=== PATIENT | male | born 1940 | race Caucasian/White ===

== ENCOUNTER → 2018-10-29 12:14 | Outpatient (CLI) | payer MEDICARE, BC, SELFPAY ==
[2016-05-16 09:02] VITALS: BMI 24.2
--- NOTE | 2018-10-29 08:48 | FLU_PTH ---
PATIENT: LEANNA LAW LOC: [facility] U#:[id number] AGE/SX: 84/M ROOM: RE10/29/[address]: Dr. Simona Ramirez MD : [id number] BED: DIS: SPEC #: [id number] RECD: 10/29/18 11:52 STATUS: ELIZABETH REMilla #: [id number] JOSE: 10/29/18 08:[address]: Simona Ramirez DEPT: CYTOLOGY RECD BY: Cristi Chandra ENTERED: 10/29/18 12:39 SP TYPE: Fluid OTHR DR: Dr. Axel Myrick MD Tissues: Thyroid gland, NOS Procedures: Special Stain Group II Surgery Specimen Level IV Cytospin Fluid HEADER OPERATION: Right thyroid FNA PRE-OP DIAGNOSIS: Multinodular goiter TISSUE SUBMITTED: A - Right thyroid FNA fluid for cytology, B - Right thyroid FNA slides x8 DIAGNOSIS CYTOLOGY A. Right thyroid nodule fluid for cytology, FNA (cytospin and cell block): Negative for malignant cells. See cytology study and comment. B. Right thyroid nodule, FNA (smears): Suggestive of benign follicular nodule. See cytology study and comment. SJ:rg 10/30/18 COMMENT B. The specimen is limited in evaluation due to lack of adequate number of follicular cells. Correlation with clinical, radiologic findings and appropriate follow up are necessary. Repeat FNA is suggested if clinically indicated. CYTOLOGY STUDY Slides are reviewed. A. The specimen is paucicellular and consists of rare macrophages. B. The specimen consists of a few clusters of benign follicular cells. CYTOLOGY GROSS A - Received is 27 ml of cloudy pink fluid labeled with the patient's name and and designated per the requisition as right thyroid. Submitted for cytology preparation including cell block. B - Received are eight smears labeled with the patient's name and designated per the requisition as right thyroid. Submitted for staining. / 10/29/18 TC:5 CPT: 38219, 74493, 90577
== END ==
PROVIDERS: Family Provider Internal Medicine; PCP Internal Medicine; Referring Provider Surgery; Visit Provider Surgery
DX: E04.2 Nontoxic multinodular goiter (principal)
CPT/HCPCS: 88108; 88305; 88313

== ENCOUNTER 2020-01-31 19:05 | Emergency (ER) | payer MEDICARE, BC, SELFPAY ==
[2020-01-31 19:06] VITALS: BP 142/77; PULSE 76; RESP 16; TEMP 37.2; O2SAT 98; BMI 23.6
[2020-01-31 19:29] LABS: Mucous, Urine 0 SEEN /hpf (<or=2+); Squamous Epithelial Cells - UA 0 SEEN /hpf (0-5)
[2020-01-31 19:30] LABS: Color, Urine Amber (Yellow); Glucose, Dipstick Normal (Normal); Ketone-Dipstick 5 mg/dl (Negative); Leukocyte Esterase-Dipstick 500 /ul (Negative); Nitrite-Dipstick Negative (Negative); Occult Blood-Urine 250 /ul (Negative); Protein-Dipstick 100 mg/dl (Negative); Urine Bilirubin Dipstick Negative (Negative); Urine Clarity Turbid (Clear); Urine Urobilinogen Normal (Normal)
[2020-01-31 19:34] LABS: Absolute Lymphocyte Count 1.44 X10^3/uL (0.83-4.51); Absolute Neutrophil Count 11.9 X10^3/uL (2.0-7.7); Basophil# 0.03 X10^3/uL; Basophil% 0.2 % (0-1); Eosinophil# 0.04 X10^3/uL; Eosinophils% 0.3 % (0-5); Hematocrit 41.8 % (40-54); Hemoglobin 14.1 g/dL (13.0-16.5); Lymphocyte # 1.44 X10^3/ul (4.0); Lymphocyte % 9.5 % (19-41); Mean Corp Hgb Conc 33.7 g/dL (32-36); Mean Corpuscular Volume 97.9 fL (80-94); Mean Platelet Vol. 10.5 fl (6.2-12.0); Monocyte# 1.69 X10^3/uL; Monocyte% 11.1 % (0-10); NRBC Flagged by Analyzer 0 % (0-5); Neutrophil # 11.88 X10^3/uL (2.7-7.7); Neutrophil % 78.2 % (47-70); POSITIVE DIFFERENTIAL YES; Platelet Count 175 K/mm3 (150-450); RBC Distribution Width CV 15.6 % (11.6-14.6); RBC Distribution Width SD 55.5 fl (35.1-43.9); Red Blood Count 4.27 M/mm3 (4.6-6.2); White Blood Count 15.2 K/mm3 (4.4-11.0)
[2020-01-31 19:38] LABS: Differential Indicated SCAN CRITERIA MET
[2020-01-31 19:41] VITALS: PULSE 72; RESP 20
[2020-01-31 19:45] LABS: Anion Gap 4 (5-15); BUN 31 mg/dL (7-18); BUN/Creat Ratio 20.3 RATIO (10-20); Calcium,Total 9.1 mg/dL (8.5-10.1); Chloride 110 mmol/L (98-107); Creatinine, Serum 1.53 mg/dL (0.70-1.30); EST Glomerular Filtration Rate 47 mL/min (>60); Est Glom Filt Rate - Afr Amer 56 mL/min (>60); Estimated Creatinine Clearance 41.56 ml/min; Glucose 95 mg/dL (74-106); Potassium 3.6 mmol/L (3.5-5.1); Sodium Level 143 mmol/L (136-145)
[2020-01-31 19:57] LABS: Anisocytosis RARE; Macrocytosis RARE; Platelet Estimate ADEQUATE (ADEQ); Red Cell Morphology N CHROM NORMAL (NORM C&C)
[2020-01-31 19:58] VITALS: BP 144/76; PULSE 77; RESP 17; TEMP 37.1; O2SAT 96
[2020-01-31 20:07] LABS: Bacteria 1+ /hpf (None Seen); Red Blood Cells-Urine 50-100 SEEN /hpf (0-5); White Blood Cells >100 SEEN /hpf (0-5)
[2020-01-31 20:39] VITALS: BP 152/81; PULSE 70; RESP 20; TEMP 37.1; O2SAT 95
--- NOTE | 2020-01-31 20:56 | ED.DCSUM_ITS ---
History of Present Illness Chief Complaint: Complaint Informant: Patient, Insurance Territory Manager Onset: Today Context: Sudden Onset Timing: Intermittent Quality: Urea, hematuria suprapubic discomfort Location: Current Severity: Mild Maximum Severity: Moderate Worsened by: Urination Relieved by: Nothing Associated Symptoms: No nausea or vomiting, no fever recent fall Narrative: Patient is an elderly male on aspirin. He is not on an anticoagulant. He presents because of frequency, dysuria, hematuria that started today. He did have a fall yesterday and seen at outside facility. He had a significant work- up. He does have orthopedic injuries. He denies tenesmus, perineal pain or history of prostatitis. He denies fever or chills. He denies vomiting or diarrhea. He denies any trauma to his genitals. 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 Lives: Alone Smoking Status: Former smoker Alcohol: None Drugs: None - Family History Maternal Family History: Reports: No pertinent history Paternal Family History: Reports: No pertinent history Review of Systems General: Reports: Malaise. Denies: Chills, Fever, Subjective, Sweats Eyes: Denies: Visual changes - bilaterally, Blurred Vision - bilaterally Cardiovascular: Denies: Chest pain, Palpitations Respiratory: Denies: Dyspnea, Cough, Dyspnea on exertion Gastrointestinal: Denies: Abdominal pain, Nausea, Vomiting, Diarrhea Genitourinary: Reports: Dysuria, Hematuria, Frequency Musculoskeletal: Reports: Swelling, Extremity Pain - To fall and injury yesterday, right upper extremity. Denies: Myalgias, Arthralgias, Neck pain, Back pain Skin: Reports: Rash, Abrasions - To trauma from yesterday Neurological: Denies: Headache Endocrine: Denies: Polyuria, Polydipsia Hematologic: Denies: Easy bruising Physical Exam Vital Signs/Narrative: Vital Signs Temp Pulse Resp BP Pulse Ox 01/31/20 20:39 98.7 F 70 20 H 152/81 H 95 01/31/20 19:58 98.7 F 77 17 144/76 H 96 01/31/20 19:41 72 20 H 01/31/20 19:06 98.9 F 76 16 142/77 H 98 Inital Vital Signs reviewed: Yes General: Well nourished, Well developed, No Acute Distress Head: Normocephalic, Trauma, Tenderness - Trauma from yesterday. Sutures noted. Multiple contusions and abrasions. No clinical findings of basilar skull fracture. Eyes: Perrl, EOMI, - - Subconjunctival hemorrhage.. Negative for: Pale conjunctiva, Scleral icterus ENT: Moist mucous membranes, No rhinorrhea Neck: Supple, Nontender. Negative for: No lymphadenopathy, No JVD Cardiovascular: Regular rate, Regular rhythm, No murmurs Respiratory: No distress, CTA bilaterally Abdomen: Soft, Nondistended, Normal bowel sounds, Tender - Pubic discomfort.. Negative for: Nontender Rectal: Deferred : - - Patient is incontinent. Back: Nontender, Normal Inspection. Negative for: CVA tenderness Extremities: Nontender, No edema Skin: Normal color, Trauma Neurological: Alert, Oriented x3, Cranial nerves II-XII grossly intact, Normal Strength, Normal Sensation Diagnostic/Tx/Re-eval Laboratory Results 01/31/20 01/31/20 01/31/20 19:25 19:25 19:25 WBC 15.2 H RBC 4.27 L Hgb 14.1 Hct 41.8 MCV 97.9 H MCH 33.0 H MCHC 33.7 RDW Std Deviation 55.5 H RDW Coeff of Louann 15.6 H Plt Count 175 MPV 10.5 Immature Gran % (Auto) 0.700 Neut % (Auto) 78.2 H Lymph % (Auto) 9.5 L Edmunds % (Auto) 11.1 H Eos % (Auto) 0.3 Baso % (Auto) 0.2 Absolute Neuts (auto) 11.9 H Absolute Lymphs (auto) 1.44 Nucleated RBC % 0 Differential Comment SEE COMMENT Diff Path Review May foll Platelet Estimate ADEQUATE RBC Morphology N CHROM Anisocytosis RARE Macrocytosis RARE Sodium 143 Potassium 3.6 Chloride 110 H Carbon Dioxide 29.0 Anion Gap 4 L BUN 31 H Creatinine 1.53 H Estim Creat Clear Calc 41.56 Est GFR (MDRD) Af Amer 56 L Est GFR (MDRD) Non-Af 47 L BUN/Creatinine Ratio 20.3 H Glucose 95 Lactic Acid Calcium 9.1 Urine Color Kasie Urine Clarity Turbid Urine pH 8.0 Ur Specific Norton 1.010 Urine Protein 100 H Urine Glucose (UA) Normal Urine Ketones 5 H Urine Occult Blood 250 H Urine Nitrite Negative Urine Bilirubin Negative Urine Urobilinogen Normal Ur Leukocyte Esterase 500 H Urine RBC 50-100 SEEN Urine WBC >100 SEEN Ur Squamous Epith Cells 0 SEEN Urine Bacteria 1+ Urine Mucus 0 SEEN 01/31/20 20:15 WBC RBC Hgb Hct MCV MCH MCHC RDW Std Deviation RDW Coeff of Louann Plt Count MPV Immature Gran % (Auto) Neut % (Auto) Lymph % (Auto) Edmunds % (Auto) Eos % (Auto) Baso % (Auto) Absolute Neuts (auto) Absolute Lymphs (auto) Nucleated RBC % Differential Comment Diff Path Review Platelet Estimate RBC Morphology Anisocytosis Macrocytosis Sodium Potassium Chloride Carbon Dioxide Anion Gap BUN Creatinine Estim Creat Clear Calc Est GFR (MDRD) Af Amer Est GFR (MDRD) Non-Af BUN/Creatinine Ratio Glucose Lactic Acid 1.4 Calcium Urine Color Urine Clarity Urine pH Ur Specific Norton Urine Protein Urine Glucose (UA) Urine Ketones Urine Occult Blood Urine Nitrite Urine Bilirubin Urine Urobilinogen Ur Leukocyte Esterase Urine RBC Urine WBC Ur Squamous Epith Cells Urine Bacteria Urine Mucus Count is elevated. This may be due to the trauma from yesterday. Lactate is normal. He has only 1 sirs criteria. Since he is hemodynamically stable he was discharged home with prescription for Bactrim. Culture was sent. - Medical Decision Making UA was obtained to assess for traumatic hematuria versus infectious. Urine is consistent with infection. White count is elevated. Patient only has 1 sirs criteria. Patient was treated with 2 g of Rocephin. Urine culture was sent. ED Disposition - Plan for ED Patient: Disposition: Home or Assisted Living Diagnosis: Cystitis with hematuria Instructions: ED CYSTITIS Male Adult Prescriptions: Cephalexin [Keflex] 500 mg PO Q6 #28 cap Transmission Status: Pending to [id number] Referrals: Axel Myrick MD [Primary Care Provider] - 3-5 Days if not improving
[2020-01-31 20:57] LABS: Lactic Acid 1.4 mmol/L (0.4-1.9)
[2020-01-31 21:16] VITALS: BP 158/75; PULSE 75; RESP 16; TEMP 37.1; O2SAT 95
[2020-01-31 23:07] VITALS: BP 158/79; PULSE 78; RESP 20; O2SAT 95
[2020-02-03 13:10] LABS: Pathologist Review Reviewed
== END 2020-01-31 23:08 | disposition home or self-care (01) ==
PROVIDERS: Emergency Provider Emergency Medicine; PCP Internal Medicine
DX: N30.91 Cystitis, unspecified with hematuria (principal); I71.2 Thoracic aortic aneurysm, without rupture; I10 Essential (primary) hypertension; N40.1 Benign prostatic hyperplasia with lower urinary tract symptoms; R35.0 Frequency of micturition; E78.5 Hyperlipidemia, unspecified; K21.9 Gastro-esophageal reflux disease without esophagitis; G62.9 Polyneuropathy, unspecified; Z87.891 Personal history of nicotine dependence; Z86.73 Personal history of transient ischemic attack (TIA), and cerebral infarction without residual deficits
CPT/HCPCS: 80048; 81001; 83605; 85025; 87077; 87086; 87088; 87186; 96365; 99285; J7050; A4216; J0696

== ENCOUNTER 2021-09-02 21:57 | Inpatient (IN) | payer MEDICARE, BC, SELFPAY ==
[2021-09-02] VITALS (8 sets, daily range): BP systolic 128–166; BP diastolic 66–85; PULSE 62–69; RESP 16–26; TEMP 36.5; O2SAT 93–97; BMI 26.2
--- NOTE | 2021-09-02 22:15 | EKG12_ITS ---
Test Reason : STROKE Blood Pressure : / mmHG Vent. Rate : 063 BPM Atrial Rate : 063 BPM P-R Int : 352 ms QRS Dur : 148 ms QT Int : 482 ms P-R-T Axes : 064 -63 052 degrees QTc Int : 493 ms Sinus rhythm with 1st degree A-V block Left axis deviation Left ventricular hypertrophy with QRS widening and repolarization abnormality Abnormal ECG Confirmed by MAYKEL OLMSTEAD, ERICA ([id number]), communications editor FLY HADLEY ([id number]) on 09/06/2021 11:17:19 AM Referred By: TANNA Confirmed By:ERICA BRAR MD
--- NOTE | 2021-09-02 22:15 | CT_ITS ---
We are attempting to reach an attending provider to discuss findings. An addendum with communication details will be sent when the communication is complete. EXAMINATION : Head CT w/out contrast HISTORY : Neuro deficit, acute, stroke suspected COMPARISON : 05/12/2016. TECHNIQUE : Multiple contiguous axial images were obtained from the skull base to the vertex without intravenous contrast. A radiation dose optimization technique was used for this scan. FINDINGS : There is no evidence for acute intracranial hemorrhage, mass effect, or midline shift. There is no extra-axial fluid collection. There are periventricular white matter changes consistent with chronic microvascular ischemic disease. There is sulcal widening and ventricular enlargement consistent with cerebral atrophy. There is normal segura-white differentiation, without CT evidence of acute ischemia or infarct. Encephalomalacia of the left cerebellum and bilateral frontal lobes. The skull base and calvarium are unremarkable. The orbits are unremarkable. The paranasal sinuses are clear. The mastoid air cells are well-aerated. The soft tissues are unremarkable. CT/STROKE Brain/Head without Cont IMPRESSION: No acute intracranial abnormality. 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 Chronic involutional and ischemic changes of the brain. Electronically Signed: Eugene Flynn MD at 22:42 EST ,
--- NOTE | 2021-09-02 22:20 | ED.VIS.STROK ---
HPI History of Present Illness Chief Complaint: Alt LOC Informant: patient and family Narrative Narrative: Brought in by EMS from home son is present to give additional history. Patient lives with son. Reports ambulates with a walker at baseline. Last normal 6 PM 4 hours upon arrival. Reported the left to get supper patient was going to the restroom take his pills upon return at 7 PM, patient was on his knees slumped over on his walker leading against the walker. They were able to get him on the couch, he reported speech seemed to be slurred. Blood glucose 109 per EMS. Patient does not recall the event. Per son patient has been feeling weaker over the last 2 weeks. Told he had neuropathy lower legs by a neurologist. Patient also found to be hypoxic 87% on room air no home oxygen he is placed on oxygen brought here. Per son, noting recent cough. No fevers. No home oxygen. Covid vaccinated. Patient takes aspirin however no other anticoagulants. Patient had a history leukemia unclear what type however this was remote over 10 years ago. Reports history of CVA with no residual deficits he was told it was mini strokes. From records 2016 had an admission with quick evaluation. However reports currently he still has mild changes in speech from baseline. Son also states patient's memory has been off due to less activities with dates and times. No diagnosed dementia history. Prior similar symptoms: No PFSH PFSH Medical History (Updated 09/03/21 @ 02:[address] Stan Reid DO) BPH (benign prostatic hypertrophy) CVA (cerebral vascular accident) Enlarged thyroid GERD (gastroesophageal reflux disease) History of gastrointestinal hemorrhage History of leukemia HLD (hyperlipidemia) Hypertension Parkinson's disease Peripheral neuropathy Thoracic aortic aneurysm Home Medications doxazosin 8 mg PO DAILY 07/15/14 [History Last Taken 05/12/16] lisinopril 20 mg PO DAILY 07/15/14 [History Last Taken 05/12/16] acetaminophen [Tylenol] 650 mg PO Q6H PRN PRN #0 tablet 05/16/16 [Rx Last Taken Unknown] aspirin 81 mg PO DAILY@0800 #30 tab.chew 05/16/16 [Rx Last Taken Unknown] finasteride 5 mg PO DAILY #30 tablet 05/16/16 [Rx Last Taken Unknown] Amlodipine 10 mg PO DAILY 01/31/20 [History Last Taken Unknown] cephalexin 500 mg PO Q6 #28 cap 01/31/20 [Rx Last Taken Unknown] cranberry conc-ascorbic acid 1 tab PO DAILY 01/31/20 [History Last Taken Unknown] polyethylene glycol 3350 17 gm PO PRN PRN 01/31/20 [History Last Taken Unknown] carbidopa-levodopa 1 tab PO TID 09/02/21 [History Last Taken Unknown] furosemide 20 mg PO DAILY 09/02/21 [History Last Taken Unknown] losartan 50 mg PO DAILY 09/02/21 [History Last Taken Unknown] lysine 1,000 mg DAILY 09/02/21 [History Last Taken Unknown] omeprazole 20 mg PO DAILY 09/02/21 [History Last Taken Unknown] spironolactone 25 mg PO DAILY 09/02/21 [History Last Taken Unknown] Allergy/AdvReac Type Severity Reaction Status Date / Time Iodine and Iodide Containing Allergy Severe Anaphylaxis Verified 09/02/21 22:11 Produc Family History (Updated 09/03/21 @ 01:[address] Valerie Ramirez MD) Mother Heart disease Father Heart disease Myocardial infarction Surgical History H/O foot surgery S/P herniorrhaphy S/P TURP Social History (Updated 09/03/21 @ 01:[address] Valerie Ramirez MD) household members: family Smoking Status: Former smoker how long ago did patient quit smoking: Quit 1973. alcohol intake: former details: Former heavy beer intake. substance use type: does not use ROS ROS ED Constitutional Constitutional ED: Denies chills, fever(s) or sweats Eyes Eyes: Denies change in vision ENT ENT ED: Denies dysphagia or sore throat Cardiovascular Cardiovascular: Denies chest pain, leg edema, palpitations or racing heartbeat Respiratory/Chest Respiratory/Chest: Reports cough; Denies dyspnea or dyspnea on exertion Gastrointestinal Gastrointestinal: Denies abdominal pain, diarrhea, nausea or vomiting Genitourinary Genitourinary ED: Denies dysuria, hematuria or urinary frequency Musculoskeletal Musculoskeletal: Denies back pain, extremity pain or neck pain Integumentary Denies rash or wounds Neurologic Neurologic: Reports other Details: Slurring of speech ; Denies headache(s), paresthesias or weakness EXAM Physical Exam Const Vital Signs: 09/02/21 21:58 09/02/21 22:14 09/02/21 22:22 Temperature 97.7 F L Temperature Source Temporal Pulse Rate 69 66 Respiratory Rate 18 16 Blood Pressure 128/71 H 142/79 H Blood Pressure Mean 90 100 Pulse Ox 96 96 96 Oxygen Delivery Method Nasal Cannula Nasal Cannula Nasal Cannula Oxygen Flow Rate (L/min) 3 3 3 09/02/21 22:29 09/02/21 22:40 09/02/21 22:45 Temperature Temperature Source Pulse Rate 66 66 62 Respiratory Rate 18 20 H 23 H Blood Pressure 139/66 H 136/68 H 141/85 H Blood Pressure Mean 90 90 103 Pulse Ox 96 93 93 Oxygen Delivery Method Nasal Cannula Nasal Cannula Nasal Cannula Oxygen Flow Rate (L/min) 3 2 2 09/02/21 23:17 09/02/21 23:47 09/03/21 00:24 Temperature Temperature Source Pulse Rate 64 68 72 Respiratory Rate 26 H 24 H Blood Pressure 166/70 H 157/72 H 166/74 H Blood Pressure Mean 102 100 104 Pulse Ox 97 97 93 Oxygen Delivery Method Nasal Cannula Nasal Cannula Nasal Cannula Oxygen Flow Rate (L/min) 2 3 3 09/03/21 00:35 09/03/21 00:50 09/03/21 01:19 Temperature Temperature Source Pulse Rate 80 79 74 Respiratory Rate 26 H Blood Pressure 164/73 H 161/71 H 169/84 H Blood Pressure Mean 103 101 112 Pulse Ox 93 94 96 Oxygen Delivery Method Nasal Cannula Nasal Cannula Nasal Cannula Oxygen Flow Rate (L/min) 3 3 3 Positive well nourished and well developed Constitutional Narrative: On nasal cannula, no respiratory distress. General Appearance ED: well developed and NAD HEENT Reports moist mucous membranes normocephalic and atraumatic Eyes PERRL, EOMs intact bilaterally and conjunctivae normal General Eye ED: Yes normal appearance of both eyes Neck no lymphadenopathy and supple General: Negative for tenderness Chest Wall Chest: Negative for tenderness Resp normal respiratory effort and normal air movement Effort and Inspection: symmetric chest movement; Negative for respiratory distress Cardio regular rate, regular rhythm and no murmurs Peripheral Pulses: pulses 2+ throughout GI normal to inspection, nondistended, normoactive bowel sounds and non-tender GI Narrative: Reproducible ventral hernia left lower quadrant. Palpation: Negative for guarding or rebound tenderness present Back/Spine no CVA tenderness and no thoracic nor lumbar tenderness Extremity normal to inspection General Extremety ED: Negative for edema or tenderness General Extremity: Negative for edema Neuro CN's II-XII intact bilaterally and no sensory deficits noted Neuro Narrative: Is alert and oriented to person and place could not tell me the month,year or date. Patient given NIH of 3 for not knowing the month, slight drift of left leg, slight dysarthria. Normal cerebellar upper and lower extremity. Sensorium / Orientation: awake and alert Skin no rashes or lesions noted Skin Narrative: Abrasion pressure wound on the distal left forearm ulnar aspect, no erythema or drainage. Left groin: Irritations erythema in the crease, no ulcerations, no indurations. No drainage. STROKE Vital Signs/Narrative: Vital Signs Pulse Resp BP Pulse Ox 09/03/21 01:19 74 26 H 169/84 H 96 09/03/21 00:50 79 161/71 H 94 09/03/21 00:35 80 164/73 H 93 09/03/21 00:24 72 166/74 H 93 09/02/21 23:47 68 24 H 157/72 H 97 09/02/21 23:17 64 26 H 166/70 H 97 Inital Vital Signs reviewed: Yes NIHSS Initial: 1a Level of Consciousness: 0 1b LOC Questions (Score 2 if aphasic/stupor): 1 1c LOC Commands (Only score 1st attempt): 0 2 Best Gaze (If aphasic, use reflexive mvmts.): 0 3 Visual: 0 4 Facial Palsy: 0 5 Motor Arm Left: 0 6 Motor Leg Right: 0 6 Motor Leg Left: 1 7 Limb ataxia (Only + if out of proportion): 0 8 Sensory (Aphasia/stupor=0 or 1, coma=2): 0 9 Best Language: 0 10 Dysarthria (mute, coma=2, intubated=UN): 1 11 Extinction and Inattention (only scored if +): 0 Total Score: 3 MDM MDM MDM Narrative Medical decision making narrative: Patient given initial NIH of 3 however after discussion with son only new symptom is the dysarthria. Reports he does not do activities therefore he does not have memory of timeframe. States he has been weaker in the lower extremities. With time frame of event and witnessed by son I did activate the stroke team. He has severe iodine allergy causing anaphylaxis therefore angiogram was not ordered. Noted to be sinus rhythm on the monitor. Glucose was 109 per EMS recheck was 113 in the ED. In the interim, I did evaluate records he did have a confirmed stroke in 2016 noting a right centrum semiovale involvement on MRI. MRA noted high-grade stenosis versus occlusion left proximal segment of the left P2 segment, there is no interventions at that time from the ED or in the hospital from the discharge summary. Callback from stroke neurologist, Dr Vail, after 1030 more than 4-1/2 hours from symptoms therefore he is outside the window. He evaluated states he is noting deficits of 1-2 with this NIH. I discussed my findings with NIH of 3 with deficits. I did discuss the findings of the patient his severe iodine allergy along with his MRI studies from 2016. He agrees no peripheral TPA, however he is requesting a stat MRI, MRA of the head and neck to rule out LVO as he is within 24 hours of symptoms. This is ordered for further evaluation. Patient family updated on plan of care. CT reads discussion with radiology old infarcts bilateral frontal lobes and left cerebellum. 2250: Noted patient's white blood cell count returned at 17. His respiratory rate was 23. Meeting SIRS criteria with his hypoxia. I reviewed chest x-ray myself questionable left lower lobe effusion atelectasis versus infiltrate. Son has reported had a cough and occasional sputum over the past 3 weeks. He had initial work-up 3 weeks ago at [facility] reporting Covid testing and work-up negative at that time. Denies any fevers. 2340: Chest x-ray read negative. Nurse reported redness on the skin in the abdominal region, however this is more located in the left groin consistent with tinea. There is no other rashes noted. In the interim, I did have to speak with community development technician who was concerned that she is getting called in for MRI studies for stroke. I did explain to her the significance of timing due to patient being in the window for possible mechanical intervention if an LVO is found. Discussed with concerns for time of getting imaging performed, importance would be the MRA studies and MRI study can wait. She is coming in to perform image studies. EKG sinus first-degree AV block rate of 63, no ST changes isolated T wave inversion in aVL nonspecific. Similar findings from 2016. His troponin was 83 coming back, creatinine at 1.59. He has no chest pains. 0035: Patient in MRI. Lactic acid returned at 1.8. Leukocytosis with coughing symptoms. No other reasons for infection. He is hypoxic stable on oxygen. We will start Rocephin and Zithromax for coverage for clinical pneumonia. 0209: Discussion with radiologist MRI studies new right cerebellar stroke there is no hemorrhage. MRA study results noted no LVO. Reported and no critical stenosis of head or neck. No patient's troponin level 2-hour trended go up to 124. He had no chest pains. Patient passed bedside swallow potassium was replaced. He was given 324 of aspirin. Discussed with hospitalist Dr. Ramirez she will do heparin drip on the floor. Patient will be admitted for further management to PCU. Lab Data Attestation: I reviewed the patient's lab results. Labs: Laboratory Results - last 24 hr 09/02/21 09/02/21 09/02/21 22:26 22:26 22:26 WBC 17.6 H RBC 4.18 L Hgb 13.7 Hct 40.7 MCV 97.4 H MCH 32.8 H MCHC 33.7 RDW Std Deviation 59.2 H RDW Coeff of Louann 16.4 H Plt Count 212 MPV 10.4 Immature Gran % (Auto) 2.200 H Neut % (Auto) 85.3 H Lymph % (Auto) 4.9 L Osborne % (Auto) 7.0 Eos % (Auto) 0.1 Baso % (Auto) 0.5 Absolute Neuts (auto) 15.0 H Absolute Lymphs (auto) 0.86 Nucleated RBC % 0 PT 14.3 INR 1.2 APTT 27.8 Sodium 143 Potassium 3.2 L Chloride 110 H Carbon Dioxide 26.0 Anion Gap 7 BUN 24 H Creatinine 1.59 H Estim Creat Clear Calc 36.35 Est GFR (MDRD) Af Amer 54 L Est GFR (MDRD) Non-Af 44 L BUN/Creatinine Ratio 15.1 Glucose 113 H Lactic Acid Calcium 9.1 Magnesium Troponin I High Sens 83 H Urine Color Urine Clarity Urine pH Ur Specific Helix Urine Protein Urine Glucose (UA) Urine Ketones Urine Occult Blood Urine Nitrite Urine Bilirubin Urine Urobilinogen Ur Leukocyte Esterase Urine RBC Urine WBC Ur Squamous Epith Cells Urine Bacteria Hyaline Casts Urine Mucus 09/02/21 09/02/21 09/03/21 23:00 23:12 01:19 WBC RBC Hgb Hct MCV MCH MCHC RDW Std Deviation RDW Coeff of Louann Plt Count MPV Immature Gran % (Auto) Neut % (Auto) Lymph % (Auto) Osborne % (Auto) Eos % (Auto) Baso % (Auto) Absolute Neuts (auto) Absolute Lymphs (auto) Nucleated RBC % PT INR APTT Sodium Potassium Chloride Carbon Dioxide Anion Gap BUN Creatinine Estim Creat Clear Calc Est GFR (MDRD) Af Amer Est GFR (MDRD) Non-Af BUN/Creatinine Ratio Glucose Lactic Acid 1.8 Calcium Magnesium Troponin I High Sens 147 H* Urine Color Yellow Urine Clarity Clear Urine pH 6.0 Ur Specific Helix 1.020 Urine Protein 100 H Urine Glucose (UA) Normal Urine Ketones 5 H Urine Occult Blood 250 H Urine Nitrite Negative Urine Bilirubin Negative Urine Urobilinogen 1 H Ur Leukocyte Esterase Negative Urine RBC 0 SEEN Urine WBC 0-5 SEEN Ur Squamous Epith Cells 0 SEEN Urine Bacteria RARE Hyaline Casts 0-5 SEEN Urine Mucus RARE 09/03/21 01:19 WBC RBC Hgb Hct MCV MCH MCHC RDW Std Deviation RDW Coeff of Louann Plt Count MPV Immature Gran % (Auto) Neut % (Auto) Lymph % (Auto) Osborne % (Auto) Eos % (Auto) Baso % (Auto) Absolute Neuts (auto) Absolute Lymphs (auto) Nucleated RBC % PT INR APTT Sodium Potassium Chloride Carbon Dioxide Anion Gap BUN Creatinine Estim Creat Clear Calc Est GFR (MDRD) Af Amer Est GFR (MDRD) Non-Af BUN/Creatinine Ratio Glucose Lactic Acid Calcium Magnesium 2.8 H Troponin I High Sens Urine Color Urine Clarity Urine pH Ur Specific Helix Urine Protein Urine Glucose (UA) Urine Ketones Urine Occult Blood Urine Nitrite Urine Bilirubin Urine Urobilinogen Ur Leukocyte Esterase Urine RBC Urine WBC Ur Squamous Epith Cells Urine Bacteria Hyaline Casts Urine Mucus Radiography Diagnostic Testing: Clinical Impression(s) from Imaging Studies Brain CT 09/02/21 22:15 IMPRESSION: No acute intracranial abnormality. 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 Chronic involutional and ischemic changes of the brain. Electronically Signed: Eugene Flynn MD at 22:42 EST , ADDENDUM: 09/02/21 2251 IMPRESSION: No acute intracranial abnormality. 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 Chronic involutional and ischemic changes of the brain. N.B. : The above Results were Read Back by Eugene Flynn MD to Stan Reid MD, and understanding confirmed on 09/02/2021 22:44:09 (ET). Electronically Signed: Eugene Flynn MD at 22:42 EST , Chest X-Ray 09/02/21 22:48 IMPRESSION: No acute radiographic abnormalities. Large hiatal hernia. Electronically Signed: Eugene Flynn MD at 23:20 EST , Brain MRI 09/03/21 00:00 IMPRESSION: 1. Findings consistent with tiny ischemic stroke within the right cerebellum. 2. Sequela of old infarcts and severe senescent change as above. 3. Mild sinus disease. at 0206 Reported and signed by: Himanshu Neely MD Electronically Signed: Himanshu Neely MD at 2:02 EST , ADDENDUM: 09/03/21 0216 IMPRESSION: 1. Findings consistent with tiny ischemic stroke within the right cerebellum. 2. Sequela of old infarcts and severe senescent change as above. 3. Mild sinus disease. at 0206 Reported and signed by: Himanshu Neely MD N.B. : The above Results were Read Back by Himanshu Neely MD to Stan Reid MD, and understanding confirmed on 09/03/2021 02:10:00 (ET). Electronically Signed: Himanshu Neely MD at 2:02 EST Reading Location ID and State: [facility] / [place] Tel , Service support , Head MRA 09/03/21 00:00 IMPRESSION: Variant anatomy as above with persistent origin of diminutive posterior cerebral arteries, similar to May 13, 2016 without evidence of current focal stenosis.. at 0151 Reported and signed by: Himanshu Neely MD Electronically Signed: Himanshu Neely MD at 1:50 EST Reading Location ID and State: [facility] / [place] Tel , Service support , Neck MRA 09/03/21 00:00 IMPRESSION: No evidence of cervical vertebral or carotid occlusion or focal flow limiting stenosis. at 0156 Reported and signed by: Himanshu Neely MD Electronically Signed: Himanshu Neely MD at 1:55 EST Reading Location ID and State: [facility] / [place] Tel , Service support , EKG Initial EKG: Attestation: I personally reviewed and interpreted this EKG as follows: Comments: Sinus rate of 63, no ST changes. Isolated T wave inversion in leads III overall nonspecific. First-degree AV block. Similar findings from nausea 2016. Prior EKG tracings: available for review Stroke Documentation Questions Stroke Team Activated: Yes Reviewed Inclusion/Exclusion criteria: Yes Was Patient considered for Endovascular Intervention?: No-CTA negative, determined not to be an endovascular candidate (severe allergy to iodine near cardiac arrest per son) IV Alteplase (t-PA) Administered: No (outside window) Critical Care Time Critical Care Time: Yes Critical care time (excluding procedures): 30-74 minutes, Discussing w/Patient &/or Family/Ship Surveyor, Discussing w/Consultants, Arranging Admission or Transfer, Performing Direct Patient Care at Bedside and - (45 minutes) Discharge Plan Dx/Rx/DC Orders Clinical Impression: Cerebellar stroke, acute, Pneumonia, Elevated troponin, Leukocytosis, CKD (chronic kidney disease), Acute hypokalemia, Abrasion of forearm, left, Tinea inguinalis Disposition Disposition: Acute Care [facility]
--- NOTE | 2021-09-02 22:22 | CM.ED ---
SW Note Referral Source: Stroke Alert Referral Reason: Stroke Alert SW met with patient's son, who was in the room. Patient was in imaging. SW provided emotional support to patient's son, Neil. Patient is linked with neurology from [facility] and the neurologist felt patient had the beginning of Parkinson's. Patient's RN Mattie updated. SW remains available for patient's family if needs arise. Plan: Emotional support provided Chanell MCNEILL
[2021-09-02 22:34] LABS: Absolute Lymphocyte Count 0.86 X10^3/uL (0.83-4.51); Basophil# 0.08 X10^3/uL; Basophil% 0.5 % (0-1); Eosinophil# 0.02 X10^3/uL; Eosinophils% 0.1 % (0-5); Hematocrit 40.7 % (40-54); Hemoglobin 13.7 g/dL (13.0-16.5); Lymphocyte # 0.86 X10^3/ul (0.83-4.51); Lymphocyte % 4.9 % (19-41); Mean Corp Hgb Conc 33.7 g/dL (32-36); Mean Corpuscular Hgb 32.8 pg (27.0-32.0); Mean Corpuscular Volume 97.4 fL (80-94); Mean Platelet Vol. 10.4 fl (6.2-12.0); Monocyte# 1.24 X10^3/uL; NRBC Flagged by Analyzer 0 % (0-5); Neutrophil # 15.02 X10^3/uL (2.7-7.7); Neutrophil % 85.3 % (47-70); Platelet Count 212 K/mm3 (150-450); RBC Distribution Width CV 16.4 % (11.6-14.6); RBC Distribution Width SD 59.2 fl (35.1-43.9); Red Blood Count 4.18 M/mm3 (4.6-6.2); White Blood Count 17.6 K/mm3 (4.4-11.0)
[2021-09-02 22:43] LABS: International Normalized Ratio 1.2; Prothrombin Time (Protime)PT. 14.3 SECONDS (11.7-14.9)
[2021-09-02 22:44] LABS: Partial Thromboplast Time 27.8 Seconds (24.1-36.2)
--- NOTE | 2021-09-02 22:48 | RAD_ITS ---
INDICATION: Neuro deficit, acute, stroke suspected EXAMINATION/TECHNIQUE: X-RAY - XR Chest 1 View COMPARISON: 07/12/2015. FINDINGS: Bibasilar atelectasis. Tortuous and calcified thoracic aorta. The heart is not enlarged. No pleural effusion or pneumothorax. Degenerative changes of the thoracic spine and shoulders. Large hiatal hernia. RAD/Chest 1 View IMPRESSION: No acute radiographic abnormalities. Large hiatal hernia. Electronically Signed: Eugene Flynn MD at 23:20 EST ,
[2021-09-02 22:51] LABS: Anion Gap 7 (5-15); BUN 24 mg/dL (7-18); BUN/Creat Ratio 15.1 RATIO (10-20); Calcium,Total 9.1 mg/dL (8.5-10.1); Chloride 110 mmol/L (98-107); Creatinine, Serum 1.59 mg/dL (0.70-1.30); EST Glomerular Filtration Rate 44 mL/min (>60); Est Glom Filt Rate - Afr Amer 54 mL/min (>60); Estimated Creatinine Clearance 36.35 ml/min; Glucose 113 mg/dL (74-106); Potassium 3.2 mmol/L (3.5-5.1); Sodium Level 143 mmol/L (136-145); Troponin-I HS 83 pg/mL (3.0-78.0)
[2021-09-02 23:22] LABS: Red Blood Cells-Urine 0 SEEN /hpf (0-5); Squamous Epithelial Cells - UA 0 SEEN /hpf (0-5)
[2021-09-02 23:41] LABS: Color, Urine Yellow (Yellow); Glucose, Dipstick Normal (Normal); Ketone-Dipstick 5 mg/dl (Negative); Leukocyte Esterase-Dipstick Negative /ul (Negative); Nitrite-Dipstick Negative (Negative); Occult Blood-Urine 250 /ul (Negative); Protein-Dipstick 100 mg/dl (Negative); Urine Bilirubin Dipstick Negative (Negative); Urine Clarity Clear (Clear); Urine Urobilinogen 1 mg/dl (Normal)
[2021-09-02 23:46] LABS: Lactic Acid 1.8 mmol/L (0.4-1.9)
[2021-09-02 23:55] LABS: White Blood Cells 0-5 SEEN /hpf (0-5)
[2021-09-02 23:56] LABS: Bacteria RARE /hpf (None Seen); Hyaline Cast 0-5 SEEN /lpf (0-5); Mucous, Urine RARE /hpf (<or=2+)
[2021-09-03] VITALS (21 sets, daily range): BP systolic 108–169; BP diastolic 57–84; PULSE 39–85; RESP 12–26; TEMP 36.7–37.2; O2SAT 88–98; BMI 25.5
--- NOTE | 2021-09-03 | MRI_ITS ---
We are attempting to reach an attending provider to discuss findings. An addendum with communication details will be sent when the communication is complete. HISTORY: slurred speech EXAMINATION: MR Brain W/O Contrast TECHNIQUE: Multiplanar and multisequence MR images of the brain were obtained without gadolinium. IV Contrast dosage and agent: None COMPARISON: MRA head and neck on same day. MRI brain May 13, 2016 FINDINGS: BRAIN PARENCHYMA: Normal midline development of anatomy. No Chiari malformation. Unremarkable sella. Cerebellar pontine angles are clear. Chronic encephalomalacia within the bilateral inferior frontal lobes with suggestion of subarachnoid cyst. 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 Severe diffuse T2 hyperintense chronic small vessel white matter ischemic change is chronic. Scattered encephalomalacia within the bilateral cerebellum is unchanged. New focus of restricted diffusion within the right cerebellar hemisphere spanning 0.7 x 0.2 cm. No evidence of tintracranial space occupying mass or mass-effect.. CSF SPACES: Moderate global cerebral volume loss. No hydrocephalus. Basal cisterns are patent. VASCULAR SYSTEM: Normal flow voids in the major intracranial circulation. CALVARIUM, SKULL BASE, PARANASAL SINUSES AND MASTOID AIR CELLS: Partial opacification of the right maxillary sinus and bilateral ethmoid air cells. Mastoid air cells are clear. ORBITS: Both globes, extraocular muscles, optic nerves and retrobulbar fat appear unremarkable. MRI/Brain without Contrast IMPRESSION: 1. Findings consistent with tiny ischemic stroke within the right cerebellum. 2. Sequela of old infarcts and severe senescent change as above. 3. Mild sinus disease. at 0206 Reported and signed by: Himanshu Neely MD Electronically Signed: Himanshu Neely MD at 2:02 EST ,
--- NOTE | 2021-09-03 | MRI_ITS ---
HISTORY: slurred speech EXAMINATION: MRA Head W/O Contrast TECHNIQUE: Routine [place]/brain 3D time of flight MR angiogram protocol was performed without gadolinium. 3D reconstructions were reviewed. IV Contrast dosage and agent: COMPARISON: May 13, 2016 FINDINGS: --Anterior circulation: ICAs: No significant stenosis at the intracranial/visualized segments. ACAs: No significant stenosis at the visualized segments. ACOM: Present. MCAs: No significant stenosis at the visualized segments. --Posterior circulation: PCOMs: Intact bilaterally with persistent origin of the posterior cerebral arteries. logging tractor operator [place]: Symmetrically diminutive in size and difficult to appreciate distally with persistent origin as above. BASILAR ARTERY: No significant stenosis. VERTEBRAL ARTERIES: No significant stenosis at the intradural/visualized segments. No evidence of intracranial aneurysm or vascular malformation. MRI/MRA Head ONLY without Contrast IMPRESSION: Variant anatomy as above with persistent origin of diminutive posterior cerebral arteries, similar to May 13, 2016 without evidence of current focal stenosis.. at 0151 Reported and signed by: Himanshu Neely MD Electronically Signed: Himanshu Neely MD at 1:50 EST ,
--- NOTE | 2021-09-03 | MRI_ITS ---
HISTORY: slurred speech EXAMINATION: MRA Neck W/O Contrast TECHNIQUE: Routine non-contrast [id number] Carotid MR angiogram protocol was performed without gadolinium. 3D reconstructions were reviewed. Nascet criteria using the distal ICAs for comparison were used for evaluation of stenoses. IV Contrast dosage and agent: None COMPARISON: MRA head on same day FINDINGS: AORTIC ARCH AND BRANCHES: No significant stenosis at the visualized portions. RIGHT CCA: No occlusion or significant stenosis. RIGHT ICA: No occlusion or significant stenosis. LEFT CCA: No occlusion or significant stenosis. LEFT ICA: No occlusion or significant stenosis. RIGHT VERTEBRAL ARTERY: No occlusion or significant stenosis. LEFT VERTEBRAL ARTERY: No occlusion or significant stenosis. No evidence of acute injury of the major arterial system of the neck. MRI/MRA Neck without Contrast IMPRESSION: No evidence of cervical vertebral or carotid occlusion or focal flow limiting stenosis. at 0156 Reported and signed by: Himanshu Neely MD Electronically Signed: Himanshu Neely MD at 1:55 EST ,
--- NOTE | 2021-09-03 00:20 | ED.RN ---
2350 pt went via cart to mri with assist of two rn's. with assist of three brought over to the cart. 0010 [id number] on 2lnc.pt in the mri
--- NOTE | 2021-09-03 01:20 | ED.RN ---
PT BACK FORM MRI.
--- NOTE | 2021-09-03 01:22 | HP.PCM.HOS_ITS ---
HPI - General General Date of Admission: 09/03/21 Date of Service: 09/03/21 Chief Complaint: Dysarthria, confusion. HPI Narrative The patient is an 81 y/o M w/ PMHx: Parkinson's disease, CKD stage III unclear subtype, Hx Thoracic AA, Hx CVA, GERD, Hx Leukemia, Hx prior GI bleed w/ PUD, HTN, HLD, BPH, Former tobacco use who presents to the [facility] ED on 09/02/21 secondary to history of being found ~ 1 hour following last normal appropriate i nteraction with his family slumped over his walker with no recollection of any events and upon evaluation was noted to have mildly slurred speech prompting ED evaluation. EMS did note blood sugar of 109. Patient has been following with a neurologist secondary to ongoing lower extremity generalized weakness and was diagnosed with general neuropathy. Patient also per EMS noted to be 87% on room air therefore placed on oxygen supplementation on route. Son does report a recent cough but no fevers or chills and notes that patient was evaluated at the [facility] emergency room 3 weeks prior secondary to the symptoms as well as mild sputum production and then negative Covid testing as well as unremarkable ED work-up at that time. Patient is vaccinated against COVID upon ED evaluation patient with noted NIHSS 2 per staff with noted mild to moderate dysarthria and 1 question answered appropriate on LOC questions with repeat NIH stroke scale per physician noted to be 3 but son did admit to memory impairment and noted that the dysarthria is primarily the only new symptom. Stroke alert called f sylviaing evaluation per ED physician. Work-up in the ED included T 97.7, heart rate 69, BP 128/71, respiratory rate 18, 96% on room air, CBC with WC 17.6, hemoglobin 13.7, platelet 212 with left shift, coags unremarkable, BMP with potassium 3.2, chloride 110, BUN/creatinine 24/1.59, glucose 113, troponin 83, CT of the brain with no acute intracranial abnormality with old infarcts the bilateral frontal lobes and left cerebellum with chronic involutional and ischemic changes of the brain, urinalysis not marked appearing except mildly elevated specific gravity, chest x-ray with questionable left lower lobe effusion, atelectasis versus infiltrate EKG with sinus rhythm with no acute evidence of ischemia, MRI of the brain, MRA of the head and neck being obtained per telemetry stroke recommendation secondary to inability to obtain CTA head and neck secondary to severe allergic reaction to contrast. Discussed with ED physician as well as family and if there is no obvious large vessel occlusion would plan to continue with admission at [facility]. [facility] Medical History (Updated 09/03/21 @ 01:[address] Valerie Ramirez MD) BPH (benign prostatic hypertrophy) CVA (cerebral vascular accident) Enlarged thyroid GERD (gastroesophageal reflux disease) History of gastrointestinal hemorrhage History of leukemia HLD (hyperlipidemia) Hypertension Parkinson's disease Peripheral neuropathy Thoracic aortic aneurysm Home Medications doxazosin 8 mg PO DAILY 07/15/14 [History Last Taken 05/12/16] lisinopril 20 mg PO DAILY 07/15/14 [History Last Taken 05/12/16] acetaminophen [Tylenol] 650 mg PO Q6H PRN PRN #0 tablet 05/16/16 [Rx Last Taken Unknown] aspirin 81 mg PO DAILY@0800 #30 tab.chew 05/16/16 [Rx Last Taken Unknown] finasteride 5 mg PO DAILY #30 tablet 05/16/16 [Rx Last Taken Unknown] Amlodipine 10 mg PO DAILY 01/31/20 [History Last Taken Unknown] cephalexin 500 mg PO Q6 #28 cap 01/31/20 [Rx Last Taken Unknown] cranberry conc-ascorbic acid 1 tab PO DAILY 01/31/20 [History Last Taken Unknown] polyethylene glycol 3350 17 gm PO PRN PRN 01/31/20 [History Last Taken Unknown] carbidopa-levodopa 1 tab PO TID 09/02/21 [History Last Taken Unknown] furosemide 20 mg PO DAILY 09/02/21 [History Last Taken Unknown] losartan 50 mg PO DAILY 09/02/21 [History Last Taken Unknown] lysine 1,000 mg DAILY 09/02/21 [History Last Taken Unknown] omeprazole 20 mg PO DAILY 09/02/21 [History Last Taken Unknown] spironolactone 25 mg PO DAILY 09/02/21 [History Last Taken Unknown] Allergy/AdvReac Type Severity Reaction Status Date / Time Iodine and Iodide Containing Allergy Severe Anaphylaxis Verified 09/02/21 22:11 Produc Family History (Updated 09/03/21 @ 01:[address] Valerie Ramirez MD) Mother Heart disease Father Heart disease Myocardial infarction Surgical History H/O foot surgery S/P herniorrhaphy S/P TURP Social History (Updated 09/03/21 @ 01:[address] Valerie Ramirez MD) household members: family Smoking Status: Former smoker how long ago did patient quit smoking: Quit 1973. alcohol intake: former details: Former heavy beer intake. substance use type: does not use ROS ROS Narrative Admission Review of Systems: CONSTITUTIONAL: No weight loss, fever, chills, + weakness or fatigue. HEENT: Eyes: No visual loss, blurred vision, double vision or yellow sclerae. Ears, Nose, Throat: No hearing loss, sneezing, congestion, runny nose or sore throat. SKIN: No rash or itching, lesions, wounds. CARDIOVASCULAR: No chest pain, chest pressure or chest discomfort, palpitations, edema, orthopnea, syncopal events. RESPIRATORY: + Mild cough occasionally productive, no wheezing, hemoptysis. GASTROINTESTINAL: No anorexia, nausea, vomiting or diarrhea, abdominal pain, melena, BRBPR. GENITOURINARY: No dysuria, frequency, urgency or retention. NEUROLOGICAL: + Slurred speech, neuropathy with bilateral extremity generalized weakness, dysarthria, confusion, slight left lower extremity drift, No headache, dizziness, syncope, change in bowel or bladder control, seizure. MUSCULOSKELETAL: No muscle, back pain, joint pain or stiffness. HEMATOLOGIC: No anemia, bleeding or bruising. LYMPHATICS: No enlarged nodes. No history of splenectomy. PSYCHIATRIC: No history of depression or anxiety. ENDOCRINOLOGIC: No reports of sweating, cold or heat intolerance. No polyuria or polydipsia. ALLERGIES: No history of asthma, hives, eczema or rhinitis. Vital Signs Vital Signs Vital Signs: 09/02/21 21:58 09/02/21 22:14 09/02/21 22:22 Temperature 97.7 F L Temperature Source Temporal Pulse Rate 69 66 Respiratory Rate 18 16 Blood Pressure 128/71 H 142/79 H Blood Pressure Mean 90 100 Pulse Ox 96 96 96 Oxygen Delivery Method Nasal Cannula Nasal Cannula Nasal Cannula Oxygen Flow Rate (L/min) 3 3 3 09/02/21 22:29 09/02/21 22:40 09/02/21 22:45 Temperature Temperature Source Pulse Rate 66 66 62 Respiratory Rate 18 20 H 23 H Blood Pressure 139/66 H 136/68 H 141/85 H Blood Pressure Mean 90 90 103 Pulse Ox 96 93 93 Oxygen Delivery Method Nasal Cannula Nasal Cannula Nasal Cannula Oxygen Flow Rate (L/min) 3 2 2 09/02/21 23:17 09/02/21 23:47 09/03/21 00:24 Temperature Temperature Source Pulse Rate 64 68 72 Respiratory Rate 26 H 24 H Blood Pressure 166/70 H 157/72 H 166/74 H Blood Pressure Mean 102 100 104 Pulse Ox 97 97 93 Oxygen Delivery Method Nasal Cannula Nasal Cannula Nasal Cannula Oxygen Flow Rate (L/min) 2 3 3 09/03/21 00:35 09/03/21 00:50 09/03/21 01:19 Temperature Temperature Source Pulse Rate 80 79 74 Respiratory Rate 26 H Blood Pressure 164/73 H 161/71 H 169/84 H Blood Pressure Mean 103 101 112 Pulse Ox 93 94 96 Oxygen Delivery Method Nasal Cannula Nasal Cannula Nasal Cannula Oxygen Flow Rate (L/min) 3 3 3 Weight Weight: 182 lb 5.156 oz Body Mass Index (BMI) 26.2 Physical Exam Narrative Physical Examination: General: Awake, alert, oriented to self, place but unable to give month or year, remains cooperative, seated upright in the ED bed, fatigued appearing. Skin: Normal color, normal turgor, no icterus, no cyanosis except for an abrasion pressure wound on the distal left forearm of the ulnar aspect with no erythema noted or drainage. HEENT: AT/NC, EOMI, PERRLA, mildly dry MM, no carotid bruits or JVD noted. Lungs: Diminished, greater bases, appropriate effort,, no rales, ronchi or whee zing. Heart: Currently regular rate and rhythm; no gallop, rub audible. Abdomen: Soft, NTTP, ND, normal BS, no HSM. Extremities: No cyanosis, clubbing, or edema. Neurological: Patient awake, alert, oriented as noted, cognitive function reportedly not baseline intact although per family has had decline over the last several months; pupils equally reactive to light and accommodation, cranial nerves grossly normal, moving all 4 extremities, chronic lower extremity neuropathy present, mild dysarthria, mild left lower extremity drift otherwise appropriate, finger-nose/[id number]-lzkn appropriate, equivocal Babinski. Psychiatric: Affect appears normal, no acute evidence of depressive or anxiety feelings. Results Lab / Micro Data Result Diagrams: 09/02/21 22:26 09/02/21 22:26 Labs: Laboratory Results - last 24 hr 09/02/21 22:26: WBC 17.6 H, RBC 4.18 L, Hgb 13.7, Hct 40.7, MCV 97.4 H, MCH 32.8 H, MCHC 33.7, RDW Std Deviation 59.2 H, RDW Coeff of Louann 16.4 H, Plt Count 212, MPV 10.4, Immature Gran % (Auto) 2.200 H, Neut % (Auto) 85.3 H, Lymph % (Auto) 4.9 L, Boyd % (Auto) 7.0, Eos % (Auto) 0.1, Baso % (Auto) 0.5, Absolute Neuts (auto) 15.0 H, Absolute Lymphs (auto) 0.86, Nucleated RBC % 0 09/02/21 22:26: PT 14.3, INR 1.2, APTT 27.8 09/02/21 22:26: Sodium 143, Potassium 3.2 L, Chloride 110 H, Carbon Dioxide 26.0, Anion Gap 7, BUN 24 H, Creatinine 1.59 H, Estim Creat Clear Calc 36.35, Est GFR (MDRD) Af Amer 54 L, Est GFR (MDRD) Non-Af 44 L, BUN/Creatinine Ratio 15.1, Glucose 113 H, Calcium 9.1, Troponin I High Sens 83 H 09/02/21 23:00: Lactic Acid 1.8 09/02/21 23:12: Urine Color Yellow, Urine Clarity Clear, Urine pH 6.0, Ur Specific [place] 1.020, Urine Protein 100 H, Urine Glucose (UA) Normal, Urine Ketones 5 H, Urine Occult Blood 250 H, Urine Nitrite Negative, Urine Bilirubin Negative, Urine Urobilinogen 1 H, Ur Leukocyte Esterase Negative, Urine RBC 0 SEEN, Urine WBC 0-5 SEEN, Ur Squamous Epith Cells 0 SEEN, Urine Bacteria RARE, Hyaline Casts 0-5 SEEN, Urine Mucus RARE Micro: Microbiology 09/02/21 23:00 Nasal Secretion SARS-CoV-2 Antigen (Rapid) - Final Radiology Impression Brain CT 09/02/21 22:15 IMPRESSION: No acute intracranial abnormality. 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 Chronic involutional and ischemic changes of the brain. Electronically Signed: Eugene Flynn MD at 22:42 EST , ADDENDUM: 09/02/21 2251 IMPRESSION: No acute intracranial abnormality. 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 Chronic involutional and ischemic changes of the brain. N.B. : The above Results were Read Back by Eugene Flynn MD to Stan Reid MD, and understanding confirmed on 09/02/2021 22:44:09 (ET). Electronically Signed: Eugene Flynn MD at 22:42 EST , Chest X-Ray 09/02/21 22:48 IMPRESSION: No acute radiographic abnormalities. Large hiatal hernia. Electronically Signed: Eugene Flynn MD at 23:20 EST , Assessment & Plan Assessment/Plan (1) CVA (cerebral vascular accident): QUALIFIERS: CVA mechanism: unspecified Qualified Code(s): I63.9 - Cerebral infarction, unspecified (2) Pneumonia: QUALIFIERS: Laterality: left Lung location: lower lobe of lung Pneumonia type: due to unspecified organism Qualified Code(s): J18.9 - Pneumonia, unspecified organism PLAN: The patient is an 81 y/o M w/ PMHx: Parkinson's disease, CKD stage III unclear subtype, Hx Thoracic AA, Hx CVA, GERD, Hx Leukemia, Hx prior GI bleed w/ PUD, HTN, HLD, BPH, Former tobacco use who presents to the [facility] ED on 09/02/21 secondary to history of being found ~ 1 hour following last normal appropriate interaction with his family slumped over his walker with no recollection of any events and upon evaluation was noted to have mildly slurred speech prompting ED evaluation in addition to incidentally reported recent dyspnea, mildly productive cough over the last 1-2 weeks. #1. Dysarthria concerning for CVA w/ Hx prior CVA complicated by #2: Will admit to PCU, ED initiated given contrast allergy w/ MRI Brain as well as MRA head and neck reads pending upon evaluation with plan continued [place] evaluation if no evidence of any large vessel occlusion otherwise would require transfer, will obtain ECHO, PT/OT/Speech/Nutrition evaluation per protocol. Will re-consult Neurology for evaluation once further evaluation and ECHO obtained. Will allow permissive HTN, maintain on asa, add low dose statin given advanced age, maintain on aspiration and fall precautions. TSH, Mag, HgBA1c, FLP requested. #2. Questionable left lower lobe CAP Pneumonia: Will maintain on oxygen with wean as tolerated to room air, continue ATC duonebs, PRN albuterol, maintained on IV Rocephin and Azithromycin, HOB, IS parameters w/ pending sputum cultures and urine antigens. Urinalysis however has also been requested as patient per records does have history of urinary retention and has had previous urinary tract infections given chest x-ray is not confirmative but patient has had respiratory symptoms making this potentially more likely. #3. Indeterminate cardiac enzyme: EKG in ED sinus rhythm with no acute evidence of ischemia, CXR w/ questionable left lower lobe small effusion versus atelectasis versus possible infiltrate, initial trop 83. Will place on a monitored bed to assure no acute myocardial infarction with serial cardiac enzymes and as needed EKGs. If serial cardiac enzymes further rise would initiate therapeutic heparin drip to be cautious if needed to be quickly stopped for conversion concerns, continue aspirin. FLP in AM. #4. Hypokalemia: Admission K+ 3.2, magnesium level requested, supplementation given, repeat level in AM. #5. Hypertension: We will continue permissive hypertension with as needed age nts per stroke protocol. #6. Hyperlipidemia: We will add low-dose statin given advanced age, FLP in AM. #7. History of promyelocytic leukemia: Diagnosed in 2010, following with Dr. Aragon, remains in remission per report. #8. History GI bleed with peptic ulcer disease, GERD: Not on regimen, if necessary may add PPI. #9. Chronic Kidney Disease Stage III, unclear subtype: Admission BUN/Cr 24/ 1.59, baseline renal function most recently 01/31/2020 creatinine 1.53, repeat BMP in AM. #10. BPH: Status post prior TURP, will continue finasteride regimen. #11. Former tobacco use: Encourage continued tobacco cessation. #12. Former alcohol abuse: Encouraged continued sobriety. #13. History thoracic AA: Noted in prior history, no CT of the chest noted on review of records. #14. Parkinson's disease: Complicates presentation, will maintain on patient's Sinemet regimen, maintain on fall precautions. Therapies consulted as noted above #1. #15. DVT prophylaxis: SCDs, Lovenox. #16. CODE status: Patient HCPKEON is his daughter and living will is currently in place. Discussed CODE status at length including difference between FULL code, DNR-CCA and DNR-CC status. Following discussions with family about the differences in these status, requested specifically patient to be maintained full code however if things were unsuccessful and he would not have a good quality of life they would intend to withdraw care at that point. Advanced Care Planning Face to Face Time: 16 minutes. Charges/Coding Visit Charges Inpatient E&M: 91155 Init Hosp L3 Procedures Hospitalists Procedures: 70565 Advncd Care Plan 30 Min
[2021-09-03] MEDS: Ceftriaxone 1 GM/50 ML BAG IV ×2 (01:40→21:23)
[2021-09-03 01:41] LABS: Troponin-I HS 147 pg/mL (3.0-78.0)
[2021-09-03 01:47] LABS: Magnesium 2.8 mg/dL (1.6-2.6)
[2021-09-03] MEDS: Aspirin 81 MG TAB.CHEW 324 MG PO (02:12)
[2021-09-03] MEDS: Potassium Chloride Oral Tablet 20 MEQ 40 MEQ PO ×3 (02:12→17:43)
--- NOTE | 2021-09-03 03:02 | ECHOD_ITS ---
Reason For Study: CVA Procedure This was a 2D Doppler, Color Flow transthoracic echocardiogram. Exam performed portable in patient room. Left Ventricle Moderate concentric left ventricular hypertrophy. The estimated ejection fraction is 55-60 %. Right Ventricle Normal right ventricle. Normal systolic function. Atria The left atrium is mildly enlarged. Normal right atrium. Mitral Valve There is moderate to severe mitral annular calcification. Mild (1+) mitral valve insufficiency. Tricuspid Valve Normal tricuspid valve. Aortic Valve Moderate focal aortic valve calcification. Moderate (2+) aortic valve insufficiency. Pulmonic Valve The pulmonic valve is not well visualized. Great Vessels Mild to moderately dilated aortic root. Pericardium/Pleural No pericardial effusion. MMode/2D Measurements & Calculations LVIDd: 3.6 cm IVSd: 1.4 cm LVOT diam: 2.0 cm LVIDs: 2.7 cm LVPWd: 1.2 cm LVOT area: 3.2 cm2 RVDd: 3.7 cm FS: 25.0 % Ao root diam: 5.4 cm LAV(MOD-bp): 78.8 ml LVAd ap4: 39.6 cm2 LAV(MOD-bp) Indexed: 40.1 ml/m2 LVLd ap4: 9.2 cm LAV(MOD-sp2): 62.5 ml EDV(MOD-sp4): 140.7 ml LAV(MOD-sp4): 89.9 ml EDV(sp4-el): 145.1 ml LVAs ap4: 24.3 cm2 LVLs ap4: 8.6 cm ESV(MOD-sp4): 57.6 ml ESV(sp4-el): 58.3 ml EF(MOD-sp4): 59.0 % EF(sp4-el): 59.9 % SV(MOD-sp4): 83.1 ml SV(sp4-el): 86.8 ml LA A4 area: 27.7 cm2 LA dimension(2D): 3.2 cm RA A4 area: 24.5 cm2 Doppler Measurements & Calculations MV E max mendel: 61.4 cm/sec Lat Peak E' Mendel: 6.5 cm/sec Med Peak E' Mendel: 4.8 cm/sec MV A max mendel: 158.2 cm/sec E/E' lat: 9.4 E/E' med: 12.8 MV E/A: 0.39 MV V2 max: 174.1 cm/sec Ao V2 max: 205.3 cm/sec AI max mendel: 417.7 cm/sec MV max P.1 mmHg Ao max P.9 mmHg AI max P.8 mmHg MV V2 mean: 110.5 cm/sec Ao V2 mean: 148.3 cm/sec MV mean P.6 mmHg Ao mean P.8 mmHg AI dec slope: 216.2 cm/sec2 MV V2 VTI: 34.2 cm Ao V2 VTI: 44.8 cm AI P1/2t: 565.7 msec MVA(VTI): 2.9 cm2 JR(I,D): 2.2 cm2 JR(V,D): 2.1 cm2 LV V1 max: 135.2 cm/sec SV(LVOT): 98.5 ml PA V2 max: 100.9 cm/sec LV V1 max P.3 mmHg LV V1 mean P.5 mmHg LV V1 mean: 101.0 cm/sec LV V1 VTI: 30.4 cm ECHO/Echo Complete Interpretation Summary The estimated ejection fraction is 55-60 %. Moderate Eccentric AI is moderate in comparison to previous echo Ordering Physician: Valerie Ramirez Referring Physician: Jm De La Cruz Performed By: Kari Thrasher RDCS
[2021-09-03] MEDS: 0.9% Normal Saline 1,000 ML 100 ML IV ×2 (03:34→14:50)
[2021-09-03] MEDS: 0.9% Saline Lock 10 ML Syringe IV (03:35)
[2021-09-03] MEDS: HEPARIN/D5w 25,000 UNITS 25,000 UNITS/250 ML IV.SOLN. 11 UNITS IV (03:36)
--- NOTE | 2021-09-03 04:28 | EKG12_ITS ---
Test Reason : AM EKG Blood Pressure : / mmHG Vent. Rate : 046 BPM Atrial Rate : 064 BPM P-R Int : 000 ms QRS Dur : 142 ms QT Int : 544 ms P-R-T Axes : 039 -58 -25 degrees QTc Int : 476 ms Sinus rhythm with 2nd degree A-V block (Mobitz I) Left axis deviation Left ventricular hypertrophy with QRS widening Abnormal ECG When compared with ECG of 02-SEP-2021 23:03, MANUAL COMPARISON REQUIRED, DATA IS UNCONFIRMED Confirmed by MAYKEL OLMSTEAD, ERICA ([id number]), subeditor FLY HADLEY ([id number]) on 09/03/2021 12:04:56 PM Referred By: DR CORBIN Confirmed By:ERICA BRAR MD
[2021-09-03 05:12] LABS: Absolute Lymphocyte Count 1.45 X10^3/uL (0.83-4.51); Absolute Neutrophil Count 11.6 X10^3/uL (2.0-7.7); Basophil# 0.03 X10^3/uL; Basophil% 0.2 % (0-1); Hematocrit 37.2 % (40-54); Hemoglobin 12.3 g/dL (13.0-16.5); Lymphocyte # 1.45 X10^3/ul (0.83-4.51); Lymphocyte % 9.8 % (19-41); Mean Corp Hgb Conc 33.1 g/dL (32-36); Mean Corpuscular Hgb 32.4 pg (27.0-32.0); Mean Corpuscular Volume 97.9 fL (80-94); Mean Platelet Vol. 10.8 fl (6.2-12.0); Monocyte# 1.53 X10^3/uL; Monocyte% 10.3 % (0-10); NRBC Flagged by Analyzer 0 % (0-5); Neutrophil # 11.64 X10^3/uL (2.7-7.7); Neutrophil % 78.8 % (47-70); POSITIVE DIFFERENTIAL YES; Platelet Count 192 K/mm3 (150-450); RBC Distribution Width CV 16.5 % (11.6-14.6); RBC Distribution Width SD 59.3 fl (35.1-43.9); White Blood Count 14.8 K/mm3 (4.4-11.0)
[2021-09-03 05:20] LABS: Differential Indicated SCAN CRITERIA MET
[2021-09-03 05:54] LABS: Troponin-I HS 138 pg/mL (3.0-78.0)
[2021-09-03 05:56] LABS: ALB/GLOB Ratio 0.6 RATIO (0.9-2.4); AST(SGOT) 127 U/L (15-37); Alanine Aminotransfer ALT/SGPT 15 U/L (16-61); Albumin, Serum 2.7 g/dL (3.2-5.0); Alkaline Phosphatase 93 U/L (45-117); Anion Gap 5 (5-15); BUN 21 mg/dL (7-18); BUN/Creat Ratio 15.9 RATIO (10-20); Calcium,Total 8.2 mg/dL (8.5-10.1); Chloride 109 mmol/L (98-107); Cholesterol 92 mg/dL (200); Creatinine, Serum 1.32 mg/dL (0.70-1.30); EST Glomerular Filtration Rate 55 mL/min (>60); Est Glom Filt Rate - Afr Amer 67 mL/min (>60); Globulin 4.2 g/dL (2.2-4.2); Glucose 116 mg/dL (74-106); High Density Lipoprotein 51 mg/dL; Potassium 2.9 mmol/L (3.5-5.1); Protein, Total 6.9 g/dL (6.4-8.2); Sodium Level 142 mmol/L (136-145); Thyroid Stim Hormone (TSH) 0.23 uIU/mL (0.358-3.74); Triglycerides 23 mg/dL; Very Low Density Lipoprotein 5 mg/dL (5-40)
[2021-09-03] MEDS: Nystatin Powder 15gm Bottle 1 APPLIC TOPICAL ×3 (06:12→21:22)
[2021-09-03] MEDS: Carbidopa/Levodopa 25/100 Tablet PO ×3 (06:12→21:35)
[2021-09-03 06:35] LABS: Differential Comment SCANNED
[2021-09-03 07:03] LABS: Hemoglobin A1c 5.4 % (3.8-5.6)
[2021-09-03 07:55] LABS: Bedside Glucose 113 mg/dL (74-106)
--- NOTE | 2021-09-03 08:59 | TELEMED_ITS ---
[facility] has confirmed receipt of a request for visit. This document confirms receipt of the order initiating the consult. To find the results of the consultation, please view the patient's reports for the scanned Telemed Consult.
--- NOTE | 2021-09-03 09:55 | CON.PCM.CA_ITS ---
Documented by User: Carolina MAHMOOD PA 09/03/21 16:27 Assessment & Plan Assessment/Plan (1) Cerebellar stroke, acute: (2) Elevated troponin: (3) Second degree atrioventricular block, Mobitz (type) I: PLAN: * Pt does have an elevated troponin, He is on Heparin, ASA, Atorvastatin. With is bradycardia and 2nd AVB type I will not start any rate limiting medications. Previous to admission he was on Losartan, would reconsider this on OP basis based on renal function. Will start on statin. * Pts second degree AVB type I is a newer finding, would recommend at d/c obtaining a 30 day event monitor and following up with cardiology. HPI Consult Data Date of Consult: 09/03/21 HPI Narrative HPI Narrative: LEANNA LAW, is a 81 M who presented to [facility] ER on for Dysarthria and confusion. He does have a past medical hx for Parkinson's disease, CKD stage III, Hx Thoracic AA, Hx CVA, GERD, Hx Leukemia, Hx prior GI bleed w/ PUD, HTN, HLD, BPH, Former tobacco use. He was admitted to PCU for CVA, questionable LLL pneumonia, indeterminate troponin of 83 which trended upwards of 147 and 138, hypokalemia. Patient lives with son, son had stepped out for a moment as patient was going to the bathroom. When he returned he noted dad was slumped over his walker and felt to be weaker. Patient does not recall any lightheadedness or dizziness. He does not recall any palpitations. He does not recall any chest pain or wor sening shortness of breath. Previous to this he only recalls medical history of hypertension and hyperlipidemia. He does note that he has a previous CVA. [facility] Medical History (Updated 09/03/21 @ 14:37 by Carolina MAHMOOD PA) BPH (benign prostatic hypertrophy) CVA (cerebral vascular accident) Enlarged thyroid GERD (gastroesophageal reflux disease) History of gastrointestinal hemorrhage History of leukemia HLD (hyperlipidemia) Hypertension Parkinson's disease Peripheral neuropathy Thoracic aortic aneurysm Home Medications doxazosin 8 mg PO QPM 07/15/14 [History Last Taken 05/12/16] acetaminophen [Tylenol] 650 mg PO Q6H PRN PRN #0 tablet 05/16/16 [Rx Last Taken Unknown] aspirin 81 mg PO DAILY@0800 #30 tab.chew 05/16/16 [Rx Last Taken Unknown] finasteride 5 mg PO DAILY #30 tablet 05/16/16 [Rx Last Taken Unknown] Amlodipine 10 mg PO QPM 01/31/20 [History Last Taken Unknown] cranberry conc-ascorbic acid 1 tab PO DAILY 01/31/20 [History Last Taken Unknown] polyethylene glycol 3350 17 gm PO PRN PRN 01/31/20 [History Last Taken Unknown] carbidopa-levodopa 1 tab PO TID 09/02/21 [History Last Taken Unknown] furosemide 20 mg PO DAILY 09/02/21 [History Last Taken Unknown] losartan 50 mg PO DAILY 09/02/21 [History Last Taken Unknown] lysine 1,000 mg BID 09/02/21 [History Last Taken Unknown] omeprazole 20 mg PO DAILY 09/02/21 [History Last Taken Unknown] spironolactone 25 mg PO DAILY 09/02/21 [History Last Taken Unknown] sertraline 25 mg PO QHS 09/03/21 [History Last Taken Unknown] Allergy/AdvReac Type Severity Reaction Status Date / Time Iodine and Iodide Containing Allergy Severe Anaphylaxis Verified 09/02/21 22:11 Produc Family History (Updated 09/03/21 @ 01:[address] Valerie Ramirez MD) Mother Heart disease Father Heart disease Myocardial infarction Surgical History H/O foot surgery S/P herniorrhaphy S/P TURP Social History (Updated 09/03/21 @ 01:[address] Valerie Ramirez MD) household members: family Smoking Status: Former smoker how long ago did patient quit smoking: Quit 1973. alcohol intake: former details: Former heavy beer intake. substance use type: does not use ROS ROS Narrative CONSTITUTIONAL: No weight loss, fever, chills, + weakness or fatigue. Eyes: No visual loss, blurred vision, double vision or yellow sclerae. Ears, Nose, Throat: No hearing loss, sneezing, congestion, runny nose or sore throat. SKIN: No rash or itching, lesions, wounds. CARDIOVASCULAR: No chest pain, chest pressure or chest discomfort, palpitations, edema, orthopnea, syncopal events. RESPIRATORY: + Mild cough occasionally productive, no wheezing, hemoptysis. GASTROINTESTINAL: No anorexia, nausea, vomiting or diarrhea, abdominal pain, melena, BRBPR. GENITOURINARY: No dysuria, frequency, urgency or retention. NEUROLOGICAL: + Slurred speech, No headache, dizziness, syncope, change in bowel or bladder control, seizure. MUSCULOSKELETAL: Left side weakness, ambulates with walker HEMATOLOGIC: No anemia, bleeding or bruising. Physical Exam Const alert, oriented x3, no apparent distress and average body habitus Orientation / Consciousness: awake, oriented to person, oriented to place and oriented to time HEENT normocephalic Eyes PERRL, EOMs intact bilaterally and conjunctivae normal Neck no lymphadenopathy and no JVD Resp normal respiratory effort, no retractions and no use of accessory muscles Auscultation: diminished lung sounds Cardio regular rate and regular rhythm Heart Sounds: murmur systolic II/ harsh mid Peripheral Pulses: pulses 2+ throughout GI normal to inspection, nondistended, normoactive bowel sounds, non-tender and non-distended Extremity normal to inspection Skin no rashes or lesions noted Neuro CN's II-XII intact bilaterally, no focal motor deficits, no sensory deficits noted and deep tendon reflexes 2+ bilaterally Neuro Narrative: Left-sided weakness, unable to lift leg off bed. Psych mental status grossly normal and affect normal Risk Stratification Risk Stratification Applicable: Yes Age >/= 65: Yes >/= 3 CAD Risk Factors (HTN, HLD, DM, family hx of CAD, or current smoker): No Aspirin Use in the Past 7 Days: Yes Severe Angina (>/= episodes in 24 hours): No EKG ST Changes >/= 0.5mm: No Positive Cardiac Marker: Yes GREG Risk Stratification Score: 3 GREG % Risk: 13% Risk Charges/Coding Visit Charges Office Visits / Consults: [id number] IP Consult L4 Objective Data Vital Signs: Vital Signs Temp Pulse Resp BP Pulse Ox 98.1 F 53 L 17 142/67 H 97 09/03/21 06:16 09/03/21 07:00 09/03/21 06:16 09/03/21 06:16 09/03/21 07:35 Oxygen Flow Rate (L/min) 3 Oxygen Delivery Method Nasal Cannula Weight: 173 lb 4.533 oz Body Mass Index (BMI) 25.5 Intake & Output: Intake and Output for Last 24 Hours 09/01/21 09/02/21 09/03/21 23:59 23:59 23:59 Intake Total 355 / 355 Output Total 200 / 200 Balance 155 / 155 Lab / Micro Data Result Diagrams: 09/03/21 04:28 09/03/21 13:26 Labs: Laboratory Results - last 24 hr 09/02/21 22:02: POC Glucose 113 H 09/02/21 22:26: WBC 17.6 H, RBC 4.18 L, Hgb 13.7, Hct 40.7, MCV 97.4 H, MCH 32.8 H, MCHC 33.7, RDW Std Deviation 59.2 H, RDW Coeff of Louann 16.4 H, Plt Count 212, MPV 10.4, Immature Gran % (Auto) 2.200 H, Neut % (Auto) 85.3 H, Lymph % (Auto) 4.9 L, Trego % (Auto) 7.0, Eos % (Auto) 0.1, Baso % (Auto) 0.5, Absolute Neuts (auto) 15.0 H, Absolute Lymphs (auto) 0.86, Nucleated RBC % 0 09/02/21 22:26: PT 14.3, INR 1.2, APTT 27.8 09/02/21 22:26: Sodium 143, Potassium 3.2 L, Chloride 110 H, Carbon Dioxide 26.0, Anion Gap 7, BUN 24 H, Creatinine 1.59 H, Estim Creat Clear Calc 36.35, Est GFR (MDRD) Af Amer 54 L, Est GFR (MDRD) Non-Af 44 L, BUN/Creatinine Ratio 15.1, Glucose 113 H, Calcium 9.1, Troponin I High Sens 83 H 09/02/21 23:00: Lactic Acid 1.8 09/02/21 23:12: Urine Color Yellow, Urine Clarity Clear, Urine pH 6.0, Ur Specific [place] 1.020, Urine Protein 100 H, Urine Glucose (UA) Normal, Urine Ketones 5 H, Urine Occult Blood 250 H, Urine Nitrite Negative, Urine Bilirubin Negative, Urine Urobilinogen 1 H, Ur Leukocyte Esterase Negative, Urine RBC 0 SEEN, Urine WBC 0-5 SEEN, Ur Squamous Epith Cells 0 SEEN, Urine Bacteria RARE, Hyaline Casts 0-5 SEEN, Urine Mucus RARE 09/03/21 01:19: Troponin I High Sens 147 H* 09/03/21 01:19: Magnesium 2.8 H 09/03/21 04:28: WBC 14.8 H, RBC 3.80 L, Hgb 12.3 L, Hct 37.2 L, MCV 97.9 H, MCH 32.4 H, MCHC 33.1, RDW Std Deviation 59.3 H, RDW Coeff of Louann 16.5 H, Plt Count 192, MPV 10.8, Immature Gran % (Auto) 0.900, Neut % (Auto) 78.8 H, Lymph % (Auto) 9.8 L, Trego % (Auto) 10.3 H, Eos % (Auto) 0.0, Baso % (Auto) 0.2, Absolute Neuts (auto) 11.6 H, Absolute Lymphs (auto) 1.45, Nucleated RBC % 0, Differential Comment SCANNED, Diff Path Review October09/03/21 04:28: Sodium 142, Potassium 2.9 L, Chloride 109 H, Carbon Dioxide 28.0, Anion Gap 5, BUN 21 H, Creatinine 1.32 H, Estim Creat Clear Calc 42.40, Est GFR (MDRD) Af Amer 67, Est GFR (MDRD) Non-Af 55 L, BUN/Creatinine Ratio 15.9, Glucose 116 H, Calcium 8.2 L, Total Bilirubin 0.20, AST 127 H, ALT 15 L, Alkaline Phosphatase 93, Total Protein 6.9, Albumin 2.7 L, Globulin 4.2, Albumin/Globulin Ratio 0.6 L, Triglycerides 23, Cholesterol 92, LDL Cholesterol 36, VLDL Cholesterol 5, HDL Cholesterol 51, TSH 0.23 L 09/03/21 04:28: Hemoglobin A1c 5.4 09/03/21 04:28: Troponin I High Sens 138 H* Micro: Microbiology 09/02/21 23:12 Urine, Random Legionella Antigen - Final 09/02/21 23:12 Urine, Random Streptococcus pneumoniae Antigen (M - Final 09/02/21 23:00 Nasal Secretion SARS-CoV-2 Antigen (Rapid) - Final Cardiology Labs/Tests 09/02/21 22:26: WBC 17.6 H, RBC 4.18 L, Hgb 13.7, Hct 40.7, MCV 97.4 H, MCH 32.8 H, MCHC 33.7, Plt Count 212, MPV 10.4, Immature Gran % (Auto) 2.200 H, Neut % (Auto) 85.3 H, Lymph % (Auto) 4.9 L, Trego % (Auto) 7.0, Eos % (Auto) 0.1, Baso % (Auto) 0.5, Absolute Neuts (auto) 15.0 H, Nucleated RBC % 0 09/02/21 22:26: PT 14.3, INR 1.2, APTT 27.8 09/02/21 22:26: Sodium 143, Potassium 3.2 L, Chloride 110 H, Carbon Dioxide 26.0, Anion Gap 7, BUN 24 H, Creatinine 1.59 H, Est GFR (MDRD) Af Amer 54 L, Est GFR (MDRD) Non-Af 44 L, BUN/Creatinine Ratio 15.1, Glucose 113 H, Calcium 9.1 09/02/21 23:00: Lactic Acid 1.8 09/02/21 23:12: Urine Color Yellow, Urine Clarity Clear, Urine pH 6.0, Ur Specific [place] 1.020, Urine Protein 100 H, Urine Glucose (UA) Normal, Urine Ketones 5 H, Urine Occult Blood 250 H, Urine Nitrite Negative, Urine Bilirubin Negative, Urine Urobilinogen 1 H, Ur Leukocyte Esterase Negative, Urine RBC 0 SEEN, Urine WBC 0-5 SEEN 09/03/21 01:19: Magnesium 2.8 H 09/03/21 04:28: WBC 14.8 H, RBC 3.80 L, Hgb 12.3 L, Hct 37.2 L, MCV 97.9 H, MCH 32.4 H, MCHC 33.1, Plt Count 192, MPV 10.8, Immature Gran % (Auto) 0.900, Neut % (Auto) 78.8 H, Lymph % (Auto) 9.8 L, Trego % (Auto) 10.3 H, Eos % (Auto) 0.0, Baso % (Auto) 0.2, Absolute Neuts (auto) 11.6 H, Nucleated RBC % 0 09/03/21 04:28: Sodium 142, Potassium 2.9 L, Chloride 109 H, Carbon Dioxide 28.0, Anion Gap 5, BUN 21 H, Creatinine 1.32 H, Est GFR (MDRD) Af Amer 67, Est GFR (MDRD) Non-Af 55 L, BUN/Creatinine Ratio 15.9, Glucose 116 H, Calcium 8.2 L, Total Bilirubin 0.20, Triglycerides 23, Cholesterol 92, LDL Cholesterol 36, VLDL Cholesterol 5, HDL Cholesterol 51 09/03/21 04:28: Hemoglobin A1c 5.4 Rhythm:2 AVB type 1 EKG:SR with 1 AVB, SR with intermittent 2AVB type I ECHO:The estimated ejection fraction is 55-60 %. Moderate Eccentric AI is moderate in comparison to previous echo Radiography Diagnostic Testing: Radiology Impression Brain CT 09/02/21 22:15 IMPRESSION: No acute intracranial abnormality. 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 Chronic involutional and ischemic changes of the brain. Electronically Signed: Eugene Flynn MD at 22:42 EST , ADDENDUM: 09/02/212250 IMPRESSION: No acute intracranial abnormality. 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 Chronic involutional and ischemic changes of the brain. N.B. : The above Results were Read Back by Eugene Flynn MD to Stan Reid MD, and understanding confirmed on 09/02/2021 22:44:09 (ET). Electronically Signed: Eugene Flynn MD at 22:42 EST , Chest X-Ray 09/02/21 22:48 IMPRESSION: No acute radiographic abnormalities. Large hiatal hernia. Electronically Signed: Eugene Flynn MD at 23:20 EST , Brain MRI 09/03/21 00:00 IMPRESSION: 1. Findings consistent with tiny ischemic stroke within the right cerebellum. 2. Sequela of old infarcts and severe senescent change as above. 3. Mild sinus disease. at 0206 Reported and signed by: Himanshu Neely MD Electronically Signed: Himanshu Neely MD at 2:02 EST , ADDENDUM: 09/03/21 0216 IMPRESSION: 1. Findings consistent with tiny ischemic stroke within the right cerebellum. 2. Sequela of old infarcts and severe senescent change as above. 3. Mild sinus disease. at 0206 Reported and signed by: Himanshu Neely MD N.B. : The above Results were Read Back by Himanshu Neely MD to Stan Reid MD, and understanding confirmed on 09/03/2021 02:10:00 (ET). Electronically Signed: Himanshu Neely MD at 2:02 EST , Head MRA 09/03/21 00:00 IMPRESSION: Variant anatomy as above with persistent origin of diminutive posterior cerebral arteries, similar to May 13, 2016 without evidence of current focal stenosis.. at 0151 Reported and signed by: Himanshu Neely MD Electronically Signed: Himanshu Neely MD at 1:50 EST , Neck MRA 09/03/21 00:00 IMPRESSION: No evidence of cervical vertebral or carotid occlusion or focal flow limiting stenosis. at 0156 Reported and signed by: Himanshu Neely MD Electronically Signed: Himanshu Neely MD at 1:55 EST Reading Location ID and State: [facility] / [place] Tel , Service support , Documented by User: Dr. Brie Shin MD 09/03/21 17:11 Assessment & Plan Assessment/Plan (1) Second degree atrioventricular block, Mobitz (type) I: (2) Hypertension: (3) CKD (chronic kidney disease): (4) CVA (cerebral vascular accident): QUALIFIERS: CVA mechanism: unspecified Qualified Code(s): I63.9 - Cerebral infarction, unspecified PLAN: I independently examined this patient, reviewed the current data including the cardiac telemetry EKG echocardiogram Mild elevation of cardiac biomarker high sensitive troponin is secondary to type II NE/demand myocardial ischemia. Patient with history of chronic renal disease I reviewed the compliance monitor, patient has Mobitz type I AV block/Wenckebach. We reviewed all his current medication his not in any AV blocking medication and will need to evaluated and followed by [facility] cardiology with event monitor and assessment for possible pacemaker placement. Also will need a follow-up echo as he has moderate eccentric aortic incompetence with LV function preserved. HPI Consult Data Date of Consult: 09/03/21 HPI Narrative Reason for Consultation: Second-degree AV block/Mobitz type I [facility] Medical History (Updated 09/03/21 @ 14:37 by Carolina MAHMOOD, PA) BPH (benign prostatic hypertrophy) CVA (cerebral vascular accident) Enlarged thyroid GERD (gastroesophageal reflux disease) History of gastrointestinal hemorrhage History of leukemia HLD (hyperlipidemia) Hypertension Parkinson's disease Peripheral neuropathy Thoracic aortic aneurysm Home Medications doxazosin 8 mg PO QPM 07/15/14 [History Last Taken 05/12/16] acetaminophen [Tylenol] 650 mg PO Q6H PRN PRN #0 tablet 05/16/16 [Rx Last Taken Unknown] aspirin 81 mg PO DAILY@0800 #30 tab.chew 05/16/16 [Rx Last Taken Unknown] finasteride 5 mg PO DAILY #30 tablet 05/16/16 [Rx Last Taken Unknown] Amlodipine 10 mg PO QPM 01/31/20 [History Last Taken Unknown] cranberry conc-ascorbic acid 1 tab PO DAILY 01/31/20 [History Last Taken Unknown] polyethylene glycol 3350 17 gm PO PRN PRN 01/31/20 [History Last Taken Unknown] carbidopa-levodopa 1 tab PO TID 09/02/21 [History Last Taken Unknown] furosemide 20 mg PO DAILY 09/02/21 [History Last Taken Unknown] losartan 50 mg PO DAILY 09/02/21 [History Last Taken Unknown] lysine 1,000 mg BID 09/02/21 [History Last Taken Unknown] omeprazole 20 mg PO DAILY 09/02/21 [History Last Taken Unknown] spironolactone 25 mg PO DAILY 09/02/21 [History Last Taken Unknown] sertraline 25 mg PO QHS 09/03/21 [History Last Taken Unknown] Allergy/AdvReac Type Severity Reaction Status Date / Time Iodine and Iodide Containing Allergy Severe Anaphylaxis Verified 09/02/21 22:11 Produc Family History (Updated 09/03/21 @ 01:[address] Valerie Ramirez MD) Mother Heart disease Father Heart disease Myocardial infarction Surgical History H/O foot surgery S/P herniorrhaphy S/P TURP Social History (Updated 09/03/21 @ 01:[address] Valerie Ramirez MD) household members: family Smoking Status: Former smoker how long ago did patient quit smoking: Quit 1973. alcohol intake: former details: Former heavy beer intake. substance use type: does not use Lab / Micro Data Result Diagrams: 09/03/21 04:28 09/03/21 13:26
[2021-09-03] MEDS: Aspirin 81 MG TAB.CHEW PO (10:40)
[2021-09-03] MEDS: Pantoprazole Sodium 20 MG Tablet PO (10:40)
[2021-09-03] MEDS: Doxazosin 4 MG Tablet 8 MG PO (10:40)
[2021-09-03] MEDS: Finasteride 5 MG Tablet PO (10:40)
--- NOTE | 2021-09-03 11:21 | CASEMGMT ---
SW completed a PHQ 9 with patient as he had a Stroke. Patient scored a 5 which indicates mild depression. SW spoke with patient about going somewhere for rehab. Patient said he will do whatever is recommended. SW told patient about [facility] 4th floor rehab and he is willing to go there. YOUNG spoke with Loren and they can accept patient in the rehab unit. YOUNG asked patient if it is okay for SW to call his son and update him on his plan. Patient was okay with this. SW called patient's son and left a voice mail requesting a return call. Plan: [facility] 4th floor Rehab Unit. Stefanie LEWIS
--- NOTE | 2021-09-03 11:22 | PN.HOSP_ITS ---
Documented by User: Alexandria Villavicencio ORDER ENTRY REPRESENTATIVE, ORDER ENTRY REPRESENTATIVE-C 09/03/21 11:36 Subjective Subjective Patient seen and examined. Reports ongoing left-sided weakness. Denies other neurologic symptoms. Denies significant shortness of breath. Denies cough, fever, chills. Objective Data Objective Data Vital Signs: Vital Signs Temp Pulse Resp BP Pulse Ox 98.1 F 64 18 135/72 H 95 09/03/21 10:15 09/03/21 10:15 09/03/21 10:15 09/03/21 10:15 09/03/21 10:15 Oxygen Flow Rate (L/min) 1 Oxygen Delivery Method Nasal Cannula Weight: 173 lb 4.533 oz Body Mass Index (BMI) 25.5 Intake & Output: Intake and Output for Last 24 Hours 09/01/21 09/02/21 09/03/21 23:59 23:59 23:59 Intake Total 355 / 355 Output Total 200 / 200 Balance 155 / 155 Lab / Micro Data Result Diagrams: 09/03/21 04:28 09/03/21 04:28 Labs: Laboratory Results - last 24 hr 09/02/21 22:02: POC Glucose 113 H 09/02/21 22:26: WBC 17.6 H, RBC 4.18 L, Hgb 13.7, Hct 40.7, MCV 97.4 H, MCH 32.8 H, MCHC 33.7, RDW Std Deviation 59.2 H, RDW Coeff of Louann 16.4 H, Plt Count 212, MPV 10.4, Immature Gran % (Auto) 2.200 H, Neut % (Auto) 85.3 H, Lymph % (Auto) 4.9 L, Pacific % (Auto) 7.0, Eos % (Auto) 0.1, Baso % (Auto) 0.5, Absolute Neuts (auto) 15.0 H, Absolute Lymphs (auto) 0.86, Nucleated RBC % 0 09/02/21 22:26: PT 14.3, INR 1.2, APTT 27.8 09/02/21 22:26: Sodium 143, Potassium 3.2 L, Chloride 110 H, Carbon Dioxide 26.0, Anion Gap 7, BUN 24 H, Creatinine 1.59 H, Estim Creat Clear Calc 36.35, Est GFR (MDRD) Af Amer 54 L, Est GFR (MDRD) Non-Af 44 L, BUN/Creatinine Ratio 15.1, Glucose 113 H, Calcium 9.1, Troponin I High Sens 83 H 09/02/21 23:00: Lactic Acid 1.8 09/02/21 23:12: Urine Color Yellow, Urine Clarity Clear, Urine pH 6.0, Ur Specific Eugene 1.020, Urine Protein 100 H, Urine Glucose (UA) Normal, Urine Ketones 5 H, Urine Occult Blood 250 H, Urine Nitrite Negative, Urine Bilirubin Negative, Urine Urobilinogen 1 H, Ur Leukocyte Esterase Negative, Urine RBC 0 SEEN, Urine WBC 0-5 SEEN, Ur Squamous Epith Cells 0 SEEN, Urine Bacteria RARE, Hyaline Casts 0-5 SEEN, Urine Mucus RARE 09/03/21 01:19: Troponin I High Sens 147 H* 09/03/21 01:19: Magnesium 2.8 H 09/03/21 04:28: WBC 14.8 H, RBC 3.80 L, Hgb 12.3 L, Hct 37.2 L, MCV 97.9 H, MCH 32.4 H, MCHC 33.1, RDW Std Deviation 59.3 H, RDW Coeff of Louann 16.5 H, Plt Count 192, MPV 10.8, Immature Gran % (Auto) 0.900, Neut % (Auto) 78.8 H, Lymph % (Auto) 9.8 L, Pacific % (Auto) 10.3 H, Eos % (Auto) 0.0, Baso % (Auto) 0.2, Absolute Neuts (auto) 11.6 H, Absolute Lymphs (auto) 1.45, Nucleated RBC % 0, Differential Comment SCANNED, Diff Path Review October foll 09/03/21 04:28: Sodium 142, Potassium 2.9 L, Chloride 109 H, Carbon Dioxide 28.0, Anion Gap 5, BUN 21 H, Creatinine 1.32 H, Estim Creat Clear Calc 42.40, Est GFR (MDRD) Af Amer 67, Est GFR (MDRD) Non-Af 55 L, BUN/Creatinine Ratio 15.9, Glucose 116 H, Calcium 8.2 L, Total Bilirubin 0.20, AST 127 H, ALT 15 L, Alkaline Phosphatase 93, Total Protein 6.9, Albumin 2.7 L, Globulin 4.2, Albumin/Globulin Ratio 0.6 L, Triglycerides 23, Cholesterol 92, LDL Cholesterol 36, VLDL Cholesterol 5, HDL Cholesterol 51, TSH 0.23 L 09/03/21 04:28: Hemoglobin A1c 5.4 09/03/21 04:28: Troponin I High Sens 138 H* 09/03/21 09:36: APTT 78.0 H Micro: Microbiology 09/02/21 23:12 Urine, Random Legionella Antigen - Final 09/02/21 23:12 Urine, Random Streptococcus pneumoniae Antigen (M - Final 09/02/21 23:00 Nasal Secretion SARS-CoV-2 Antigen (Rapid) - Final Radiography Diagnostic Testing: Radiology Impression Brain CT 09/02/21 22:15 IMPRESSION: No acute intracranial abnormality. 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 Chronic involutional and ischemic changes of the brain. Electronically Signed: Eugene Flynn MD at 22:42 EST , ADDENDUM: 09/02/21 2251 IMPRESSION: No acute intracranial abnormality. 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 Chronic involutional and ischemic changes of the brain. N.B. : The above Results were Read Back by Eugene Flynn MD to Stan Reid MD, and understanding confirmed on 09/02/2021 22:44:09 (ET). Electronically Signed: Eugene Flynn MD at 22:42 EST , Chest X-Ray 09/02/21 22:48 IMPRESSION: No acute radiographic abnormalities. Large hiatal hernia. Electronically Signed: Eugene Flynn MD at 23:20 EST , Brain MRI 09/03/21 00:00 IMPRESSION: 1. Findings consistent with tiny ischemic stroke within the right cerebellum. 2. Sequela of old infarcts and severe senescent change as above. 3. Mild sinus disease. at 0206 Reported and signed by: Himanshu Neely MD Electronically Signed: Himanshu Neely MD at 2:02 EST Reading Location ID and State: [facility] / [place] Tel , Service support , ADDENDUM: 09/03/21 0216 IMPRESSION: 1. Findings consistent with tiny ischemic stroke within the right cerebellum. 2. Sequela of old infarcts and severe senescent change as above. 3. Mild sinus disease. at 0206 Reported and signed by: Himanshu Neely MD N.B. : The above Results were Read Back by Himanshu Neely MD to Stan Reid MD, and understanding confirmed on 09/03/2021 02:10:00 (ET). Electronically Signed: Himanshu Neely MD at 2:02 EST Reading Location ID and State: [facility] / [place] Tel , Service support , Head MRA 09/03/21 00:00 IMPRESSION: Variant anatomy as above with persistent origin of diminutive posterior cerebral arteries, similar to May 13, 2016 without evidence of current focal stenosis.. at 0151 Reported and signed by: Himanshu Neely MD Electronically Signed: Himanshu Neely MD at 1:50 EST , Neck MRA 09/03/21 00:00 IMPRESSION: No evidence of cervical vertebral or carotid occlusion or focal flow limiting stenosis. at 0156 Reported and signed by: Himanshu Neely MD Electronically Signed: Himanshu Neely MD at 1:55 EST , Physical Exam Const alert, oriented x3 and no apparent distress Orientation / Consciousness: awake, oriented to person, oriented to place and oriented to time HEENT normocephalic Mouth: dry mucous membranes Eyes PERRL, EOMs intact bilaterally and conjunctivae normal Neck no lymphadenopathy Resp Auscultation: crackles and diminished lung sounds Cardio regular rate, regular rhythm and no murmurs Peripheral Pulses: pulses 2+ throughout GI normal to inspection, nondistended, normoactive bowel sounds, non-tender and non-distended Extremity normal to inspection Skin no rashes or lesions noted Lesions: no lesions Rashes: no rashes Trauma: no lacerations or abrasions Neuro CN's II-XII intact bilaterally, no focal motor deficits, no sensory deficits noted and deep tendon reflexes 2+ bilaterally Neuro Narrative: Left-sided weakness, unable to lift leg off bed. Psych mental status grossly normal and affect normal Assessment & Plan Assessment/Plan (1) CVA (cerebral vascular accident): QUALIFIERS: CVA mechanism: unspecified Qualified Code(s): I63.9 - Cerebral infarction, unspecified PLAN: 1. 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 Sequela of old infarcts. MRA of neck with no evidence of cervical vertebral or carotid occlusion. On aspirin, statin. PT/OT/ST. Echocardiogram pending. SOC neurology consult placed. Plan for rehab at discharge. 2. Elevated cardiac enzymes-on heparin drip. Cardiology following. Echocardiogram pending. Denies cardiac symptoms. EKG without acute changes. 3. Left lower lobe pneumonia-currently on supplemental oxygen however not noted to be hypoxic. Wean oxygen as tolerated. IV azithromycin and IV Rocephin. Albuterol DuoNeb aerosols. Patient with leukocytosis, no fever. Does have a wet cough. Clinically will treat for pneumonia. UA unremarkable. 4. Hypokalemia-replace per protocol, trend BMP. 5. History of DVT-Per patient, he was diagnosed with DVT during admission following prior stroke at [facility] [place]. He has unclear why he was taken off of anticoagulation however suspect due to history of GI bleed. Will request records. 6. Hypertension-on amlodipine, losartan, spironolactone, Lasix. 7. Hyperlipidemia-initiate low-dose statin. 8. History of promyelocytic leukemia-in remission. Follows with Dr. Aragon. 9. History of GI bleed with peptic ulcer disease/GERD-will add PPI. 10. Chronic kidney disease stage IIIa- at baseline, trend BMP. 11. BPH-on Proscar. 12. Former tobacco dependence-encouraged continued cessation. 13. Former alcohol use-maintains sobriety. 14. History of thoracic AA-continue outpatient follow-up. 15. Parkinson's disease-on Sinemet. DVT prophylaxis-Lovenox This patient was seen by MAYE Maria under the supervision of Dr. Garcia. Documented by User: Dr. Axel Garcia MD 09/03/21 13:31 Objective Data Lab / Micro Data Result Diagrams: 09/03/21 04:28 09/03/21 04:28 Assessment & Plan Addt'l Comments This patient was seen in conjunction with MAYE Maria . I have independently interviewed and examined the patient and reviewed pertinent historical, laboratory, and other data. Please refer to MAYE Maria note for details of this patient's presentation, findings, and recommendations. I have reviewed MAYE Maria note and concur with documented f indings. In brief, patient is a an 81-year-old gentleman who presented with left-sided weakness. Imaging studies with an MRI demonstrated findings consistent with ischemic stroke within the right cerebellum as well as sequelae of old infarct and severe senescent change. Admitted to monitored bed for subsequent management Physical Examination: GENERAL: cooperative HEENT: Atraumatic; EYES; Anicteric, Normal Conjunctiva NECK; supple, normal thyroid, RESPIRATORY: Diminished to auscultation CARDIOVASCULAR: Regular S1 S2, GI: soft, normoactive bowel sounds, : No Renal angle tenderness; EXTREMITIES: No edema, no clubbing, MUSCULOSKELETAL: no muscle wasting NEURO: Awake; oriented to place and person SKIN: No Rash PSYCH; Flat affect Assessment: 1. Acute ischemic CVA 2. Elevated enzymes? NSTEMI type II 3. Left lower lobe pneumonia/pneumonia 4. Hypokalemia 5. Essential potential 6. Dyslipidemia 7. History of previous DVT 8. History of promyelocytic leukemia currently in remission Chronic kidney disease stage III 11. BPH 12. 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 DVT prophylaxis Recommendations: 1. I have discussed the results of my overview and impressions with the patient 2. Options for management were reviewed Total time spent by myself and the advanced practice practitioner evaluating patient, reviewing labs, subsequent management decisions, discussion with patient as well as other providers 45 minutes ( 25 of which was spent by myself) Charges/Coding Visit Charges Inpatient E&M: 42745 Subs Hosp L3
--- NOTE | 2021-09-03 12:08 | CASEMGMT ---
RN CM Face to Face with patient for initial transition planning/care coordination assessment. RN CM introduced self and role at [facility]. Patient lying in bed, alert and oriented. Patient willing to participate in assessment and is able to answer some questions appropriately. Care providers, pharmacy, and demographics verified. Patient wishes to discharge home, willing to go to SNF or [facility] if necessary. Patient states he has no further needs or concerns at this time. Patient gave permission to call son for additional information. CM to follow for discharge planning needs that may arise. PCP: Guille MAHMOOD Specialists: Maxwell, marine pipe welder, [facility]; Mark, urologist [facility] Preferred Pharmacy: [facility] Insurance: [employer] Prescription Benefit: yes Living Will/HPOA: yes, daughter Elizabeth Singletary [phone] LNOK: daughter, son, son's TAHMINA Figueroa [phone] Living Arrangements: patient lives with son and son's girlfriend in a single story home with ramp to enter the home. Patient is independent for toileting and dressing. Has private aide that assists with bathing. Transportation: son or [place] DME/HHC: patient has shower chair, lift chair, raised toilet, grab bars, walker, and wheelchair at home. Patient has a private that stays with patient while family is at work about 5 days per week. Per son patient active with Palliative care but not sure of company. Message left with [facility] to confirm status. Patient has had [facility] in the past. Patient has previously been to a rehab center in [place]. Disposition Plan: TBD possible SNF vs [facility] Suzy LAZO, RN, CM
[2021-09-03 13:33] LABS: Pathologist Review Reviewed
--- NOTE | 2021-09-03 13:38 | CASEMGMT ---
Received call back from [facility] and patient is active with them and next visit is scheduled for 09/13/21.
[2021-09-03 13:52] LABS: Potassium 3.1 mmol/L (3.5-5.1)
--- NOTE | 2021-09-03 14:25 | CHAPLAIN ---
Type of Pastoral Visit _x__ Initial Visit ___ Follow-up Visit ___ On-call Visit ___ General Patient Visit ___ Spiritual Assessment ___ Family Conference ___ Bereavement ___ Rapid Response ___ Code Blue ___ Other (describe below) Pastoral Care Referral From _x__ Patient ___ Family ___ Nurse ___ Physician ___ [employer] Developer ___ Candle Pourer ___ Other (describe below) Sacrament/Intervention _x__ Active listening ___ Anointing ___ Jewish ___ Bereavement ___ Communion ___ Delilah exploration ___ _x__ Life review ___ Prayer ___ Reconciliation ___ Sacrament of Sick _x__ Supportive presence ___ Wedding ___ Other (describe below) Pastoral Comments patient is not sure what is next and is just waiting for decisions and direction; pt states that just do what I need to; pt gives life review of work and places lived; pt has a son close by; no other concerns noted by pt
[2021-09-03] MEDS: Acetaminophen 325 MG Tablet 650 MG PO (18:40)
[2021-09-03] MEDS: Atorvastatin Calcium 10 MG Tablet PO (21:22)
[2021-09-04 01:00] VITALS: BP 144/57; PULSE 62; RESP 16; TEMP 37.1; O2SAT 95
[2021-09-04] MEDS: HEPARIN/D5w 25,000 UNITS 25,000 UNITS/250 ML IV.SOLN. 10 UNITS IV (02:13)
[2021-09-04] MEDS: 0.9% Normal Saline 1,000 ML 100 ML IV ×2 (02:18→12:25)
[2021-09-04 03:22] VITALS: PULSE 51
[2021-09-04 04:57] VITALS: BP 146/70; PULSE 61; RESP 16; TEMP 36.6; O2SAT 95
[2021-09-04 05:19] LABS: Absolute Lymphocyte Count 2.23 X10^3/uL (0.83-4.51); Basophil# 0.06 X10^3/uL; Basophil% 0.5 % (0-1); Eosinophil# 1.16 X10^3/uL; Eosinophils% 9.2 % (0-5); Hematocrit 34.1 % (40-54); Hemoglobin 11.4 g/dL (13.0-16.5); Lymphocyte # 2.23 X10^3/ul (0.83-4.51); Lymphocyte % 17.6 % (19-41); Mean Corp Hgb Conc 33.4 g/dL (32-36); Mean Corpuscular Hgb 32.9 pg (27.0-32.0); Mean Corpuscular Volume 98.3 fL (80-94); Mean Platelet Vol. 10.5 fl (6.2-12.0); Monocyte# 1.07 X10^3/uL; Monocyte% 8.5 % (0-10); NRBC Flagged by Analyzer 0 % (0-5); Neutrophil # 8.04 X10^3/uL (2.7-7.7); Neutrophil % 63.4 % (47-70); Platelet Count 163 K/mm3 (150-450); RBC Distribution Width CV 16.4 % (11.6-14.6); RBC Distribution Width SD 59.9 fl (35.1-43.9); Red Blood Count 3.47 M/mm3 (4.6-6.2); White Blood Count 12.7 K/mm3 (4.4-11.0)
[2021-09-04] MEDS: Carbidopa/Levodopa 25/100 Tablet PO ×2 (05:33→15:09)
[2021-09-04] MEDS: Nystatin Powder 15gm Bottle 1 APPLIC TOPICAL ×2 (05:33→15:08)
[2021-09-04 05:35] LABS: Anion Gap 3 (5-15); BUN 20 mg/dL (7-18); BUN/Creat Ratio 21.1 RATIO (10-20); Calcium,Total 8.2 mg/dL (8.5-10.1); Chloride 112 mmol/L (98-107); Creatinine, Serum 0.95 mg/dL (0.70-1.30); EST Glomerular Filtration Rate 81 mL/min (>60); Est Glom Filt Rate - Afr Amer 98 mL/min (>60); Estimated Creatinine Clearance 58.92 ml/min; Glucose 85 mg/dL (74-106); Potassium 3.5 mmol/L (3.5-5.1); Sodium Level 143 mmol/L (136-145)
[2021-09-04 05:39] LABS: Partial Thromboplast Time 94.4 Seconds (24.1-36.2)
[2021-09-04] MEDS: 0.9% Saline Lock 10 ML Syringe IV (06:55)
[2021-09-04 07:03] VITALS: PULSE 57
[2021-09-04 08:37] VITALS: BP 166/68; PULSE 65; RESP 16; TEMP 36.8; O2SAT 95
[2021-09-04 08:49] VITALS: BMI 25.5
[2021-09-04] MEDS: Pantoprazole Sodium 20 MG Tablet PO (08:51)
[2021-09-04] MEDS: Doxazosin 4 MG Tablet 8 MG PO (08:52)
[2021-09-04] MEDS: Finasteride 5 MG Tablet PO (08:52)
[2021-09-04] MEDS: Acetaminophen 325 MG Tablet 650 MG PO (08:52)
--- NOTE | 2021-09-04 09:21 | VDLE_ITS ---
Reason For Study: Pain, Hx of DVT RIGHT LEFT GSV is normal. GSV is normal. CFV is compressible, spontaneous, phasic, CFV is compressible, spontaneous, phasic, competent and demonstrates normal competent, and demonstrates normal augmentation. augmentation. FV is compressible, spontaneous, phasic, FV is compressible, spontaneous, phasic, competent and demonstrates normal competent and demonstrates normal augmentation. augmentation. POP V is compressible, spontaneous, phasic, POP V is compressible, spontaneous, phasic, competent and demonstrates normal competent and demonstrates normal augmentation. augmentation. T/P Trunk is compressible. T/P Trunk is compressible. PTV is compressible. PTV is compressible. RT PerV is compressible. LT PerV is compressible. Procedure This is a venous duplex using B-mode, color flow and spectral Doppler. Exam performed portable in patient room. A preliminary report was called and/or faxed to [facility]. VL/Venous Duplex US - Mehrdad Extrem Interpretation Summary No evidence for acute deep venous thrombosis bilateral lower extremities with p atent and compressible bilateral great saphenous veins. Ordering Physician: Alexandria Villavicencio Referring Physician: Jm De La Cruz Performed By: Suzy Tee RVT
[2021-09-04] MEDS: Aspirin 81 MG TAB.CHEW PO (10:01)
--- NOTE | 2021-09-04 10:58 | DCINST_ITS ---
Discharge Instructions Diet Discharge Diet: Low fat / Low cholesterol Activity Discharge Activity: Return to Normal Activity Dressing / Incision Call your doctor if you observe: Shortness of breath, Dizziness and Chest pain Follow Up Care Test Results: Test results from this visit will be discussed in further detail at your follow-up appointment, if applicable. Discharge Plan Admission Admit Date/Time: 09/03/21 01:29 Primary Reason for Your Visit: Stroke Attending Provider: Axel Garcia Primary Care Provider: Tristan De La Cruz Consulting Providers: Brie Shin Instructions Additional Instructions / Restrictions: Apply eardrops to left ear. Discharge Orders/Prescriptions Prescriptions: New atorvastatin 10 mg Tablet 10 mg PO QHS Qty: 0 RF: 0 jxegqedj-othrkatse-ZJ 3.5-10,000-1 mg/mL-unit/mL-% Drops,Suspension 4 drp otic (ear) Q6H 7 Days Qty: 0 RF: 0 amoxicillin-pot clavulanate 875-125 mg Tablet 875 mg PO BID 5 Days Qty: 0 RF: 0 Continued doxazosin 8 MG tablet 8 mg PO QPM RF: 0 acetaminophen [Tylenol] 325 MG tablet 650 mg PO Q6H PRN PRN (Reason: Mild Pain (scale 0-3)/T>100.7) Qty: 0 RF: 0 aspirin 81 MG tablet,chewable 81 mg PO DAILY@0800 Qty: 30 RF: 0 finasteride 5 MG tablet 5 mg PO DAILY Qty: 30 RF: 0 polyethylene glycol 3350 17 GM powder in packet 17 gm PO PRN PRN (Reason: Constipation) RF: 0 cranberry conc-ascorbic acid 1 EACH capsule 1 tab PO DAILY RF: 0 lysine 1,000 mg Tablet 1,000 mg BID RF: 0 carbidopa-levodopa 25-100 mg tablet 1 tab PO TID RF: 0 sertraline 25 mg Tablet 25 mg PO QHS RF: 0 Changed losartan 50 mg tablet 25 mg PO DAILY Qty: 0 RF: 0 spironolactone 25 mg tablet 12.5 mg PO DAILY Qty: 0 RF: 0 omeprazole 20 mg capsule,delayed release(DR/EC) 40 mg PO DAILY Qty: 0 RF: 0 Discontinued Amlodipine 10 mg PO QPM RF: 0 furosemide 20 mg tablet 20 mg PO DAILY RF: 0 Other Ambulatory Orders: 30-Day Event Recorder (Routine) Location: None Selected Ordered By: Alexandria Villavicencio NP Referrals / Follow Up: Neurology, Follow-up [Other] - Within 2 Weeks Tristan De La Cruz, PA [Primary Care Provider] - In 1 Week Disposition Disposition (needs filled in before D/C Order can be placed): Inpatient Rehab Un it/Facility
--- NOTE | 2021-09-04 11:55 | PCM.DC.SUM ---
Documented by User: Alexandria Villavicencio NP, [employer]ES [employer]ASING [employer]ENT-C 09/04/21 12:16 Providers Date of Admission: 09/03/21 Date of Discharge: 09/04/21 Primary Care Physician: TIMOTEO Joshua Consultations 09/03/21 05:52 Consult: Cardiology Routine Consulting Provider: Brie Shin Reason for Consult: Suspect evolving NSTEMI, admit w/ small CVA, concern ? block EMERGENT Consult: No MD Notified: Yes Date Notified: 09/03/21 Time Notified: 05:52 Method of Notification: Text Reason For Visit: CVA, PNA Diagnosis Discharge Diagnosis (1) Second degree atrioventricular block, Mobitz (type) I: Status: Acute Code(s): I44.1 - Atrioventricular block, second degree (2) Hypertension: Status: Chronic Code(s): I10 - Essential (primary) hypertension (3) CKD (chronic kidney disease): Status: Chronic Code(s): N18.9 - Chronic kidney disease, unspecified (4) CVA (cerebral vascular accident): Status: Acute Code(s): I63.9 - Cerebral infarction, unspecified Qualifiers: CVA mechanism: unspecified Qualified Code(s): I63.9 - Cerebral infarction, unspecified Medications at Discharge Home Medications doxazosin 8 mg PO QPM 07/15/14 acetaminophen [Tylenol] 650 mg PO Q6H PRN PRN #0 tablet 05/16/16 aspirin 81 mg PO DAILY@0800 #30 tab.chew 05/16/16 finasteride 5 mg PO DAILY #30 tablet 05/16/16 cranberry conc-ascorbic acid 1 tab PO DAILY 01/31/20 polyethylene glycol 3350 17 gm PO PRN PRN 01/31/20 carbidopa-levodopa 1 tab PO TID 09/02/21 lysine 1,000 mg BID 09/02/21 sertraline 25 mg PO QHS 09/03/21 amoxicillin-pot clavulanate 875 mg PO BID 5 Days #0 tab 09/04/21 atorvastatin 10 mg PO QHS #0 tab 09/04/21 losartan 25 mg PO DAILY #0 tab 09/04/21 [id number]-[id number] 4 drp OTIC (EAR) Q6H 7 Days #0 ml 09/04/21 omeprazole 40 mg PO DAILY #0 cap 09/04/21 spironolactone 12.5 mg PO DAILY #0 tab 09/04/21 Hospital Course Summary of Care Provided Hospital Course: Patient is a 81-year-old male admitted 09/03/2021 due to dysarthria, confusion. 1. 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 Sequela of old infarcts. MRA of neck with no evidence of cervical vertebral or carotid occlusion. On aspirin, statin. Continue PT/OT/ST. Echocardiogram with EF 55 to 60%. SOC neurology consult placed. Per neuro, imaging suggest the presence of far advanced white matter disease, likely vascular/Parkinson's. Neurology concerned for Neutra genic hypotension. Use caution with diuretics. Home Lasix discontinued. Amlodipine discontinued. Spironolactone reduced to 12.5 mg daily and losartan reduced to 25 mg daily. Further blood pressure monitoring at rehab. 2. Elevated cardiac enzymes/type II demand ischemia-cardiology consulted during admission. Echocardiogram demonstrated an EF of 55 to 60%. Denies cardiac symptoms. EKG without acute changes. Continue aspirin. 3. Acute hypoxic respiratory failure secondary to left lower lobe pneumonia- Wean oxygen as tolerated. IV azithromycin and IV Rocephin during admission. Discharged on Augmentin to complete course. Patient with leukocytosis, no fever. UA unremarkable. Continue speech therapy evaluation for aspiration risk. 4. Second-degree AV block, Mobitz 1-30-day event monitor at discharge. Avoid rate limiting medications. Follow-up with cardiology. 5. History of DVT-Per patient, he was diagnosed with DVT during admission following prior stroke at [facility] Main campus. He is unclear why he was taken off of anticoagulation however suspect due to history of GI bleed. [facility] records request pending. Duplex bilateral lower extremities negative for DVT. 6. Hypertension-previously on amlodipine, losartan, spironolactone, Lasix. Due to concern for neurogenic hypotension, amlodipine and Lasix discontinued. Losartan reduced to 25 mg daily and spironolactone reduced to 12.5 mg daily. May be titrated further pending further blood pressure monitoring at rehab. 7. Left ear otitis externa-cerumen impaction left ear. Debrox x1. External erythema noted. Placed on Otocort drops. Recommend reexamined after cerumen improves as eardrum was unable to be assessed. 8. History of promyelocytic leukemia-in remission. Follows with Dr. Aragon. 9. History of GI bleed with peptic ulcer disease/GERD-continue PPI 10. Chronic kidney disease stage IIIa- at baseline, trend BMP. 11. BPH-on Proscar. 12. Former tobacco dependence-encouraged continued cessation. 13. Former alcohol use-maintains sobriety. 14. History of thoracic AA-continue outpatient follow-up. 15. 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 Outpatient follow-up with neuro. 16. Hyperlipidemia-initiate low-dose statin. Physical Exam Const alert, oriented x3 and no apparent distress Orientation / Consciousness: awake, oriented to person, oriented to place and oriented to time HEENT normocephalic, left ear canal with external erythema, unable to visualize eardrum due to impacted cerumen Mouth: dry mucous membranes Eyes PERRL, EOMs intact bilaterally and conjunctivae normal Neck no lymphadenopathy Resp Auscultation: crackles and diminished lung sounds Cardio regular rate, regular rhythm and no murmurs, Mobitz 1 Peripheral Pulses: pulses 2+ throughout GI normal to inspection, nondistended, normoactive bowel sounds, non-tender and non-distended Extremity normal to inspection Skin no rashes or lesions noted Lesions: no lesions Rashes: no rashes Trauma: no lacerations or abrasions Neuro CN's II-XII intact bilaterally, no focal motor deficits, no sensory deficits noted and deep tendon reflexes 2+ bilaterally Neuro Narrative: Left upper extremity and left lower extremity weakness. Psych mental status grossly normal and affect normal Patient seen and examined prior to discharge. Physical assessment as noted above. Patient is stable for discharge with follow up recommendations as noted above. This patient was seen by MAYE Maria under the supervision of Dr. Garcia. Weight / BMI Weight Weight: 180 lb 15.992 oz Body Mass Index (BMI) 25.5 ABG / Lab / Microbiology Data Result Diagrams: 09/04/21 05:14 09/04/21 05:14 Laboratory: Laboratory Results - last 24 hr 09/03/21 04:28: Diff Path Review Reviewed 09/03/21 13:26: Potassium 3.1 L 09/03/21 15:40: APTT 72.0 H 09/03/21 21:50: APTT 92.0 H* 09/04/21 05:14: WBC 12.7 H, RBC 3.47 L, Hgb 11.4 L, Hct 34.1 L, MCV 98.3 H, MCH 32.9 H, MCHC 33.4, RDW Std Deviation 59.9 H, RDW Coeff of Louann 16.4 H, Plt Count 163, MPV 10.5, Immature Gran % (Auto) 0.800, Neut % (Auto) 63.4, Lymph % (Auto) 17.6 L, [place] % (Auto) 8.5, Eos % (Auto) 9.2 H, Baso % (Auto) 0.5, Absolute Neuts (auto) 8.0 H, Absolute Lymphs (auto) 2.23, Nucleated RBC % 0 09/04/21 05:14: Sodium 143, Potassium 3.5, Chloride 112 H, Carbon Dioxide 28.0, Anion Gap 3 L, BUN 20 H, Creatinine 0.95, Estim Creat Clear Calc 58.92, Est GFR (MDRD) Af Amer 98, Est GFR (MDRD) Non-Af 81, BUN/Creatinine Ratio 21.1 H, Glucose 85, Calcium 8.2 L 09/04/21 05:14: APTT 94.4 H* Microbiology: Microbiology 09/02/21 23:12 Urine, Random Legionella Antigen - Final 09/02/21 23:12 Urine, Random Streptococcus pneumoniae Antigen (M - Final 09/02/21 23:00 Nasal Secretion SARS-CoV-2 Antigen (Rapid) - Final Radiography Diagnostic Testing: Radiology Impression Echocardiogram 09/03/21 03:02 Interpretation Summary The estimated ejection fraction is 55-60 %. Moderate Eccentric AI is moderate in comparison to previous echo Ordering Physician: Valerie Ramirez Referring Physician: Jm De La Cruz Performed By: Kari Thrasher RDCS D/C Instructions Discharge Diet: Low fat / Low cholesterol Call your doctor if you observe: Shortness of breath, Dizziness and Chest pain Meaningful Use Info Meaningful Use Diagnoses (Choose all that apply): Ischemic CVA CVA Therapy Assessed for PT,OT and/or ST?: Yes Ischemic Stroke Antithrombotic order at d/c?: Yes Dx of Atrial fib/flutter?: No Statins at discharge?: Yes Primary Dx Acute Ischemic CVA?: Yes IV tPA ordered during stay?: No Reason IV t-PA not ordered: Medical Contraindication Discharge Plan Admission Admit Date/Time: 09/03/21 01:29 Primary Reason for Your Visit: Stroke Attending Provider: Axel Garcia Primary Care Provider: Tristan De La Cruz Consulting Providers: Brie Shin Instructions Additional Instructions / Restrictions: Apply eardrops to left ear. Discharge Orders/Prescriptions Prescriptions: New atorvastatin 10 mg Tablet 10 mg PO QHS Qty: 0 RF: 0 rypnhztd-lznaulinl-KX 3.5-10,000-1 mg/mL-unit/mL-% Drops,Suspension 4 drp otic (ear) Q6H 7 Days Qty: 0 RF: 0 amoxicillin-pot clavulanate 875-125 mg Tablet 875 mg PO BID 5 Days Qty: 0 RF: 0 Continued doxazosin 8 MG tablet 8 mg PO QPM RF: 0 acetaminophen [Tylenol] 325 MG tablet 650 mg PO Q6H PRN PRN (Reason: Mild Pain (scale 0-3)/T>100.7) Qty: 0 RF: 0 aspirin 81 MG tablet,chewable 81 mg PO DAILY@0800 Qty: 30 RF: 0 finasteride 5 MG tablet 5 mg PO DAILY Qty: 30 RF: 0 polyethylene glycol 3350 17 GM powder in packet 17 gm PO PRN PRN (Reason: Constipation) RF: 0 cranberry conc-ascorbic acid 1 EACH capsule 1 tab PO DAILY RF: 0 lysine 1,000 mg Tablet 1,000 mg BID RF: 0 carbidopa-levodopa 25-100 mg tablet 1 tab PO TID RF: 0 sertraline 25 mg Tablet 25 mg PO QHS RF: 0 Changed losartan 50 mg tablet 25 mg PO DAILY Qty: 0 RF: 0 spironolactone 25 mg tablet 12.5 mg PO DAILY Qty: 0 RF: 0 omeprazole 20 mg capsule,delayed release(DR/EC) 40 mg PO DAILY Qty: 0 RF: 0 Discontinued Amlodipine 10 mg PO QPM RF: 0 furosemide 20 mg tablet 20 mg PO DAILY RF: 0 Other Ambulatory Orders: 30-Day Event Recorder (Routine) Location: None Selected Ordered By: Alexandria Villavicencio NP Referrals / Follow Up: Neurology, Follow-up [Other] - Within 2 Weeks Tristan De La Cruz PA [Primary Care Provider] - In 1 Week Carolina Hernandez PA [PHYSICIAN NUCLEAR WASTE PROCESS OPERATOR] - Within 2 Weeks Disposition Disposition (needs filled in before D/C Order can be placed): Inpatient Rehab Unit/Facility Documented by User: Dr. Axel Gacria MD 09/04/21 13:22 Providers Date of Admission: 09/03/21 Reason For Visit: CVA, PNA Medications at Discharge Home Medications doxazosin 8 mg PO QPM 07/15/14 acetaminophen [Tylenol] 650 mg PO Q6H PRN PRN #0 tablet 05/16/16 aspirin 81 mg PO DAILY@0800 #30 tab.chew 05/16/16 finasteride 5 mg PO DAILY #30 tablet 05/16/16 cranberry conc-ascorbic acid 1 tab PO DAILY 01/31/20 polyethylene glycol 3350 17 gm PO PRN PRN 01/31/20 carbidopa-levodopa 1 tab PO TID 09/02/21 lysine 1,000 mg BID 09/02/21 sertraline 25 mg PO QHS 09/03/21 amoxicillin-pot clavulanate 875 mg PO BID 5 Days #0 tab 09/04/21 atorvastatin 10 mg PO QHS #0 tab 09/04/21 losartan 25 mg PO DAILY #0 tab 09/04/21 [id number]-hvuytmvnx-GD 4 drp OTIC (EAR) Q6H 7 Days #0 ml 09/04/21 omeprazole 40 mg PO DAILY #0 cap 09/04/21 spironolactone 12.5 mg PO DAILY #0 tab 09/04/21 Hospital Course Summary of Care Provided Minutes Spent on Discharge: 40 Hospital Course: This patient was seen in conjunction with MAYE Maria . I have independently interviewed and examined the patient and reviewed pertinent historical, laboratory, and other data. Please refer to MAYE Maria note for details of this patient's presentation, findings, and recommendations. I have reviewed MAYE Maria note and concur with documented findings. In brief, patient is a an 81-year-old gentleman who presented with left-sided weakness. Imaging studies with an MRI demonstrated findings consistent with ischemic stroke within the right cerebellum as well as sequelae of old infarct and severe senescent change. Admitted to monitored bed for subsequent management. Patient was stabilized and subsequently discharged to the inpatient rehab unit Physical Examination: GENERAL: cooperative HEENT: Atraumatic; EYES; Anicteric, Normal Conjunctiva NECK; supple, normal thyroid, RESPIRATORY: Diminished to auscultation CARDIOVASCULAR: Regular S1 S2, GI: soft, normoactive bowel sounds, : No Renal angle tenderness; EXTREMITIES: No edema, no clubbing, MUSCULOSKELETAL: no muscle wasting NEURO: Awake; oriented to place and person SKIN: No Rash PSYCH; Flat affect Assessment: 1. Acute ischemic CVA 2. Elevated enzymes? NSTEMI type II 3. Left lower lobe pneumonia/pneumonia 4. Hypokalemia 5. Essential potential 6. Dyslipidemia 7. History of previous DVT 8. History of promyelocytic leukemia currently in remission Chronic kidney disease stage III 11. BPH 12. 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 DVT prophylaxis Hospital course Total time spent by myself and the advanced practice practitioner evaluating patient, reviewing labs, subsequent management decisions, discussion with patient as well as other providers 40 minutes ( 25 of which was spent by myself) ABG / Lab / Microbiology Data Result Diagrams: 09/04/21 05:14 09/04/21 05:14 Discharge Plan Admission Admit Date/Time: 09/03/21 01:29 Primary Reason for Your Visit: Stroke Attending Provider: Axel Garcia Primary Care Provider: Tristan De La Cruz Consulting Providers: Brie Shin Instructions Additional Instructions / Restrictions: Apply eardrops to left ear. Discharge Orders/Prescriptions Prescriptions: New atorvastatin 10 mg Tablet 10 mg PO QHS Qty: 0 RF: 0 gxfuqsfg-swkrrocke-GK 3.5-10,000-1 mg/mL-unit/mL-% Drops,Suspension 4 drp otic (ear) Q6H 7 Days Qty: 0 RF: 0 amoxicillin-pot clavulanate 875-125 mg Tablet 875 mg PO BID 5 Days Qty: 0 RF: 0 Continued doxazosin 8 MG tablet 8 mg PO QPM RF: 0 acetaminophen [Tylenol] 325 MG tablet 650 mg PO Q6H PRN PRN (Reason: Mild Pain (scale 0-3)/T>100.7) Qty: 0 RF: 0 aspirin 81 MG tablet,chewable 81 mg PO DAILY@0800 Qty: 30 RF: 0 finasteride 5 MG tablet 5 mg PO DAILY Qty: 30 RF: 0 polyethylene glycol 3350 17 GM powder in packet 17 gm PO PRN PRN (Reason: Constipation) RF: 0 cranberry conc-ascorbic acid 1 EACH capsule 1 tab PO DAILY RF: 0 lysine 1,000 mg Tablet 1,000 mg BID RF: 0 carbidopa-levodopa 25-100 mg tablet 1 tab PO TID RF: 0 sertraline 25 mg Tablet 25 mg PO QHS RF: 0 Changed losartan 50 mg tablet 25 mg PO DAILY Qty: 0 RF: 0 spironolactone 25 mg tablet 12.5 mg PO DAILY Qty: 0 RF: 0 omeprazole 20 mg capsule,delayed release(DR/EC) 40 mg PO DAILY Qty: 0 RF: 0 Discontinued Amlodipine 10 mg PO QPM RF: 0 furosemide 20 mg tablet 20 mg PO DAILY RF: 0 Other Ambulatory Orders: 30-Day Event Recorder (Routine) Location: None Selected Ordered By: Alexandria Villavicencio NP Referrals / Follow Up: Neurology, Follow-up [Other] - Within 2 Weeks Tristan De La Cruz PA [Primary Care Provider] - In 1 Week Carolina Hernandez PA [PHYSICIAN NUCLEAR WASTE PROCESS OPERATOR] - Within 2 Weeks Disposition Disposition (needs filled in before D/C Order can be placed): Inpatient Rehab Unit/Facility Charges/Coding Visit Charges Inpatient E&M: 87488 Disch Hosp Hospital Course Consultations Consultations: Consultations 09/03/21 05:52 Consult: Cardiology Routine Consulting Provider: Belal,Farouk Reason for Consult: Suspect evolving NSTEMI, admit w/ small CVA, concern ? block EMERGENT Consult: No MD Notified: Yes Date Notified: 09/03/21 Time Notified: 05:52 Method of Notification: Text
[2021-09-04 12:17] LABS: Partial Thromboplast Time 54.7 Seconds (24.1-36.2)
[2021-09-04 15:02] VITALS: BP 121/68; PULSE 73; RESP 16; TEMP 36.9; O2SAT 98
[2021-09-04] MEDS: Neomycin/Polymyxin/Dexameth 5ML OPTH.BTL OTIC (15:05)
[2021-09-04] MEDS: Carbamide Peroxide 15 ML Bottle OTIC (15:05)
--- NOTE | 2021-09-04 17:26 | PN.CARD_ITS ---
Subjective Subjective Seen and evaluated today at bedside No events noted from last night Objective Data Vital Signs: Vital Signs Temp Pulse Resp BP Pulse Ox 98.4 F 73 16 121/68 H 98 09/04/21 15:02 09/04/21 15:02 09/04/21 15:02 09/04/21 15:02 09/04/21 15:02 Oxygen Flow Rate (L/min) 2 Oxygen Delivery Method Nasal Cannula Weight: 180 lb 15.992 oz Body Mass Index (BMI) 25.5 Intake & Output: Intake and Output for Last 24 Hours 09/02/21 09/03/21 09/04/21 23:59 23:59 23:59 Intake Total 2596.7 / 2596.7 2818.63 / 2818.63 Output Total 750 / 750 850 / 850 Balance 1846.7 / 1846.7 1968.63 / 1968.63 Lab / Micro Data Result Diagrams: 09/04/21 05:14 09/04/21 05:14 Labs: Laboratory Results - last 24 hr 09/03/21 21:50: APTT 92.0 H* 09/04/21 05:14: WBC 12.7 H, RBC 3.47 L, Hgb 11.4 L, Hct 34.1 L, MCV 98.3 H, MCH 32.9 H, MCHC 33.4, RDW Std Deviation 59.9 H, RDW Coeff of Louann 16.4 H, Plt Count 163, MPV 10.5, Immature Gran % (Auto) 0.800, Neut % (Auto) 63.4, Lymph % (Auto) 17.6 L, [place] % (Auto) 8.5, Eos % (Auto) 9.2 H, Baso % (Auto) 0.5, Absolute Neuts (auto) 8.0 H, Absolute Lymphs (auto) 2.23, Nucleated RBC % 0 09/04/21 05:14: Sodium 143, Potassium 3.5, Chloride 112 H, Carbon Dioxide 28.0, Anion Gap 3 L, BUN 20 H, Creatinine 0.95, Estim Creat Clear Calc 58.92, Est GFR (MDRD) Af Amer 98, Est GFR (MDRD) Non-Af 81, BUN/Creatinine Ratio 21.1 H, Glucose 85, Calcium 8.2 L 09/04/21 05:14: APTT 94.4 H* 09/04/21 12:00: APTT 54.7 H Cardiology Labs/Tests 09/03/21 21:50: APTT 92.0 H* 09/04/21 05:14: WBC 12.7 H, RBC 3.47 L, Hgb 11.4 L, Hct 34.1 L, MCV 98.3 H, MCH 32.9 H, MCHC 33.4, Plt Count 163, MPV 10.5, Immature Gran % (Auto) 0.800, Neut % (Auto) 63.4, Lymph % (Auto) 17.6 L, [place] % (Auto) 8.5, Eos % (Auto) 9.2 H, Baso % (Auto) 0.5, Absolute Neuts (auto) 8.0 H, Nucleated RBC % 0 09/04/21 05:14: Sodium 143, Potassium 3.5, Chloride 112 H, Carbon Dioxide 28.0, Anion Gap 3 L, BUN 20 H, Creatinine 0.95, Est GFR (MDRD) Af Amer 98, Est GFR (MDRD) Non-Af 81, BUN/Creatinine Ratio 21.1 H, Glucose 85, Calcium 8.2 L 09/04/21 05:14: APTT 94.4 H* 09/04/21 12:00: APTT 54.7 H Rhythm: EKG: ECHO: Stress Test: Cardiac Cath: PCI: CT Surgery: Holter monitor: EPS: PPM: CXR: Chest CT Scan: Physical Exam Narrative Review of cardiac telemetry showed underlying evidence of Mobitz type I/alternating with Mobitz type II Cardiac exam S1-S2 regular, diastolic murmur heard in the aortic valve. Chest exam clear to auscultation Examination lower extremity no clubbing no cyanosis no extremity edema Central nervous system exam at the weakness noted on the left upper and lower e xtremity. Assessment & Plan Assessment/Plan (1) Cerebellar stroke, acute: (2) Elevated troponin: (3) CKD (chronic kidney disease): (4) CVA (cerebral vascular accident): QUALIFIERS: CVA mechanism: unspecified Qualified Code(s): I63.9 - Cerebral infarction, unspecified (5) Second degree atrioventricular block, Mobitz (type) I: PLAN: 81-year-old patient admitted with weakness Has acute ischemic CVA small cerebellar Type II TN secondary to demand myocardial ischemia/NSTEMI Echocardiographic evaluation LV function preserved with moderate aortic in competence/eccentric The cardiac catheterization technician showed Mobitz type I AV block Patient has been stable hemodynamically Cardiac care plan recommendations; 1. Event monitor arrangement prior to discharge for 30 days and follow-up with cardiology For possible pacemaker placement 2. Patient is not on any AV blocking medication.
== END 2021-09-04 17:26 | DRG 64 ==
LOC: ED 23:40 → PCU 09-03 02:20
PROVIDERS: Nurse Practitioner Family; Admitting Provider Family Medicine; Emergency Provider Emergency Medicine; PCP Physician Assistant; Visit Provider Internal Medicine
DX: I63.9 Cerebral infarction, unspecified (principal); J18.9 Pneumonia, unspecified organism; J96.01 Acute respiratory failure with hypoxia; I21.A1 Myocardial infarction type 2; J98.11 Atelectasis; G21.4 Vascular parkinsonism; I44.1 Atrioventricular block, second degree; N18.31 Chronic kidney disease, stage 3a; E78.5 Hyperlipidemia, unspecified; I12.9 Hypertensive chronic kidney disease with stage 1 through stage 4 chronic kidney disease, or unspecified chronic kidney disease; N40.0 Benign prostatic hyperplasia without lower urinary tract symptoms; K21.9 Gastro-esophageal reflux disease without esophagitis; H60.92 Unspecified otitis externa, left ear; E87.6 Hypokalemia; G62.9 Polyneuropathy, unspecified; H61.22 Impacted cerumen, left ear; R47.81 Slurred speech; R47.1 Dysarthria and anarthria; R29.703 NIHSS score 3; R29.704 NIHSS score 4; Z79.82 Long term (current) use of aspirin; Z79.899 Other long term (current) drug therapy; Z86.718 Personal history of other venous thrombosis and embolism; Z86.79 Personal history of other diseases of the circulatory system; Z87.11 Personal history of peptic ulcer disease; Z87.19 Personal history of other diseases of the digestive system; Z87.891 Personal history of nicotine dependence; Z86.73 Personal history of transient ischemic attack (TIA), and cerebral infarction without residual deficits
CPT/HCPCS: 36415; 70450; 70544; 70547; 70551; 71045; 80048; 80053; 80061; 81001; 82962; 83036; 83605; 83735; 84132; 84443; 84484; 85025; 85610; 85730; 87040; 87086; 87449; 87811; 92526; 92610; 93005; 93306; 93970; 94762; 97110; 97162; 97167; 97530; 97535; 97802; 99251; 99285; J7030; J7050; P9612; A4216; G0463

== ENCOUNTER 2021-09-04 17:34 | Inpatient (IN) | payer MEDICARE, BC, SELFPAY ==
[2021-09-04 17:46] VITALS: BP 113/90; PULSE 75; RESP 18; TEMP 36.6; O2SAT 95; BMI 26.7
[2021-09-04 19:45] VITALS: BP 109/56; PULSE 69; RESP 20; TEMP 37; O2SAT 95
[2021-09-04] MEDS: Atorvastatin Calcium 10 MG Tablet PO (21:18)
[2021-09-04] MEDS: Neomycin/Polymyxin/Dexameth 5ML OPTH.BTL 4 DRP LEFT EAR (21:18)
[2021-09-04] MEDS: Doxazosin 4 MG Tablet 8 MG PO (21:18)
[2021-09-04] MEDS: Amox/Clavulanate 875 MG Tablet PO (21:18)
[2021-09-04] MEDS: Carbidopa/Levodopa 25/100 Tablet PO (21:19)
[2021-09-04] MEDS: Senna/Docusate Sodium 1 Tablet 2 TABLET PO (21:19)
[2021-09-04] MEDS: 0.9% Saline Lock 10 ML Syringe IV (21:19)
[2021-09-04] MEDS: Acetaminophen 325 MG Tablet 650 MG PO (22:30)
[2021-09-05] MEDS: Neomycin/Polymyxin/Dexameth 5ML OPTH.BTL 4 DRP LEFT EAR ×4 (04:27→20:32)
[2021-09-05] MEDS: Carbidopa/Levodopa 25/100 Tablet PO ×3 (05:56→20:32)
[2021-09-05 06:44] LABS: Hematocrit 32.6 % (40-54); Hemoglobin 10.7 g/dL (13.0-16.5); Mean Corp Hgb Conc 32.8 g/dL (32-36); Mean Corpuscular Hgb 32.3 pg (27.0-32.0); Mean Corpuscular Volume 98.5 fL (80-94); Mean Platelet Vol. 10.7 fl (6.2-12.0); Platelet Count 166 K/mm3 (150-450); RBC Distribution Width CV 16.5 % (11.6-14.6); RBC Distribution Width SD 59.6 fl (35.1-43.9); Red Blood Count 3.31 M/mm3 (4.6-6.2); White Blood Count 15.1 K/mm3 (4.4-11.0)
[2021-09-05 07:14] LABS: ALB/GLOB Ratio 0.7 RATIO (0.9-2.4); AST(SGOT) 115 U/L (15-37); Alanine Aminotransfer ALT/SGPT 16 U/L (16-61); Albumin, Serum 2.5 g/dL (3.2-5.0); Alkaline Phosphatase 83 U/L (45-117); Anion Gap 4 (5-15); BUN 19 mg/dL (7-18); BUN/Creat Ratio 21.2 RATIO (10-20); Calcium,Total 8.6 mg/dL (8.5-10.1); Chloride 109 mmol/L (98-107); EST Glomerular Filtration Rate 86 mL/min (>60); Est Glom Filt Rate - Afr Amer 104 mL/min (>60); Estimated Creatinine Clearance 62.19 ml/min; Globulin 3.8 g/dL (2.2-4.2); Glucose 89 mg/dL (74-106); Magnesium 2.4 mg/dL (1.6-2.6); Phosphorus 2.8 mg/dL (2.5-4.9); Potassium 3.5 mmol/L (3.5-5.1); Protein, Total 6.3 g/dL (6.4-8.2); Sodium Level 139 mmol/L (136-145)
[2021-09-05 07:49] VITALS: BP 117/62; BP 123/59; BP 126/60; PULSE 67; PULSE 76; PULSE 80
[2021-09-05] MEDS: Sertraline 50 MG Tablet 25 MG PO (09:06)
[2021-09-05] MEDS: Pantoprazole Sodium 40 MG Tablet PO (09:06)
[2021-09-05] MEDS: Senna/Docusate Sodium 1 Tablet 2 TABLET PO (09:06)
[2021-09-05] MEDS: Aspirin 81 MG TAB.CHEW PO (09:06)
[2021-09-05] MEDS: Spironolactone 25 MG Tablet 12.5 MG PO (09:07)
[2021-09-05] MEDS: Amox/Clavulanate 875 MG Tablet PO ×2 (09:08→20:31)
[2021-09-05] MEDS: Losartan Potassium 25 MG Tablet PO (09:09)
[2021-09-05] MEDS: Finasteride 5 MG Tablet PO (09:10)
[2021-09-05] MEDS: Acetaminophen 325 MG Tablet 650 MG PO (09:12)
[2021-09-05 10:00] VITALS: BP 142/66; PULSE 67; RESP 16; TEMP 36.7; O2SAT 92
[2021-09-05] MEDS: 0.9% Saline Lock 10 ML Syringe IV ×2 (13:26→20:33)
[2021-09-05] MEDS: Magnesium Hydroxide 30 ML UDC PO (13:30)
--- NOTE | 2021-09-05 13:46 | HP.PCM_ITS ---
HPI - General General Date of Admission: 09/04/21 HPI Narrative LEANNA LAW, is a 81 YO M with a PMH of PD, BPH (hx of TURP), HTN, HLD, thoracic aortic aneurysm, dementia (possibly vascular....there is far advanced white matter disease on MRI) , congestive heart failure, GERD, presbycusis, history of promyelocytic leukemia (follows with Dr. Aragon), peptic ulcer disease with history of GI bleed, tobacco dependence in remission, neuropathy, CRF ?, remote CVA's ( seen on brain CT in the BL frontal lobes and the L cerebellum), remote alcohol abuse, Hiatal hernia, thyromegaly, elevated PSA in past (12.6 in 2016), being treated with antibiotics for current LLL PNA (treated with R ocephin initially had recently transitioned to Augmentin) and a recent R cerebellar ischemic CVA who was transferred to the acute inpt rehab unit at [facility] on 09/04/21 for physical debility due to a recent R cerebellar ischemic CVA. All lab from today was personally reviewed. The WBC count is 15.1 today which is up from 12.7 yesterday. HGB is 10.7 which is down from 13.7 at admission. MCV is high at 98.5. RDW is also increased at 16.5. Eosinophils yesterday were high at 9.2 %. Potassium is borderline low at 3.5. The BUN is increased at 19 and the creatinine is 0.9 which is down from 1.59 at admission to the hospital. Calcium, phosphorus and magnesium are all within normal limits. The AST is elevated at 115 with a normal ALT of 16 and a normal bilirubin and alkaline phosphatase. A TSH was done prior to coming to rehab and it was low at 0.23. LDL was 36 and the HDL 51. Triglycerides are normal. Current creatinine clearance is estimated at 62 after discontinuation of Lasix and hydration. GFR is 86 and this is not consistent with chronic renal failure. EKG at admission showed a second-degree AV block, Mobitz 1. The statin was started by cardiology this admission. Please see the cardiology consult. They recommended a 30 day event monitor at [place]. He was on Lisinopril 20 mg, Cozaar 50 mg, and Lasix 20 mg and Aldactone 25 mg at admission to the hospital. He was also taking 8 mg of Cardura, 5 mg of Proscar and amlodipine 10mg. Amlodipine, Lasix and Lisinopril have been discontinued and Lipitor 10 mg added. He is also now on Sertraline 25mg. ECHO this admission showed moderate LVH with a 55-60% EF, mild LAE, moderate to severe mitral annular calcification with +1 MR, Moderate AI and a mild to moderately dilated aortic root. No wall motion abnormalities. [facility] Medical History (Updated 09/07/21 @ 10:[address] Faye Cartagena DO) BPH (benign prostatic hypertrophy) Diverticulosis Enlarged thyroid GERD (gastroesophageal reflux disease) History of CVA (cerebrovascular accident) History of gastrointestinal hemorrhage History of leukemia HLD (hyperlipidemia) Hypertension Parkinson's disease Peripheral neuropathy Thoracic aortic aneurysm Urine retention Home Medications doxazosin 8 mg PO QPM 07/15/14 [History Last Taken 05/12/16] cranberry conc-ascorbic acid 1 tab PO DAILY 01/31/20 [History Last Taken Unknown] carbidopa-levodopa 1 tab PO TID 09/02/21 [History Last Taken Unknown] lysine 1,000 mg BID 09/02/21 [History Last Taken Unknown] sertraline 25 mg PO DAILY 09/03/21 [History Last Taken Unknown] acetaminophen [Tylenol] 650 mg PO Q6H PRN PRN 09/04/21 [History Last Taken Unknown] amoxicillin-pot clavulanate 875 mg PO BID 09/04/21 [History Last Taken Unknown] aspirin 81 mg PO DAILY@0800 09/04/21 [History Last Taken Unknown] atorvastatin 10 mg PO QHS 09/04/21 [History Last Taken Unknown] finasteride 5 mg PO DAILY 09/04/21 [History Last Taken Unknown] losartan 25 mg PO DAILY 09/04/21 [History Last Taken Unknown] [id number] 4 drp OTIC (EAR) Q6H 09/04/21 [History Last Taken Unknown] omeprazole 40 mg PO DAILY 09/04/21 [History Last Taken Unknown] spironolactone 12.5 mg PO DAILY 09/04/21 [History Last Taken Unknown] Allergy/AdvReac Type Severity Reaction Status Date / Time Iodine and Iodide Containing Allergy Severe Anaphylaxis Verified 09/02/21 22:11 Produc Family History Mother Heart disease Father Heart disease Myocardial infarction Surgical History H/O foot surgery S/P herniorrhaphy S/P TURP Social History household members: family Smoking Status: Former smoker how long ago did patient quit smoking: Quit 1973. alcohol intake: former details: Former heavy beer intake. substance use type: does not use ROS Review of Systems ROS Unobtainable: other Details: poor memory and now with not only dementia but, with cognitive dysfunction due to recent CVA. Constitutional Constitutional: Reports fatigue and weakness; Denies difficulty sleeping or headache(s) Eyes Eyes: Denies acute decrease in peripheral vision, blurry vision, change in vision, nystagmus or photophobia ENT HEENT: Reports disequillibrium and dizziness; Denies headache(s) or neck mass Cardiovascular Cardiovascular: Reports dizziness and numbness in extremities; Denies abdominal bloating, abdominal pain, chest pain, pounding heartbeat or syncope Respiratory/Chest Respiratory/Chest: Reports dyspnea on exertion, shortness of breath with exertion and tachypnea; Denies chest tightness, cough or stridor Gastrointestinal Gastrointestinal: Denies abdominal pain, bloating or diarrhea Genitourinary Genitourinary: Denies burning urination Musculoskeletal Musculoskeletal: Reports abnormal gait, difficulty walking and limited range of motion Integumentary Integumentary: Denies jaundice Neurologic Neurologic: Reports confusion, disequilibrium and frequent falls; Denies headache(s) Psychiatric Psychiatric: Reports systems reviewed and no addt'l complaints, except as documented Endocrine Endocrinology: Denies excessive sweating, polydipsia or polyuria Hematologic/Lymphatic Hematologic/Lymphatic: Reports anemia and easy bruising Allergic/Immunologic Allergic/Immunologic: Reports GI upset w/certain foods Vital Signs Vital Signs Vital Signs: 09/04/21 17:46 09/04/21 19:45 09/04/21 21:45 Temperature 97.9 F 98.6 F Temperature Source Oral Temporal Pulse Rate 75 69 Pulse Rate [Lying] Pulse Rate [Sitting (for 1 minute prior to obtaining)] Pulse Rate [Standing (for 1 minute prior to obtaining)] Respiratory Rate 18 20 H Respiratory Effort Respiratory Depth Normal Blood Pressure 113/90 H 109/56 L Blood Pressure [Lying] Blood Pressure [Sitting (for 1 minute prior to obtaining)] Blood Pressure [Standing (for 1 minute prior to obtaining)] Blood Pressure Mean 97 73 Blood Pressure Mean [Lying] Blood Pressure Mean [Sitting (for 1 minute prior to obtaining)] Blood Pressure Mean [Standing (for 1 minute prior to obtaining)] Blood Pressure Source Monitor Monitor Blood Pressure Position Semi-Fowlers Semi-Fowlers Blood Pressure Location Right Arm Left Arm Pulse Ox 95 95 Oxygen Delivery Method Room Air Room Air Room Air 09/05/21 07:49 09/05/21 09:36 09/05/21 10:00 Temperature 98.1 F Temperature Source Temporal Pulse Rate 67 Pulse Rate [Lying] 67 Pulse Rate [Sitting (for 1 minute prior to obtaining)] 76 Pulse Rate [Standing (for 1 minute prior to obtaining)] 80 Respiratory Rate 16 Respiratory Effort Short of Breath Respiratory Depth Blood Pressure 142/66 H Blood Pressure [Lying] 126/60 H Blood Pressure [Sitting (for 1 minute prior to obtaining)] 123/59 H Blood Pressure [Standing (for 1 minute prior to obtaining)] 117/62 Blood Pressure Mean 91 Blood Pressure Mean [Lying] 82 Blood Pressure Mean [Sitting (for 1 minute prior to obtaining)] 80 Blood Pressure Mean [Standing (for 1 minute prior to obtaining)] 80 Blood Pressure Source Blood Pressure Position Sitting Blood Pressure Location Left Arm Pulse Ox 92 Oxygen Delivery Method Room Air Room Air Weight Weight: 180 lb 15.992 oz Body Mass Index (BMI) 26.7 Indicators for Scoring Admitted with or Primary Diagnosis of CVA/Stroke: Yes Hx of CVA/Stroke: Yes Modified Cloud Score MRS Score at time of Evaluation: 4-Moderate/severe disability NIHSS NIHSS 1a. Level of Consciousness: Alert; keenly responsive 1b. LOC Questions: Answers one question correctly. 2. Best Gaze: Normal 3. Visual: No visual loss 4. Facial Palsy: Normal symmetrical movements 5a. Left Arm: No drift; arm holds 90 (or 45) degrees for full 10 seconds 5b. Right Arm: No drift; arm holds 90 (or 45) degrees for full 10 seconds 6a. Left Leg: Drift; leg falls by the end of 5-seconds, but does not hit bed 6b. Right Leg: Drift; leg falls by the end of 5-seconds, but does not hit bed 7. Limb Ataxia: Absent 8. Sensory: [id number] sensory loss; (mild sensory loss in the hands and feet due to chemotherapy he received for leukemia) 9. Best Language: No aphasia; normal 10. Dysarthria: Normal 11. Extinction and Inattention: No abnormality Total: 4 Stroke Questions Stroke Team Activated: No (He is being evaluated in the acute rehab unit following the actual stroke.) Physical Exam Const alert and no apparent distress Constitutional Narrative: He has a hard time holding his head up due to the severe kyphosis. Appears comfortable. Pleasant. Trys to make good eye contact but it is hard for him due to the kyphosis General Appearance: cooperative and well kempt Nutritional Appearance: thin HEENT normocephalic and moist oral mucous membranes HEENT Narrative: He is usually looking down due to the severe kyphosis altering the normal cervical curvature. Head and Scalp: normal to inspection and abrasion Abrasion Size: on the left side of the chin. No erythema. Eschar present with no DC. Eyes PERRL and EOMs intact bilaterally Neck Neck Narrative: He has restricted ROM of the neck with extension and with side bending in the C spine Carotids: bruit Positive for bilateral (This may be due to radiation of the systolic MM into the carotids) Lymph Lymphatic: no lymphadenopathy noted Resp Resp Narrative: He has loud coarse crackles in the left base that do not clear with several deep breaths ans a few coarse crackles in the R lung base. 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 No wheezing and good effort and air flow in spite of the kyphosis. Auscultation: diminished lung sounds Cardio regular rate, regular rhythm, no rub and no gallops Cardio Narrative: Harsh 3/6 CESAR at the 2nd RICS with radiation to the apex and the LV outflow tract. I did not hear a diastolic MM but he has moderate AI on the recent ECHO. He also has a systolic MM in the L axilla which is softer. No ectopy. Back/Spine Back/Spine Narrative: severe kyphosis Extremity Negative for no calf tenderness General Extremity: Negative for clubbing, cyanosis or edema Skin Skin Narrative: He has an abrasion of the R chin and he can not tell me how he got this but, I suspect it is due to a fall since he has a hx of falls. He also has an abrasion present on the L arm with no evidence of cellulitis Wounds: wounds noted Neuro CN's II-XII intact bilaterally Neuro Narrative: Left side is weaker than the R....he had this since 2016 when he was admitted to [facility] with a UTI and a acute subcortical infarct on the R. chronic infarcts were also present at that time. No facial asymmetry. He has restricted motion in the R elbow due to a fracture related to a fall in the past requiring surgery/pins and screws. He is R handed. No nystagmus. No visual filed cuts. Decreased sensation in the hands and feet BL due to peripheral neuropathy from chemotherapy for leukemia. Motor Exam: general weakness Results Lab / Micro Data Result Diagrams: 09/05/21 06:26 09/05/21 06:26 Labs: Laboratory Results - last 24 hr 09/05/21 06:26: WBC 15.1 H, RBC 3.31 L, Hgb 10.7 L, Hct 32.6 L, MCV 98.5 H, MCH 32.3 H, MCHC 32.8, RDW Std Deviation 59.6 H, RDW Coeff of Louann 16.5 H, Plt Count 166, MPV 10.7 09/05/21 06:26: Sodium 139, Potassium 3.5, Chloride 109 H, Carbon Dioxide 26.0, Anion Gap 4 L, BUN 19 H, Creatinine 0.90, Estim Creat Clear Calc 62.19, Est GFR (MDRD) Af Amer 104, Est GFR (MDRD) Non-Af 86, BUN/Creatinine Ratio 21.2 H, Glucose 89, Calcium 8.6, Phosphorus 2.8, Magnesium 2.4, Total Bilirubin 0.50, AST 115 H, ALT 16, Alkaline Phosphatase 83, Total Protein 6.3 L, Albumin 2.5 L, Globulin 3.8, Albumin/Globulin Ratio 0.7 L Assessment & Plan Assessment/Plan (1) Physical debility: (2) Cerebellar stroke, acute: (3) Fall: (4) Abrasion of chin: (5) Abrasion forearm: (6) Second degree atrioventricular block, Mobitz (type) I: (7) Pneumonia: (8) Anemia: (9) Hypertension: (10) Low TSH level: (11) Euthyroid sick syndrome: (12) Parkinson's disease: (13) GERD (gastroesophageal reflux disease): (14) BPH (benign prostatic hypertrophy): QUALIFIERS: Lower urinary tract symptom presence: symptoms present (15) HLD (hyperlipidemia): (16) Urine retention: (17) Leukocytosis: (18) CKD (chronic kidney disease): (19) Acute hypokalemia: (20) Increased prostate specific antigen (PSA) velocity: (21) Murmur, cardiac: PLAN: PLAN PT for gait stability OT for ADL's ST for evaluation Analgesics as needed Bowel protocol Fall precautions Assess for Anxiety/Depression PPI BID for tx of severe GERD and HH complicated by severe thoracic kyphosis with + hx of GI bleed DVT prophylaxis with ASHLEY serra and SCDs Follow up with neurology, cardiology and PCP following DC from IP Rehab AM lab including CMP, CBC, Mag and Phos- all personally reviewed. Orthostatic VS's - he is on Proscar and 8 mg of Cardura at HS. He was severely dehydrated with acute RF at admission and I suspect the falls may be related to multiple factors including PD, gait instability, dehydration. He was on Lasix and Aldactone at admission and he does not have good oral intake. He had ARF due to dehydration and this resolved with the discontinuation of the Lasix, decrease in the Aldactone dose and IV hydration. Will consider discontinuing the Aldactone even though it is a weak diuretic and starting a potassium supplement. Monitor his oral intake closely and record daily I&O. Weights QOD. He was started on Sertraline while in the hospital for acute care and will continue this and adjust as needed. Overnight trending pulse ox. In 2016 when he was admitted for stroke a PSG was recommended because the Mobitz 1 AV block and bradycardia seemed to happen primarily at night and I do not see that that has been done. Lisinopril has already been discontinued..........no need for an ARB and an TOPHER and he will remain on Cozaar 30 day event monitor at DC - he may be a candidate for a PM if there is significant bradycardia/AV block. Charges/Coding Visit Charges Inpatient E&M: 69519 Init Hosp L3
--- NOTE | 2021-09-05 14:39 | PCM.RU.PYE ---
Admission Information Primary Diagnosis:: Physical debility due to a recent R cerebellar CVA. Status Changes from Prescreening?: No changes Identified Actual Problem List:: Aspiration, Falls, Cognitve Impr/Memory Loss, Depression, Mobility Impaired, Self Care Deficit, Know.Dfct of Medicaitons, Alteration/ Air Exchange and Alteration-Leisure Activ. Potential Problem List:: DVT, Bleeding, Infection, UTI, Aspiration, Falls, Skin Integrity and Depression Risk of Complications DVT: LMWH and ASHLEY Hose Bleeding: Monitor Lab Values, Nursing to Teach Precautions for anti-coagulation therapy., Wound, if applicable, to be assessed every shift. and Stroke patients assessed for lethargy or change in status. Infection: Clinical Staff to Monitor for S/S of infection: and S/S of infection include fever, redness, warmth, etc. Urinary Tract Infection: Monitor for frequency, burning, discomfort, or incontinence. and Nursing will obtain urine sample for urinalysis and C&S when ordered. Aspiration: Clinical staff will monitor for coughing, drooling, congestion., Speech will evaluate swallowing and dsyphasia. and Nursing will monitor patient swallowing during meals. Falls: Patient will be evaluated for Fall Precautions and Patient will be placed on Fall Precautions as indicated per protocol. Skin Breakdown: Nursing will assess skin daily using assessment tool. and Nursing will place on Skin Breakdown Precautions as indicated. Pain: Clinical staff will assess patient's pain level per protocol., Medications will be given, if needed, and the pain level reassessed. and Other methods: Massage, distraction, decrease stimulus, etc. used PRN. Plan of Care Patient requires physician specializing in physical medicine and rehab oversight to provide close medical supervision of rehab issues including: Pain Management, Sleep Problems, Bowel and Bladder, Medical and co-morbidity Management, DVT prophylaxis, Rehabilitation Leadership and Coordination of treatment team Patient needs Physical Therapy: For a minimum of 1 hour and At least 5 out of 7 days Patient needs Physical Therapy to improve:: Mobility, Strengthening, Transfers, Stretching, ROM, Endurance, Stairs, Gait and Balance Patient needs Occupational Therapy: For a minimum of 1 hour and At least 5 out of 7 days Patient needs Occupational Therapy to improve ADL's incl.: Eating, Grooming, Bathing, Dressing, Toileting, Toilet transfers, Community Reintegration, Higher functioning activities, Household tasks, Adaptive Equipment, Splinting and Other activities as determined Patient requires speech therapy: For a minimum of 1 hour and At least 5 out of 7 days Patient requires speech therapy for: Swallowing, Cognition, Language Skills and Compensatory Strategies Patient requires 24/ Rehabilitation Nursing for: Pain Issues, Identifying and preventing risk factors, Monitoring and reporting current medical conditions, Assisting with ambulation, transfer, and all ADL's, Teaching patients about disease process and medications, Family teaching, Providing safe environment, Bowel and Bladder Issues, Skin integrity and Medication Management Patient needs Control Electrician/ Case Management for: Discharge Planning, Arranging Home Equipment or Services and Family Interventions Patient needs Dietary and Nutrition Services for: Adequate Nutrition, Nutritional Supplements and Nutritional Education Goals Patient will remain: free from falls and or injury at time of discharge. Patient will perform bed mobility at: MOD I level of assist. Patient will complete transfers from bed to chair at: MOD I level of assist. Patient will ambulate: 100 feet and with LRD (AT SBA) Patient will complete upper body dressing at: - (min assist) Patient will complete lower body dressing at: - (minimal assistance using AE as needed.) Patient will complete toileting at: - (Min assist) Patient will perform bathing at: - (Minimal assistance) Patient will complete grooming at: - (supervision/set up) Patient will complete home management skills at: MOD I level of assist. Patient will achieve: - (1 curb step) Patient will have pain level of: of 3 or less Patient's skin will: remain intact Patient will receive: adequate nutrition. Discharge Planning Pt Prognosis for Sig. Practical Improv. w/in Reasonable Time: Fair (Cognitive deficits due to dementia and stroke impair motivation, following instructions and remebering from day to day what he is to do. ) Anticipated D/C Destination: Home w/ family or friends Was Preadmission Assessment Accurate?: Yes
[2021-09-05 14:58] LABS: Free T3 1.3 pg/mL (2.18-3.98)
[2021-09-05] MEDS: Potassium Chloride Oral Tablet 20 MEQ PO (15:32)
[2021-09-05 19:55] VITALS: O2SAT 94
[2021-09-05 19:58] VITALS: BP 137/63; PULSE 62; RESP 18; TEMP 36.6; O2SAT 96
[2021-09-05] MEDS: Doxazosin 4 MG Tablet 8 MG PO (20:31)
[2021-09-05] MEDS: Atorvastatin Calcium 10 MG Tablet PO (20:32)
[2021-09-06] MEDS: Acetaminophen 325 MG Tablet 650 MG PO ×3 (01:22→15:10)
[2021-09-06] MEDS: Neomycin/Polymyxin/Dexameth 5ML OPTH.BTL 4 DRP LEFT EAR ×4 (04:54→20:54)
[2021-09-06] MEDS: Carbidopa/Levodopa 25/100 Tablet PO ×3 (05:20→20:54)
[2021-09-06 07:40] VITALS: BP 125/63; PULSE 71; RESP 18; TEMP 36.7; O2SAT 91
[2021-09-06] MEDS: Aspirin 81 MG TAB.CHEW PO (07:50)
[2021-09-06] MEDS: Losartan Potassium 25 MG Tablet PO (07:50)
[2021-09-06] MEDS: Potassium Chloride Oral Tablet 20 MEQ PO (07:50)
[2021-09-06] MEDS: Pantoprazole Sodium 40 MG Tablet PO (07:50)
[2021-09-06] MEDS: Amox/Clavulanate 875 MG Tablet PO ×2 (07:50→20:53)
[2021-09-06] MEDS: Finasteride 5 MG Tablet PO (07:50)
[2021-09-06] MEDS: Sertraline 50 MG Tablet 25 MG PO (07:50)
[2021-09-06 09:13] VITALS: BP 125/63; BP 159/74; PULSE 72; PULSE 77
--- NOTE | 2021-09-06 10:09 | PCM.PN.BLA ---
Progress Note Afebrile VSS - he was not orthostatic when going from lying to sitting at the EOB .......he is unable to stand at this time? Maintaining appropriate oxygen saturation on RA - 91-96% Oral intake is poor. Discussed with nursing - no problems that need addressed. Nursing told me that he was a total feed because he could not use his left arm but, he can lift the L arm above his head without assistance? Reviewed the PT/OT/ST notes Medication list reviewed. Hemoccult stool was negative The T4 is normal but the TSH and the T3 are both low. No complaints today. Denies CP, SOB, not coughing, no calf pain and he appears comfortable Physical Exam Const alert Constitutional Narrative: very weak not really able to stand to do a standing orthostatic yet General Appearance: cooperative Eyes PERRL, EOMs intact bilaterally, conjunctivae normal and no scleral icterus Resp Resp Narrative: Diminished, joy in the bases. Coarse crackles in both bases with rare cough. Atelectasis? fibrosis? No evidence of infection. Cardio regular rate and regular rhythm Cardio Narrative: 3/6 sys MM at the 2nd RICS radiating to the apex and the LVOT. GI normal to inspection, nondistended, normoactive bowel sounds, soft to palpation and non-tender Extremity no calf tenderness and no pedal edema Skin General Skin Exam: no breakdown Rashes: no rashes Assessment & Plan Assessment/Plan (1) Euthyroid sick syndrome: (2) Physical debility: (3) Cerebellar stroke, acute: (4) Pneumonia: PLAN: 1. Continue therapy 2. No changes to the medication regimen at this time. 3. Repeat lab next week - [facility] on Monday Visit Charges Inpatient E&M: 47771 Subs Hosp L2
[2021-09-06] MEDS: 0.9% Saline Lock 10 ML Syringe IV ×2 (11:41→21:27)
--- NOTE | 2021-09-06 15:46 | CHAPLAIN ---
Type of Pastoral Visit _x__ Initial Visit ___ Follow-up Visit ___ On-call Visit ___ General Patient Visit ___ Spiritual Assessment ___ Family Conference ___ Bereavement ___ Rapid Response ___ Code Blue ___ Other (describe below) Pastoral Care Referral From _x__ Patient ___ Family ___ Nurse ___ Physician ___ Counselor Supervisor ___ Acrylic Fabricator ___ Other (describe below) Sacrament/Intervention _x__ Active listening ___ Anointing ___ Church ___ Bereavement ___ Communion _x__ Delilah exploration ___ _x__ Life review _x__ Prayer ___ Reconciliation ___ Sacrament of Sick _x__ Supportive presence ___ Wedding ___ Other (describe below) Pastoral Comments patient speaks of hopes to grow stronger and recover; pt not sure what is next for him; pt has a son living with him and a daughter that is moving to [place] (who may take me with her); pt speaks of work history and his who just over a year ago; pt was a member of [employer] and some discussion on his delilah and assurances; pt open to visits and prayer support ongoing
[2021-09-06 19:29] VITALS: BP 170/70; PULSE 64; RESP 18; TEMP 36.6; O2SAT 97
[2021-09-06] MEDS: Doxazosin 4 MG Tablet 8 MG PO (20:53)
[2021-09-06] MEDS: Acetaminophen 500 MG Tablet 1000 MG PO (20:54)
[2021-09-06] MEDS: Atorvastatin Calcium 10 MG Tablet PO (20:54)
[2021-09-07] MEDS: Neomycin/Polymyxin/Dexameth 5ML OPTH.BTL 4 DRP LEFT EAR ×4 (04:07→19:45)
--- NOTE | 2021-09-07 04:39 | NURSING ---
Reviewed and agree with POLY OPERATOR documentation and assessment charting.
[2021-09-07] MEDS: Carbidopa/Levodopa 25/100 Tablet PO ×3 (05:59→21:15)
[2021-09-07] MEDS: Acetaminophen 500 MG Tablet 1000 MG PO ×3 (05:59→21:15)
[2021-09-07 07:37] VITALS: BP 138/63; PULSE 68; RESP 21; TEMP 37; O2SAT 93
[2021-09-07] MEDS: Potassium Chloride Oral Tablet 20 MEQ PO (08:45)
[2021-09-07] MEDS: Pantoprazole Sodium 40 MG Tablet PO (08:45)
[2021-09-07] MEDS: Losartan Potassium 25 MG Tablet PO (08:46)
[2021-09-07] MEDS: Aspirin 81 MG TAB.CHEW PO (08:46)
[2021-09-07] MEDS: Finasteride 5 MG Tablet PO (08:46)
[2021-09-07] MEDS: Amox/Clavulanate 875 MG Tablet PO ×2 (08:46→19:43)
[2021-09-07] MEDS: Sertraline 50 MG Tablet 25 MG PO (08:46)
[2021-09-07] MEDS: Senna/Docusate Sodium 1 Tablet 2 TABLET PO ×2 (08:47→19:45)
[2021-09-07 09:14] VITALS: O2SAT 94
[2021-09-07 19:18] VITALS: BP 145/63; PULSE 59; RESP 18; TEMP 36.7; O2SAT 94
[2021-09-07 19:35] VITALS: PULSE 73; O2SAT 96
[2021-09-07] MEDS: Doxazosin 4 MG Tablet 8 MG PO (19:44)
[2021-09-07] MEDS: Atorvastatin Calcium 10 MG Tablet PO (19:44)
[2021-09-07 20:17] VITALS: BMI 26.7
[2021-09-07 21:16] VITALS: PULSE 60; RESP 16
[2021-09-08] MEDS: Neomycin/Polymyxin/Dexameth 5ML OPTH.BTL 4 DRP LEFT EAR ×4 (04:07→20:20)
[2021-09-08] MEDS: 0.9% Saline Lock 10 ML Syringe IV ×2 (04:07→20:18)
[2021-09-08] MEDS: Acetaminophen 500 MG Tablet 1000 MG PO ×3 (05:12→21:18)
[2021-09-08] MEDS: Carbidopa/Levodopa 25/100 Tablet PO ×3 (05:12→21:19)
[2021-09-08 05:52] LABS: Anion Gap 2 (5-15); BUN 14 mg/dL (7-18); BUN/Creat Ratio 15.1 RATIO (10-20); Calcium,Total 8.8 mg/dL (8.5-10.1); Chloride 109 mmol/L (98-107); Creatinine, Serum 0.93 mg/dL (0.70-1.30); EST Glomerular Filtration Rate 83 mL/min (>60); Est Glom Filt Rate - Afr Amer 100 mL/min (>60); Estimated Creatinine Clearance 60.18 ml/min; Glucose 83 mg/dL (74-106); Potassium 4.1 mmol/L (3.5-5.1); Sodium Level 141 mmol/L (136-145)
[2021-09-08 07:21] VITALS: BP 150/67; PULSE 66; RESP 16; TEMP 36.8; O2SAT 94
[2021-09-08] MEDS: Potassium Chloride Oral Tablet 20 MEQ PO (08:24)
[2021-09-08] MEDS: Aspirin 81 MG TAB.CHEW PO (08:24)
[2021-09-08] MEDS: Amox/Clavulanate 875 MG Tablet PO ×2 (08:24→20:20)
[2021-09-08] MEDS: Losartan Potassium 25 MG Tablet PO (08:25)
[2021-09-08] MEDS: Finasteride 5 MG Tablet PO (08:25)
[2021-09-08] MEDS: Pantoprazole Sodium 40 MG Tablet PO (08:25)
[2021-09-08] MEDS: Sertraline 50 MG Tablet 25 MG PO (08:26)
[2021-09-08] MEDS: Senna/Docusate Sodium 1 Tablet 2 TABLET PO ×2 (08:26→20:40)
--- NOTE | 2021-09-08 10:24 | PCM.PROGNOTE ---
Subjective Subjective Augmentin - 3 more doses remain Afebrile VSS The systolic BP has been over goal for the past 2 days. Diastolics are normal. Maintaining appropriate oxygen saturation on RA Oral intake is good yesterday - He took 2390 and the balance for the day was 640 Discussed with nursing - no problems that need addressed. He was having difficulty taking his pills this AM and kept pushing the pills onto the tip of his tongue and not swallowing. Reviewed the PT/OT/ST notes Medication list reviewed. Overnight trending pulse ox shows that he desaturates but, no desaturations were longer than 60 secs. 9.58% of the time the HR was < 50. All lab was personally reviewed. Potassium is 4.1 and the sodium is 141. Serum bicarb is 30. The BUN is now down to 14 and the creatinine is stable at 0.93. Spironolactone was discontinued and he is now on a potassium supplement. Denies heartburn or dyspepsia today. No CP and has SOB with exertion but, not SOB at rest. No longer coughing. No calf pain and no dysuria. Objective Data Objective Data Vital Signs: Vital Signs Temp Pulse Resp BP Pulse Ox 98.3 F 66 16 150/67 H 94 09/08/21 07:21 09/08/21 07:21 09/08/21 07:21 09/08/21 07:21 09/08/21 07:21 Oxygen Delivery Method Room Air Weight: 180 lb 8.937 oz Body Mass Index (BMI) 26.7 Intake & Output: Intake and Output for Last 24 Hours 09/06/21 09/07/21 09/08/21 23:59 23:59 23:59 Intake Total 760 / 760 2390 / 2390 380 / 380 Output Total 1175 / 1175 1750 / 1750 1225 / 1225 Balance -415 / -415 640 / 640 -845 / -845 Lab / Micro Data Result Diagrams: 09/05/21 06:26 09/08/21 05:21 Labs: Laboratory Results - last 24 hr 09/08/21 05:21: Sodium 141, Potassium 4.1, Chloride 109 H, Carbon Dioxide 30.0, Anion Gap 2 L, BUN 14, Creatinine 0.93, Estim Creat Clear Calc 60.18, Est GFR (MDRD) Af Amer 100, Est GFR (MDRD) Non-Af 83, BUN/Creatinine Ratio 15.1, Glucose 83, Calcium 8.8 Micro: Microbiology 09/05/21 Unknown Stool Stool Occult Blood (FLIP) - Final Physical Exam Const alert and no apparent distress Constitutional Narrative: He is mildly tachypneic sitting in the wheelchair coming back from rehab. He just ambulated 20 ft with PT. General Appearance: cooperative Resp Resp Narrative: BS's are somewhat diminished in the bases and the coarse crackles in the left base are persistent......maybe a little less today. No wheezing and no rhonchi. No accessory muscle use. Able to speak in complete sentences. Auscultation: diminished lung sounds Cardio regular rate, regular rhythm, no rub and no gallops Cardio Narrative: no change in the systolic MM at the 2nd RICS or in the left axilla GI normal to inspection, nondistended, normoactive bowel sounds, soft to palpation and non-tender Extremity General Extremity: Negative for cyanosis or edema Skin General Skin Exam: no breakdown Rashes: no rashes Neuro Neuro Narrative: soft voice, does not project well. Psych affect normal Appearance: appropriate Assessment & Plan Assessment/Plan (1) Physical debility: (2) Anemia: (3) GERD (gastroesophageal reflux disease): (4) Parkinson's disease: (5) Cerebellar stroke, acute: (6) Restrictive lung disease due to kyphoscoliosis: PLAN: 1. CBC with diff and a Potassium on Monday in the AM 2. check a BP while he is standing in the parallel bars today. 3. have him upright in a chair when eating and remain upright for 30 minutes afterward. 4. Mylanta PRN heartburn or dyspepsia 5. I think he probably chronically aspirates.........Not sure why he has persistent crackles in the L base......scarring from previous PNA? current PNA? pulmonary fibrosis? He is going to have a MBS today and i talked with ST to look for reflux into the larynx 6. Consider doing a PA and LAT CXR next week as follow up for the PNA currently being treated. Charges/Coding Visit Charges Inpatient E&M: 54455 Subs Hosp L2
--- NOTE | 2021-09-08 12:01 | SP.MBSS_ITS ---
Modified Barium Swallow - Patient Information Study Date: 09/08/21 Study Time: 14:00 Direct Billable Minutes: 120 Total Minutes procedure & reportin Diagnosis: Parkinson?s disease-G20, Cerebellar stroke-I69.3, GERD-K21.9 Referring Physician: Faye Cartagena Reason for Referral: Objectively assess swallow function, risk for aspiration, and determine recomm endations for least restrictive diet textures and compensatory strategies to improve safety of swallow. Additionally, physician expressed increased concern for aspiration of reflux due to kyphosis. Medical History: The patient is an 81-year-old male with PMH including Parkinson?s disease, Cerebellar stroke, GERD, restrictive lung disease due to kyphoscoliosis, pneumonia, and dementia. SEE physician's H&P for full PMH. Patient is currently receiving skilled OT, PT, and ST in inpatient rehabilitation unit at [facility] for physical debility due to LLL pneumonia and recent R cerebellar ischemic CVA. The patient was evaluated by speech therapy 09/05/2021 and placed on Easy to Chew textures / Thin liquids with 1:1 supervision. He demonstrated increased coughing with oral intake and has been recommended for MBS study to objectively assess swallow function and aspiration risk. The patient is also being followed by speech therapy to address cognitive deficits, including word finding and short- term memory. Current Diet Ordered: Easy to Chew textures / Thin liquids Dentition: Upper Dentures, Lower Dentures Mental Status: Impaired Respiratory Status: Oxygenating on Room Air - Penetration-Aspiration Scale Penetration-Aspiration Scale: OBJECTIVE ASSESSMENT OF SWALLOW FUNCTION (QUANTITATIVE ? PER TRIAL): PENETRATION / ASPIRATION SCALE (MOORE): 1 = does not enter airway 2 = enters airway/above vocal folds/ejected 3 = enters airway/above vocal folds/not ejected 4 = enters airway/contacts vocal folds/ejected 5 = enters airway/contacts vocal folds/not ejected 6 = enters airway/below vocal folds/ejected 7 = enters airway/below vocal folds/not ejected despite effort 8 = enters airway/below vocal folds/no effort VIDEOFLOROSCOPIC SCALE SCORE (MOORE): Grade I = aspiration of material that has penetrated into the laryngeal vestibule, intact cough reflex Grade II = aspiration < 10 % of the bolus, intact cough reflex Grade III = aspiration of < 10 % of the bolus, reduced cough reflex or aspiration of > 10 % of the bolus, intact cough reflex Grade IV = aspiration of > 10 % of the bolus, reduced cough reflex - Penetration-Aspiration Scale Score Thin Liquid via teaspoon Result: 1= does not enter airway Thin Liquid via teaspoon Trial 2 Result: 1= does not enter airway Thin Liquid via large single sip from cup Result: 2= enter airway/above vocal folds/ejected Thin Liquid via large single sip from cup Trial 2 Result: 5= enters airways/contacts vocal folds/not ejected [place] Thick Liquid via small single sip from cup Result: 8= enters airway/below vocal folds/no effort Comment: SILENT aspiration of residue in the pyriforms during second swallow, which patient independently initiated. Honey Thick Liquid via large single sip from cup Result: 1= does not enter airway Pudding via teaspoon esophageal screen Result: 1= does not enter airway 1/2 Cookie Result: 1= does not enter airway Thin Liquid via single sip from straw Result: 1= does not enter airway Thin Liquid via single sip from straw Double swallow Result: 2= enter airway/above vocal folds/ejected Thin Liquid via large single sip from cup Trial 3 Result: 3= enters airways/above vocal folds/not ejected Thin Liquid via small single sip from cup Effortful swallow Result: 1= does not enter airway Thin Liquid via small single sip from cup Effortful swallow Trial 2 Result: 8= enters airway/below vocal folds/no effort Comment: SILENT aspiration before the swallow Thin Liquid via teaspoon Trial 3 Result: 1= does not enter airway Thin Liquid via teaspoon Trial 4 Result: 1= does not enter airway Honey Thick Liquid via small single sip from cup Result: 1= does not enter airway - Oral Phase Labial Seal: No Labial Escape Tongue Control During Bolus Hold: Posterior escape of greater than half of bolus - Thin liquids Bolus Preparation/Mastication: Slow prolonged chewing/mashing with complete recollection - Posterior loss of cookie to the vallecula Bolus Transport/Lingual Motion: Slowed tongue motion Oral Residue: Trace residue lining oral structures - RN, Shell, reports poor oral clearance of medications in applesauce - pt requires liquid wash to clear medications. - Pharyngeal Phase Initiation of Pharyngeal Swallow: Bolus head in pyriforms Soft Palate Elevation: No bolus between soft palate and pharyngeal wall Laryngeal Elevation: Partial superior movement thyroid cart/partial apprx aryt- epig petiole Anterior Hyoid Excursion: Complete anterior movement Epiglottic Movement: Partial inversion Laryngeal Vestibule Closure at Height of Swallow: Incomplete; narrow column of air/contrast in laryngeal vestibule Pharyngeal Stripping Wave: Present - complete Pharyngoesophageal Segment Opening: Parital distension and partial duration; parital obstruction of flow Tongue Base Retraction: Trace column of contrast between tongue base & post. pharyngeal wall Pharyngeal Residue: Collection of residue within or on pharyngeal structures - Esophageal Phase Esophageal Clearance: Esophageal retention - Treatment Strategies Effects of treatment strategies attemped:: Cued cough and re-swallow = Somewhat effective. Double swallow = Somewhat effective to clear pharyngeal residue; however, pt demonstrated silent aspiration of nectar thick liquid residue on second swallow. Decreased bolus size = Effective. - Diagnosis/Impression Diagnosis: Moderate oropharyngeal phase dysphagia (R13.12) Impression: The patient demonstrates kyphotic posture. He was positioned with slight recline in chair during study for optimal view of laryngeal vestibule and airway during the study. The oral phase is marked by decreased bolus control, resulting in premature posterior loss of majority of thin liquid boluses to the pyriforms prior to swallow onset. Posterior loss results in suboptimal bolus placement upon swallow onset. He demonstrates prolonged mastication. Concern for difficulty coordinating mixed textures, as RN, Shell, reports poor oral clearance of whole medications with applesauce. He requires liquid wash, which he is not safe to consume at this time due to silent aspiration observed during the study. The pharyngeal phase is marked by decreased airway closure during the swallow and delayed swallow onset. He presents with decreased laryngeal elevation with decreased epiglottic inversion and UES opening. Due to decreased UES opening/duration of opening, he demonstrated collection of pharyngeal residue in the pyriforms - most notable with large sip sizes. He independently consumes very large sip size. The patient demonstrated SILENT aspiration of thin liquids via cup before the swallow. He also demonstrated SILENT aspiration of nectar thick liquid residues spilling from the pyriform sinuses during a second swallow. SEE PAS scores above for full details of laryngeal penetration/aspiration observed during the study. He greatly benefits from decreased bolus size to improve pharyngeal residues and decrease risk for aspiration post-prandially or during subsequent swallows. He demonstrated wet vocal quality after the study was completed with cues for cough and re-swallow t o improve vocal quality. Minimal retention observed in upper esophagus above CP-bar at the level of C5 with concern for small pouch-like formation above CP bar. SEE images at the end of the study in PACS. No retrograded flow of contrast observed. - Recommendations Diet: Regular Textures - Easy to Chew Textures (IDDSI Level 7), Thin Liquids Comment: Crush medications in applesauce. Compensatory Strategies: Small Bites, Liquid by Teaspoon Only, Slow Rate, Sitting upright, Remain sitting upright for 30 minutes after PO intake, Assist with verbal cues to use recommended strategies - Cue cough and re-swallow if wet vocal quality Supervision: 1:1 Close Supervision Recommend Repeat Modified Barium Swallow: Yes - 2-4 weeks after implementation of oropharyngeal strengthening Need for Skilled Speech Therapy Services: Yes Education Completed: 1. Described result of evaluation. - Educated pt, RN, Shell, and CRIME SCENE EVIDENCE TECHNICIANGoran, in recommendations. Wrote recommendations on IR communication board. Education well received., 7. Pt requires further education on strategies & risks. - Status Active ST Patient: Active - Contact Information [facility] Speech Therapy:: Abi Ellington M.A. [facility]-[employer] AND BACKUP ADMINISTRATOR Speech-Language Pathologist [facility] [address] [place] [address] [phone] 09/08/21 12:16
[2021-09-08 16:29] VITALS: BMI 26.7
[2021-09-08 19:08] VITALS: BP 134/63; PULSE 60; RESP 18; TEMP 36.7; O2SAT 93
[2021-09-08] MEDS: Doxazosin 4 MG Tablet 8 MG PO (20:21)
[2021-09-08] MEDS: Atorvastatin Calcium 10 MG Tablet PO (20:36)
[2021-09-08 21:22] VITALS: BMI 26.7
[2021-09-08 22:00] VITALS: PULSE 64; RESP 16
[2021-09-09] MEDS: Neomycin/Polymyxin/Dexameth 5ML OPTH.BTL 4 DRP LEFT EAR ×4 (04:00→20:24)
[2021-09-09] MEDS: Carbidopa/Levodopa 25/100 Tablet PO ×3 (06:14→20:24)
[2021-09-09] MEDS: Acetaminophen 500 MG Tablet 1000 MG PO ×3 (06:14→20:24)
[2021-09-09 07:30] VITALS: BP 144/73; PULSE 76; RESP 16; TEMP 36.6; O2SAT 92
[2021-09-09] MEDS: Amox/Clavulanate 875 MG Tablet PO (08:30)
[2021-09-09] MEDS: Finasteride 5 MG Tablet PO (08:30)
[2021-09-09] MEDS: Sertraline 50 MG Tablet 25 MG PO (08:30)
[2021-09-09] MEDS: Losartan Potassium 25 MG Tablet PO (08:30)
[2021-09-09] MEDS: Potassium Chloride Oral Tablet 20 MEQ PO (08:30)
[2021-09-09] MEDS: Aspirin 81 MG TAB.CHEW PO (08:30)
[2021-09-09] MEDS: Senna/Docusate Sodium 1 Tablet 2 TABLET PO ×2 (08:30→20:24)
[2021-09-09] MEDS: Pantoprazole Sodium 40 MG Tablet PO (08:30)
--- NOTE | 2021-09-09 14:16 | PN_ITS ---
Subjective Subjective Moncho was seen on TEAM rounds today. Carolina was present in the room and his dtr participated by phone. Afebrile VSS - Systolics are a bit high however when he stood yesterday the Systolic dropped 20 points so will not alter the current dosing of the antihypertensives. Maintaining appropriate oxygen saturation on RA Oral intake has been good the past 2 days. weights are erratic......the BUN dropped and the creat is stable so I presume he is drinking enough. Discussed with nursing - no problems that need addressed Reviewed the PT/OT/ST notes - Doing better with ambulating and walked the loop today with a WW. Getting stronger. Medication list reviewed. Moncho denies CP, SOB at rest, calf pain, n/v/abd pain, dysuria, COLE. He is very cooperative and polite. 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 She says he had surgery for it but, it flipped and he had to have another surgery? Not sure what this means. Currently he has GERD and Kyphosis and a recent stroke and PD and t his all contributes to dysphagia and silent aspiration. currently he is taking fluids on a teaspoon. Will need to monitor closely to make sure he is getting adequate fluids. Objective Data Objective Data Vital Signs: Vital Signs Temp Pulse Resp BP Pulse Ox 97.8 F 76 16 144/73 H 92 09/09/21 07:30 09/09/21 07:30 09/09/21 07:30 09/09/21 07:30 09/09/21 07:30 Oxygen Delivery Method Room Air Weight: 176 lb 12.972 oz Body Mass Index (BMI) 26.7 Intake & Output: Intake and Output for Last 24 Hours 09/07/21 09/08/21 09/09/21 23:59 23:59 23:59 Intake Total 2390 / 2390 1450 / 1450 420 / 420 Output Total 1750 / 1750 2325 / 2550 975 / 975 Balance 640 / 640 -875 / -1100 -555 / -555 Lab / Micro Data Result Diagrams: 09/05/21 06:26 09/08/21 05:21 Micro: Microbiology 09/05/21 Unknown Stool Stool Occult Blood (FLIP) - Final Physical Exam Const alert and oriented x3 General Appearance: cooperative HEENT head/scalp atraumatic and moist oral mucous membranes Eyes PERRL and EOMs intact bilaterally Neck Neck Narrative: chronic flexion of the neck related to significant kyphosis making it difficult for him to extend his neck. Resp Resp Narrative: Coarse crackles in the left base have improved. Still with coarse crackles in the R base. No wheezes, not tachypneic at rest, no accessory muscle use and no labored breathing. Cardio regular rate and regular rhythm GI normal to inspection, nondistended, normoactive bowel sounds, soft to palpation and non-tender GI Narrative: No guarding with palpation Extremity General Extremity: Negative for clubbing, cyanosis or edema Skin Rashes: no rashes Wounds: Negative for wounds noted Neuro CN's II-XII intact bilaterally Motor Exam: general weakness Psych affect normal Assessment & Plan Assessment/Plan (1) Restrictive lung disease due to kyphoscoliosis: (2) Anemia: (3) Parkinson's disease: (4) GERD (gastroesophageal reflux disease): (5) Second degree atrioventricular block, Mobitz (type) I: (6) Cerebellar stroke, acute: PLAN: 1. Continue therapy 2. He is mildly orthostatic but, asymptomatic and denies lightheadedness. will decrease the Dozazocin to 6 mg at HS and monitor for urine retention. 3. Closely monitor intake with the restriction of taking liquids on a spoon.......need to make sure he is maintaining a good fluid intake 4. Continue the Zoloft Charges/Coding Visit Charges Inpatient E&M: 45609 Subs Hosp L2
[2021-09-09] MEDS: 0.9% Saline Lock 10 ML Syringe IV ×2 (14:43→20:47)
--- NOTE | 2021-09-09 15:34 | CASEMGMT ---
Social Work IDT met with patient and family for Team meeting. Discussed patient's progress in PT/OT/ST and nursing. Pt making progress. Explained Medicare approved 23 days with EDC 09/27. The goal is for pt to DC home with son and his GF's assistance. Pt is active with [facility]. Will ReTeam. SW to continue to follow for DC planning. Daniella Shankar, HACK SAW OPERATOR [employer] WE[employer] PUMPER
[2021-09-09 16:03] VITALS: BMI 26.7
[2021-09-09 19:01] VITALS: BP 157/75; PULSE 94; RESP 16; TEMP 36.8; O2SAT 94
[2021-09-09] MEDS: Atorvastatin Calcium 10 MG Tablet PO (20:25)
[2021-09-09] MEDS: Doxazosin 4 MG Tablet 8 MG PO (20:25)
[2021-09-10] MEDS: Neomycin/Polymyxin/Dexameth 5ML OPTH.BTL 4 DRP LEFT EAR ×4 (03:54→21:18)
[2021-09-10] MEDS: Acetaminophen 500 MG Tablet 1000 MG PO ×3 (06:08→21:18)
[2021-09-10] MEDS: Carbidopa/Levodopa 25/100 Tablet PO ×3 (06:08→21:18)
[2021-09-10 07:37] VITALS: BP 133/70; PULSE 71; RESP 20; TEMP 36.7; O2SAT 93
[2021-09-10] MEDS: Potassium Chloride Oral Tablet 20 MEQ PO (08:03)
[2021-09-10] MEDS: Losartan Potassium 25 MG Tablet PO (08:07)
[2021-09-10] MEDS: Pantoprazole Sodium 40 MG Tablet PO (08:07)
[2021-09-10] MEDS: Aspirin 81 MG TAB.CHEW PO (08:07)
[2021-09-10] MEDS: Finasteride 5 MG Tablet PO (08:08)
[2021-09-10] MEDS: Sertraline 50 MG Tablet 25 MG PO (08:09)
[2021-09-10 14:50] VITALS: BMI 26.7
[2021-09-10] MEDS: Doxazosin 4 MG Tablet 8 MG PO (21:17)
[2021-09-10] MEDS: Atorvastatin Calcium 10 MG Tablet PO (21:17)
[2021-09-10 21:45] VITALS: BP 155/74; PULSE 66; RESP 18; TEMP 36.6; O2SAT 93
[2021-09-11 01:54] VITALS: BMI 26.7
[2021-09-11] MEDS: Neomycin/Polymyxin/Dexameth 5ML OPTH.BTL 4 DRP LEFT EAR ×4 (03:45→22:21)
--- NOTE | 2021-09-11 03:59 | NURSING ---
Reviewed and agree with CASE SEALER assessment.
[2021-09-11] MEDS: Carbidopa/Levodopa 25/100 Tablet PO ×3 (05:26→22:21)
[2021-09-11] MEDS: Acetaminophen 500 MG Tablet 1000 MG PO ×3 (05:27→22:21)
[2021-09-11 06:09] LABS: Absolute Lymphocyte Count 2.38 X10^3/uL (0.83-4.51); Absolute Neutrophil Count 6.2 X10^3/uL (2.0-7.7); Basophil# 0.06 X10^3/uL; Basophil% 0.5 % (0-1); Eosinophil# 1.45 X10^3/uL; Eosinophils% 12.6 % (0-5); Hematocrit 34.8 % (40-54); Hemoglobin 11.8 g/dL (13.0-16.5); Lymphocyte # 2.38 X10^3/ul (0.83-4.51); Lymphocyte % 20.6 % (19-41); Mean Corp Hgb Conc 33.9 g/dL (32-36); Mean Corpuscular Hgb 34.2 pg (27.0-32.0); Mean Corpuscular Volume 100.9 fL (80-94); Mean Platelet Vol. 9.9 fl (6.2-12.0); Monocyte# 1.31 X10^3/uL; Monocyte% 11.4 % (0-10); NRBC Flagged by Analyzer 0 % (0-5); Neutrophil # 6.17 X10^3/uL (2.7-7.7); Neutrophil % 53.5 % (47-70); Platelet Count 277 K/mm3 (150-450); RBC Distribution Width CV 17.2 % (11.6-14.6); RBC Distribution Width SD 60.7 fl (35.1-43.9); Red Blood Count 3.45 M/mm3 (4.6-6.2); White Blood Count 11.5 K/mm3 (4.4-11.0)
[2021-09-11 06:17] LABS: Potassium 4.2 mmol/L (3.5-5.1)
[2021-09-11] MEDS: Aspirin 81 MG TAB.CHEW PO (08:51)
[2021-09-11] MEDS: Pantoprazole Sodium 40 MG Tablet PO (08:51)
[2021-09-11] MEDS: Sertraline 50 MG Tablet 25 MG PO (08:51)
[2021-09-11] MEDS: Losartan Potassium 25 MG Tablet PO (08:51)
[2021-09-11] MEDS: Finasteride 5 MG Tablet PO (08:52)
[2021-09-11] MEDS: Potassium Chloride Oral Tablet 20 MEQ PO (08:52)
[2021-09-11 09:54] VITALS: BP 138/75; PULSE 60; RESP 20; TEMP 36.7; O2SAT 92
[2021-09-11 14:39] VITALS: BMI 26.7
--- NOTE | 2021-09-11 18:11 | NURSING ---
Patient told family members that staff is not letting him eat long enough. This nurse told family members he is taking an hour each meal to eat. Breakfast was nursing helping him eat and lunch was by ST. Patient is taking a longer time to chew, St requested poligrip to be brought in by family due to loose fitting dentures requiring him to eat and chew longer. Patient also told family today that staff was not putting his ear drops in and this nurse told them that is not true as well. Patient on and off has accused staff of things during his stay. Family members reported they did not believe him but that they told him they would ask nursing about it.
[2021-09-11 19:43] VITALS: BP 127/70; PULSE 68; RESP 20; TEMP 36.6; O2SAT 94
[2021-09-11] MEDS: Doxazosin 4 MG Tablet 8 MG PO (22:20)
[2021-09-11] MEDS: Atorvastatin Calcium 10 MG Tablet PO (22:20)
[2021-09-12 00:31] VITALS: BMI 26.7
--- NOTE | 2021-09-12 03:34 | NURSING ---
REVIEWED AND AGREE WITH [employer] DRIVER'S FUNCTIONAL ASSESSMENT AND HANDOFF CHARTING.
[2021-09-12] MEDS: Carbidopa/Levodopa 25/100 Tablet PO ×3 (06:14→20:32)
[2021-09-12] MEDS: Acetaminophen 500 MG Tablet 1000 MG PO ×3 (06:14→20:32)
[2021-09-12] MEDS: Pantoprazole Sodium 40 MG Tablet PO (07:50)
[2021-09-12] MEDS: Aspirin 81 MG TAB.CHEW PO (07:50)
[2021-09-12] MEDS: Losartan Potassium 25 MG Tablet PO (07:50)
[2021-09-12] MEDS: Potassium Chloride Oral Tablet 20 MEQ PO (07:50)
[2021-09-12] MEDS: Sertraline 50 MG Tablet 25 MG PO (07:51)
[2021-09-12 07:52] VITALS: BP 110/55; PULSE 56; RESP 20; TEMP 36.7; O2SAT 96
[2021-09-12] MEDS: Senna/Docusate Sodium 1 Tablet 2 TABLET PO ×2 (07:52→20:32)
[2021-09-12] MEDS: Finasteride 5 MG Tablet PO (07:53)
[2021-09-12 14:12] VITALS: BMI 26.7
[2021-09-12 19:54] VITALS: BP 146/64; PULSE 61; RESP 17; TEMP 36.1; O2SAT 95
[2021-09-12] MEDS: Doxazosin 4 MG Tablet 8 MG PO (20:31)
[2021-09-12] MEDS: Atorvastatin Calcium 10 MG Tablet PO (20:32)
[2021-09-12 20:50] VITALS: PULSE 66
[2021-09-13 00:02] VITALS: BMI 26.7
--- NOTE | 2021-09-13 03:40 | NURSING ---
REVIEWED AND AGREE WITH ROLL TRUCKER'S FUNCTIONAL ASSESSMENT AND HANDOFF CHARTING.
[2021-09-13] MEDS: Acetaminophen 500 MG Tablet 1000 MG PO ×3 (05:04→20:32)
[2021-09-13] MEDS: Carbidopa/Levodopa 25/100 Tablet PO ×3 (05:04→20:32)
[2021-09-13 08:20] VITALS: BP 145/62; PULSE 56; RESP 22; TEMP 36.3; O2SAT 95
[2021-09-13] MEDS: Pantoprazole Sodium 40 MG Tablet PO (08:28)
[2021-09-13] MEDS: Potassium Chloride Oral Tablet 20 MEQ PO (08:28)
[2021-09-13] MEDS: Finasteride 5 MG Tablet PO (08:29)
[2021-09-13] MEDS: Aspirin 81 MG TAB.CHEW PO (08:29)
[2021-09-13] MEDS: Senna/Docusate Sodium 1 Tablet 2 TABLET PO (08:29)
[2021-09-13] MEDS: Sertraline 50 MG Tablet 25 MG PO (08:29)
[2021-09-13] MEDS: Losartan Potassium 25 MG Tablet PO (08:29)
--- NOTE | 2021-09-13 12:15 | PCM.PROGNOTE ---
Subjective Subjective Afebrile VSS - HR drops at night when sleeping, sometimes into the 30's......this is verified on the overnight trending pulse ox. He had a 30 day event monitor sent to his home. Family brought the monitor in and nursing applied. Maintaining appropriate oxygen saturation on RA while awake Oral intake is fair. It takes him a long time to eat.....up to an hour but, he is eating > 75% of his meals and the [employer] crew boss is following along. Discussed with nursing - no problems that need addressed Reviewed the PT/OT/ST notes Medication list reviewed. Hemoglobin is stable at 11.8. White blood cell count remains mildly elevated at 11.5. Platelets are within normal limits. Potassium remains within normal limits at 4.2 on a daily potassium supplement and no Aldactone due to erratic oral intake and potential for dehydration. His only complaint is CLARKE. I have not heard him coughing when he is eating his meals. Objective Data Objective Data Vital Signs: Vital Signs Temp Pulse Resp BP Pulse Ox 97.3 F L 56 L 22 H 145/62 H 95 09/13/21 08:20 09/13/21 08:20 09/13/21 08:20 09/13/21 08:20 09/13/21 08:20 Oxygen Delivery Method Room Air Weight: 176 lb 5.917 oz Body Mass Index (BMI) 26.7 Intake & Output: Intake and Output for Last 24 Hours 09/11/21 09/12/21 09/13/21 23:59 23:59 23:59 Intake Total 1060 / 1060 1580 / 1580 240 / 240 Output Total 1485 / 1485 1205 / 1205 550 / 550 Balance -425 / -425 375 / 375 -310 / -310 Lab / Micro Data Result Diagrams: 09/11/21 06:00 09/17/21 05:34 Micro: Microbiology 09/05/21 Unknown Stool Stool Occult Blood (FLIP) - Final Physical Exam Const alert Constitutional Narrative: does not appear to be in any distress. General Appearance: cooperative Resp Resp Narrative: Persistent coarse crackles in the bases, L>R. Better air exchange than at admission. No wheezing. Cardio regular rate, regular rhythm and no gallops Cardio Narrative: No change in the MM at the second RICS GI normal to inspection, nondistended, normoactive bowel sounds, soft to palpation and non-tender Extremity General Extremity: Negative for clubbing, cyanosis or edema Skin General Skin Exam: no breakdown Rashes: no rashes Assessment & Plan Assessment/Plan (1) COPD (chronic obstructive pulmonary disease): (2) Atelectasis: (3) Restrictive lung disease due to kyphoscoliosis: (4) Physical debility: (5) Cerebellar stroke, acute: (6) Parkinson's disease: (7) Bradycardia: PLAN: 1. Continue therapy. 2. Will need to follow up with cardiology at [place]. His HR is in the 30-40 range 5% of the time while sleeping at night and there is no desaturation events. May need a PM. 3. Continue to encourage IS 4. Continue the antidepressant started on the acute side of the hospital Charges/Coding Visit Charges Inpatient E&M: 77044 Subs Hosp L2
[2021-09-13 13:12] VITALS: BMI 26.7
[2021-09-13 19:25] VITALS: BP 151/70; PULSE 68; RESP 16; TEMP 36.8; O2SAT 100
[2021-09-13] MEDS: Doxazosin 4 MG Tablet 8 MG PO (20:32)
[2021-09-13] MEDS: Atorvastatin Calcium 10 MG Tablet PO (20:32)
[2021-09-14 02:07] VITALS: BMI 26.7
--- NOTE | 2021-09-14 02:41 | NURSING ---
Reviewed and agree with PLATE GLASS POLISHER documentation and assessment charting.
[2021-09-14] MEDS: Carbidopa/Levodopa 25/100 Tablet PO ×3 (06:10→20:01)
[2021-09-14] MEDS: Acetaminophen 500 MG Tablet 1000 MG PO ×3 (06:10→21:56)
[2021-09-14 07:43] VITALS: BP 135/65; PULSE 55; RESP 16; TEMP 36.7; O2SAT 94
[2021-09-14] MEDS: Sertraline 50 MG Tablet 25 MG PO (08:33)
[2021-09-14] MEDS: Pantoprazole Sodium 40 MG Tablet PO (08:33)
[2021-09-14] MEDS: Potassium Chloride Oral Tablet 20 MEQ PO (08:33)
[2021-09-14] MEDS: Finasteride 5 MG Tablet PO (08:33)
[2021-09-14] MEDS: Aspirin 81 MG TAB.CHEW PO (08:33)
[2021-09-14] MEDS: Losartan Potassium 25 MG Tablet PO (08:33)
[2021-09-14 16:19] VITALS: BMI 26.7
[2021-09-14 18:54] VITALS: BP 165/64; PULSE 66; RESP 18; TEMP 36.5; O2SAT 97
[2021-09-14] MEDS: Doxazosin 4 MG Tablet 8 MG PO (20:00)
[2021-09-14] MEDS: Senna/Docusate Sodium 1 Tablet 2 TABLET PO (20:01)
[2021-09-14] MEDS: Atorvastatin Calcium 10 MG Tablet PO (20:01)
[2021-09-14 20:09] VITALS: BMI 26.7
[2021-09-14 22:00] VITALS: PULSE 66; RESP 18
[2021-09-15] MEDS: Carbidopa/Levodopa 25/100 Tablet PO ×3 (06:37→20:54)
[2021-09-15] MEDS: Acetaminophen 500 MG Tablet 1000 MG PO ×3 (06:37→20:53)
[2021-09-15 07:00] VITALS: BP 154/68; PULSE 62; RESP 16; TEMP 36.1; O2SAT 93
[2021-09-15] MEDS: Pantoprazole Sodium 40 MG Tablet PO (07:37)
[2021-09-15] MEDS: Losartan Potassium 25 MG Tablet PO ×2 (07:37→11:07)
[2021-09-15] MEDS: Sertraline 50 MG Tablet 25 MG PO (07:37)
[2021-09-15] MEDS: Aspirin 81 MG TAB.CHEW PO (07:37)
[2021-09-15] MEDS: Finasteride 5 MG Tablet PO (07:38)
[2021-09-15] MEDS: Potassium Chloride Oral Tablet 20 MEQ PO (07:38)
--- NOTE | 2021-09-15 10:17 | PN_ITS ---
Subjective Subjective Afebrile systolic BP is consistently >140 now. The diastolic BP is within goal. HR decreases when he is sleeping, sometimes into the 30's fair oral intake weight is pretty consistent Regular BM's with no constipation Maintaining appropriate oxygen saturation on room air while awake New medications since admission include Protonix (was on Omeprazole at admission to the hospital), Lipitor, potassium chloride and Sertraline. His only complaint today is SOB. No cough. SOB is primarily with exertion, even mild exertion. Denies CP, ST, painful swallowing, ear pain, N/V/abd pain, dysuria. He is very cooperative with therapy and always pleasant. He denies pruritus and wheezing and has no rash. Why the increase in the eosinophils? 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 Aragon's name. The WBC count is consistently mildly elevated but, he has he no fevers. Objective Data Objective Data Vital Signs: Vital Signs Temp Pulse Resp BP Pulse Ox 96.9 F L 62 16 154/68 H 93 09/15/21 07:00 09/15/21 07:00 09/15/21 07:00 09/15/21 07:00 09/15/21 07:00 Oxygen Delivery Method Room Air Weight: 177 lb 7.554 oz Body Mass Index (BMI) 26.7 Intake & Output: Intake and Output for Last 24 Hours 09/13/21 09/14/21 09/15/21 23:59 23:59 23:59 Intake Total 1280 / 1280 1180 / 1180 460 / 460 Output Total 1200 / 1200 1475 / 1475 1275 / 1275 Balance 80 / 80 -295 / -295 -815 / -815 Lab / Micro Data Result Diagrams: 09/11/21 06:00 09/11/21 06:00 Micro: Microbiology 09/05/21 Unknown Stool Stool Occult Blood (FLIP) - Final Physical Exam HEENT normocephalic, head/scalp atraumatic and moist oral mucous membranes HEENT Narrative: The R EAC has a small accumulation of cerumen in the canal but the TM can be visualized and it is normal. There is no erythema of the canal. The L EAC is occluded with Cerumen. The portion of the canal that is visible is not red and he did not have pain with traction on the ear lobe of either ear. The MM are moist. No thrush Face and Sinus: face symmetric Eyes conjunctivae normal and no scleral icterus Neck Neck Narrative: increased cervical lordosis due to the increased kyphosis in the thoracic spine. General: trachea midline Resp Resp Narrative: Breathing easy when seated in the chair. Had some CLARKE with ambulation today and had to rest prior to getting back to his room. He is not wheezing. Not tachypneic at rest. Few coarse crackles in the bases - stable. May have some scarring due to prior PNA's. Cardio regular rate, regular rhythm and no gallops Cardio Narrative: No ectopy GI normal to inspection, nondistended, normoactive bowel sounds, soft to palpation and non-tender GI Narrative: No guarding with palpation. Extremity no calf tenderness and no pedal edema Extremity Narrative: No tremors Skin General Skin Exam: no breakdown Rashes: no rashes Neuro Neuro Narrative: rigidity and bradykinesia. Still taking 102 sec to do the TUG but he was able to do 2 stands this week, up from 1 lead manufacturing engineering tech 30 seconds last week. No significant tremors. Assessment & Plan Assessment/Plan (1) Restrictive lung disease due to kyphoscoliosis: (2) Physical debility: (3) Parkinson's disease: (4) Cerebellar stroke, acute: (5) Eosinophilia: (6) Atelectasis: (7) COPD (chronic obstructive pulmonary disease): PLAN: 1. Eosinophils are increased but, he has no sx of an allergic reaction........will request Dr. Aragon's records to see if he had this related to the leukemia......WBC is always a little elevated. 2. Try an inhaler to see if the sx of CLARKE improve. I have not heard him wheeze but, he was a smoker in the past. I suspect most of the CLARKE is due to restrictive disease related to kyphosis and large hiatal hernia. 3. BMP in the AM 3. Continue therapy Charges/Coding Visit Charges Inpatient E&M: 74350 Subs Hosp L2
[2021-09-15 11:10] VITALS: BP 140/65; BP 143/69; PULSE 61; PULSE 63; PULSE 68
--- NOTE | 2021-09-15 12:27 | NURSING ---
medical record release sent per MD order to Dr Aragon's office for most recent progress notes.
[2021-09-15 14:16] VITALS: BMI 26.7
[2021-09-15] MEDS: Senna/Docusate Sodium 1 Tablet 2 TABLET PO (20:53)
[2021-09-15] MEDS: Doxazosin 4 MG Tablet 8 MG PO (20:53)
[2021-09-15] MEDS: Atorvastatin Calcium 10 MG Tablet PO (20:54)
[2021-09-15 21:05] VITALS: BP 135/62; PULSE 88; RESP 16; TEMP 36.4; O2SAT 92
[2021-09-16] MEDS: Carbidopa/Levodopa 25/100 Tablet PO ×3 (05:08→21:18)
[2021-09-16] MEDS: Acetaminophen 500 MG Tablet 1000 MG PO ×3 (05:08→21:18)
[2021-09-16 07:47] VITALS: BP 133/55; PULSE 58; RESP 20; TEMP 36.6; O2SAT 93
[2021-09-16] MEDS: Sertraline 50 MG Tablet 25 MG PO (07:53)
[2021-09-16] MEDS: Senna/Docusate Sodium 1 Tablet 2 TABLET PO ×2 (07:53→21:18)
[2021-09-16] MEDS: Losartan Potassium 50 MG Tablet PO (07:54)
[2021-09-16] MEDS: Pantoprazole Sodium 40 MG Tablet PO (07:54)
[2021-09-16] MEDS: Finasteride 5 MG Tablet PO (07:54)
[2021-09-16] MEDS: Aspirin 81 MG TAB.CHEW PO (07:54)
[2021-09-16] MEDS: Potassium Chloride Oral Tablet 20 MEQ PO (07:54)
[2021-09-16] MEDS: Neomycin/Polymyxin/Dexameth 5ML OPTH.BTL 5 DRP LEFT EAR ×2 (14:07→21:19)
--- NOTE | 2021-09-16 14:07 | CASEMGMT ---
Social Work IDT met with patient, son's GF and dtr via conference call for Team meeting. Discussed patient's progress in PT/OT/ST and nursing. Pt making progress. Family prepared to have 24/7 care at home. therapy offered family training for son and GF prior to DC. They will coordinate. Pt will DC home 09/27, per Medicare approval. Will ReTeam. SW to continue to follow for DC planning. Daniella Shankar, KNOCKUP WORKER CHILD STUDY TEAM DIRECTOR
--- NOTE | 2021-09-16 14:47 | PCM.PN.BLA ---
Progress Note Moncho was seen on TEAM rounds today. Carolina was present in the room and his dtr participated by phone. AF With no change in the medications the BP is within goal today. HR ranges from 55-68 while awake. He is maintaining an oxygen saturation of 92 to 97% on room air while awake. No complaints today. I reviewed the therapy notes and listened to their presentations on Rounds. He is progressing and getting stronger. Denies CP, palpitations, lightheadedness, dysuria, N/V/Abd pain, constipation/diarrhea, cough, ST, sore ears. No Cervical adenopathy. Denies ear pain. He has an appt with the ear doc on 09/28/21 and they were told to put in polymyxin drops prior to the visit because he has calcium in his ear? He just had a course of the drops. The left ear canal is completely occluded with cerumen? Lungs persistent crackles in the bases. Decreased air entry in the bases. No wheezes. HRRR, no gallops no peripheral edema. Impressions 1. post stroke debility 2. PD with generalized weakness 3. silent aspirator - on [place] water. For meals he is only allowed to take 1 tsp of water on a spoon at a time. He is still supervised with eating. 4. eosinophilia -I reviewed the notes we received from Dr. Aragon and Moncho has had intermittent nonspecific eosinophilia for quite a few years. He is asymptomatic. No need to further investigate at this time. Continue therapy. Carolina and Magdiel will come in next week for family training to learn how to best assist Moncho at home. He ambulates in the house and they have a WC for longer distances. Visit Charges Inpatient E&M: 39576 Subs Hosp L2
[2021-09-16 14:56] VITALS: BMI 26.7
[2021-09-16] MEDS: Albuterol 2.5 MG/3 ML VIAL.NEB. INHALATION (18:45)
[2021-09-16 19:12] VITALS: PULSE 77; RESP 16; O2SAT 95
[2021-09-16 19:18] VITALS: BP 120/61; PULSE 70; RESP 18; TEMP 36.7; O2SAT 93
[2021-09-16] MEDS: Atorvastatin Calcium 10 MG Tablet PO (21:18)
[2021-09-16] MEDS: Doxazosin 4 MG Tablet 8 MG PO (21:19)
[2021-09-17 00:05] VITALS: BMI 26.7
[2021-09-17] MEDS: Acetaminophen 500 MG Tablet 1000 MG PO ×3 (05:18→20:16)
[2021-09-17] MEDS: Carbidopa/Levodopa 25/100 Tablet PO ×3 (05:19→20:16)
[2021-09-17] MEDS: Neomycin/Polymyxin/Dexameth 5ML OPTH.BTL 5 DRP LEFT EAR ×3 (05:20→20:15)
[2021-09-17 06:11] LABS: Anion Gap 4 (5-15); BUN 28 mg/dL (7-18); BUN/Creat Ratio 28.9 RATIO (10-20); Calcium,Total 9.2 mg/dL (8.5-10.1); Chloride 107 mmol/L (98-107); Creatinine, Serum 0.97 mg/dL (0.70-1.30); EST Glomerular Filtration Rate 79 mL/min (>60); Est Glom Filt Rate - Afr Amer 95 mL/min (>60); Glucose 80 mg/dL (74-106); Potassium 4.4 mmol/L (3.5-5.1); Sodium Level 140 mmol/L (136-145)
[2021-09-17 07:30] VITALS: BP 162/69; PULSE 60; RESP 22; TEMP 36.5; O2SAT 94
[2021-09-17] MEDS: Sertraline 50 MG Tablet 25 MG PO (08:17)
[2021-09-17] MEDS: Finasteride 5 MG Tablet PO (08:17)
[2021-09-17] MEDS: Aspirin 81 MG TAB.CHEW PO (08:17)
[2021-09-17] MEDS: Potassium Chloride Oral Tablet 20 MEQ PO (08:17)
[2021-09-17] MEDS: Losartan Potassium 50 MG Tablet PO (08:17)
[2021-09-17] MEDS: Pantoprazole Sodium 40 MG Tablet PO (08:18)
[2021-09-17 15:40] VITALS: BMI 26.7
[2021-09-17] MEDS: Albuterol 2.5 MG/3 ML VIAL.NEB. INHALATION ×2 (16:03→19:00)
[2021-09-17 16:04] VITALS: PULSE 78; RESP 16
[2021-09-17 19:25] VITALS: PULSE 79; RESP 18; O2SAT 93
[2021-09-17 19:30] VITALS: BP 146/70; PULSE 72; RESP 18; TEMP 36.5; O2SAT 94
[2021-09-17] MEDS: Doxazosin 4 MG Tablet 8 MG PO (20:15)
[2021-09-17] MEDS: Atorvastatin Calcium 10 MG Tablet PO (20:15)
[2021-09-17] MEDS: Senna/Docusate Sodium 1 Tablet 2 TABLET PO (20:17)
[2021-09-17 23:39] VITALS: BMI 26.7
[2021-09-18] VITALS (7 sets, daily range): BP systolic 142–157; BP diastolic 63–73; PULSE 60–79; RESP 16–18; TEMP 36.7–36.9; O2SAT 93–94; BMI 26.7
[2021-09-18] MEDS: Neomycin/Polymyxin/Dexameth 5ML OPTH.BTL 5 DRP LEFT EAR ×3 (04:59→20:46)
[2021-09-18] MEDS: Acetaminophen 500 MG Tablet 1000 MG PO ×3 (05:00→21:03)
[2021-09-18] MEDS: Carbidopa/Levodopa 25/100 Tablet PO ×3 (05:00→20:56)
[2021-09-18] MEDS: Albuterol 2.5 MG/3 ML VIAL.NEB. INHALATION ×4 (06:20→19:00)
[2021-09-18] MEDS: Sertraline 50 MG Tablet 25 MG PO (07:44)
[2021-09-18] MEDS: Pantoprazole Sodium 40 MG Tablet PO (07:45)
[2021-09-18] MEDS: Finasteride 5 MG Tablet PO (07:45)
[2021-09-18] MEDS: Potassium Chloride Oral Tablet 20 MEQ PO (07:45)
[2021-09-18] MEDS: Losartan Potassium 50 MG Tablet PO (07:49)
[2021-09-18] MEDS: Aspirin 81 MG TAB.CHEW PO (07:50)
[2021-09-18] MEDS: Atorvastatin Calcium 10 MG Tablet PO (20:56)
[2021-09-18] MEDS: Doxazosin 4 MG Tablet 8 MG PO (20:57)
[2021-09-19] MEDS: Neomycin/Polymyxin/Dexameth 5ML OPTH.BTL 5 DRP LEFT EAR ×3 (05:30→20:25)
[2021-09-19] MEDS: Carbidopa/Levodopa 25/100 Tablet PO ×3 (05:30→20:27)
[2021-09-19] MEDS: Acetaminophen 500 MG Tablet 1000 MG PO ×3 (05:30→21:17)
[2021-09-19 06:15] VITALS: PULSE 69; RESP 16
[2021-09-19] MEDS: Albuterol 2.5 MG/3 ML VIAL.NEB. INHALATION (06:15)
[2021-09-19] MEDS: Losartan Potassium 50 MG Tablet PO (07:52)
[2021-09-19] MEDS: Potassium Chloride Oral Tablet 20 MEQ PO (07:52)
[2021-09-19] MEDS: Pantoprazole Sodium 40 MG Tablet PO (07:53)
[2021-09-19] MEDS: Sertraline 50 MG Tablet 25 MG PO (07:53)
[2021-09-19] MEDS: Finasteride 5 MG Tablet PO (07:54)
[2021-09-19] MEDS: Aspirin 81 MG TAB.CHEW PO (07:54)
[2021-09-19 08:15] VITALS: BP 153/64; PULSE 61; RESP 16; TEMP 36.6; O2SAT 93
[2021-09-19 11:30] VITALS: BMI 26.7
[2021-09-19 18:54] VITALS: BP 133/59; PULSE 74; RESP 16; TEMP 36.8; O2SAT 95
[2021-09-19 19:32] VITALS: BMI 26.7
[2021-09-19 19:33] VITALS: PULSE 74; RESP 16; O2SAT 95
[2021-09-19] MEDS: Senna/Docusate Sodium 1 Tablet 2 TABLET PO (20:26)
[2021-09-19] MEDS: Doxazosin 4 MG Tablet 8 MG PO (20:26)
[2021-09-19] MEDS: Atorvastatin Calcium 10 MG Tablet PO (20:26)
[2021-09-20] MEDS: Acetaminophen 500 MG Tablet 1000 MG PO ×3 (05:09→20:26)
[2021-09-20] MEDS: Carbidopa/Levodopa 25/100 Tablet PO ×3 (05:09→19:58)
[2021-09-20] MEDS: Neomycin/Polymyxin/Dexameth 5ML OPTH.BTL 5 DRP LEFT EAR ×3 (05:09→19:58)
[2021-09-20 07:33] VITALS: BP 139/69; PULSE 57; RESP 16; TEMP 36.5; O2SAT 95
[2021-09-20] MEDS: Pantoprazole Sodium 40 MG Tablet PO (07:53)
[2021-09-20] MEDS: Aspirin 81 MG TAB.CHEW PO (07:53)
[2021-09-20] MEDS: Finasteride 5 MG Tablet PO (07:53)
[2021-09-20] MEDS: Senna/Docusate Sodium 1 Tablet 2 TABLET PO ×2 (07:53→19:57)
[2021-09-20] MEDS: Sertraline 50 MG Tablet 25 MG PO (07:53)
[2021-09-20] MEDS: Potassium Chloride Oral Tablet 20 MEQ PO (07:53)
[2021-09-20] MEDS: Losartan Potassium 50 MG Tablet PO (07:54)
[2021-09-20 14:23] VITALS: BMI 26.7
--- NOTE | 2021-09-20 17:12 | PCM.PROGNOTE ---
Subjective Subjective Afebrile VSS Maintaining appropriate oxygen saturation on RA Oral intake is adequate Discussed with nursing - no problems that need addressed Reviewed the PT/OT/ST notes Medication list reviewed. Moncho has no complaints today. He denies CP, SOB, dysuria, abd pain, lightheadedness. He is not coughing and he appears in NAD. Objective Data Objective Data Vital Signs: Vital Signs Temp Pulse Resp BP Pulse Ox 97.7 F L 57 L 16 139/69 H 95 09/20/21 07:33 09/20/21 07:33 09/20/21 07:33 09/20/21 07:33 09/20/21 07:33 Oxygen Delivery Method Room Air Weight: 176 lb 12.972 oz Body Mass Index (BMI) 26.7 Intake & Output: Intake and Output for Last 24 Hours 09/18/21 09/19/21 09/20/21 23:59 23:59 23:59 Intake Total 1630 / 1630 1870 / 2020 690 / 690 Output Total 1825 / 1825 2545 / 2645 1175 / 1175 Balance -195 / -195 -675 / -625 -485 / -485 Lab / Micro Data Result Diagrams: 09/24/21 05:22 09/24/21 05:22 Micro: Microbiology 09/05/21 Unknown Stool Stool Occult Blood (FLIP) - Final Physical Exam Const alert and no apparent distress General Appearance: cooperative Cardio regular rate, regular rhythm and no gallops Cardio Narrative: Bradycardic at times. No ectopy. GI normal to inspection, nondistended, normoactive bowel sounds, soft to palpation and non-tender Extremity no calf tenderness and no pedal edema Skin General Skin Exam: no breakdown Rashes: no rashes Assessment & Plan Assessment/Plan (1) Parkinson disease: (2) Weakness: (3) Debility: (4) Eosinophilia: QUALIFIERS: Eosinophilia type: unspecified eosinophilia Qualified Code(s): D72.10 - Eosinophilia, unspecified (5) Cerebellar stroke, acute: PLAN: 1. Continue therapy 2. Plan at [place] is for the patient to go with / supervision. His son's significant other will stay home and care for Moncho. Charges/Coding Visit Charges Inpatient E&M: 71705 Subs Hosp L1
[2021-09-20 19:23] VITALS: BP 135/79; PULSE 63; RESP 17; TEMP 36.6; O2SAT 94
[2021-09-20] MEDS: Doxazosin 4 MG Tablet 8 MG PO (19:55)
[2021-09-20] MEDS: Atorvastatin Calcium 10 MG Tablet PO (19:57)
[2021-09-20 20:13] VITALS: BMI 26.7
[2021-09-20 22:00] VITALS: PULSE 73; RESP 16; O2SAT 96
[2021-09-21] MEDS: Neomycin/Polymyxin/Dexameth 5ML OPTH.BTL 5 DRP LEFT EAR ×3 (05:10→22:44)
[2021-09-21] MEDS: Acetaminophen 500 MG Tablet 1000 MG PO ×3 (05:10→22:43)
[2021-09-21] MEDS: Carbidopa/Levodopa 25/100 Tablet PO ×3 (05:10→22:44)
[2021-09-21 07:31] VITALS: BP 130/59; PULSE 64; RESP 16; TEMP 36.3; O2SAT 95
[2021-09-21] MEDS: Finasteride 5 MG Tablet PO (07:41)
[2021-09-21] MEDS: Pantoprazole Sodium 40 MG Tablet PO (07:41)
[2021-09-21] MEDS: Potassium Chloride Oral Tablet 20 MEQ PO (07:41)
[2021-09-21] MEDS: Losartan Potassium 50 MG Tablet PO (07:41)
[2021-09-21] MEDS: Sertraline 50 MG Tablet 25 MG PO (07:41)
[2021-09-21] MEDS: Senna/Docusate Sodium 1 Tablet 2 TABLET PO ×2 (07:41→22:44)
[2021-09-21] MEDS: Aspirin 81 MG TAB.CHEW PO (07:41)
[2021-09-21 14:46] VITALS: BMI 26.7
[2021-09-21 19:57] VITALS: BP 169/69; PULSE 67; RESP 18; TEMP 36.8; O2SAT 92
[2021-09-21] MEDS: Doxazosin 4 MG Tablet 8 MG PO (22:44)
[2021-09-21] MEDS: Atorvastatin Calcium 10 MG Tablet PO (22:44)
[2021-09-22] MEDS: Acetaminophen 500 MG Tablet 1000 MG PO ×3 (05:36→23:40)
[2021-09-22] MEDS: Carbidopa/Levodopa 25/100 Tablet PO ×3 (05:36→23:40)
[2021-09-22] MEDS: Neomycin/Polymyxin/Dexameth 5ML OPTH.BTL 5 DRP LEFT EAR ×3 (05:37→23:40)
[2021-09-22] MEDS: Finasteride 5 MG Tablet PO (09:20)
[2021-09-22] MEDS: Potassium Chloride Oral Tablet 20 MEQ PO (09:20)
[2021-09-22] MEDS: Pantoprazole Sodium 40 MG Tablet PO (09:20)
[2021-09-22] MEDS: Aspirin 81 MG TAB.CHEW PO (09:20)
[2021-09-22] MEDS: Losartan Potassium 50 MG Tablet PO (09:20)
[2021-09-22] MEDS: Senna/Docusate Sodium 1 Tablet 2 TABLET PO (09:20)
[2021-09-22] MEDS: Sertraline 50 MG Tablet 25 MG PO (09:21)
[2021-09-22 09:36] VITALS: BP 145/58; PULSE 64; RESP 16; TEMP 36.4; O2SAT 93
[2021-09-22 16:42] VITALS: BMI 26.7
[2021-09-22 19:34] VITALS: BP 146/62; PULSE 57; RESP 18; TEMP 36.4; O2SAT 93
[2021-09-22] MEDS: Doxazosin 4 MG Tablet 8 MG PO (23:39)
[2021-09-22] MEDS: Atorvastatin Calcium 10 MG Tablet PO (23:40)
[2021-09-23 00:26] VITALS: BMI 26.7
[2021-09-23] MEDS: Neomycin/Polymyxin/Dexameth 5ML OPTH.BTL 5 DRP LEFT EAR ×3 (06:08→20:25)
[2021-09-23] MEDS: Acetaminophen 500 MG Tablet 1000 MG PO ×3 (06:09→20:24)
[2021-09-23] MEDS: Carbidopa/Levodopa 25/100 Tablet PO ×3 (06:09→20:24)
[2021-09-23] MEDS: Pantoprazole Sodium 40 MG Tablet PO (08:02)
[2021-09-23] MEDS: Aspirin 81 MG TAB.CHEW PO (08:02)
[2021-09-23] MEDS: Finasteride 5 MG Tablet PO (08:02)
[2021-09-23] MEDS: Potassium Chloride Oral Tablet 20 MEQ PO (08:02)
[2021-09-23] MEDS: Sertraline 50 MG Tablet 25 MG PO (08:03)
[2021-09-23] MEDS: Losartan Potassium 50 MG Tablet PO (08:03)
[2021-09-23 08:40] VITALS: BP 108/60; PULSE 53; RESP 18; TEMP 36.6; O2SAT 93
--- NOTE | 2021-09-23 14:05 | CASEMGMT ---
Social Work IDT met with patient and two dtrs for Team meeting. Discussed patient's progress in PT/OT/ST and nursing. Pt progressing well. Pt is set to DC home with 16/01 family support 09/26 with [place] [facility]. Daniella Shankar, FORM SETTER STEEL PAN FORMS PRIVACY MANAGER
[2021-09-23 14:49] VITALS: BMI 26.7
--- NOTE | 2021-09-23 15:47 | PCM.PROGNOTE ---
Subjective Subjective Moncho was seen on team rounds today. His structural steel worker apprentice Carolina was present in the room and his daughter Elizabeth participated by phone. Afebrile VSS Maintaining appropriate oxygen saturation on RA Oral intake is adequate Weight is stable Discussed with nursing - no problems that need addressed Reviewed the PT/OT/ST notes Medication list reviewed. Monhco has no complaints today. All questions from Carolina and Elizabeth were answered to their satisfaction. No cough and no c/o SOB. Objective Data Objective Data Vital Signs: Vital Signs Temp Pulse Resp BP Pulse Ox 97.8 F 53 L 18 108/60 93 09/23/21 08:40 09/23/21 08:40 09/23/21 08:40 09/23/21 08:40 09/23/21 08:40 Oxygen Delivery Method Room Air Weight: 176 lb 5.917 oz Body Mass Index (BMI) 26.7 Intake & Output: Intake and Output for Last 24 Hours 09/21/21 09/22/21 09/23/21 23:59 23:59 23:59 Intake Total 1430 / 1430 870 / 870 480 / 480 Output Total 1000 / 1000 825 / 825 700 / 700 Balance 430 / 430 45 / 45 -220 / -220 Lab / Micro Data Result Diagrams: 09/24/21 05:22 09/24/21 05:22 Micro: Microbiology 09/05/21 Unknown Stool Stool Occult Blood (FLIP) - Final Physical Exam Const alert Constitutional Narrative: appears comfortable General Appearance: cooperative and well kempt Eyes conjunctivae normal and no scleral icterus Neck no lymphadenopathy Resp Resp Narrative: Minimal bibasilar crackles with better air exchange in the bases although it is still diminished when compared to the upper lobes. No wheezes, rhonchi or rails. He is not tachypneic and he is able to speak to me in complete sentences although they are short sentences. Cardio regular rhythm and no rub Cardio Narrative: No change in the murmurs, no gallops, bradycardic rate - asymptomatic. GI normal to inspection, nondistended, normoactive bowel sounds, soft to palpation and non-tender Back/Spine Back/Spine Narrative: marked thoracic kyphosis and exaggerated cervical lordosis Extremity no calf tenderness and no pedal edema Skin General Skin Exam: no breakdown Rashes: no rashes Wound Narrative: all abrasions present at admission have healed. Pt denies pain Psych Psych Narrative: He is more talkative on the Sertraline and he is always smiling and cooperative. He is doing more for himself and is now feeding himself. Memory / Cognition: cognition impaired Assessment & Plan Assessment/Plan (1) Physical debility: PLAN: 1. CBC without differential, BMP, mag and Phos in the a.m. 2. Plan discharge on 09/26/2021. 3. Home health care with [facility] and he will also have palliative care. 4. No changes to the drug regimen today......no need to increase the Sertraline, he is doing much better Charges/Coding Visit Charges Inpatient E&M: 17882 Subs Hosp L2
[2021-09-23 19:22] VITALS: BP 141/65; PULSE 68; RESP 16; TEMP 36.6; O2SAT 100
[2021-09-23] MEDS: Atorvastatin Calcium 10 MG Tablet PO (20:25)
[2021-09-23] MEDS: Doxazosin 4 MG Tablet 8 MG PO (20:25)
[2021-09-23] MEDS: Senna/Docusate Sodium 1 Tablet 2 TABLET PO (20:25)
[2021-09-24 05:31] LABS: Hematocrit 35.7 % (40-54); Hemoglobin 11.5 g/dL (13.0-16.5); Mean Corp Hgb Conc 32.2 g/dL (32-36); Mean Corpuscular Hgb 32.2 pg (27.0-32.0); Mean Platelet Vol. 9.8 fl (6.2-12.0); Platelet Count 228 K/mm3 (150-450); RBC Distribution Width SD 62.7 fl (35.1-43.9); Red Blood Count 3.57 M/mm3 (4.6-6.2); White Blood Count 9.1 K/mm3 (4.4-11.0)
[2021-09-24 05:56] LABS: Anion Gap 2 (5-15); BUN 30 mg/dL (7-18); Calcium,Total 8.8 mg/dL (8.5-10.1); Chloride 110 mmol/L (98-107); Creatinine, Serum 1.07 mg/dL (0.70-1.30); EST Glomerular Filtration Rate 70 mL/min (>60); Est Glom Filt Rate - Afr Amer 85 mL/min (>60); Estimated Creatinine Clearance 52.31 ml/min; Glucose 81 mg/dL (74-106); Magnesium 2.4 mg/dL (1.6-2.6); Phosphorus 3.5 mg/dL (2.5-4.9); Potassium 4.4 mmol/L (3.5-5.1); Sodium Level 142 mmol/L (136-145)
[2021-09-24] MEDS: Acetaminophen 500 MG Tablet 1000 MG PO ×3 (06:05→21:01)
[2021-09-24] MEDS: Neomycin/Polymyxin/Dexameth 5ML OPTH.BTL 5 DRP LEFT EAR ×3 (06:05→20:45)
[2021-09-24] MEDS: Carbidopa/Levodopa 25/100 Tablet PO ×3 (06:05→20:49)
[2021-09-24 08:30] VITALS: BP 163/68; PULSE 56; RESP 20; TEMP 36.5; O2SAT 96
[2021-09-24] MEDS: Sertraline 50 MG Tablet 25 MG PO (09:27)
[2021-09-24] MEDS: Losartan Potassium 50 MG Tablet PO (09:28)
[2021-09-24] MEDS: Pantoprazole Sodium 40 MG Tablet PO (09:28)
[2021-09-24] MEDS: Potassium Chloride Oral Tablet 20 MEQ PO (09:28)
[2021-09-24] MEDS: Finasteride 5 MG Tablet PO (09:28)
[2021-09-24] MEDS: Aspirin 81 MG TAB.CHEW PO (09:28)
[2021-09-24] MEDS: Senna/Docusate Sodium 1 Tablet 2 TABLET PO ×2 (09:37→20:49)
[2021-09-24 13:09] VITALS: BMI 26.7
--- NOTE | 2021-09-24 14:24 | CASEMGMT ---
Social Work Notified by nursing that pt needs pacemaker placed 09/27 and requested DC return to 09/27. Family and IDT agreeable. Spoke with Evangelina at [facility] to update. Suggested to contact family 09/27 to ensure pt returned home for SOC 09/28. Daniella Shankar, SIGNALS COLLECTOR/ANALYST SUPERVISOR INCISING
--- NOTE | 2021-09-24 15:33 | PCM.PROGNOTE ---
Subjective Subjective Afebrile VSS Maintaining appropriate oxygen saturation on RA Oral intake is marginal Discussed with nursing - We received a call from cardiology today after they reviewed his 30-day event monitor and he is having heart block and they have him scheduled for a pacemaker on Monday. I discussed this with Moncho and he is agreeable. I also discussed this with family and Carolina Hernandez came up and went over everything with Moncho, Carolina and Elizabeth again. Reviewed the PT/OT/ST notes Medication list reviewed. All lab was personally reviewed. Hemoglobin is stable at 11.5. White blood cell count and platelets are within normal limits. The potassium is 4.4. The BUN is elevated at 30 and the creatinine is 1.07 and stable. Because of the dysphagia and having to drink fluids 5 cc at a time his intake is somewhat decreased. Phosphorus and magnesium are within normal limits and the magnesium is 2.4. Objective Data Objective Data Vital Signs: Vital Signs Temp Pulse Resp BP Pulse Ox 97.7 F L 56 L 20 H 163/68 H 96 09/24/21 08:30 09/24/21 08:30 09/24/21 08:30 09/24/21 08:30 09/24/21 08:30 Oxygen Delivery Method Room Air Weight: 174 lb 2.643 oz Body Mass Index (BMI) 26.7 Intake & Output: Intake and Output for Last 24 Hours 09/22/21 09/23/21 09/24/21 23:59 23:59 23:59 Intake Total 870 / 870 1800 / 1800 860 / 860 Output Total 825 / 825 800 / 800 1100 / 1100 Balance 45 / 45 1000 / 1000 -240 / -240 Lab / Micro Data Result Diagrams: 09/24/21 05:22 09/24/21 05:22 Labs: Laboratory Results - last 24 hr 09/24/21 05:22: WBC 9.1, RBC 3.57 L, Hgb 11.5 L, Hct 35.7 L, MCV 100.0 H, MCH 32.2 H, MCHC 32.2, RDW Std Deviation 62.7 H, RDW Coeff of Louann 17.0 H, Plt Count 228, MPV 9.8 09/24/21 05:22: Sodium 142, Potassium 4.4, Chloride 110 H, Carbon Dioxide 30.0, Anion Gap 2 L, BUN 30 H, Creatinine 1.07, Estim Creat Clear Calc 52.31, Est GFR (MDRD) Af Amer 85, Est GFR (MDRD) Non-Af 70, BUN/Creatinine Ratio 28.0 H, Glucose 81, Calcium 8.8, Phosphorus 3.5, Magnesium 2.4 Micro: Microbiology 09/05/21 Unknown Stool Stool Occult Blood (FLIP) - Final Physical Exam Const alert and no apparent distress General Appearance: cooperative, comfortable, well kempt and well developed Chest Chest: symmetrical chest wall rise Resp normal respiratory effort Resp Narrative: The coarse crackles in the left base have diminished significantly from admission. The right base is clear today. He is not tachypneic and has no labored breathing. He is able to speak in full sentences. Cardio Cardio Narrative: He is chronically bradycardic in the 50s when I listen to him. No change in the cardiac murmurs. No gallops and no rub. Radial pulses and carotid pulses are strong. GI normal to inspection, nondistended, normoactive bowel sounds, soft to palpation and non-tender Assessment & Plan Assessment/Plan (1) Complete heart block, transient: (2) Bradycardia: (3) Cerebellar stroke, acute: (4) Parkinson's disease: PLAN: 1. Patient is scheduled for insertion of permanent pacemaker on Monday with Dr. Paz. Will discharge Monday a.m. 2. He is not on any anticoagulation, not even pharmacologic DVT prophylaxis at this time. 3. Continue current drug regimen 4. Patient will go home following pacemaker insertion and will have / supervision by family and [facility] will provide PT/OT/ST. Charges/Coding Visit Charges Inpatient E&M: 15440 Subs Hosp L2
--- NOTE | 2021-09-24 18:45 | NURSING ---
Family and care team aware of dc now on 09/27 and he will go to surgery for pacer placement that day and then dc from rehab at that time. Patient doing well. Denies any s/sx. Family will make all follow up appts.
[2021-09-24 19:23] VITALS: BP 153/62; PULSE 59; RESP 18; TEMP 36.6; O2SAT 93
[2021-09-24 20:24] VITALS: BMI 26.7
[2021-09-24] MEDS: Atorvastatin Calcium 10 MG Tablet PO (20:48)
[2021-09-24] MEDS: Doxazosin 4 MG Tablet 8 MG PO (20:49)
[2021-09-24 22:00] VITALS: RESP 18
--- NOTE | 2021-09-24 23:41 | NURSING ---
Pt found sitting in bed with CPAP off when staff when in to empty PATTERSON. Pt stated, Oh, I'm supposed to have this CPAP on but I took it off to get a drink and couldn't figure it out to put it back on. Staff reeducated pt and put mask back on. Pt was reminded to call staff when she removes mask and needs assistance to get it back on.
[2021-09-25] MEDS: Carbidopa/Levodopa 25/100 Tablet PO ×3 (05:01→23:02)
[2021-09-25] MEDS: Neomycin/Polymyxin/Dexameth 5ML OPTH.BTL 5 DRP LEFT EAR ×3 (05:01→23:02)
[2021-09-25] MEDS: Acetaminophen 500 MG Tablet 1000 MG PO ×3 (05:01→23:03)
[2021-09-25 07:00] VITALS: BP 156/75; PULSE 63; RESP 17; TEMP 36.2; O2SAT 97
[2021-09-25] MEDS: Aspirin 81 MG TAB.CHEW PO (08:20)
[2021-09-25] MEDS: Finasteride 5 MG Tablet PO (08:20)
[2021-09-25] MEDS: Losartan Potassium 50 MG Tablet PO (08:20)
[2021-09-25] MEDS: Pantoprazole Sodium 40 MG Tablet PO (08:21)
[2021-09-25] MEDS: Sertraline 50 MG Tablet 25 MG PO (08:21)
[2021-09-25] MEDS: Senna/Docusate Sodium 1 Tablet 2 TABLET PO (08:21)
[2021-09-25] MEDS: Potassium Chloride Oral Tablet 20 MEQ PO (08:28)
[2021-09-25 15:24] VITALS: BMI 26.7
[2021-09-25 19:27] VITALS: BP 158/67; PULSE 61; RESP 17; TEMP 36.6; O2SAT 92
[2021-09-25] MEDS: Doxazosin 4 MG Tablet 8 MG PO (23:01)
[2021-09-25] MEDS: Atorvastatin Calcium 10 MG Tablet PO (23:04)
[2021-09-25 23:59] VITALS: BMI 26.7
[2021-09-26] MEDS: 0.9% Saline Lock 10 ML Syringe IV (00:48)
[2021-09-26] MEDS: Acetaminophen 500 MG Tablet 1000 MG PO ×3 (05:19→21:59)
[2021-09-26] MEDS: Carbidopa/Levodopa 25/100 Tablet PO ×3 (05:19→21:59)
[2021-09-26] MEDS: Neomycin/Polymyxin/Dexameth 5ML OPTH.BTL 5 DRP LEFT EAR ×3 (05:20→22:00)
[2021-09-26 07:19] VITALS: BP 143/62; PULSE 58; RESP 20; TEMP 36.5; O2SAT 95
[2021-09-26] MEDS: Senna/Docusate Sodium 1 Tablet 2 TABLET PO ×2 (09:00→21:59)
[2021-09-26] MEDS: Sertraline 50 MG Tablet 25 MG PO (09:00)
[2021-09-26] MEDS: Pantoprazole Sodium 40 MG Tablet PO (09:00)
[2021-09-26] MEDS: Potassium Chloride Oral Tablet 20 MEQ PO (09:00)
[2021-09-26] MEDS: Aspirin 81 MG TAB.CHEW PO (09:00)
[2021-09-26] MEDS: Losartan Potassium 50 MG Tablet PO (09:01)
[2021-09-26] MEDS: Finasteride 5 MG Tablet PO (09:02)
[2021-09-26 13:16] VITALS: BMI 26.7
[2021-09-26 21:32] VITALS: BP 151/72; PULSE 62; RESP 16; TEMP 36.6; O2SAT 91
[2021-09-26] MEDS: Doxazosin 4 MG Tablet 8 MG PO (21:58)
[2021-09-26] MEDS: Atorvastatin Calcium 10 MG Tablet PO (21:59)
[2021-09-27 01:55] VITALS: BMI 26.7
[2021-09-27] MEDS: Carbidopa/Levodopa 25/100 Tablet PO (06:07)
[2021-09-27 07:40] VITALS: BP 140/58; PULSE 54; RESP 18; TEMP 36.6; O2SAT 98
[2021-09-27] MEDS: Pantoprazole Sodium 40 MG Tablet PO (08:09)
[2021-09-27] MEDS: Losartan Potassium 50 MG Tablet PO (08:11)
--- NOTE | 2021-09-27 09:32 | PCM.DC ---
Discharge Instructions Diet Discharge Diet: - (Heart Healthy. Puree fruit/soup/cereal - mixed consistency liquid/solids. Liquids 5 cc's at a time. Ensure pudding with lunch and dinner) Activity Discharge Activity: May Not Drive and May Shower Weight Bearing Status: Full weight bearing Keep extremity elevated above heart level: Legs Dressing / Incision Call your doctor if you observe: Fever of 101 or Higher, Inability to urinate, Inability to have a bowel movement, Shortness of breath, Dizziness, Fainting spells, Swelling in the ankles, Chest pain, Increased palpitations (irregular heartbeat) and Calf discomfort Follow Up Care Please Follow Up With: PCP When: 1-2 weeks Test Results: Test results from this visit will be discussed in further detail at your follow-up appointment, if applicable. Pending Tests Upon Discharge: none Discharge Plan Admission Admit Date/Time: 09/04/21 17:34 Primary Reason for Your Visit: Debility due to R ischemic cerebellar CVA Attending Provider: Faye Cartagena Primary Care Provider: Tristan De La Cruz Instructions Patient Instructions: Understanding Parkinson Disease, Parkinson Disease Caregiver, Parkinson Disease: Home Safety Discharge Orders/Prescriptions Prescriptions: New losartan 50 mg Tablet 50 mg PO DAILY Qty: 30 RF: 0 acetaminophen 500 mg Tablet 1,000 mg PO Q8 Qty: 0 RF: 0 magnesium hydroxide 400 mg/5 mL Suspension 30 ml PO .PRN X 1 PRN (Reason: Constipation) Qty: 0 RF: 0 Ensure Enlive 0.08 gram-1.5 kcal/mL Liquid 120 ml PO 4X/DAY Qty: 0 RF: 0 sennosides-docusate sodium [Stool Softener-Stimulant Laxat] 8.6-50 mg Tablet 2 tab PO DAILY Qty: 60 RF: 0 Continued doxazosin 8 MG tablet 8 mg PO QPM RF: 0 cranberry conc-ascorbic acid 1 EACH capsule 1 tab PO DAILY RF: 0 lysine 1,000 mg Tablet 1,000 mg BID RF: 0 carbidopa-levodopa 25-100 mg tablet 1 tab PO TID RF: 0 omeprazole 20 mg capsule,delayed release(DR/EC) 40 mg PO DAILY RF: 0 aspirin 81 MG tablet,chewable 81 mg PO DAILY@0800 RF: 0 finasteride 5 MG tablet 5 mg PO DAILY RF: 0 tebpnkmf-iogxigblf-EV 3.5-10,000-1 mg/mL-unit/mL-% drops,suspension 4 drp otic (ear) Q6H RF: 0 sertraline 25 mg Tablet 25 mg PO DAILY Qty: 30 RF: 0 atorvastatin 10 mg tablet 10 mg PO QHS Qty: 30 RF: 0 Discontinued losartan 50 mg tablet 25 mg PO DAILY RF: 0 acetaminophen [Tylenol] 325 MG tablet 650 mg PO Q6H PRN PRN (Reason: Pain (Scale Score 4-6)) RF: 0 spironolactone 25 mg tablet 12.5 mg PO DAILY RF: 0 amoxicillin-pot clavulanate 875-125 mg tablet 875 mg PO BID RF: 0 Referrals / Follow Up: Tristan De La Cruz PA [Primary Care Provider] - Disposition Disposition (needs filled in before D/C Order can be placed): Home Health Service
[2021-09-27 09:38] VITALS: BMI 26.7
--- NOTE | 2021-09-27 09:55 | DS.PCM_ITS ---
Providers Date of Admission: 09/04/21 Date of Discharge: 09/27/21 Primary Care Physician: TIMOTEO Joshua Dr./Carolina Hernandez Reason For Visit: STROKE Diagnosis Discharge Diagnosis (1) Cerebellar stroke, acute: Status: Acute Code(s): I63.9 - Cerebral infarction, unspecified (2) Physical debility: Status: Acute Code(s): R53.81 - Other malaise (3) Complete heart block, transient: Status: Acute Code(s): I44.2 - Atrioventricular block, complete (4) Second degree atrioventricular block, Mobitz (type) I: Status: Acute Code(s): I44.1 - Atrioventricular block, second degree (5) Bradycardia: Status: Acute Code(s): R00.1 - Bradycardia, unspecified (6) Parkinson's disease: Status: Acute Code(s): G20 - Parkinson's disease (7) Silent aspiration: Status: Acute Code(s): T17.900A - Unspecified foreign body in respiratory tract, part unspecified causing asphyxiation, initial encounter Qualifiers: Encounter type: subsequent encounter Qualified Code(s): T17.900D - Unspecified foreign body in respiratory tract, part unspecified causing asphyxiation, subsequent encounter (8) Atelectasis: Status: Chronic Code(s): J98.11 - Atelectasis (9) COPD (chronic obstructive pulmonary disease): Status: Suspected Code(s): J44.9 - Chronic obstructive pulmonary disease, unspecified Qualifiers: COPD type: unspecified COPD Qualified Code(s): J44.9 - Chronic obstructive pulmonary disease, unspecified (10) Restrictive lung disease due to kyphoscoliosis: Status: Suspected Code(s): J98.4 - Other disorders of lung; M41.9 - Scoliosis, unspecified (11) Hypertension: Status: Chronic Code(s): I10 - Essential (primary) hypertension Qualifiers: Hypertension type: primary hypertension Qualified Code(s): I10 - Essential (primary) hypertension (12) Eosinophilia: Status: Acute Code(s): D72.10 - Eosinophilia, unspecified Qualifiers: Eosinophilia type: unspecified eosinophilia Qualified Code(s): D72.10 - Eosinophilia, unspecified (13) 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 Code(s): E07.81 - Sick-euthyroid syndrome (14) Anemia: Status: Chronic Code(s): D64.9 - Anemia, unspecified Qualifiers: Anemia type: unspecified type Qualified Code(s): D64.9 - Anemia, unspecified (15) GERD (gastroesophageal reflux disease): Status: Acute Code(s): K21.9 - Gastro-esophageal reflux disease without esophagitis Qualifiers: Esophagitis presence: esophagitis presence not specified Qualified Code(s): K21.9 - Gastro-esophageal reflux disease without esophagitis (16) BPH (benign prostatic hypertrophy): Status: Acute Code(s): N40.0 - Benign prostatic hyperplasia without lower urinary tract symptoms Qualifiers: Lower urinary tract symptom presence: symptoms absent Qualified Code(s): N40.0 - Benign prostatic hyperplasia without lower urinary tract symptoms (17) HLD (hyperlipidemia): Status: Acute Code(s): E78.5 - Hyperlipidemia, unspecified Qualifiers: Hyperlipidemia type: unspecified Qualified Code(s): E78.5 - Hyperlipidemia, unspecified (18) Urine retention: Status: Resolved Code(s): R33.9 - Retention of urine, unspecified (19) Pneumonia: Status: Resolved Code(s): J18.9 - Pneumonia, unspecified organism Qualifiers: Pneumonia type: aspiration pneumonia Aspiration pneumonia type: unspecified Laterality: unspecified laterality Lung location: unspecified part of lung Qualified Code(s): J69.0 - Pneumonitis due to inhalation of food and vomit (20) CKD (chronic kidney disease): Status: Chronic Code(s): N18.9 - Chronic kidney disease, unspecified Qualifiers: Chronic kidney disease stage: stage 2 (mild) Qualified Code(s): N18.2 - Chronic kidney disease, stage 2 (mild) (21) Acute hypokalemia: Status: Resolved Code(s): E87.6 - Hypokalemia (22) Increased prostate specific antigen (PSA) velocity: Status: Chronic Code(s): R97.20 - Elevated prostate specific antigen [PSA] (23) LVH (left ventricular hypertrophy): Status: Chronic Code(s): I51.7 - Cardiomegaly (24) Murmur, cardiac: Status: Chronic Code(s): R01.1 - Cardiac murmur, unspecified (25) Aortic valve insufficiency: Status: Chronic Code(s): I35.1 - Nonrheumatic aortic (valve) insufficiency Qualifiers: Cardiac valve disease etiology: nonrheumatic Qualified Code(s): I35.1 - Nonrheumatic aortic (valve) insufficiency (26) Mitral insufficiency: Status: Chronic Code(s): I34.0 - Nonrheumatic mitral (valve) insufficiency Qualifiers: Cardiac valve disease etiology: nonrheumatic Qualified Code(s): I34.0 - Nonrheumatic mitral (valve) insufficiency Plan: Discharge pt for surgery to insert a permanent PM for transient third degree heart block. Medications at Discharge Home Medications doxazosin 8 mg PO QPM 07/15/14 cranberry conc-ascorbic acid 1 tab PO DAILY 01/31/20 carbidopa-levodopa 1 tab PO TID 09/02/21 lysine 1,000 mg BID 09/02/21 aspirin 81 mg PO DAILY@0800 09/04/21 finasteride 5 mg PO DAILY 09/04/21 fjhxzzyl-icxqaqwkd-NL 4 drp OTIC (EAR) Q6H 09/04/21 omeprazole 40 mg PO DAILY 09/04/21 acetaminophen 1,000 mg PO Q8 #0 tab 09/27/21 atorvastatin 10 mg PO QHS #30 tab 09/27/21 food supplemt, lactose-reduced [Ensure Enlive] 120 ml PO 4X/DAY #0 ml 09/27/21 losartan 50 mg PO DAILY #30 tab 09/27/21 magnesium hydroxide 30 ml PO .PRN X 1 PRN #0 ml 09/27/21 sennosides-docusate sodium [Stool Softener-Stimulant Laxat] 2 tab PO DAILY #60 tab 09/27/21 sertraline 25 mg PO DAILY #30 tab 09/27/21 Hospital Course Operations None Procedures - (Modified barium swallow - Moderate oropharyngeal phase dysphagia (R13.12) with silent aspiration) Summary of Care Provided Minutes Spent on Discharge: 45 Hospital Course: LEANNA LAW, is a 81 YO M with a PMH of PD, BPH (hx of TURP), HTN, HLD, thoracic aortic aneurysm, dementia (possibly vascular....there is far advanced white matter disease on MRI) , diastolic congestive heart failure, GERD, presbycusis, history of promyelocytic leukemia (follows with Dr. Aragon), peptic ulcer disease with history of GI bleed, tobacco dependence in remission, neuropathy, CRF stage 2, remote CVA's ( seen on brain CT in the BL frontal lobes and the L cerebellum), remote alcohol abuse, Hiatal hernia, thyromegaly, elevated PSA in past (has had 2 negative prostate biopsies) and recurrent intermittent eosinophilia of unknown cause who was brought to the ED at [facility] on 09/02/2021 with complaints of dysarthria and confusion. A noncontrast CT brain showed no acute intracranial abnormality with old old infarcts of the bilateral frontal lobes and left cerebellum and also chronic involutional and ischemic changes. Significant lab included an elevated WBC at 17.6 and an elevated BUN/creatinine of 24/1.59. Chest x-ray per the hospitalist review showed possible left lower lobe infiltrate. He was admitted to the hospital and started on Rocephin and Azithromycin for suspected CAP. MRI and MRA of the brain were ordered and a consult with the tele-neurology were ordered. The MRI showed findings consistent with a small ischemic stroke within the right cereb ellum. There was evidence of old infarcts and severe senescent change. MRA of the head and neck showed no evidence of cervical, vertebral or carotid occlusion or focal flow-limiting stenosis. The echocardiogram showed an ejection fraction of 55 to 60% with moderate left ventricular hypertrophy. There was mild mitral insufficiency and moderate aortic insufficiency. There was no aortic stenosis but he does have aortic sclerosis. Moncho was seen and evaluated by PT/OT/ST and recommendations were made for admission to acute inpatient rehab. Moncho was transferred to the acute inpt rehab unit at [facility] on 09/04/2021 for 3 hours of therapy daily to restore function/independence at or near his prior level of function. Moncho was transitioned from Rocephin and Azithromycin to Augmentin prior to admission to rehab. The cough resolved while Moncho was in rehab and so did the leukocytosis. At admission to rehab Moncho had a few crackles in the R base but, he also had loud coarse crackles in the L base that did not clear after several deep breathes. BS's were diminished, joy in the bases. At the time of discharge Moncho had no crackles in the R base and only a few coarse crackles in the left base.......air exchange had improved. He was noted to have severe kyphosis and he has restrictive lung disease because of this and he also has chronic GERD. He finished a full course of antibiotics and PEP and IS were initiated. While in rehab Moncho had a overnight trending pulse ox and it was abnormal. 10.82% of the time the pulse ox while sleeping was 89% or less. Oxygen was ordered for anytime he is sleeping. He should have a formal sleep study sometime after DC. His TSH was checked in the hospital and found to be low. We checked a T4 and a T3. T3 was low but, the T4 was WNL and this is consistent with euthyroid sick syndrome which does not need to be treated. Moncho's HGB remained stable and a hemoccult stool was negative. While he was in the hospital Lisinopril was dis continued and Cozaar was increased to 50 mg daily. Spironolactone was discontinued to to consistent/persistent dehydration. He was started on Potassium 20 MEQ daily and his potassium is stable between 4 and 4.4. I do not think he has CRF.......it corrects with fluid. I think he is chronically de hydrated due to decreased oral fluid intake. While in rehab Moncho had a modified barium swallow that was consistent with mild oropharyngeal dysphagia and silent aspiration. His diet was adjusted and he has a special cup that will only dispense 5 cc's at a time which will help to decrease risk of aspiration. Moncho did very well in therapy. At the time of discharge was able to stand and pivot at minimal assistance of 1 and was able to go from sitting to standing from various surfaces with moderate assistance of 1. He completed the turn/up/go test with a WW in 67 seconds which was down from 103 seconds earlier in the admission. He was able to eat and groom himself at supervision/set up and required only minimal assistance with bathing. He is standby assist with upper body dressing but still requires moderate assistance with lower body dressing. He is still total assistance with toileting. Moncho has a WC at home for use with trips into the community requiring him to ambulate long distances. On Monday09/24/21 we were notified that Moncho's event monitor had shown transient periods of complete heart block and cardiology was scheduling him for a PM. He was discharged from the inpt rehab unit on 09/27/21 and taking to the pre-op area in preparation for insertion of a permanent PM. The SW is arranging for home O2 to be worn anytime he is sleeping and he should be scheduled for a formal sleep study going forward. Prior to DC Moncho's family came in for family training to learn how to best safely assist Moncho at home. HHC will be provided by [facility] and the patient will have PT/OT/ST. Family will provide 16/01 supervision/assistance at home. Moncho will follow up with Jm MAHMOOD post DC and will continue to follow up with the neurologist managing the PD. Weight / BMI Weight Weight: 177 lb 0.499 oz Body Mass Index (BMI) 26.7 ABG / Lab / Microbiology Data Result Diagrams: 09/24/21 05:22 09/24/21 05:22 Microbiology: Microbiology 09/05/21 Unknown Stool Stool Occult Blood (FLIP) - Final D/C Instructions Discharge Diet: - (Heart Healthy. Puree fruit/soup/cereal - mixed consistency liquid/solids. Liquids 5 cc's at a time. Ensure pudding with lunch and dinner) Weight Bearing Status: Full weight bearing Keep extremity elevated above heart level: Legs Call your doctor if you observe: Fever of 101 or Higher, Inability to urinate, Inability to have a bowel movement, Shortness of breath, Dizziness, Fainting spells, Swelling in the ankles, Chest pain, Increased palpitations (irregular heartbeat) and Calf discomfort Pending Tests Upon Discharge: none Please Follow Up With: PCP When: 1-2 weeks Meaningful Use Info Meaningful Use Diagnoses (Choose all that apply): Ischemic CVA CVA Therapy Assessed for PT,OT and/or ST?: Yes Ischemic Stroke Antithrombotic order at d/c?: Yes Dx of Atrial fib/flutter?: No Anticoagulant at discharge?: No Reason anticoagulant not ordered: Treatment not Indicated Statins at discharge?: Yes Primary Dx Acute Ischemic CVA?: Yes IV tPA ordered during stay?: No Reason IV t-PA not ordered: Treatment not Indicated Discharge Plan Admission Admit Date/Time: 09/04/21 17:34 Primary Reason for Your Visit: Debility due to R ischemic cerebellar CVA Attending Provider: Faye Cartagena Primary Care Provider: Tristan De La Cruz Instructions Patient Instructions: Understanding Parkinson Disease, Parkinson Disease Caregiver, Parkinson Disease: Home Safety Discharge Orders/Prescriptions Prescriptions: New losartan 50 mg Tablet 50 mg PO DAILY Qty: 30 RF: 0 acetaminophen 500 mg Tablet 1,000 mg PO Q8 Qty: 0 RF: 0 magnesium hydroxide 400 mg/5 mL Suspension 30 ml PO .PRN X 1 PRN (Reason: Constipation) Qty: 0 RF: 0 Ensure Enlive 0.08 gram-1.5 kcal/mL Liquid 120 ml PO 4X/DAY Qty: 0 RF: 0 sennosides-docusate sodium [Stool Softener-Stimulant Laxat] 8.6-50 mg Tablet 2 tab PO DAILY Qty: 60 RF: 0 Continued doxazosin 8 MG tablet 8 mg PO QPM RF: 0 cranberry conc-ascorbic acid 1 EACH capsule 1 tab PO DAILY RF: 0 lysine 1,000 mg Tablet 1,000 mg BID RF: 0 carbidopa-levodopa 25-100 mg tablet 1 tab PO TID RF: 0 omeprazole 20 mg capsule,delayed release(DR/EC) 40 mg PO DAILY RF: 0 aspirin 81 MG tablet,chewable 81 mg PO DAILY@0800 RF: 0 finasteride 5 MG tablet 5 mg PO DAILY RF: 0 yfwdxfdg-apqqyuocl-ED 3.5-10,000-1 mg/mL-unit/mL-% drops,suspension 4 drp otic (ear) Q6H RF: 0 sertraline 25 mg Tablet 25 mg PO DAILY Qty: 30 RF: 0 atorvastatin 10 mg tablet 10 mg PO QHS Qty: 30 RF: 0 Discontinued losartan 50 mg tablet 25 mg PO DAILY RF: 0 acetaminophen [Tylenol] 325 MG tablet 650 mg PO Q6H PRN PRN (Reason: Pain (Scale Score 4-6)) RF: 0 spironolactone 25 mg tablet 12.5 mg PO DAILY RF: 0 amoxicillin-pot clavulanate 875-125 mg tablet 875 mg PO BID RF: 0 Referrals / Follow Up: Tristan De La Cruz PA [Primary Care Provider] - Disposition Disposition (needs filled in before D/C Order can be placed): Home Health Service Charges/Coding Visit Charges Inpatient E&M: 71615 Disch Hosp
--- NOTE | 2021-09-27 10:00 | NURSING ---
Addendum entered by Chanell Almanza 09/27/21 11:31: Family will make all discharge appts with PCP, neuro, ENT. Original Note: Family aware of discharge time to surgery is now 1030 am. Family will meet patient here on the rehab unit. Patient is doing well, no issues, denies pain. Report given to surgery.
--- NOTE | 2021-09-27 13:18 | CASEMGMT ---
Addendum entered by Daniella Shankar 09/27/21 14:48: Faxed DC paperwork to [facility]. Original Note: Social Work Received call from Dr. Cartagena stating she started patient on overnight O2, 1LPM, due to suspected sleep apnea from overnight trending pulse ox. Requesting O2 at night at home and f/u with formal sleep study. Script signed and faxed to [facility]. Hand-off given to SW/CM on acute. Updated Diane at [facility]. SOC 09/29. Daniella Shankar ,TOMMY CHINW
== END 2021-09-27 10:35 | disposition home health service (06) | DRG 56 ==
PROVIDERS: Admitting Provider Internal Medicine; PCP Physician Assistant; Visit Provider Internal Medicine
DX: I69.322 Dysarthria following cerebral infarction (principal); J69.0 Pneumonitis due to inhalation of food and vomit; I44.2 Atrioventricular block, complete; I13.0 Hypertensive heart and chronic kidney disease with heart failure and stage 1 through stage 4 chronic kidney disease, or unspecified chronic kidney disease; I50.30 Unspecified diastolic (congestive) heart failure; J98.11 Atelectasis; F02.80 Dementia in other diseases classified elsewhere, unspecified severity, without behavioral disturbance, psychotic disturbance, mood disturbance, and anxiety; J44.9 Chronic obstructive pulmonary disease, unspecified; I70.0 Atherosclerosis of aorta; G20 Parkinson's disease; K44.9 Diaphragmatic hernia without obstruction or gangrene; E78.5 Hyperlipidemia, unspecified; M41.9 Scoliosis, unspecified; N40.1 Benign prostatic hyperplasia with lower urinary tract symptoms; N18.2 Chronic kidney disease, stage 2 (mild); K21.9 Gastro-esophageal reflux disease without esophagitis; I69.391 Dysphagia following cerebral infarction; R33.8 Other retention of urine; F32.A Depression, unspecified; E07.81 Sick-euthyroid syndrome; R13.12 Dysphagia, oropharyngeal phase; Z79.899 Other long term (current) drug therapy; Z79.82 Long term (current) use of aspirin; Z87.891 Personal history of nicotine dependence; Z85.6 Personal history of leukemia
CPT/HCPCS: 36415; 74230; 80048; 80053; 82274; 83735; 84100; 84132; 84439; 84481; 85025; 85027; 92507; 92526; 92610; 92611; 94640; 94762; 97110; 97112; 97116; 97129; 97130; 97162; 97165; 97530; 97535; 97802; 99251; A4216; G0463

== ENCOUNTER 2021-09-27 14:12 | Observation (INO) | payer MEDICARE, BC, SELFPAY ==
[2021-09-24 13:12] VITALS: BMI 25.7
[2021-09-27] VITALS (15 sets, daily range): BP systolic 138–187; BP diastolic 68–78; PULSE 59–68; RESP 14–15; TEMP 36.4–36.6; O2SAT 92–98
--- NOTE | 2021-09-27 13:40 | HP.PCM_ITS ---
History and Physical Date of Admission: 09/27/21 LEANNA LAW, is a 81 M who presented to [facility] ER on 09/03/2021 for Dysarthria and confusion. He does have a past medical hx for Parkinson's disease, CKD stage III, Hx Thoracic AA, Hx CVA, GERD, Hx Leukemia, Hx prior GI bleed w/ PUD, HTN, HLD, BPH, Former tobacco use. He was admitted to PCU for CVA, questionable LLL pneumonia, indeterminate troponin of 83 which trended upwards of 147 and 138, hypokalemia. We were consulted for Second degree AV block type 1 and a mildly elevated troponin. He was sent home on a 30 day monitor. Pt was in rehab on the 4th floor with his monitor. His monitor demonstrated episodes of 2nd degree type 1, second degree type II, 3rd degree, and pauses greater than 3.1 seconds. He also had a 14 beat run of NSVT. He was not symptomatic with this. It was noted that pt at times would have HRs in the 30s while in rehab. He would have fatigue. He did not have any episodes of syncope. Plan was to d/c home today, however with the monitor he was d/c to the engineer geophysical laboratory and pt is aware he will need to spend the night following his PPM placement. Family notes that he does have a f/u with neurology and will need to have a MRI done. [facility] Medical History (Updated 09/03/21 @ 14:37 by Carolina Hernandez PA, PA) BPH (benign prostatic hypertrophy) CVA (cerebral vascular accident) Enlarged thyroid GERD (gastroesophageal reflux disease) History of gastrointestinal hemorrhage History of leukemia HLD (hyperlipidemia) Hypertension Parkinson's disease Peripheral neuropathy Thoracic aortic aneurysm Family History (Updated 09/03/21 @ 01:[address] Valerie Ramirez MD) Mother Heart disease Father Heart disease Myocardial infarction Surgical History H/O foot surgery S/P herniorrhaphy S/P TURP Social History (Updated 09/03/21 @ 01:[address] Valerie Ramirez MD) household members: family Smoking Status: Former smoker how long ago did patient quit smoking: Quit 1973. alcohol intake: former details: Former heavy beer intake. substance use type: does not use ROS ROS Narrative CONSTITUTIONAL: No weight loss, fever, chills, + weakness or fatigue. Eyes: No visual loss, blurred vision, double vision or yellow sclerae. Ears, Nose, Throat: No hearing loss, sneezing, congestion, runny nose or sore throat. SKIN: No rash or itching, lesions, wounds. CARDIOVASCULAR: No chest pain, chest pressure or chest discomfort, palpitations, edema, orthopnea, syncopal events. RESPIRATORY: + Mild cough occasionally productive, no wheezing, hemoptysis. GASTROINTESTINAL: No anorexia, nausea, vomiting or diarrhea, abdominal pain, melena, BRBPR. GENITOURINARY: No dysuria, frequency, urgency or retention. NEUROLOGICAL: + Slurred speech, No headache, dizziness, syncope, change in bowel or bladder control, seizure. MUSCULOSKELETAL: Left side weakness, ambulates with walker HEMATOLOGIC: No anemia, bleeding or bruising. Physical Exam Const alert, oriented x3, no apparent distress and average body habitus Orientation / Consciousness: awake, oriented to person, oriented to place and oriented to time HEENT normocephalic Eyes PERRL, EOMs intact bilaterally and conjunctivae normal Neck no lymphadenopathy and no JVD Resp normal respiratory effort, no retractions and no use of accessory muscles Auscultation: diminished lung sounds Cardio regular rate and regular rhythm Heart Sounds: murmur systolic II/ harsh mid Peripheral Pulses: pulses 2+ throughout GI normal to inspection, nondistended, normoactive bowel sounds, non-tender and non-distended Extremity normal to inspection Skin no rashes or lesions noted Neuro CN's II-XII intact bilaterally, no focal motor deficits, no sensory deficits noted and deep tendon reflexes 2+ bilaterally Neuro Narrative: Left-sided weakness, unable to lift leg off bed. Psych mental status grossly normal and affect normal Assessment & Plan Assessment/Plan (1) Complete heart block, transient: (2) Bradycardia: (3) Second degree type II atrioventricular block: (4) Sinus pause: (5) NSVT (nonsustained ventricular tachycardia): PLAN: Family and pt agree to proceed with PPM placement. He will follow up accordingly after. With his hx of NSVT may need to consider adding a BB once his PPM is placed, this will be followed on an OP basis.
--- NOTE | 2021-09-27 14:12 | CL.IE_ITS ---
Patient: LEANNA LAW Study Date: 09/27/2021 Performing: Neville Paz MD : [id number] Age: 81 Gender: male PROCEDURES PERFORMED [id number])INITIAL PACER INSERT+DUAL LEADS INDICATIONS Complete heart block PROCEDURE DETAILS The patient was brought to the Catheterization Lab in the postabsorptive nonsedated state. [facility] consent was obtained prior to the procedure. Local anesthetic was given subcutaneously to the le ft subclavian region with Lidocaine 2%. Access was achieved and a guidewire was advanced into the lef t subclavian vein. Incision was made to the left subclavicular area. PPM ventricular lead was inserte d / positioned to right ventricular septal wall. PPM ventricular lead testing performed. PPM ventricu lar lead testing performed. PPM atrial lead was inserted / positioned to the right atrial appendage. PPM atrial lead was repositioned and checked. The Atrial lead sutured in place with 2-0 Silk. The Jann tricular PM lead sutured in place with 2-0 Silk. Device pocket was irrigated with antibiotic. PPM gen erator was attached to the lead(s) and inserted into the pocket. Subcutaneous closure was completed w ith 3-0 Vicryl. Skin closure was completed with 4-0 Vicryl. Steri-strips applied to left subclavicular incision. Instrument, sponge, and needle counts were noted to be normal. The patient to lerated the procedure well. Estimated Blood Loss: 15 ml's IMPLANTED / EX-PLANTED DEVICES IMPLANTED DEVICE(S): PPM Atrial lead - Weight Control Lecturer: [employer], Model # Ingevity Ref 7841 52cm , Serial # [id number] PPM Ventricular lead - Weight Control Lecturer: [employer], Model # Ingevity Ref 7842 59cm , Serial # [id number] PPM Generator - Weight Control Lecturer: [email or web address], Model # Essentio MRI DR Pacemaker Model L111 , Seria l # [id number] DEVICE PARAMETERS ATRIAL LEAD PARAMETERS: P wave- 2.1 (mV) Current- 2.3 (mA) threshold- 1.4 (V) impedence- 617 (OHMS) VENTRICULAR LEAD PARAMETERS: R wave- 2.5 (mV) Current- 0.6 (mA) threshold- 3.5 (V) impedence- 848 (OHMS) DEVICE PARAMETERS: Mode- DDD Lower rate- 60 Upper rate- 120 CONCLUSIONS / RECOMMENDATIONS Device Conclusions: Successful implantation of a dual chamber pacemaker Device Recommendations: Follow up with Primary Care Physician PROCEDURE MEDICATIONS Fentanyl 50 mcg IV Versed 1 mg IV Fentanyl 50 mcg IV Versed 1 mg IV Oxygen: 2 L/min via nasal cannula Antibiotic given in appropriate timeframe. Ancef 2 Gm IV @ 09/27/2021 12:52:55 Signed By Neville Paz MD On 09/27/2021 14:12:09 Neville Paz MD
[2021-09-27] MEDS: Carbidopa/Levodopa 25/100 Tablet PO (16:09)
[2021-09-27] MEDS: Losartan Potassium 50 MG Tablet PO (16:42)
[2021-09-27] MEDS: Acetaminophen 500 MG Tablet 1000 MG PO (21:34)
[2021-09-27] MEDS: Doxazosin 4 MG Tablet 8 MG PO (21:35)
[2021-09-27] MEDS: Finasteride 5 MG Tablet PO (21:35)
[2021-09-27] MEDS: Atorvastatin Calcium 10 MG Tablet PO (21:35)
[2021-09-28] VITALS (8 sets, daily range): BP systolic 143–153; BP diastolic 68–75; PULSE 60–69; RESP 14–19; TEMP 36.5–36.7; O2SAT 93–96
--- NOTE | 2021-09-28 05:55 | RAD_ITS ---
STUDY: X-RAY CHEST REASON FOR EXAM: Male, 81 years old. Post permanant ICD/Pacemaker -- inspiration/expiration. Arms Down. Wet read to MD TECHNIQUE: 4 views are obtained. COMPARISON: 09/02/2021. FINDINGS: There is a moderate-sized hiatal hernia. The lungs are clear and expanded. There is no demonstrated pleural abnormality. There is prominence of the right hilum. There is moderate cardiomegaly. There is a pacemaker on the left. Normal mediastinum and parisa. Normal visualized pulmonary arteries. Normal visualized aortic arch and descending thoracic aorta. Normal visualized thoracic spine. Normal visualized ribs, clavicles, and shoulders. There is no demonstrated abnormality of the visualized soft tissue structures of the upper abdomen. RAD/Chest 3 View IMPRESSION: There is a hiatal hernia There is moderate cardiomegaly with a pacemaker. Electronically Signed: Kevin Wheatley MD at 6:25 EDT ,
[2021-09-28] MEDS: Acetaminophen 500 MG Tablet 1000 MG PO ×2 (06:16→13:01)
[2021-09-28] MEDS: Carbidopa/Levodopa 25/100 Tablet PO ×2 (06:16→11:07)
[2021-09-28] MEDS: Sertraline 50 MG Tablet 25 MG PO (08:40)
[2021-09-28] MEDS: Senna/Docusate Sodium 1 Tablet 2 TABLET PO (08:40)
[2021-09-28] MEDS: Aspirin 81 MG TAB.CHEW PO (08:40)
[2021-09-28] MEDS: Losartan Potassium 50 MG Tablet PO (08:40)
--- NOTE | 2021-09-28 10:31 | PCM.PN.CARD ---
Subjective Subjective Patient seen and eval rated. Appears to be doing well. Status post permanent pacemaker implantation. Objective Data Vital Signs: Vital Signs Temp Pulse Resp BP Pulse Ox 97.8 F 60 19 H 146/75 H 93 09/28/21 08:30 09/28/21 08:30 09/28/21 08:30 09/28/21 08:30 09/28/21 08:30 Oxygen Flow Rate (L/min) 2 Oxygen Delivery Method Room Air Weight: 174 lb Body Mass Index (BMI) 25.7 Intake & Output: Intake and Output for Last 24 Hours 09/26/21 09/27/21 09/28/21 23:59 23:59 23:59 Intake Total 375 / 495 230 / 230 Output Total 450 / 1300 1250 / 1250 Balance -75 / -805 -1020 / -1020 Cardiology Labs/Tests Rhythm: EKG: ECHO: Stress Test: Cardiac Cath: PCI: CT Surgery: Holter monitor: EPS: PPM: CXR: Chest CT Scan: Radiography Diagnostic Testing: Radiology Impression Chest X-Ray 09/28/21 05:55 IMPRESSION: There is a hiatal hernia There is moderate cardiomegaly with a pacemaker. Electronically Signed: Kevin Wheatley MD at 6:25 EDT , Physical Exam Const alert, oriented x3 and no apparent distress General Appearance: cooperative HEENT hearing grossly normal bilaterally Head and Scalp: atraumatic Eyes EOMs intact bilaterally Neck General: normal visual inspection Chest inspection of chest normal and palpation of chest normal Resp normal respiratory effort Auscultation: clear to auscultation bilaterally Cardio regular rate, regular rhythm, S1 normal heart sound and S2 normal heart sound Jugular Venous Distention: JVD GI normal to inspection, nondistended, normoactive bowel sounds Extremity normal capillary refill and no pedal edema Peripheral Pulses: Yes pulses 2+ throughout and femoral pulses present Skin no rashes or lesions noted Neuro oriented x3 and CN's II-XII intact bilaterally Psych Appearance: grossly normal and appropriate Assessment & Plan Assessment/Plan (1) Cardiac pacemaker in situ: PLAN: Patient status post permanent pacemaker implantation. Chest x-ray appears to be normal and pacer check and teaching done. Will be discharged for outpatient follow-up.
--- NOTE | 2021-09-28 10:34 | PCM.DC ---
Discharge Instructions Diet Discharge Diet: No restrictions (as you feel able. No excessive stretching. No lifting your arm over your head (keep elbow below shoulder level) until seen for your pacemaker check. Do not lift your elbow away from your side until you are seen for your first visit. Keep the arm sling on if it helps remind you not to lift your arm.) Activity Additional Activity Instructions:: May shower or bathe on []. Do not scrub the incision or soak in the tub. Just wash with soap and let the water run over the incision. Gently pat dry with towel. Medications: Take your pain medication as directed. Refer to your discharge instruction sheet for a list of medications you are to take. Dressing / Incision Call your doctor if your incision/area has: Continuous Slow Oozing, Sudden Increased Bleeding, Increased Pain/ Swelling, Increased Redness, Foul Smelling Discharge and Swelling at the incision site Call your doctor if you observe: Fever of 101 or Higher, Shortness of breath, Dizziness, Fainting spells, Swelling in the ankles, Chest pain, Prolonged hiccupping and Increased palpitations (irregular heartbeat) Additional Dressing/Incision Instructions:: When dressing is removed, wash and dry incision. Keep covered with a light bandage if it is rubbing against your clothing. Do not cover the incision with an airtight bandage. Change the bandage daily. Do not remove steri strips. The strips will fall off on their own. Follow Up Care Please Follow Up With: Neville Paz MD When: Call [phone] for follow up. Pacemaker wound check October 04 at 1:30 PM Test Results: Test results from this visit will be discussed in further detail at your follow-up appointment, if applicable. Discharge Plan Admission Admit Date/Time: 09/27/21 14:12 Attending Provider: Neville Paz Primary Care Provider: Tristan De La Cruz Discharge Orders/Prescriptions Prescriptions: No Action doxazosin 8 MG tablet 8 mg PO QPM RF: 0 cranberry conc-ascorbic acid 1 EACH capsule 1 tab PO DAILY RF: 0 lysine 1,000 mg Tablet 1,000 mg BID RF: 0 carbidopa-levodopa 25-100 mg tablet 1 tab PO TID RF: 0 omeprazole 20 mg capsule,delayed release(DR/EC) 40 mg PO DAILY RF: 0 aspirin 81 MG tablet,chewable 81 mg PO DAILY@0800 RF: 0 finasteride 5 MG tablet 5 mg PO DAILY RF: 0 tqpyablj-dvmoaxwdo-LS 3.5-10,000-1 mg/mL-unit/mL-% drops,suspension 4 drp otic (ear) Q6H RF: 0 losartan 50 mg Tablet 50 mg PO DAILY Qty: 30 RF: 0 acetaminophen 500 mg Tablet 1,000 mg PO Q8 Qty: 0 RF: 0 magnesium hydroxide 400 mg/5 mL Suspension 30 ml PO .PRN X 1 PRN (Reason: Constipation) Qty: 0 RF: 0 Ensure Enlive 0.08 gram-1.5 kcal/mL Liquid 120 ml PO 4X/DAY Qty: 0 RF: 0 sennosides-docusate sodium [Stool Softener-Stimulant Laxat] 8.6-50 mg Tablet 2 tab PO DAILY Qty: 60 RF: 0 sertraline 25 mg Tablet 25 mg PO DAILY Qty: 30 RF: 0 atorvastatin 10 mg tablet 10 mg PO QHS Qty: 30 RF: 0 Referrals / Follow Up: Tristan De La Cruz PA [Primary Care Provider] - Disposition Disposition (needs filled in before D/C Order can be placed): Home, Self Care
--- NOTE | 2021-09-28 10:39 | CASEMGMT ---
Per Daniella VIDAL, pt was discharged from IP rehab yesterday and she set him up with [place] at home [facility] with SOC 09/29/21 and [employer] for nocturnal oxygen. [employer] aware of pt discharge today. Pt voices no further questions/concerns/needs. Favio DON CM
--- NOTE | 2021-09-28 14:08 | CHAPLAIN ---
Type of Pastoral Visit ___ Initial Visit ___ Follow-up Visit ___ On-call Visit _x__ General Patient Visit ___ Spiritual Assessment ___ Family Conference ___ Bereavement ___ Rapid Response ___ Code Blue ___ Other (describe below) Pastoral Care Referral From _x__ Patient ___ Family ___ Nurse ___ Physician ___ 4Th Grade Math Teacher ___ Car Salesperson ___ Other (describe below) Sacrament/Intervention _x__ Active listening ___ Anointing ___ Rastafarian ___ Bereavement ___ Communion ___ Delilah exploration ___ ___ Life review _x__ Prayer ___ Reconciliation ___ Sacrament of Sick _x__ Supportive presence ___ Wedding ___ Other (describe below) Pastoral Comments patient previously seen in rehab; pt welcomes visit and states he is cleared to go home today; pt expresses gratitude for news about going home and has no further needs; pt open for the visit and a prayer
--- NOTE | 2021-09-28 14:46 | NURSING ---
agree with student Abi Mohan docunentation with student during med passes and assessments
== END 2021-09-28 10:33 | disposition home or self-care (01) ==
LOC: PCU 14:31
PROVIDERS: Admitting Provider Internal Medicine Cardiovascular Disease; PCP Physician Assistant; Visit Provider Internal Medicine Cardiovascular Disease
DX: Z45.018 Encounter for adjustment and management of other part of cardiac pacemaker (principal); G20 Parkinson's disease; I44.2 Atrioventricular block, complete; I47.2 Ventricular tachycardia; N18.30 Chronic kidney disease, stage 3 unspecified; Z87.891 Personal history of nicotine dependence; R47.1 Dysarthria and anarthria; K21.9 Gastro-esophageal reflux disease without esophagitis; I12.9 Hypertensive chronic kidney disease with stage 1 through stage 4 chronic kidney disease, or unspecified chronic kidney disease; N40.0 Benign prostatic hyperplasia without lower urinary tract symptoms; E78.5 Hyperlipidemia, unspecified; G62.9 Polyneuropathy, unspecified; Z85.6 Personal history of leukemia; Z79.899 Other long term (current) drug therapy; Z86.73 Personal history of transient ischemic attack (TIA), and cerebral infarction without residual deficits
CPT/HCPCS: 33208; 71047; 99152; 99153; 99218; J7040; J7050; A4216; C1894; G0378

== ENCOUNTER 2021-10-05 14:51 | Observation (INO) | payer MEDICARE, BC, SELFPAY ==
[2021-10-05] VITALS (8 sets, daily range): BP systolic 155–176; BP diastolic 64–80; PULSE 60–69; RESP 16–30; TEMP 36.4–36.7; O2SAT 93–97; BMI 26.6; BMI 25.6
--- NOTE | 2021-10-05 15:11 | EKG12_ITS ---
Test Reason : Blood Pressure : / mmHG Vent. Rate : 063 BPM Atrial Rate : 063 BPM P-R Int : 000 ms QRS Dur : 148 ms QT Int : 470 ms P-R-T Axes : 074 -78 093 degrees QTc Int : 480 ms Suspect unspecified pacemaker failure Ventricular-paced rhythm Abnormal ECG Confirmed by MAYKEL OLMSTEAD, ERICA ([id number]), rewrite editor FLY HADLEY ([id number]) on 10/07/2021 12:51:57 PM Referred By: LENORE Confirmed By:ERICA BRAR MD
--- NOTE | 2021-10-05 15:12 | EDS_ITS ---
HPI History of Present Illness Chief Complaint: Fatigue Informant: patient Onset/Context/Timing Onset: Today Narrative Narrative: Patient presents via EMS secondary to fall. Patient states he was walking back from the restroom with his walker when his legs became weak and he fell. He denies injury from his fall. He did have a new pacemaker placed last week. He states he is only on aspirin and not on any other anticoagulants. He denies chest pain or palpitations. [facility] Medical History Abrasion forearm Abrasion of chin Aortic valve insufficiency BPH (benign prostatic hypertrophy) Diverticulosis Enlarged thyroid Eosinophilia Fall GERD (gastroesophageal reflux disease) History of CVA (cerebrovascular accident) History of gastrointestinal hemorrhage History of leukemia HLD (hyperlipidemia) Hypertension Increased prostate specific antigen (PSA) velocity LAE (left atrial enlargement) Mitral insufficiency Murmur, cardiac NSVT (nonsustained ventricular tachycardia) Parkinson's disease Peripheral neuropathy Second degree type II atrioventricular block Sinus pause Thoracic aortic aneurysm Urine retention Home Medications doxazosin 8 mg PO QPM 07/15/14 [History Last Taken 05/12/16] cranberry conc-ascorbic acid 1 tab PO DAILY 01/31/20 [History Last Taken Unknown] carbidopa-levodopa 1 tab PO TID 09/02/21 [History Last Taken Unknown] lysine 1,000 mg BID 09/02/21 [History Last Taken Unknown] aspirin 81 mg PO DAILY@0800 09/04/21 [History Last Taken Unknown] finasteride 5 mg PO DAILY 09/04/21 [History Last Taken Unknown] bejqrjlf-wunwnrkbd-XA 4 drp OTIC (EAR) Q6H 09/04/21 [History Last Taken Unknown] omeprazole 40 mg PO DAILY 09/04/21 [History Last Taken Unknown] acetaminophen 1,000 mg PO Q8 #0 tab 09/27/21 [Rx Last Taken Unknown] atorvastatin 10 mg PO QHS #30 tab 09/27/21 [Rx Last Taken Unknown] food supplemt, lactose-reduced [Ensure Enlive] 120 ml PO 4X/DAY #0 ml 09/27/21 [Rx Last Taken Unknown] losartan 50 mg PO DAILY #30 tab 09/27/21 [Rx Last Taken Unknown] magnesium hydroxide 30 ml PO .PRN X 1 PRN #0 ml 09/27/21 [Rx Last Taken Unknown] sennosides-docusate sodium [Stool Softener-Stimulant Laxat] 2 tab PO DAILY #60 tab 09/27/21 [Rx Last Taken Unknown] sertraline 25 mg PO DAILY #30 tab 09/27/21 [Rx Last Taken Unknown] Allergy/AdvReac Type Severity Reaction Status Date / Time Iodine and Iodide Containing Allergy Severe Anaphylaxis Verified 09/02/21 22:11 Produc Family History Mother Heart disease Father Heart disease Myocardial infarction Surgical History Cardiac pacemaker in situ (09/27/21) H/O foot surgery S/P herniorrhaphy S/P TURP Social History household members: family Smoking Status: Former smoker how long ago did patient quit smoking: Quit 1973. alcohol intake: former details: Former heavy beer intake. substance use type: does not use ROS ROS ED Constitutional Constitutional ED: Denies chills or fever(s) Eyes Eyes: Denies change in vision ENT ENT ED: Denies sore throat Cardiovascular Cardiovascular: Denies chest pain or palpitations Respiratory/Chest Respiratory/Chest: Denies cough or dyspnea Gastrointestinal Gastrointestinal: Denies abdominal pain, nausea or vomiting Genitourinary Genitourinary ED: Denies dysuria Musculoskeletal Musculoskeletal: Reports other; Denies back pain Integumentary Denies rash Neurologic Neurologic: Reports weakness; Denies headache(s) Allergic/Immunologic Allergic/Immunologic ED: Denies urticaria EXAM Physical Exam Const Vital Signs: 10/05/21 14:54 10/05/21 15:01 10/05/21 16:45 Temperature 97.6 F L Temperature Source Temporal Pulse Rate 60 60 Respiratory Rate 16 26 H Respiratory Effort Normal Non-Labored Blood Pressure 163/74 H Blood Pressure Mean 103 Pulse Ox 95 95 Oxygen Delivery Method Room Air Room Air 10/05/21 17:11 10/05/21 18:32 Temperature Temperature Source Pulse Rate 64 62 Respiratory Rate 20 H 24 H Respiratory Effort Blood Pressure 176/78 H Blood Pressure Mean 110 Pulse Ox 95 93 Oxygen Delivery Method Room Air Room Air Positive well nourished and well developed General Appearance ED: well developed HEENT Reports moist mucous membranes Eyes PERRL and EOMs intact bilaterally Neck supple Chest Wall inspection of chest normal and palpation of chest normal Chest Narrative: Pacemaker insertion site left upper chest healing well with no sign of infection. Area is nontender. Resp normal respiratory effort and clear to auscultation bilaterally Cardio regular rate and regular rhythm GI non-tender Palpation: soft Extremity normal to inspection Neuro oriented x3 Neuro Narrative: Generalized weakness but no focal neurologic deficits. Sensorium / Orientation: alert Psych mental status grossly normal Skin no rashes or lesions noted MDM MDM MDM Narrative Medical decision making narrative: EKG, chest x-ray, head CT obtained. Lab work and urinalysis ordered. Lab Data Attestation: I reviewed the patient's lab results. Labs: Laboratory Results - last 24 hr 10/05/21 10/05/21 10/05/21 15:30 15:30 17:20 WBC 8.5 RBC 3.69 L Hgb 12.2 L Hct 37.4 L MCV 101.4 H MCH 33.1 H MCHC 32.6 RDW Std Deviation 61.5 H RDW Coeff of Louann 16.3 H Plt Count 166 MPV 10.9 Immature Gran % (Auto) 0.400 Neut % (Auto) 48.5 Lymph % (Auto) 23.5 [place] % (Auto) 14.2 H Eos % (Auto) 12.8 H Baso % (Auto) 0.6 Absolute Neuts (auto) 4.1 Absolute Lymphs (auto) 1.99 Nucleated RBC % 0 Sodium 146 H Potassium 3.8 Chloride 114 H Carbon Dioxide 29.0 Anion Gap 3 L BUN 24 H Creatinine 0.97 Estim Creat Clear Calc 57.70 Est GFR (MDRD) Af Amer 95 Est GFR (MDRD) Non-Af 79 BUN/Creatinine Ratio 24.8 H Glucose 93 Calcium 9.2 Troponin I High Sens 47 Urine Color Yellow Urine Clarity Clear Urine pH 5.0 Ur Specific [place] 1.020 Urine Protein 30 H Urine Glucose (UA) Normal Urine Ketones 5 H Urine Occult Blood Negative Urine Nitrite Negative Urine Bilirubin Negative Urine Urobilinogen 1 H Ur Leukocyte Esterase Negative Urine RBC 0-5 SEEN Urine WBC 0-5 SEEN Ur Squamous Epith Cells 0 SEEN Urine Bacteria 0 SEEN Urine Mucus 1+ Radiography Chest X-Ray - ED: 1 View, Read by ED Physician, Chronic Changes and - (Pacer wires intact.) Diagnostic Testing: Clinical Impression(s) from Imaging Studies Brain CT 10/05/21 15:45 IMPRESSION: Chronic involutional changes of the brain. Electronically Signed: Neal Vazquez MD at 17:20 EDT , Chest X-Ray 10/05/21 15:50 IMPRESSION: No change from 09/28/2021. Electronically Signed: Neal Vazquez MD at 16:28 EDT , EKG Initial EKG: Comments: Ventricular paced rhythm. Heart rate 63. Treatment and Re-Evaluation Narrative: On repeat evaluation patient resting comfortably. Son with whom he lives is now at bedside. They are not sure if they are able to care for him at home. Patient got up to attempt to ambulate with a walker. He is using his left arm much more than he should be after just receiving a pacemaker 1 week ago. Nursing staff states he is very unstable. I do believe he likely needs more rehab and physical therapy. I will speak with hospitalist. Discharge Plan Triage Chief Complaint: Fatigue ED Provider: Kaylen Valdivia Dx/Rx/DC Orders Clinical Impression: Weakness generalized, Fall Prescriptions: No Action doxazosin 8 MG tablet 8 mg PO QPM RF: 0 cranberry conc-ascorbic acid 1 EACH capsule 1 tab PO DAILY RF: 0 lysine 1,000 mg Tablet 1,000 mg BID RF: 0 carbidopa-levodopa 25-100 mg tablet 1 tab PO TID RF: 0 omeprazole 20 mg capsule,delayed release(DR/EC) 40 mg PO DAILY RF: 0 aspirin 81 MG tablet,chewable 81 mg PO DAILY@0800 RF: 0 finasteride 5 MG tablet 5 mg PO DAILY RF: 0 tmlctwdu-rtvmkdnwo-FJ 3.5-10,000-1 mg/mL-unit/mL-% drops,suspension 4 drp otic (ear) Q6H RF: 0 losartan 50 mg Tablet 50 mg PO DAILY Qty: 30 RF: 0 acetaminophen 500 mg Tablet 1,000 mg PO Q8 Qty: 0 RF: 0 magnesium hydroxide 400 mg/5 mL Suspension 30 ml PO .PRN X 1 PRN (Reason: Constipation) Qty: 0 RF: 0 Ensure Enlive 0.08 gram-1.5 kcal/mL Liquid 120 ml PO 4X/DAY Qty: 0 RF: 0 sennosides-docusate sodium [Stool Softener-Stimulant Laxat] 8.6-50 mg Tablet 2 tab PO DAILY Qty: 60 RF: 0 sertraline 25 mg Tablet 25 mg PO DAILY Qty: 30 RF: 0 atorvastatin 10 mg tablet 10 mg PO QHS Qty: 30 RF: 0 Primary Care Provider: Tristan De La Cruz Referrals: Tristan De La Cruz PA [Primary Care Provider] - Disposition Disposition: Acute Care [facility]
[2021-10-05 15:43] LABS: Absolute Lymphocyte Count 1.99 X10^3/uL (0.83-4.51); Absolute Neutrophil Count 4.1 X10^3/uL (2.0-7.7); Basophil# 0.05 X10^3/uL; Basophil% 0.6 % (0-1); Eosinophil# 1.08 X10^3/uL; Eosinophils% 12.8 % (0-5); Hematocrit 37.4 % (40-54); Hemoglobin 12.2 g/dL (13.0-16.5); Lymphocyte # 1.99 X10^3/ul (0.83-4.51); Lymphocyte % 23.5 % (19-41); Mean Corp Hgb Conc 32.6 g/dL (32-36); Mean Corpuscular Hgb 33.1 pg (27.0-32.0); Mean Corpuscular Volume 101.4 fL (80-94); Mean Platelet Vol. 10.9 fl (6.2-12.0); Monocyte% 14.2 % (0-10); NRBC Flagged by Analyzer 0 % (0-5); Neutrophil # 4.11 X10^3/uL (2.7-7.7); Neutrophil % 48.5 % (47-70); Platelet Count 166 K/mm3 (150-450); RBC Distribution Width CV 16.3 % (11.6-14.6); RBC Distribution Width SD 61.5 fl (35.1-43.9); Red Blood Count 3.69 M/mm3 (4.6-6.2); White Blood Count 8.5 K/mm3 (4.4-11.0)
--- NOTE | 2021-10-05 15:45 | CT_ITS ---
STUDY: CT BRAIN WITHOUT CONTRAST REASON FOR EXAM: Male, 81 years old. patient fell, Headache RADIATION DOSAGE (If Supplied By Facility): CTDIvol = ( 44.99 ) mGy, DLP = ( 863.60 ) mGycm TECHNIQUE: Transaxial CT imaging of the brain was performed without administration of intravenous contrast material. Individualized dose optimization techniques were used for this CT. COMPARISON: 09/02/2021 FINDINGS: Normal soft tissue structures. Normal calvarium. There is severe cerebral atrophy with widening of the extra-axial spaces and ventricular dilatation. There are areas of decreased attenuation within the white matter tracts of the supratentorial brain, consistent with microvascular disease changes. Chronic lacunar infarct of the left thalamus. Normal brainstem. Encephalomalacia of the inferior aspect of the left hemisphere of the cerebellum consistent with a chronic infarct. There is no intracranial hemorrhage. There are no findings of an acute ischemic infarction. Normal visualized paranasal sinuses. CT/Brain/Head without Contrast IMPRESSION: Chronic involutional changes of the brain. Electronically Signed: Neal Vazquez MD at 17:20 EDT ,
--- NOTE | 2021-10-05 15:50 | RAD_ITS ---
STUDY: X-RAY CHEST REASON FOR EXAM: Male, 81 years old. weakness, new pacer TECHNIQUE: Single AP portable view of the chest. COMPARISON: 09/28/2021 FINDINGS: Left subclavian pacemaker which is unchanged. The lungs are clear and expanded. There is no demonstrated pleural abnormality. There is moderate cardiac enlargement. Large hiatal hernia which is unchanged. Normal visualized pulmonary arteries. Normal visualized aortic arch and descending thoracic aorta. Normal visualized thoracic spine. Healed fracture left clavicle. There is no demonstrated abnormality of the visualized soft tissue structures of the upper abdomen. RAD/Chest 1 View (Portable) IMPRESSION: No change from 09/28/2021. Electronically Signed: Neal Vazquez MD at 16:28 EDT ,
[2021-10-05 16:00] LABS: Anion Gap 3 (5-15); BUN 24 mg/dL (7-18); BUN/Creat Ratio 24.8 RATIO (10-20); Calcium,Total 9.2 mg/dL (8.5-10.1); Chloride 114 mmol/L (98-107); Creatinine, Serum 0.97 mg/dL (0.70-1.30); EST Glomerular Filtration Rate 79 mL/min (>60); Est Glom Filt Rate - Afr Amer 95 mL/min (>60); Glucose 93 mg/dL (74-106); Potassium 3.8 mmol/L (3.5-5.1); Sodium Level 146 mmol/L (136-145); Troponin-I HS 47 pg/mL (3.0-78.0)
[2021-10-05 17:28] LABS: Bacteria 0 SEEN /hpf (None Seen); Squamous Epithelial Cells - UA 0 SEEN /hpf (0-5)
[2021-10-05 17:48] LABS: Color, Urine Yellow (Yellow); Glucose, Dipstick Normal (Normal); Ketone-Dipstick 5 mg/dl (Negative); Leukocyte Esterase-Dipstick Negative /ul (Negative); Nitrite-Dipstick Negative (Negative); Occult Blood-Urine Negative /ul (Negative); Protein-Dipstick 30 mg/dl (Negative); Urine Bilirubin Dipstick Negative (Negative); Urine Clarity Clear (Clear); Urine Urobilinogen 1 mg/dl (Normal)
[2021-10-05 18:01] LABS: Mucous, Urine 1+ /hpf (<or=2+)
[2021-10-05 18:02] LABS: Red Blood Cells-Urine 0-5 SEEN /hpf (0-5); White Blood Cells 0-5 SEEN /hpf (0-5)
--- NOTE | 2021-10-05 20:53 | HP.PCM.HOS_ITS ---
[facility] - General General Date of Admission: 10/05/21 HPI Narrative LEANNA LAW, is a 81 M with a significant history home oxygen use of 1 L at night; a cerebellar stroke who presents to the emergency department with weakness. Following patient's cerebellar stroke he was at the rehabilitation unit of our Hospital ([facility]). Holter monitor showed nonsustained V. tach with long pauses. Patient was discharged from the rehab to the [facility] and had a pacemaker placed. After the pacemaker was placed he stayed overnight at the hospital. The pacemaker was placed about a week ago. Patient was subsequently discharged home into the care of his son and [id number]. Aside patient's son and daughter in law a caregiver also take care of patient when son and [id number]. Reportedly the caregiver found patient at the sink with his leg giving up. Patient could not support himself on his own weight so the caregiver lowered patient to the floor. Paramedics were called and after further discussions it was recommended that patient come to the hospital especially since he had a pacemaker placed only about a week ago. Family reported patient has a poor gait. At the emergency department patient with attempt to ambulate patient was found putting much weight to his left arm which is contraindicated to his recent pacemaker. Also he was having difficulty standing so a decision was made to observe patient at the hospital for further therapy and recommendations from therapy. [facility] Medical History Abrasion forearm Abrasion of chin Aortic valve insufficiency BPH (benign prostatic hypertrophy) Diverticulosis Enlarged thyroid Eosinophilia Fall GERD (gastroesophageal reflux disease) History of CVA (cerebrovascular accident) History of gastrointestinal hemorrhage History of leukemia HLD (hyperlipidemia) Hypertension Increased prostate specific antigen (PSA) velocity LAE (left atrial enlargement) Mitral insufficiency Murmur, cardiac NSVT (nonsustained ventricular tachycardia) Parkinson's disease Peripheral neuropathy Second degree type II atrioventricular block Sinus pause Thoracic aortic aneurysm Urine retention Home Medications doxazosin 8 mg PO QPM 07/15/14 [History Last Taken 05/12/16] cranberry conc-ascorbic acid 1 tab PO DAILY 01/31/20 [History Last Taken Unknown] carbidopa-levodopa 1 tab PO TID 09/02/21 [History Last Taken Unknown] lysine 1,000 mg BID 09/02/21 [History Last Taken Unknown] aspirin 81 mg PO DAILY@0800 09/04/21 [History Last Taken Unknown] finasteride 5 mg PO DAILY 09/04/21 [History Last Taken Unknown] wgkisrie-[id number]-KL 4 drp OTIC (EAR) Q6H 09/04/21 [History Last Taken Unknown] omeprazole 40 mg PO DAILY 09/04/21 [History Last Taken Unknown] acetaminophen 1,000 mg PO Q8 #0 tab 09/27/21 [Rx Last Taken Unknown] atorvastatin 10 mg PO QHS #30 tab 09/27/21 [Rx Last Taken Unknown] food supplemt, lactose-reduced [Ensure Enlive] 120 ml PO 4X/DAY #0 ml 09/27/21 [Rx Last Taken Unknown] losartan 50 mg PO DAILY #30 tab 09/27/21 [Rx Last Taken Unknown] magnesium hydroxide 30 ml PO .PRN X 1 PRN #0 ml 09/27/21 [Rx Last Taken Unknown] sennosides-docusate sodium [Stool Softener-Stimulant Laxat] 2 tab PO DAILY #60 tab 09/27/21 [Rx Last Taken Unknown] sertraline 25 mg PO DAILY #30 tab 09/27/21 [Rx Last Taken Unknown] Allergy/AdvReac Type Severity Reaction Status Date / Time Iodine and Iodide Containing Allergy Severe Anaphylaxis Verified 09/02/21 22:11 Produc Family History Mother Heart disease Father Heart disease Myocardial infarction Surgical History Cardiac pacemaker in situ (09/27/21) H/O foot surgery S/P herniorrhaphy S/P TURP Social History household members: family Smoking Status: Former smoker how long ago did patient quit smoking: Quit 1973. alcohol intake: former details: Former heavy beer intake. substance use type: does not use ROS ROS Narrative Constitutional: Denies fever, chills, anorexia and change in weight Eyes: Denies blurry vision, change in eye color, change in vision, discharge from eye(s), double vision, erythema, eye pain, loss of vision or other HEENT: Denies abnormal hearing, dysphagia, ear pain, epistaxis, headache(s), hearing loss, nasal congestion, nasal discharge, post nasal drip, sinus pressure, sore throat or other Cardiovascular: Denies chest pain or palpitations. Respiratory/Chest: Reported her shortness of breath and cough attributed to being a silent aspirator. Gastrointestinal: Reports constipation. Denies abdominal pain, coffee ground em esis, diarrhea, dyspepsia, hematemesis, hematochezia, loose stools, melena, nausea, vomiting or other Genitourinary: Denies burning urination, difficulty urinating, dysuria, hematuria, nocturia, urinary frequency, urinary hesitancy, urinary incontinence, urinary urgency or other Musculoskeletal: Denies arthralgias, back pain, joint pain, joint stiffness, joint swelling, myalgias, neck pain or other Neurologic: Reports abnormal gait, abnormal speech, confusion, disequilibrium, dizziness, numbness, paresthesias, seizure-like activity, seizures, syncope, tingling, tremor(s) or other Psychiatric: Denies anxiety, depression, homicidal ideation, suicidal ideation or other Endocrinology: Denies change in body appearance, cold intolerance, excessive sweating, heat intolerance, polydipsia, polyuria or other Hematologic/Lymphatic: Denies anemia, easy bleeding, easy bruising, lymphadenopathy or other Integumentary: Denies rashes Allergic/Immunologic: Denies rhinitis, hives, eczema, or other Vital Signs Vital Signs Vital Signs: 10/05/21 14:54 10/05/21 15:01 10/05/21 16:45 Temperature 97.6 F L Temperature Source Temporal Pulse Rate 60 60 Respiratory Rate 16 26 H Respiratory Effort Normal Non-Labored Blood Pressure 163/74 H Blood Pressure Mean 103 Pulse Ox 95 95 Oxygen Delivery Method Room Air Room Air 10/05/21 17:11 10/05/21 18:32 Temperature Temperature Source Pulse Rate 64 62 Respiratory Rate 20 H 24 H Respiratory Effort Blood Pressure 176/78 H Blood Pressure Mean 110 Pulse Ox 95 93 Oxygen Delivery Method Room Air Room Air Weight Weight: 81.9 kg Body Mass Index (BMI) 26.6 Physical Exam Narrative Physical exam: General: Frail looking elderly male. Coughing at the time of examination. Head: Normocephalic, atraumatic, no tenderness Eyes: Vision is grossly intact. EOMI ENT, no trauma, moist mucous membranes, no rhinorrhea Neck: Nontender, full range of motion, no spinal tenderness, deformities, step- off CVS: Regular rate and rhythm. S1-S2 present. No murmur, gallop or rub. Respiratory : Bilateral rales . No wheezing Abdomen: Soft, nontender, nondistended, normal bowel sounds, no masses : Deferred Back: Nontender, no CVA tenderness, no midline spinal tenderness, deformities, step-offs Extremities: Nontender full range of motion, no trauma Skin: Normal color, no trauma, abrasions Neuro: Alert, oriented, cranial nerves II through XII grossly intact except patient is hard of hearing.. Psychiatry: Normal mood. Normal affect. Not depressed. Not anxious. Results Lab / Micro Data Result Diagrams: 10/05/21 15:30 10/05/21 15:30 Labs: Laboratory Results - last 24 hr 10/05/21 15:30: WBC 8.5, RBC 3.69 L, Hgb 12.2 L, Hct 37.4 L, MCV 101.4 H, MCH 33.1 H, MCHC 32.6, RDW Std Deviation 61.5 H, RDW Coeff of Louann 16.3 H, Plt Count 166, MPV 10.9, Immature Gran % (Auto) 0.400, Neut % (Auto) 48.5, Lymph % (Auto) 23.5, [place] % (Auto) 14.2 H, Eos % (Auto) 12.8 H, Baso % (Auto) 0.6, Absolute Neuts (auto) 4.1, Absolute Lymphs (auto) 1.99, Nucleated RBC % 0 10/05/21 15:30: Sodium 146 H, Potassium 3.8, Chloride 114 H, Carbon Dioxide 2 9.0, Anion Gap 3 L, BUN 24 H, Creatinine 0.97, Estim Creat Clear Calc 57.70, Est GFR (MDRD) Af Amer 95, Est GFR (MDRD) Non-Af 79, BUN/Creatinine Ratio 24.8 H, Glucose 93, Calcium 9.2, Troponin I High Sens 47 10/05/21 17:20: Urine Color Yellow, Urine Clarity Clear, Urine pH 5.0, Ur Specific [place] 1.020, Urine Protein 30 H, Urine Glucose (UA) Normal, Urine Ketones 5 H, Urine Occult Blood Negative, Urine Nitrite Negative, Urine Bilirubin Negative, Urine Urobilinogen 1 H, Ur Leukocyte Esterase Negative, Urine RBC 0-5 SEEN, Urine WBC 0-5 SEEN, Ur Squamous Epith Cells 0 SEEN, Urine Bacteria 0 SEEN, Urine Mucus 1+ Radiology Impression Brain CT 10/05/21 15:45 IMPRESSION: Chronic involutional changes of the brain. Electronically Signed: Neal Vazquez MD at 17:20 EDT , Chest X-Ray 10/05/21 15:50 IMPRESSION: No change from 09/28/2021. Electronically Signed: Neal Vazquez MD at 16:28 EDT , Assessment & Plan Assessment/Plan (1) Weakness generalized: PLAN: Generalized weakness Brain CT was visualized and independently interpreted and I agree radiologist interpretation of chronic involutional changes. Chest x-ray is nonacute. CBC showed stable stable hemoglobin level of 12.2 compared to previous. There is no leukocytosis. Urinalysis is not impressive. PT and OT to work with patient for strengthening and balance training. Case management consult for disposition. Check TSH and vitamin D level. CKD stage II Stable Trend BMP Hypernatremia with hyperchloremia Likely secondary to dehydration. Lactated Ringer's ordered. Trend BMP DVT prophylaxis Subcutaneous Lovenox ordered. Discussed CODE STATUS with patient, family who was at the bedside and daughter who is the POA (over the phone). Patient elected to be DNR CC a with intubation. Family agrees. Charges/Coding Visit Charges OBSV E&M: 86039 Initial observation care L3
[2021-10-05] MEDS: Bisacodyl 10 MG Suppository RC (22:20)
[2021-10-05] MEDS: Lactated Ringers 1,000 ML 75 ML IV (22:56)
[2021-10-05] MEDS: 0.9% Saline Lock 10 ML Syringe IV (22:56)
[2021-10-06] VITALS (16 sets, daily range): BP systolic 141–160; BP diastolic 65–85; PULSE 60–75; RESP 12–30; TEMP 36.4–36.9; O2SAT 23–98
[2021-10-06 06:02] LABS: Absolute Lymphocyte Count 1.65 X10^3/uL (0.83-4.51); Absolute Neutrophil Count 7.2 X10^3/uL (2.0-7.7); Basophil# 0.07 X10^3/uL; Basophil% 0.6 % (0-1); Eosinophil# 1.41 X10^3/uL; Eosinophils% 12.2 % (0-5); Hematocrit 36.8 % (40-54); Lymphocyte # 1.65 X10^3/ul (0.83-4.51); Lymphocyte % 14.3 % (19-41); Mean Corp Hgb Conc 32.6 g/dL (32-36); Mean Corpuscular Hgb 32.7 pg (27.0-32.0); Mean Corpuscular Volume 100.3 fL (80-94); Mean Platelet Vol. 10.9 fl (6.2-12.0); Monocyte# 1.12 X10^3/uL; Monocyte% 9.7 % (0-10); NRBC Flagged by Analyzer 0 % (0-5); Neutrophil # 7.22 X10^3/uL (2.7-7.7); Neutrophil % 62.8 % (47-70); Platelet Count 156 K/mm3 (150-450); RBC Distribution Width SD 59.5 fl (35.1-43.9); Red Blood Count 3.67 M/mm3 (4.6-6.2); White Blood Count 11.5 K/mm3 (4.4-11.0)
[2021-10-06 06:19] LABS: Anion Gap 3 (5-15); BUN 24 mg/dL (7-18); BUN/Creat Ratio 31.9 RATIO (10-20); Calcium,Total 8.4 mg/dL (8.5-10.1); Chloride 113 mmol/L (98-107); Creatinine, Serum 0.75 mg/dL (0.70-1.30); EST Glomerular Filtration Rate 105 mL/min (>60); Est Glom Filt Rate - Afr Amer 127 mL/min (>60); Estimated Creatinine Clearance 55.97 ml/min; Glucose 82 mg/dL (74-106); Potassium 3.6 mmol/L (3.5-5.1); Sodium Level 143 mmol/L (136-145)
[2021-10-06 09:17] LABS: Vitamin D,25 Hydroxy 29.7 ng/mL
[2021-10-06] MEDS: Enoxaparin 40 MG/0.4 ML Syringe SC (10:00)
--- NOTE | 2021-10-06 10:22 | PN.HOSP_ITS ---
Subjective Subjective Follow-up on debility: Patient seen and examined. No acute events overnight. Complains of feeling generally weak. Denied any fever or chills or chest pain or dizziness. Objective Data Objective Data Vital Signs: Vital Signs Temp Pulse Resp BP Pulse Ox 98.1 F 65 28 H 156/79 H 94 10/06/21 08:09 10/06/21 08:09 10/06/21 08:09 10/06/21 08:09 10/06/21 08:09 Oxygen Flow Rate (L/min) 2 Oxygen Delivery Method Nasal Cannula Weight: 78.8 kg Body Mass Index (BMI) 25.6 Intake & Output: Intake and Output for Last 24 Hours 10/04/21 10/05/21 10/06/21 23:59 23:59 23:59 Intake Total 417.5 / 417.5 Output Total 400 / 400 Balance 17.5 / 17.5 Lab / Micro Data Result Diagrams: 10/06/21 04:55 10/06/21 04:55 Labs: Laboratory Results - last 24 hr 10/05/21 15:30: WBC 8.5, RBC 3.69 L, Hgb 12.2 L, Hct 37.4 L, MCV 101.4 H, MCH 33.1 H, MCHC 32.6, RDW Std Deviation 61.5 H, RDW Coeff of Louann 16.3 H, Plt Count 166, MPV 10.9, Immature Gran % (Auto) 0.400, Neut % (Auto) 48.5, Lymph % (Auto) 23.5, [place] % (Auto) 14.2 H, Eos % (Auto) 12.8 H, Baso % (Auto) 0.6, Absolute Neuts (auto) 4.1, Absolute Lymphs (auto) 1.99, Nucleated RBC % 0 10/05/21 15:30: Sodium 146 H, Potassium 3.8, Chloride 114 H, Carbon Dioxide 29.0, Anion Gap 3 L, BUN 24 H, Creatinine 0.97, Estim Creat Clear Calc 57.70, Est GFR (MDRD) Af Amer 95, Est GFR (MDRD) Non-Af 79, BUN/Creatinine Ratio 24.8 H , Glucose 93, Calcium 9.2, Troponin I High Sens 47 10/05/21 17:20: Urine Color Yellow, Urine Clarity Clear, Urine pH 5.0, Ur Specific [place] 1.020, Urine Protein 30 H, Urine Glucose (UA) Normal, Urine Ketones 5 H, Urine Occult Blood Negative, Urine Nitrite Negative, Urine Bilirubin Negative, Urine Urobilinogen 1 H, Ur Leukocyte Esterase Negative, Urine RBC 0-5 SEEN, Urine WBC 0-5 SEEN, Ur Squamous Epith Cells 0 SEEN, Urine Bacteria 0 SEEN, Urine Mucus 1+ 10/06/21 04:55: WBC 11.5 H, RBC 3.67 L, Hgb 12.0 L, Hct 36.8 L, MCV 100.3 H, MCH 32.7 H, MCHC 32.6, RDW Std Deviation 59.5 H, RDW Coeff of Louann 16.0 H, Plt Count 156, MPV 10.9, Immature Gran % (Auto) 0.400, Neut % (Auto) 62.8, Lymph % (Auto) 14.3 L, [place] % (Auto) 9.7, Eos % (Auto) 12.2 H, Baso % (Auto) 0.6, Absolute Neuts (auto) 7.2, Absolute Lymphs (auto) 1.65, Nucleated RBC % 0 10/06/21 04:55: Sodium 143, Potassium 3.6, Chloride 113 H, Carbon Dioxide 27.0, Anion Gap 3 L, BUN 24 H, Creatinine 0.75, Estim Creat Clear Calc 55.97, Est GFR (MDRD) Af Amer 127, Est GFR (MDRD) Non-Af 105, BUN/Creatinine Ratio 31.9 H, Glucose 82, Calcium 8.4 L 10/06/21 04:55: Vitamin D 25-Hydroxy 29.7 Radiography Diagnostic Testing: Radiology Impression Brain CT 10/05/21 15:45 IMPRESSION: Chronic involutional changes of the brain. Electronically Signed: Neal Vazquez MD at 17:20 EDT , Chest X-Ray 10/05/21 15:50 IMPRESSION: No change from 09/28/2021. Electronically Signed: Neal Vazquez MD at 16:28 EDT , Physical Exam Narrative Physical exam: General: Alert, Oriented x3, Cooperative, generally weak, cachectic HEENT: Atraumatic Oral: Moist Mucosa Neck: Supple Lungs: Diminished to auscultation Cardiovascular: HS I+II, regular, no murmurs Abdomen: Bowel Sounds Present, Soft, Non Tender Extremities: No edema Neurological: Grossly intact, power is 3/5 in RUE,bilateral lower extremities, 2/5 in LUE, normal tone Assessment & Plan Assessment/Plan (1) Weakness generalized: PLAN: 1. Debility, acute on chronic, patient with recent right cerebellar stroke Multiple infarcts seen on MRI brain on 09/03/[address] of the brain this time was unremarkable Family is unable to take care of patient PT/OT to evaluate and treat 2. Status post pacemaker for recent nonsustained V. tach 3. Hyponatremia/hypochloremia likely related to dehydration, resolved Admitting sodium was 146, sodium now is 143 Chloride now is 113 4. Rest of his past medical history including hypertension, hyperlipidemia, Parkinson's disease/probable vascular dementia, BPH Continue with aspirin, statin, Sinemet, doxazosin, Proscar, Zoloft 5. DVT PPx- Lovenox SC
--- NOTE | 2021-10-06 10:35 | CASEMGMT ---
ARIAN TAY Face to Face with patient for initial transition planning/care coordination assessment. RN CM introduced self and role at [facility]. Patient sitting in bed, alert and oriented. Patient willing to participate in assessment and is able to answer all questions appropriately. Care providers, pharmacy, and demographics verified. Patient wishes to discharge home but willing to go to SNF if necessary. Patient provided with list of SNF with star ratings to review. Patient states he has no further needs or concerns at this time. SW updated regarding for possible placement. CM to follow for discharge planning needs that may arise. PCP: Jono Specialists: [facility] Preferred Pharmacy: [facility] Insurance: Teja MONTANO Prescription Benefit: yes Living Will/HPOA: yes, daughter Elizabeth Singletary HPOA LNOK: son, daughter Living Arrangements: Patient lives with son and DIL in a single story home with ramp to enter the home. Patient states he was independent at home but having more weakness Transportation: son/DIL DME/HHC: Patient states he has shower chair, raised toilet, grab bars, walker, and home oxygen at 1lpm at night. Patient has previously been to Rehab Unit. Patient denies previous HHC. Disposition Plan: TBD pending course of treatment and progress with therapy. Suzy LAZO, RN, CM
--- NOTE | 2021-10-06 14:32 | CASEMGMT ---
Social Work SW received referral as pt is admitted for debility. During therapy pt required Max A x2 for assistance. Phone call placed to pt son Neil Encarnacion and spoke to Neil and Neil's girlfriend. Pt discharged from [facility] last week and has been staying with son and girlfriend. Pt was doing well initially, and has become very weak over the last two days. Neil works and girlfriend has been assisting pt but is having much difficulty at this time. SW discussed SNF placement for continued therapy prior to return home. Pt son and girlfriend are agreeable that they cannot care for pt as he currently is and would need more rehab prior to returning home. SW reviewed SNF providers including quality and resource use data and consistent with the patient's preferred geographic region, medical needs and insurance network. First choice is [facility], Second choice is [facility]. However, Neil would like to call his sister and discuss prior to making a final decision. Neil to call SW back after he speaks with sister. Phone call to [facility], they have a bed available today but cannot accept pt after today. Two VM left with [facility] to check on bed availability. SW will await return call from pt son for SNF choice. YOGI Kim
--- NOTE | 2021-10-06 15:24 | CHAPLAIN ---
Type of Pastoral Visit _x__ Initial Visit ___ Follow-up Visit ___ On-call Visit ___ General Patient Visit ___ Spiritual Assessment ___ Family Conference ___ Bereavement ___ Rapid Response ___ Code Blue ___ Other (describe below) Pastoral Care Referral From _x__ Patient ___ Family ___ Nurse ___ Physician ___ Farmworker Cranberry ___ Sharepoint Developer ___ Other (describe below) Sacrament/Intervention _x__ Active listening ___ Anointing ___ Spiritism ___ Bereavement ___ Communion ___ Delilah exploration ___ ___ Life review _x__ Prayer ___ Reconciliation ___ Sacrament of Sick _x__ Supportive presence ___ Wedding ___ Other (describe below) Pastoral Comments patient has been seen for several admissions; update on his progress and emotional coping with his situation; presence and prayer welcomed
--- NOTE | 2021-10-06 15:25 | CASEMGMT ---
Addendum entered by Suzy Quinones 10/06/21 15:40: SW in to speak with pt. SW introduced self and role at [facility]. SW spoke with pt regarding SNF placement as it took two people with PT/OT to transfer pt today. SW informed pt that this worker has spoken with his son, KALPESH who stated they spoke with his daughter who are all in agreement that pt needs SNF and family is preferring a SNF in [place]. SW informed pt that this worker has a call out to [facility] and [facility] to determine bed availability and who can accept pt. Pt states understanding. Original Note: Social Work Note SW received call from pt's KALPESH Figueroa stating they spoke with pt's daughter and confirm that first choice for SNF is [facility] and second choice is [facility]. YOUNG informed Carolina that Crissy did call both [facility] and [facility] to inquire about bed availability. YOUNG informed Carolina that [facility] stated that they do have a bed available but if they do not accept pt today, then they cannot accept pt as they are only taking 1 admission per day and they are full for admissions the rest of the week. YOUNG informed Carolina that this worker is waiting for call back from [facility] regarding bed availability. YOUNG informed Carolina that this worker can keep her updated. YOUNG placed a call to [facility] and spoke with Carline in admissions. SW faxed referral to [facility]. Plan: SNF pending acceptance Suzy Quinones CUT OFF SAW OPERATOR, SENIOR POLICY ADVISOR
[2021-10-06] MEDS: Carbidopa/Levodopa 25/100 Tablet PO (15:59)
[2021-10-06] MEDS: Doxazosin 4 MG Tablet 8 MG PO (15:59)
[2021-10-06] MEDS: Losartan Potassium 50 MG Tablet PO (15:59)
[2021-10-06] MEDS: Acetaminophen 500 MG Tablet 1000 MG PO ×2 (15:59→22:30)
[2021-10-06] MEDS: Finasteride 5 MG Tablet PO (22:30)
[2021-10-06] MEDS: Atorvastatin Calcium 10 MG Tablet PO (22:30)
[2021-10-07] VITALS (10 sets, daily range): BP systolic 105–144; BP diastolic 64–76; PULSE 60–70; RESP 18–24; TEMP 36.5–37.1; O2SAT 93–96
[2021-10-07] MEDS: Carbidopa/Levodopa 25/100 Tablet PO ×3 (06:17→15:39)
[2021-10-07] MEDS: Acetaminophen 500 MG Tablet 1000 MG PO ×2 (06:17→14:27)
--- NOTE | 2021-10-07 08:42 | CASEMGMT ---
Social Work Call placed to [facility] to check on referral. [facility] is unable to accept due to bed availability. Phone call to Raul yanes and left requesting return call with bed availability. SW to continue to follow. YOGI Kim
[2021-10-07] MEDS: Pantoprazole Sodium 40 MG Tablet PO (08:56)
[2021-10-07] MEDS: Sertraline 50 MG Tablet 25 MG PO (08:56)
[2021-10-07] MEDS: Aspirin 81 MG TAB.CHEW PO (08:57)
[2021-10-07] MEDS: Losartan Potassium 50 MG Tablet PO (08:57)
[2021-10-07] MEDS: Enoxaparin 40 MG/0.4 ML Syringe SC (08:58)
--- NOTE | 2021-10-07 09:00 | PCM.TXEXTCAR ---
Diet 10/05/21 22:07 Diet: Cardiac - Heart Healthy Liquid Consistency:: Regular/Thin Diet Comments: Puree mixed consistencies, Direct supervision, Sips by tsp or Provale cup Routine Orders/Code Status Suppository Type: Dulcolax 10mg O2 Liters per Minute: 2 O2 Frequency: Continuous Keep PO Greater than or Equal to (%): 94 Routine Lab Work: CBC (within 3 days) and BMP (within 3 days) Code Status: DNRCC-A Wound(s) left chest: Wound Type: Surgical Incision Therapies Weight Bearing: Weight bearing as tolerated Extremity Affected:: Bilateral Lower Physical Therapy: Eval and Treat Occupational Therapy: Eval and Treat Problem/Diagnosis (1) Weakness generalized: Status: Acute Allergies/Procedures Done in Hospital Allergies Iodine and Iodide Containing Produc Allergy (Severe, Verified 09/02/21 22:11) Anaphylaxis HE PASSED OUT AND THROAT SWELLED AND VOMITED Procedures: None Type of Care/Length of Stay Estimated LOS: Convalescent Care Less Than 30 days Type of Care Needed: Skilled Rehab Potential: Good Prognosis: Good Additional Orders/Day of Discharge Day of Discharge: 10/07/21 Discharge Plan Admission Admit Date/Time: 10/05/21 20:48 Primary Reason for Your Visit: Debility Attending Provider: Marielos Mittal Primary Care Provider: Tristan De La Cruz Discharge Orders/Prescriptions Prescriptions: Continued doxazosin 8 MG tablet 8 mg PO QPM RF: 0 cranberry conc-ascorbic acid 1 EACH capsule 1 tab PO DAILY RF: 0 lysine 1,000 mg Tablet 1,000 mg BID RF: 0 carbidopa-levodopa 25-100 mg tablet 1 tab PO TID RF: 0 omeprazole 20 mg capsule,delayed release(DR/EC) 40 mg PO DAILY RF: 0 aspirin 81 MG tablet,chewable 81 mg PO DAILY@0800 RF: 0 finasteride 5 MG tablet 5 mg PO DAILY RF: 0 losartan 50 mg Tablet 50 mg PO DAILY Qty: 30 RF: 0 sertraline 25 mg Tablet 25 mg PO DAILY Qty: 30 RF: 0 atorvastatin 10 mg tablet 10 mg PO QHS Qty: 30 RF: 0 sennosides-docusate sodium [Stool Softener-Stimulant Laxat] 8.6-50 mg tablet 2 tab PO DAILY RF: 0 acetaminophen 500 mg tablet 1,000 mg PO Q8 RF: 0 Ensure Enlive 0.08 gram-1.5 kcal/mL liquid 120 ml PO 4X/DAY RF: 0 Discontinued ivsxsfrr-iempbqvtm-UJ 3.5-10,000-1 mg/mL-unit/mL-% drops,suspension 4 drp otic (ear) Q6H RF: 0 magnesium hydroxide 400 mg/5 mL Suspension 30 ml PO .PRN X 1 PRN (Reason: Constipation) Qty: 0 RF: 0 Referrals / Follow Up: Tristan De La Cruz PA [Primary Care Provider] - In 1 Week Disposition Disposition (needs filled in before D/C Order can be placed): Care Home Facility
--- NOTE | 2021-10-07 10:15 | PCM.PN.HOSP ---
Subjective Subjective Follow-up on debility: Patient was seen and examined. No acute events overnight. Remains on 2 L of oxygen. Objective Data Objective Data Vital Signs: Vital Signs Temp Pulse Resp BP Pulse Ox 98.1 F 70 22 H 105/64 94 10/07/21 09:45 10/07/21 09:45 10/07/21 09:45 10/07/21 09:45 10/07/21 09:45 Oxygen Flow Rate (L/min) 2 Oxygen Delivery Method Room Air Weight: 78.8 kg Body Mass Index (BMI) 25.6 Intake & Output: Intake and Output for Last 24 Hours 10/05/21 10/06/21 10/07/21 23:59 23:59 23:59 Intake Total 817.5 / 817.5 Output Total 950 / 950 150 / 150 Balance -132.5 / -132.5 -150 / -150 Lab / Micro Data Result Diagrams: 10/06/21 04:55 10/06/21 04:55 Physical Exam Narrative Physical exam: General: Alert, Oriented x3, Cooperative, generally weak, cachectic, on 2L oxygen HEENT: Atraumatic Oral: Moist Mucosa Neck: Supple Lungs: Diminished to auscultation Cardiovascular: HS I+II, regular, no murmurs Abdomen: Bowel Sounds Present, Soft, Non Tender Extremities: No edema Neurological: Grossly intact, power is 3/5 in RUE,bilateral lower extremities, 2/5 in LUE, normal tone Assessment & Plan Assessment/Plan (1) Weakness generalized: PLAN: 1. Debility, acute on chronic, patient with recent right cerebellar stroke Multiple infarcts seen on MRI brain on 09/03/[address] of the brain this time was unremarkable Family is unable to take care of patient PT/OT to evaluate and treat 2. Chronic dysphagia, uses a Provale bolus control cup Speech therapy following 3. Status post pacemaker for recent nonsustained V. tach 4. Hyponatremia/hypochloremia likely related to dehydration, resolved 5. Rest of his past medical history including hypertension, hyperlipidemia, Parkinson's disease/probable vascular dementia, BPH Continue with aspirin, statin, Sinemet, doxazosin, Proscar, Zoloft 6. DVT PPx- Lovenox SC Charges/Coding Visit Charges Inpatient E&M: 46931 Subs Hosp L2
--- NOTE | 2021-10-07 11:51 | CASEMGMT ---
Addendum entered by Crissy Reynolds 10/07/21 13:39: Social Work SW spoke with pt son and DIL Neil and Carolina. They are now inquiring about TCU at [facility]. Phone call to TCU and they are able to accept pt today. Neil updated and agreeable transfer to TCU. SW met with pt and discussed discharge plan. Pt is agreeable to discharge to TCU. Physician updated on d/c plan. YOGI Kim Original Note: Social Work VM left at [facility] twice yesterday and this morning at 0840, 1020 and 1138 to inquire of bed availability. Return call at this time from Ryan at [facility] and they do not have beds available. Phone call to pt son Neil and updated that [facility] have rooms available. Neil stating he needs to talk to his girlfriend and sister with next choice. YOUNG updated that pt is ready for d/c today and that next choice is needed. Neil to call YOUNG back. YOGI Kim
--- NOTE | 2021-10-07 14:00 | PCM.DC.SUM ---
Providers Date of Admission: 10/05/21 Date of Discharge: 10/07/21 Primary Care Physician: TIMOTEO Joshua Reason For Visit: DISABILITY Diagnosis Discharge Diagnosis (1) Weakness generalized: Status: Acute Code(s): R53.1 - Weakness (2) Dysphagia: Status: Acute Code(s): R13.10 - Dysphagia, unspecified (3) Hypernatremia: Status: Resolved Code(s): E87.0 - Hyperosmolality and hypernatremia Medications at Discharge Home Medications doxazosin 8 mg PO QPM 07/15/14 cranberry conc-ascorbic acid 1 tab PO DAILY 01/31/20 carbidopa-levodopa 1 tab PO TID 09/02/21 lysine 1,000 mg BID 09/02/21 aspirin 81 mg PO DAILY@0800 09/04/21 finasteride 5 mg PO DAILY 09/04/21 omeprazole 40 mg PO DAILY 09/04/21 atorvastatin 10 mg PO QHS #30 tab 09/27/21 losartan 50 mg PO DAILY #30 tab 09/27/21 sertraline 25 mg PO DAILY #30 tab 09/27/21 Ensure Enlive 120 ml PO 4X/DAY 10/06/21 acetaminophen 1,000 mg PO Q8 10/06/21 sennosides-docusate sodium [Stool Softener-Stimulant Laxat] 2 tab PO DAILY 10/06/21 Hospital Course Operations None Procedures None Summary of Care Provided Minutes Spent on Discharge: 35 Hospital Course: 81-year-old male with past medical history of recent cerebellar stroke with weakness, history of chronic hypoxic respiratory failure, 1 L of oxygen at night, recent nonsustained V. tach with pauses noted on Holter monitor in TCU, status post pacemaker placement on 10/04/21. Patient was discharged home after his pacemaker placement, patient however was found to be progressively weak. He lives at home with his son and [id number]. He could not support himself on his legs. He was found to have hyponatremia otherwise his blood work was stable. He was admitted to the MedSur floor. Patient was seen by PT and OT on admission. He was skilled for discharge to nursing home facility. Physical Exam Narrative See progress note of the day Weight / BMI Weight Weight: 78.8 kg Body Mass Index (BMI) 25.6 ABG / Lab / Microbiology Data Result Diagrams: 10/06/21 04:55 10/06/21 04:55 D/C Instructions Discharge Diet: Low fat / Low cholesterol and 2000 mg Sodium Diet Meaningful Use Info Meaningful Use Diagnoses (Choose all that apply): None applicable Discharge Plan Admission Admit Date/Time: 10/05/21 20:48 Primary Reason for Your Visit: Debility Attending Provider: Marielos Mittal Primary Care Provider: Tristan De La Cruz Discharge Orders/Prescriptions Prescriptions: Continued doxazosin 8 MG tablet 8 mg PO QPM RF: 0 cranberry conc-ascorbic acid 1 EACH capsule 1 tab PO DAILY RF: 0 lysine 1,000 mg Tablet 1,000 mg BID RF: 0 carbidopa-levodopa 25-100 mg tablet 1 tab PO TID RF: 0 omeprazole 20 mg capsule,delayed release(DR/EC) 40 mg PO DAILY RF: 0 aspirin 81 MG tablet,chewable 81 mg PO DAILY@0800 RF: 0 finasteride 5 MG tablet 5 mg PO DAILY RF: 0 losartan 50 mg Tablet 50 mg PO DAILY Qty: 30 RF: 0 sertraline 25 mg Tablet 25 mg PO DAILY Qty: 30 RF: 0 atorvastatin 10 mg tablet 10 mg PO QHS Qty: 30 RF: 0 sennosides-docusate sodium [Stool Softener-Stimulant Laxat] 8.6-50 mg tablet 2 tab PO DAILY RF: 0 acetaminophen 500 mg tablet 1,000 mg PO Q8 RF: 0 Ensure Enlive 0.08 gram-1.5 kcal/mL liquid 120 ml PO 4X/DAY RF: 0 Discontinued hvursnke-skwgjlnkc-QY 3.5-10,000-1 mg/mL-unit/mL-% drops,suspension 4 drp otic (ear) Q6H RF: 0 magnesium hydroxide 400 mg/5 mL Suspension 30 ml PO .PRN X 1 PRN (Reason: Constipation) Qty: 0 RF: 0 Referrals / Follow Up: Tristan De La Cruz PA [Primary Care Provider] - In 1 Week Disposition Disposition (needs filled in before D/C Order can be placed): Jail Facility Charges/Coding Visit Charges OBSV E&M: 60218 Observation care discharge
--- NOTE | 2021-10-07 15:54 | CASEMGMT ---
Social Work Pt ready for discharge. Orders faxed to TCU and report given to TCU SW. Nursing updated pt can transfer to TCU. YOGI Kim
--- NOTE | 2021-10-07 15:55 | NURSING ---
Report called to nurse Sullivan for pt to be d/c to TCU.
== END 2021-10-07 16:33 | disposition skilled nursing facility (03) ==
LOC: ED 20:46 → MS3 20:55
PROVIDERS: Admitting Provider Hospitalist; Emergency Provider Emergency Medicine; PCP Physician Assistant; Visit Provider Internal Medicine
DX: R13.10 Dysphagia, unspecified (principal); G20 Parkinson's disease; E87.0 Hyperosmolality and hypernatremia; E78.5 Hyperlipidemia, unspecified; I12.9 Hypertensive chronic kidney disease with stage 1 through stage 4 chronic kidney disease, or unspecified chronic kidney disease; Z95.0 Presence of cardiac pacemaker; Z87.891 Personal history of nicotine dependence; K21.9 Gastro-esophageal reflux disease without esophagitis; N40.0 Benign prostatic hyperplasia without lower urinary tract symptoms; G62.9 Polyneuropathy, unspecified; Z79.899 Other long term (current) drug therapy; Z79.82 Long term (current) use of aspirin; Z99.81 Dependence on supplemental oxygen; N18.2 Chronic kidney disease, stage 2 (mild)
CPT/HCPCS: 70450; 71045; 80048; 81001; 82306; 84484; 85025; 87426; 92526; 92610; 93005; 96360; 96361; 96372; 97110; 97162; 97166; 97530; 99218; 99251; 99285; J7120; A4216; G0378; G0463

== ENCOUNTER 2021-10-07 16:40 | Inpatient (IN) | payer MEDICARE, BC, SELFPAY ==
[2021-10-07 16:46] VITALS: BP 158/84; PULSE 60; RESP 24; TEMP 36.6; O2SAT 95; BMI 25.2
[2021-10-07 19:35] VITALS: RESP 22; O2SAT 93
--- NOTE | 2021-10-07 20:10 | HP.PCM_ITS ---
HPI - General General Date of Admission: 10/07/21 HPI Narrative 10/05/2021 LEANNA LAW, is a 81 Male who presents to [facility] Emergency Department with fatigue. 10/05/2021 EKG ventricular paced rhythm. Fall, walking with walker, became weak, fell. New pacemaker last week for non sustained ventricular tachycardia. EKG, Chest X-ray, CT brain, blood work, urinalysis done. Patient unable to care for self, too weak to go home. 10/05/2021 Admit to Hospital. PT/OT for debility. Lactated Ringer's IV for hyponatremia. 10/06/2021 Feeling generally weak. 10/07/2021 Oxygen 2 liters per nasal cannula. Speech Therapy for chronic dysphagia. 10/07/2021 Admit to TCU with debility, here for rehabilitation, strengthening, prior to discharge home with family. [facility] Medical History Abrasion forearm Abrasion of chin Aortic valve insufficiency BPH (benign prostatic hypertrophy) Diverticulosis Enlarged thyroid Eosinophilia Fall GERD (gastroesophageal reflux disease) History of CVA (cerebrovascular accident) History of gastrointestinal hemorrhage History of leukemia HLD (hyperlipidemia) Hypertension Increased prostate specific antigen (PSA) velocity LAE (left atrial enlargement) Mitral insufficiency Murmur, cardiac NSVT (nonsustained ventricular tachycardia) Parkinson's disease Peripheral neuropathy Second degree type II atrioventricular block Sinus pause Thoracic aortic aneurysm Urine retention Home Medications doxazosin 8 mg PO QPM 07/15/14 [History Last Taken 05/12/16] cranberry conc-ascorbic acid 1 tab PO DAILY 01/31/20 [History Last Taken Unknown] carbidopa-levodopa 1 tab PO TID 09/02/21 [History Last Taken Unknown] lysine 1,000 mg BID 09/02/21 [History Last Taken Unknown] aspirin 81 mg PO DAILY@0800 09/04/21 [History Last Taken Unknown] finasteride 5 mg PO DAILY 09/04/21 [History Last Taken Unknown] omeprazole 40 mg PO DAILY 09/04/21 [History Last Taken Unknown] atorvastatin 10 mg PO QHS #30 tab 09/27/21 [Rx Last Taken Unknown] sertraline 25 mg PO DAILY #30 tab 09/27/21 [Rx Last Taken Unknown] Ensure Enlive 120 ml PO 4X/DAY 10/06/21 [History Last Taken Unknown] acetaminophen 1,000 mg PO Q8 10/06/21 [History Last Taken Unknown] sennosides-docusate sodium [Stool Softener-Stimulant Laxat] 2 tab PO DAILY 10/06/21 [History Last Taken Unknown] losartan 50 mg PO DAILY 10/07/21 [History Last Taken Unknown] Allergy/AdvReac Type Severity Reaction Status Date / Time Iodine and Iodide Containing Allergy Severe Anaphylaxis Verified 09/02/21 22:11 Produc Family History Mother Heart disease Father Heart disease Myocardial infarction Surgical History Cardiac pacemaker in situ (09/27/21) H/O foot surgery S/P herniorrhaphy S/P TURP Social History household members: family Smoking Status: Former smoker how long ago did patient quit smoking: Quit 1973. alcohol intake: former details: Former heavy beer intake. substance use type: does not use ROS Constitutional Constitutional: Denies chills, fever(s) or weight gain ENT HEENT: Denies headache(s), nasal congestion or nasal discharge Cardiovascular Cardiovascular: Denies chest pain or palpitations Respiratory/Chest Respiratory/Chest: Denies cough, excessive phlegm production or shortness of breath with exertion Gastrointestinal Gastrointestinal: Denies abdominal pain, nausea or vomiting Genitourinary Genitourinary: Denies dysuria Musculoskeletal Musculoskeletal: Denies joint pain or joint swelling Integumentary Integumentary: Denies rash or wounds Neurologic Neurologic: Denies focal weakness, numbness or tingling Psychiatric Psychiatric: Denies anxiety, auditory hallucinations, depression, homicidal ideation or suicidal ideation Vital Signs Vital Signs Vital Signs: 10/07/21 16:46 Temperature 97.8 F Temperature Source Oral Pulse Rate 60 Respiratory Rate 24 H Blood Pressure 158/84 H Blood Pressure Mean 108 Blood Pressure Source Monitor Blood Pressure Position Semi-Fowlers Blood Pressure Location Right Arm Pulse Ox 95 Oxygen Delivery Method Room Air Weight Weight: 77.746 kg Physical Exam Const alert General Appearance: cooperative HEENT normocephalic Eyes PERRL and EOMs intact bilaterally Neck supple, no JVD and no carotid bruits Resp normal respiratory effort, normal air movement and clear to auscultation bilaterally Cardio regular rate and regular rhythm GI normal to inspection, nondistended, normoactive bowel sounds, non-tender and non-distended Extremity normal capillary refill General Extremity: Negative for edema Skin no rashes or lesions noted General Skin Exam: no breakdown Psych affect normal Appearance: appropriate Assessment & Plan Assessment/Plan (1) Debility: (2) Weakness: (3) Hyponatremia: (4) Benign prostate hyperplasia: (5) Parkinson disease: (6) Gastroesophageal reflux disease: (7) Hyperlipidemia: (8) Hypertension: (9) Depression: (10) Non-sustained ventricular tachycardia: PLAN: 81 year old male with below past medical history significant for stroke, recent pacemaker implantation, hospitalized for weakness secondary to hyponatremia, complicated by acute hypoxia, admitted to TCU with debility, here for rehabilitation, strengthening, prior to discharge home with family. * Debility - PT/OT. * Dysphagia - ST. * Pain - Tylenol 1000mg q8h. * Bowel - Miralax 17gm daily, Senna/colace 2 tablets bid, Dulcolax 10mg daily prn. * Adult immunization - Administer pneumonia vaccine, flu vaccine, covid19 vaccine as appropriate. * DVT prophylaxis - HAS-BLED 3 high risk of bleeding, May 4 high risk of venous thromboembolism, overall risk Moderate, Rx Xarelto 10mg daily x 14 days. * Stroke - Aspirin 81mg daily. * Hyperlipidemia - Atorvastatin 10mg qhs. * Parkinson Disease - Sinemet 25/100mg tidac. * BPH - Finasteride 5mg daily, Doxazosin 8mg daily. * Nutrition - Ensure Enlive 120ml 4x/day. * Hypertension - Losartan 50mg daily. * GERD - Pantoprazole 40mg daily. * Depression - Sertraline 25mg daily, stable chronic detention use, GDR not recommended.
[2021-10-07 21:18] VITALS: BP 148/73; PULSE 60
[2021-10-07] MEDS: Doxazosin 4 MG Tablet 8 MG PO (21:20)
[2021-10-07] MEDS: Finasteride 5 MG Tablet PO (21:20)
[2021-10-07] MEDS: Acetaminophen 500 MG Tablet 1000 MG PO (21:20)
[2021-10-07] MEDS: Atorvastatin Calcium 10 MG Tablet PO (21:20)
[2021-10-08 05:00] VITALS: BP 155/73; PULSE 60
[2021-10-08] MEDS: Pantoprazole Sodium 40 MG Tablet PO (05:11)
[2021-10-08] MEDS: Acetaminophen 500 MG Tablet 1000 MG PO ×3 (05:11→20:19)
[2021-10-08] MEDS: Losartan Potassium 50 MG Tablet PO (05:11)
[2021-10-08] MEDS: Carbidopa/Levodopa 25/100 Tablet PO ×3 (05:11→17:13)
[2021-10-08] MEDS: Sertraline 50 MG Tablet 25 MG PO (05:11)
[2021-10-08] MEDS: Polyethylene Glycol 3350 17 GM PACKET PO (05:13)
[2021-10-08] MEDS: Senna/Docusate Sodium 1 Tablet 2 TABLET PO ×2 (05:13→17:13)
[2021-10-08 05:51] LABS: Absolute Lymphocyte Count 2.32 X10^3/uL (0.83-4.51); Absolute Neutrophil Count 3.7 X10^3/uL (2.0-7.7); Basophil# 0.05 X10^3/uL; Basophil% 0.6 % (0-1); Eosinophil# 1.55 X10^3/uL; Eosinophils% 17.8 % (0-5); Hematocrit 36.8 % (40-54); Hemoglobin 12.1 g/dL (13.0-16.5); Lymphocyte # 2.32 X10^3/ul (0.83-4.51); Lymphocyte % 26.6 % (19-41); Mean Corp Hgb Conc 32.9 g/dL (32-36); Mean Corpuscular Hgb 32.4 pg (27.0-32.0); Mean Corpuscular Volume 98.7 fL (80-94); Mean Platelet Vol. 10.7 fl (6.2-12.0); Monocyte# 1.11 X10^3/uL; Monocyte% 12.7 % (0-10); NRBC Flagged by Analyzer 0 % (0-5); Neutrophil # 3.66 X10^3/uL (2.7-7.7); Platelet Count 162 K/mm3 (150-450); RBC Distribution Width CV 16.1 % (11.6-14.6); RBC Distribution Width SD 57.9 fl (35.1-43.9); Red Blood Count 3.73 M/mm3 (4.6-6.2); White Blood Count 8.7 K/mm3 (4.4-11.0)
[2021-10-08 06:15] LABS: Anion Gap 4 (5-15); BUN 28 mg/dL (7-18); BUN/Creat Ratio 31.7 RATIO (10-20); Calcium,Total 8.4 mg/dL (8.5-10.1); Chloride 112 mmol/L (98-107); Creatinine, Serum 0.88 mg/dL (0.70-1.30); EST Glomerular Filtration Rate 88 mL/min (>60); Est Glom Filt Rate - Afr Amer 106 mL/min (>60); Glucose 78 mg/dL (74-106); Potassium 3.5 mmol/L (3.5-5.1); Sodium Level 143 mmol/L (136-145)
[2021-10-08] MEDS: Aspirin 81 MG TAB.CHEW PO (08:30)
--- NOTE | 2021-10-08 11:37 | CASEMGMT ---
Social Work Contacted DIL to confirm vaccination status. pt is not vaccinated and does not wish to be vaccinated. DIL and pt are aware of in room isolation. Discussed differences between RU and TCU. Explained Medicare benefit to DIL and encouraged to contact secondary insurance to ensure copay coverage. Explained pt will receive on care plan meeting during stay, but to contact staff at any time for updates. Adjusted contacts for son, primary, DIL, secondary, dtr, third. The goal is for pt to return home with son and DIL for 24/ care at [facility]. SW to continue to follow. Daniella Shankar ,PERSONNEL REPRESENTATIVE FOOT PRESS OPERATOR
[2021-10-08] MEDS: Tuberculin,Purif.prot.deriv. 50 TU/ML Vial 0.1 ML ID (11:41)
--- NOTE | 2021-10-08 15:17 | PHA.CONS1_ITS ---
Progress Note - Pharmacy Subjective: TCU Admission Objective: Allergies Iodine and Iodide Containing Produc Allergy (Severe, Verified 09/02/21 22:11) Anaphylaxis HE PASSED OUT AND THROAT SWELLED AND VOMITED Current Medications Generic Name Dose Route Start Last Admin Trade Name Abhinavq PRN Reason Stop Dose Admin Acetaminophen 1,000 mg 10/07/21 22:00 10/08/21 13:33 Acetaminophen 500 Mg Tablet PO 1,000 mg Q8 RYAN Administration Aspirin 81 mg 10/08/21 08:00 10/08/21 08:30 Aspirin 81 Mg Tab.Chew PO 81 mg 0800 RYAN Administration Atorvastatin Calcium 10 mg 10/07/21 22:00 10/07/21 21:20 Atorvastatin Calcium 10 Mg Tablet PO 10 mg QHS RYAN Administration Bisacodyl 10 mg 10/07/21 17:20 Bisacodyl 10 Mg Suppository RC DAILY PRN CONSTIPATION Carbidopa/Levodopa 1 tablet 10/08/21 06:45 10/08/21 11:41 Carbidopa/Levodopa 25/100 Tablet PO 1 tablet TIDAC RYAN Administration Doxazosin Mesylate 8 mg 10/07/21 21:00 10/07/21 21:20 Doxazosin 4 Mg Tablet PO 8 mg QPM RYAN Administration Finasteride 5 mg 10/07/21 22:00 10/07/21 21:20 Finasteride 5 Mg Tablet PO 5 mg QHS RYAN Administration Sodium Chloride 250 mls @ 15 mls/hr 10/07/21 16:47 IV .[id number] PRN Saline Flush Losartan Potassium 50 mg 10/08/21 06:00 10/08/21 05:11 Losartan Potassium 50 Mg Tablet PO 50 mg DAILY RYAN Administration Nutritional Formula (Lactose Free) 120 ml 10/07/21 22:00 10/08/21 11:43 Ensure Enlive 120 Ml Liquid PO 120 ml 4X/DAY RYAN Administration Pantoprazole Sodium 40 mg 10/08/21 06:00 10/08/21 05:11 Pantoprazole Sodium 40 Mg Tablet PO 40 mg DAILY RYAN Administration Polyethylene Glycol 17 gm 10/08/21 06:00 10/08/21 05:13 Polyethylene Glycol 3350 17 Gm Packet PO 17 gm DAILY RYAN Administration Rivaroxaban 10 mg 10/08/21 17:00 Rivaroxaban 10 Mg Tablet PO 10/22/21 17:01 DINNER RYAN Senna/Docusate Sodium 2 tablet 10/08/21 06:00 10/08/21 05:13 Senna/Docusate Sodium 1 Tablet PO 2 tablet BID RYAN Administration Sertraline HCl 25 mg 10/08/21 06:00 10/08/21 05:11 Sertraline 50 Mg Tablet PO 25 mg DAILY RYAN Administration Sodium Chloride 10 - 40 ml 10/07/21 16:47 0.9% Saline Lock 10 Ml Syringe IV UD PRN SALINE FLUSH Tuberculin PPD 0.1 ml 10/15/21 10:00 Tuberculin,Purif.Prot.Deriv. 50 Tu/Ml Vial ID 10/15/21 10:01 X1 ONE Problem List (Last Reviewed 10/07/21 @ 20:[address] Nik Avalos MD) Non-sustained ventricular tachycardia (Acute) Depression (Acute) Hypertension (Chronic) Hyperlipidemia (Acute) Gastroesophageal reflux disease (Acute) Parkinson disease (Acute) Benign prostate hyperplasia (Acute) Hyponatremia (Acute) Weakness (Acute) Debility (Acute) Vital Signs Temp Pulse Resp BP Pulse Ox 97.8 F 60 22 H 155/73 H 93 10/07/21 16:46 10/08/21 05:00 10/07/21 19:35 10/08/21 05:00 10/07/21 19:35 Oxygen Flow Rate (L/min) 1 Oxygen Delivery Method Nasal Cannula Weight: 77.7 kg Body Mass Index (BMI) 25.2 Sodium 143 mmol/L (136-145) 10/08/21 05:18 Potassium 3.5 mmol/L (3.5-5.1) 10/08/21 05:18 Chloride 112 mmol/L (98-107) H 10/08/21 05:18 Carbon Dioxide 27.0 mmol/L (21.0-32.0) 10/08/21 05:18 Anion Gap 4 (5-15) L 10/08/21 05:18 BUN 28 mg/dL (7-18) H 10/08/21 05:18 Creatinine 0.88 mg/dL (0.70-1.30) 10/08/21 05:18 Est GFR (MDRD) Af Amer 106 mL/min (>60) 10/08/21 05:18 Est GFR (MDRD) Non-Af 88 mL/min (>60) 10/08/21 05:18 BUN/Creatinine Ratio 31.7 RATIO (10-20) H 10/08/21 05:18 Glucose 78 mg/dL (74-106) 10/08/21 05:18 Assessment/Plan: 1. Pain: acetaminophen 1000mg PO Q8. Please continue to monitor for pain. 2. DVT prophylaxis: rivaroxaban 10mg PO DINNER thru 10/22/21. Please continue to monitor for S/S of bleeding and hemoglobin (last 12.1g/dL). 3. Stroke: aspirin 81mg PO DAILYCM. Please continue to monitor for S/S of blee ding and hemoglobin. 4. Hyperlipidemia: atorvastatin 10mg PO QHS. Please continue to monitor for muscle pain and lipid panel (last 09/03/21). 5. Parkinson Disease: carbidopa/levodopa 25/100mg TIDAC. Please continue to monitor for constipation, dizziness and dyskinesia. 6. BPH: finasteride 5mg PO QHS and doxazosin 8mg PO QHS. Please continue to monitor for S/S of BPH, dizziness, drowsiness, BP, and syncope (doxazosin is on the BEERs criteria for syncope.) 7. Hypertension: losartan 50mg PO daily. Please continue to monitor BP (last 155/73), potassium (last 3.5mmol/L) and renal function. 8. GERD: pantoprazole 40mg PO daily. Please continue to monitor for S/S of GERD and diarrhea. Psychotropic Medications: 1. Depression: sertraline 25mg PO daily. Please see physician note regarding GDR. Unnecessary Medications: None Bowel Regimen: Miralax 17gm PO daily, senna/docusate 2T PO BID and bisacodyl 10mg RC daily PRN constipation. Please continue to monitor for constipation and PRN usage. Date of Note:: 10/08/21
[2021-10-08 16:00] VITALS: BP 143/82; PULSE 60; RESP 16; TEMP 36.7; O2SAT 93
[2021-10-08] MEDS: Rivaroxaban 10 MG Tablet PO (17:13)
[2021-10-08] MEDS: Doxazosin 4 MG Tablet 8 MG PO (20:19)
[2021-10-08] MEDS: Atorvastatin Calcium 10 MG Tablet PO (20:19)
[2021-10-08 20:20] VITALS: O2SAT 97
[2021-10-08] MEDS: Finasteride 5 MG Tablet PO (20:20)
[2021-10-09 04:19] VITALS: BP 139/63; PULSE 65
[2021-10-09] MEDS: Polyethylene Glycol 3350 17 GM PACKET PO (04:23)
[2021-10-09] MEDS: Losartan Potassium 50 MG Tablet PO (04:23)
[2021-10-09] MEDS: Acetaminophen 500 MG Tablet 1000 MG PO ×3 (04:24→20:32)
[2021-10-09] MEDS: Sertraline 50 MG Tablet 25 MG PO (04:24)
[2021-10-09] MEDS: Pantoprazole Sodium 40 MG Tablet PO (04:24)
[2021-10-09] MEDS: Senna/Docusate Sodium 1 Tablet 2 TABLET PO ×2 (04:24→18:20)
[2021-10-09] MEDS: Carbidopa/Levodopa 25/100 Tablet PO ×3 (04:24→18:20)
[2021-10-09] MEDS: Aspirin 81 MG TAB.CHEW PO (08:00)
[2021-10-09 10:00] VITALS: O2SAT 95
[2021-10-09 10:44] VITALS: RESP 20
[2021-10-09 10:50] VITALS: O2SAT 95
[2021-10-09 15:25] VITALS: BP 152/74; PULSE 60; RESP 16; TEMP 36.4; O2SAT 94
[2021-10-09] MEDS: Bisacodyl 10 MG Suppository RC (16:12)
[2021-10-09] MEDS: Rivaroxaban 10 MG Tablet PO (18:20)
[2021-10-09] MEDS: Atorvastatin Calcium 10 MG Tablet PO (20:32)
[2021-10-09] MEDS: Finasteride 5 MG Tablet PO (20:32)
[2021-10-09] MEDS: Doxazosin 4 MG Tablet 8 MG PO (20:32)
[2021-10-10] MEDS: Acetaminophen 500 MG Tablet 1000 MG PO ×3 (06:28→22:03)
[2021-10-10] MEDS: Losartan Potassium 50 MG Tablet PO (06:28)
[2021-10-10] MEDS: Senna/Docusate Sodium 1 Tablet 2 TABLET PO ×2 (06:29→16:32)
[2021-10-10] MEDS: Sertraline 50 MG Tablet 25 MG PO (06:29)
[2021-10-10] MEDS: Pantoprazole Sodium 40 MG Tablet PO (06:29)
[2021-10-10] MEDS: Carbidopa/Levodopa 25/100 Tablet PO ×3 (06:30→16:32)
[2021-10-10] MEDS: Polyethylene Glycol 3350 17 GM PACKET PO (06:30)
[2021-10-10] MEDS: Aspirin 81 MG TAB.CHEW PO (08:23)
[2021-10-10 15:45] VITALS: BP 126/66; PULSE 61; RESP 18; TEMP 36.6; O2SAT 94
[2021-10-10] MEDS: Rivaroxaban 10 MG Tablet PO (16:32)
[2021-10-10] MEDS: Doxazosin 4 MG Tablet 8 MG PO (22:03)
[2021-10-10] MEDS: Finasteride 5 MG Tablet PO (22:03)
[2021-10-10] MEDS: Atorvastatin Calcium 10 MG Tablet PO (22:03)
[2021-10-10 22:25] VITALS: PULSE 63; RESP 16; O2SAT 94
--- NOTE | 2021-10-11 03:23 | NURSING ---
Patient put call light on, reported that he was hurting all over and would like to get up in w/c. Has Tylenol scheduled for 6am. Asked patient if he would like to sit in recliner and he stated he would try it. Patient assisted x 2 SPT to recliner. Requires continuous cueing to move feet and turn. Positioned in recliner and feet elevated. Patient stated that it felt much better. Call light within reach. Will continue to monitor.
[2021-10-11] MEDS: Polyethylene Glycol 3350 17 GM PACKET PO (06:22)
[2021-10-11] MEDS: Senna/Docusate Sodium 1 Tablet 2 TABLET PO ×2 (06:23→17:15)
[2021-10-11] MEDS: Carbidopa/Levodopa 25/100 Tablet PO ×3 (06:23→17:15)
[2021-10-11] MEDS: Sertraline 50 MG Tablet 25 MG PO (06:23)
[2021-10-11] MEDS: Acetaminophen 500 MG Tablet 1000 MG PO ×3 (06:23→20:12)
[2021-10-11] MEDS: Pantoprazole Sodium 40 MG Tablet PO (06:24)
[2021-10-11] MEDS: Losartan Potassium 50 MG Tablet PO (06:24)
[2021-10-11 06:57] VITALS: O2SAT 95
[2021-10-11] MEDS: Aspirin 81 MG TAB.CHEW PO (07:45)
[2021-10-11 09:40] VITALS: RESP 18; O2SAT 97
[2021-10-11 16:00] VITALS: BP 120/59; PULSE 78; RESP 14; TEMP 36.6; O2SAT 92
--- NOTE | 2021-10-11 16:30 | NURSING ---
social services technician, Daniella discussed code status with pt, he requested DNRCC. purple bracelet applied.
[2021-10-11] MEDS: Rivaroxaban 10 MG Tablet PO (17:15)
--- NOTE | 2021-10-11 17:48 | NURSING ---
Addendum entered by Faye Hughes 10/11/21 18:35: educated pt and family on speech therapy orders d/t high risk for aspiration. daughter in law aware and still wanted hamburger, dietary brought up plain hamburger no bun cut into bite sized pieces. Original Note: daughter in law here and upset that pt diet was changed, explained that order states soft & bite sized and according to dietary hamburger cannot be part of diet and meatloaf was minced. pt will not eat minced food. They want pt to be able to eat to get stronger. message left with speech therapy to speak with family or change diet.
[2021-10-11] MEDS: Atorvastatin Calcium 10 MG Tablet PO (20:12)
[2021-10-11] MEDS: Finasteride 5 MG Tablet PO (20:12)
[2021-10-11] MEDS: Doxazosin 4 MG Tablet 8 MG PO (20:13)
[2021-10-12] MEDS: Acetaminophen 500 MG Tablet 1000 MG PO ×3 (05:21→20:57)
[2021-10-12] MEDS: Sertraline 50 MG Tablet 25 MG PO (05:21)
[2021-10-12] MEDS: Losartan Potassium 50 MG Tablet PO (05:22)
[2021-10-12] MEDS: Senna/Docusate Sodium 1 Tablet 2 TABLET PO ×2 (05:22→17:12)
[2021-10-12] MEDS: Pantoprazole Sodium 40 MG Tablet PO (05:22)
[2021-10-12] MEDS: Polyethylene Glycol 3350 17 GM PACKET PO (05:22)
[2021-10-12] MEDS: Carbidopa/Levodopa 25/100 Tablet PO ×3 (05:22→17:13)
[2021-10-12] MEDS: Aspirin 81 MG TAB.CHEW PO (08:31)
[2021-10-12 10:00] VITALS: RESP 16
[2021-10-12 14:08] VITALS: BP 117/63; PULSE 67; RESP 22; TEMP 36.6; O2SAT 93
[2021-10-12] MEDS: Rivaroxaban 10 MG Tablet PO (17:12)
[2021-10-12] MEDS: Atorvastatin Calcium 10 MG Tablet PO (20:56)
[2021-10-12] MEDS: Doxazosin 4 MG Tablet 8 MG PO (20:56)
[2021-10-12] MEDS: Finasteride 5 MG Tablet PO (20:56)
[2021-10-12 22:16] VITALS: PULSE 60; RESP 18; O2SAT 93
--- NOTE | 2021-10-12 23:11 | NURSING ---
Patient continues to have scrotal edema. Elevated with towel to attempt to reduce edema.
--- NOTE | 2021-10-12 23:15 | NURSING ---
Given in report that patient had been taking medications whole with water. Patient stated to this nurse it would be easier for him if medications were crushed and administered with pudding. HS medications crushed and administered without difficulty.
[2021-10-13] MEDS: Polyethylene Glycol 3350 17 GM PACKET PO (06:34)
[2021-10-13] MEDS: Pantoprazole Sodium 40 MG Tablet PO (06:35)
[2021-10-13] MEDS: Losartan Potassium 50 MG Tablet PO (06:35)
[2021-10-13] MEDS: Acetaminophen 500 MG Tablet 1000 MG PO ×3 (06:35→21:36)
[2021-10-13] MEDS: Senna/Docusate Sodium 1 Tablet 2 TABLET PO ×2 (06:35→17:05)
[2021-10-13] MEDS: Sertraline 50 MG Tablet 25 MG PO (06:35)
[2021-10-13] MEDS: Carbidopa/Levodopa 25/100 Tablet PO ×3 (06:36→17:05)
--- NOTE | 2021-10-13 07:08 | NS ---
Completed dietary MDS assessment for EL 10/14 today.
[2021-10-13 07:37] VITALS: O2SAT 92
[2021-10-13] MEDS: Aspirin 81 MG TAB.CHEW PO (08:42)
--- NOTE | 2021-10-13 10:45 | CASEMGMT ---
Social Work IDT met with patient, son and dtr via conference call for care plan meeting. Discussed patient's progress in PT/OT/ST and nursing. Explained Medicare benefit. Encouraged to contact secondary insurance to ensure copay coverage. The goal is for pt to return home with son and DIL providing 24/7 care once pt is only a person assist. SW to continue to follow for DC planning. Daniella Shankar, TOMMY NETWORK ENGINEER ADMINISTRATOR
[2021-10-13 15:41] VITALS: BP 151/69; PULSE 61; RESP 16; TEMP 36.2; O2SAT 96
--- NOTE | 2021-10-13 15:41 | CHAPLAIN ---
Type of Pastoral Visit ___ Initial Visit _x__ Follow-up Visit ___ On-call Visit ___ General Patient Visit ___ Spiritual Assessment ___ Family Conference ___ Bereavement ___ Rapid Response ___ Code Blue ___ Other (describe below) Pastoral Care Referral From _x__ Patient ___ Family ___ Nurse ___ Physician ___ Loan Auditor ___ Utility Clerk ___ Other (describe below) Sacrament/Intervention _x__ Active listening ___ Anointing ___ Episcopalian ___ Bereavement ___ Communion ___ Delilah exploration ___ ___ Life review _x__ Prayer ___ Reconciliation ___ Sacrament of Sick _x__ Supportive presence ___ Wedding ___ Other (describe below) Pastoral Comments patient states he is trying to do his part and hopes to get home yet; prayer always accepted by patient; pt speaks of delilah in God
[2021-10-13] MEDS: Rivaroxaban 10 MG Tablet PO (17:05)
[2021-10-13] MEDS: Atorvastatin Calcium 10 MG Tablet PO (21:36)
[2021-10-13] MEDS: Doxazosin 4 MG Tablet 8 MG PO (21:36)
[2021-10-13] MEDS: Finasteride 5 MG Tablet PO (21:36)
[2021-10-14] MEDS: Acetaminophen 500 MG Tablet 1000 MG PO ×3 (05:48→20:40)
[2021-10-14] MEDS: Senna/Docusate Sodium 1 Tablet 2 TABLET PO ×2 (05:48→17:44)
[2021-10-14] MEDS: Polyethylene Glycol 3350 17 GM PACKET PO (05:48)
[2021-10-14] MEDS: Sertraline 50 MG Tablet 25 MG PO (05:49)
[2021-10-14] MEDS: Losartan Potassium 50 MG Tablet PO (05:49)
[2021-10-14] MEDS: Pantoprazole Sodium 40 MG Tablet PO (05:49)
[2021-10-14] MEDS: Carbidopa/Levodopa 25/100 Tablet PO ×3 (06:28→17:44)
[2021-10-14 07:32] VITALS: BP 158/62; PULSE 65
[2021-10-14] MEDS: Aspirin 81 MG TAB.CHEW PO (08:30)
--- NOTE | 2021-10-14 09:42 | CASEMGMT ---
Social Work BIMS and PHQ-9 completed for MDS assessment. When asked the question if pt had any thoughts of being better off or hurting himself, pt replied, no, but I'm going to eventually and that's why I have this on (raising his right wrist with the purple DNR-CC bracelet on) so they don't even work on me. Daniella Shankar, CONTINUOUS WAVE OPERATOR ACOUSTIC WARFARE ANALYST
--- NOTE | 2021-10-14 10:36 | NURSING ---
Feeder Worker Power Unit Operator Note: Interview and MDS section F completed.
[2021-10-14 14:01] LABS: Mucous, Urine 0 SEEN /hpf (<or=2+); Squamous Epithelial Cells - UA 0 SEEN /hpf (0-5)
[2021-10-14 14:04] LABS: Color, Urine Yellow (Yellow); Glucose, Dipstick Normal (Normal); Ketone-Dipstick 5 mg/dl (Negative); Leukocyte Esterase-Dipstick 25 /ul (Negative); Nitrite-Dipstick Negative (Negative); Occult Blood-Urine 250 /ul (Negative); Protein-Dipstick 100 mg/dl (Negative); Specific Gravity, Urine 1.015 (1.002-1.030); Urine Bilirubin Dipstick Negative (Negative); Urine Clarity Cloudy (Clear); Urine Urobilinogen 1 mg/dl (Normal)
[2021-10-14 14:15] LABS: Red Blood Cells-Urine 25-50 SEEN /hpf (0-5); White Blood Cells 0-5 SEEN /hpf (0-5)
[2021-10-14 14:16] LABS: Bacteria 2+ /hpf (None Seen)
[2021-10-14 14:40] VITALS: BP 130/65; PULSE 68; RESP 21; TEMP 36.2; O2SAT 94
[2021-10-14 19:45] VITALS: O2SAT 93
[2021-10-14] MEDS: Doxazosin 4 MG Tablet 8 MG PO (20:39)
[2021-10-14] MEDS: Finasteride 5 MG Tablet PO (20:40)
[2021-10-14] MEDS: Atorvastatin Calcium 10 MG Tablet PO (20:40)
[2021-10-15 05:45] VITALS: BP 151/74; PULSE 65
[2021-10-15] MEDS: Losartan Potassium 50 MG Tablet PO (05:46)
[2021-10-15] MEDS: Pantoprazole Sodium 40 MG Tablet PO (05:46)
[2021-10-15] MEDS: Acetaminophen 500 MG Tablet 1000 MG PO ×3 (05:46→21:03)
[2021-10-15] MEDS: Senna/Docusate Sodium 1 Tablet 2 TABLET PO ×2 (05:46→17:35)
[2021-10-15] MEDS: Carbidopa/Levodopa 25/100 Tablet PO ×3 (05:46→17:35)
[2021-10-15] MEDS: Sertraline 50 MG Tablet 25 MG PO (05:46)
[2021-10-15 05:53] LABS: Absolute Lymphocyte Count 2.27 X10^3/uL (0.83-4.51); Basophil# 0.05 X10^3/uL; Basophil% 0.4 % (0-1); Eosinophil# 1.56 X10^3/uL; Hemoglobin 12.3 g/dL (13.0-16.5); Lymphocyte # 2.27 X10^3/ul (0.83-4.51); Lymphocyte % 20.3 % (19-41); Mean Corp Hgb Conc 32.4 g/dL (32-36); Mean Corpuscular Hgb 32.5 pg (27.0-32.0); Mean Corpuscular Volume 100.5 fL (80-94); Mean Platelet Vol. 10.7 fl (6.2-12.0); Monocyte# 1.29 X10^3/uL; Monocyte% 11.6 % (0-10); NRBC Flagged by Analyzer 0 % (0-5); Neutrophil # 5.95 X10^3/uL (2.7-7.7); Neutrophil % 53.3 % (47-70); Platelet Count 202 K/mm3 (150-450); RBC Distribution Width CV 15.9 % (11.6-14.6); RBC Distribution Width SD 59.1 fl (35.1-43.9); Red Blood Count 3.78 M/mm3 (4.6-6.2); White Blood Count 11.2 K/mm3 (4.4-11.0)
[2021-10-15 06:15] LABS: Anion Gap 2 (5-15); BUN 28 mg/dL (7-18); BUN/Creat Ratio 29.7 RATIO (10-20); Calcium,Total 8.4 mg/dL (8.5-10.1); Chloride 110 mmol/L (98-107); Creatinine, Serum 0.94 mg/dL (0.70-1.30); EST Glomerular Filtration Rate 81 mL/min (>60); Est Glom Filt Rate - Afr Amer 98 mL/min (>60); Estimated Creatinine Clearance 59.54 ml/min; Glucose 83 mg/dL (74-106); Sodium Level 142 mmol/L (136-145)
[2021-10-15] MEDS: Aspirin 81 MG TAB.CHEW PO (07:44)
[2021-10-15] MEDS: Tuberculin,Purif.prot.deriv. 50 TU/ML Vial 0.1 ML ID (11:00)
--- NOTE | 2021-10-15 14:32 | MDS.RN ---
Information for the mds was obtained from review of the clinical record, interview of resident, staff, and direct observation of resident's care.
[2021-10-15 15:38] VITALS: BP 139/75; PULSE 65; RESP 21; TEMP 36.6; O2SAT 96
[2021-10-15 21:00] VITALS: BP 161/72; PULSE 64
[2021-10-15] MEDS: Finasteride 5 MG Tablet PO (21:03)
[2021-10-15] MEDS: Atorvastatin Calcium 10 MG Tablet PO (21:03)
[2021-10-15] MEDS: Doxazosin 4 MG Tablet 8 MG PO (21:03)
[2021-10-15 22:30] VITALS: PULSE 110; RESP 32; O2SAT 71
[2021-10-15 22:45] VITALS: BP 189/118; PULSE 118; RESP 32; TEMP 36.7; O2SAT 86
--- NOTE | 2021-10-15 22:45 | NURSING ---
Addendum entered by Melodie Nunes 10/16/21 00:05: CORRECTION: O2 initially observed 71% on 2L O2 via NC, increased to 5L O2 via NC spo2 increased to 87% Original Note: SUPERVISOR BREW HOUSE requests this nurse present to room due to patient rapid respirations/shortness of breath. Pt. immediately assessed. Second RN present for assessment. Respirations 32/min shallow, wheezes auscultated throughout lung luke, pt. c/o SOB, confused per usual, alert to self at this time, able to voice needs, able to answer question but increased SOB with speaking. Rapid responds called. Temp 98.0, pulse 115, Resps 32, BP 189/118, Spo2 86% on 2L O2 via oxygen increased to 5L SPo2 87%. Rapid response team arrive, per Dr. Schrader send to ED for eval and treat.
--- NOTE | 2021-10-15 23:00 | NURSING ---
Addendum entered by Melodie Nunes 10/15/21 23:46: @23:15 attempted to contact pt. customer care representative (Neil) per facesheet, no answer, voicemail left with request to return call to unit for update. Attempted to contact 2nd listed customer care representative (Carolina) no answer. Able to contact 3rd listed customer care representative(Elizabeth) via telephone, notified of patient new onset symptoms and transport to ED per physician order, encouraged to contact ED RN for updates, Elizabeth expresses thanks for update no concerns voiced at this time. Original Note: Patient transported to ED via cot with RN at bedside, bedside handoff report given to ED RN by this nurse. Pt. experiences emesis/ clear frothy sputum upon arrival to ED. Facesheet/patient information sent to ED by TCU executive secretary.
--- NOTE | 2021-10-16 02:41 | NURSING ---
Received report from ED (Clif) via telephone, states patient to return to TCU, DX: pleural effusion, CHF, reports pt. BNP 760, received Nitro and Lasix IV while in ED, improved but remains on 10L hi-dante 02 with continued SOB. Per Clif, pt. territory account representative Elizabeth was updated on patient status and order to return to TCU. Per Clif ED physician to order Lasix 20mg BID on discharge paper work, ED to send pt. to unit. 20G IV placed to AC in ED.
--- NOTE | 2021-10-16 03:14 | NURSING ---
Addendum entered by Melodie Nunes 10/16/21 07:37: notified at this time of patient AURIST, ED dx, and new order for Lasix 20mg BID [id number] Original Note: Patient returns to unit from ED. Presents in bed, 10L hi-dante O2 per ED, no distress observed or reported. Conversing with staff. Denies requests. Call light in reach.
[2021-10-16 04:36] VITALS: PULSE 79; O2SAT 97
[2021-10-16] MEDS: Polyethylene Glycol 3350 17 GM PACKET PO (06:43)
[2021-10-16] MEDS: Acetaminophen 500 MG Tablet 1000 MG PO ×3 (06:43→21:30)
[2021-10-16] MEDS: Carbidopa/Levodopa 25/100 Tablet PO ×3 (06:44→16:52)
[2021-10-16] MEDS: Sertraline 50 MG Tablet 25 MG PO (06:44)
[2021-10-16] MEDS: Pantoprazole Sodium 40 MG Tablet PO (06:44)
[2021-10-16] MEDS: Furosemide 20 MG Tablet PO ×2 (06:44→14:43)
[2021-10-16] MEDS: Losartan Potassium 50 MG Tablet PO (06:44)
[2021-10-16 06:45] VITALS: BP 133/67; PULSE 69; RESP 24; O2SAT 97
[2021-10-16] MEDS: Senna/Docusate Sodium 1 Tablet 2 TABLET PO ×2 (06:46→16:52)
[2021-10-16 07:24] VITALS: O2SAT 97
[2021-10-16] MEDS: Aspirin 81 MG TAB.CHEW PO (08:07)
[2021-10-16 10:19] VITALS: O2SAT 94; O2SAT 98
[2021-10-16 14:41] VITALS: BP 114/61; PULSE 61; RESP 18; TEMP 35.7; O2SAT 95
--- NOTE | 2021-10-16 15:29 | NURSING ---
Lupe to refugiok, stating pt was only at 30 degrees in bed after meal yesterday, also stated I forgot to tell the nurse yesterday that he was coughing while eating lunch yesterday when I was with him. This nurse told Fabiano-I-L that I would make sure staff was aware of keeping pt elevated after meals. Lupe appears agitated with staff. Will continue to monitor patient.
[2021-10-16] MEDS: Doxazosin 4 MG Tablet 8 MG PO (21:29)
[2021-10-16] MEDS: Atorvastatin Calcium 10 MG Tablet PO (21:29)
[2021-10-16] MEDS: Finasteride 5 MG Tablet PO (21:30)
[2021-10-16 22:44] VITALS: PULSE 60; RESP 16; O2SAT 99
[2021-10-17] MEDS: Pantoprazole Sodium 40 MG Tablet PO (05:24)
[2021-10-17] MEDS: Polyethylene Glycol 3350 17 GM PACKET PO (05:24)
[2021-10-17] MEDS: Acetaminophen 500 MG Tablet 1000 MG PO ×3 (05:25→20:15)
[2021-10-17] MEDS: Senna/Docusate Sodium 1 Tablet 2 TABLET PO ×2 (05:25→17:24)
[2021-10-17] MEDS: Carbidopa/Levodopa 25/100 Tablet PO ×3 (05:25→17:24)
[2021-10-17] MEDS: Sertraline 50 MG Tablet 25 MG PO (05:25)
[2021-10-17] MEDS: Furosemide 20 MG Tablet PO ×2 (05:25→13:00)
[2021-10-17] MEDS: Losartan Potassium 50 MG Tablet PO (05:25)
[2021-10-17 06:47] VITALS: O2SAT 97
[2021-10-17] MEDS: Aspirin 81 MG TAB.CHEW PO (08:14)
[2021-10-17 10:00] VITALS: PULSE 61; RESP 18; O2SAT 95
[2021-10-17 13:02] VITALS: BP 148/72; PULSE 63; RESP 20; TEMP 36.7; O2SAT 95
[2021-10-17] MEDS: Atorvastatin Calcium 10 MG Tablet PO (20:15)
[2021-10-17] MEDS: Finasteride 5 MG Tablet PO (20:15)
[2021-10-17] MEDS: Doxazosin 4 MG Tablet 8 MG PO (20:15)
--- NOTE | 2021-10-18 02:28 | NURSING ---
Left vm for YOUNG Brewer, questioning if pt may benefit from a palliative care referral.
[2021-10-18] MEDS: Losartan Potassium 50 MG Tablet PO (05:30)
[2021-10-18] MEDS: Acetaminophen 500 MG Tablet 1000 MG PO ×3 (05:30→21:29)
[2021-10-18] MEDS: Carbidopa/Levodopa 25/100 Tablet PO ×3 (05:31→16:54)
[2021-10-18] MEDS: Sertraline 50 MG Tablet 25 MG PO (05:31)
[2021-10-18] MEDS: Pantoprazole Sodium 40 MG Tablet PO (05:31)
[2021-10-18] MEDS: Senna/Docusate Sodium 1 Tablet 2 TABLET PO ×2 (05:31→16:54)
[2021-10-18] MEDS: Polyethylene Glycol 3350 17 GM PACKET PO (05:31)
[2021-10-18] MEDS: Furosemide 20 MG Tablet PO ×2 (05:31→13:27)
[2021-10-18] MEDS: Aspirin 81 MG TAB.CHEW PO (07:52)
--- NOTE | 2021-10-18 09:32 | CASEMGMT ---
Social Work Received voicemail from nightshift nurse about Palliative referral. Emailed nurse in response to notify her pt is already active with [facility]. Daniella Shankar, TOMMY CERAMIC ENGINEER
[2021-10-18 14:32] VITALS: BP 122/66; PULSE 85; RESP 14; TEMP 36.6; O2SAT 98
--- NOTE | 2021-10-18 14:56 | CASEMGMT ---
Social Work DIL presented to office inquiring about DC DME. DIL requesting aaliyah lift and electric w/c. Explained typically covers aaliyah lift at 80%, but will not cover electric w/c. Offered DIL aaliyah lift training with therapy. DIL agreed. Will speak with therapy about time/date and notify DIL. Daniella Shankar, TOMMY CHINW
[2021-10-18 18:45] VITALS: BP 122/66; PULSE 85; RESP 16; TEMP 36.7; O2SAT 98
[2021-10-18 21:30] VITALS: O2SAT 98
[2021-10-18] MEDS: Doxazosin 4 MG Tablet 8 MG PO (21:30)
[2021-10-18] MEDS: Atorvastatin Calcium 10 MG Tablet PO (21:30)
[2021-10-18] MEDS: Finasteride 5 MG Tablet PO (21:31)
[2021-10-19] MEDS: Polyethylene Glycol 3350 17 GM PACKET PO (05:51)
[2021-10-19] MEDS: Pantoprazole Sodium 40 MG Tablet PO (05:52)
[2021-10-19] MEDS: Acetaminophen 500 MG Tablet 1000 MG PO ×3 (05:52→20:28)
[2021-10-19] MEDS: Sertraline 50 MG Tablet 25 MG PO (05:52)
[2021-10-19] MEDS: Losartan Potassium 50 MG Tablet PO (05:52)
[2021-10-19] MEDS: Carbidopa/Levodopa 25/100 Tablet PO ×3 (05:52→17:27)
[2021-10-19] MEDS: Furosemide 20 MG Tablet PO ×2 (05:52→13:41)
[2021-10-19] MEDS: 0.9% Saline Lock 10 ML Syringe IV ×2 (05:54→20:38)
[2021-10-19] MEDS: Senna/Docusate Sodium 1 Tablet 2 TABLET PO ×2 (05:59→17:26)
[2021-10-19 06:00] VITALS: BP 145/74; PULSE 66
[2021-10-19 06:42] VITALS: O2SAT 96
[2021-10-19] MEDS: Aspirin 81 MG TAB.CHEW PO (08:03)
--- NOTE | 2021-10-19 13:00 | CASEMGMT ---
Social Work Therapy states pt is not using a aaliyah lift, but did agree to family training. Pt is seen daily at 10 am. Spoke with DIL to coordinate date. DIL can attend Sunday 10/22. Updated therapy. TOMMY AlejandreW
[2021-10-19 16:00] VITALS: BP 139/69; PULSE 65; RESP 14; TEMP 36.6; O2SAT 98
[2021-10-19] MEDS: Doxazosin 4 MG Tablet 8 MG PO (20:28)
[2021-10-19] MEDS: Finasteride 5 MG Tablet PO (20:28)
[2021-10-19] MEDS: Atorvastatin Calcium 10 MG Tablet PO (20:29)
[2021-10-20] VITALS (8 sets, daily range): BP systolic 105–120; BP diastolic 52–72; PULSE 60–70; RESP 14; TEMP 36.4; O2SAT 92–98
[2021-10-20] MEDS: 0.9% Saline Lock 10 ML Syringe IV (06:27)
[2021-10-20] MEDS: Polyethylene Glycol 3350 17 GM PACKET PO (06:30)
[2021-10-20] MEDS: Furosemide 20 MG Tablet PO ×2 (06:30→14:17)
[2021-10-20] MEDS: Senna/Docusate Sodium 1 Tablet 2 TABLET PO ×2 (06:30→18:05)
[2021-10-20] MEDS: Sertraline 50 MG Tablet 25 MG PO (06:30)
[2021-10-20] MEDS: Carbidopa/Levodopa 25/100 Tablet PO ×3 (06:30→18:05)
[2021-10-20] MEDS: Acetaminophen 500 MG Tablet 1000 MG PO ×3 (06:30→21:23)
[2021-10-20] MEDS: Pantoprazole Sodium 40 MG Tablet PO (06:31)
[2021-10-20] MEDS: Losartan Potassium 50 MG Tablet PO (06:31)
[2021-10-20] MEDS: Aspirin 81 MG TAB.CHEW PO (08:04)
--- NOTE | 2021-10-20 14:21 | NURSING ---
Back from appointment with Carolina Thompson. Pills given at this time. Family at bedside.
--- NOTE | 2021-10-20 15:05 | NURSING ---
SPO2 96% on 6l/min of O2. Turned down to 4l/min. WIll continue to monitor. Daughter asking about his SL and wondering if it can be dc'd. Discontinued at this time.
[2021-10-20] MEDS: Finasteride 5 MG Tablet PO (21:23)
[2021-10-20] MEDS: Atorvastatin Calcium 10 MG Tablet PO (21:23)
[2021-10-20] MEDS: Doxazosin 4 MG Tablet 8 MG PO (21:23)
[2021-10-21] MEDS: Polyethylene Glycol 3350 17 GM PACKET PO (06:32)
[2021-10-21] MEDS: Pantoprazole Sodium 40 MG Tablet PO (06:32)
[2021-10-21] MEDS: Furosemide 20 MG Tablet PO ×2 (06:32→13:24)
[2021-10-21] MEDS: Carbidopa/Levodopa 25/100 Tablet PO ×3 (06:32→17:21)
[2021-10-21] MEDS: Acetaminophen 500 MG Tablet 1000 MG PO ×3 (06:32→21:26)
[2021-10-21] MEDS: Senna/Docusate Sodium 1 Tablet 2 TABLET PO ×2 (06:32→17:21)
[2021-10-21] MEDS: Sertraline 50 MG Tablet 25 MG PO (06:32)
[2021-10-21] MEDS: Losartan Potassium 50 MG Tablet PO (06:33)
[2021-10-21] MEDS: Aspirin 81 MG TAB.CHEW PO (07:34)
[2021-10-21 15:07] VITALS: BP 146/70; PULSE 60; RESP 16; TEMP 36.6; O2SAT 96
[2021-10-21 16:53] VITALS: O2SAT 96
[2021-10-21] MEDS: Doxazosin 4 MG Tablet 8 MG PO (21:23)
[2021-10-21] MEDS: Atorvastatin Calcium 10 MG Tablet PO (21:25)
[2021-10-21] MEDS: Finasteride 5 MG Tablet PO (21:26)
[2021-10-21 21:34] VITALS: BP 145/62; PULSE 69; RESP 17; TEMP 37.1; O2SAT 97
[2021-10-22 05:59] LABS: Absolute Lymphocyte Count 1.33 X10^3/uL (0.83-4.51); Basophil# 0.04 X10^3/uL; Basophil% 0.3 % (0-1); Eosinophils% 8.9 % (0-5); Hematocrit 39.9 % (40-54); Hemoglobin 12.9 g/dL (13.0-16.5); Lymphocyte # 1.33 X10^3/ul (0.83-4.51); Lymphocyte % 10.8 % (19-41); Mean Corp Hgb Conc 32.3 g/dL (32-36); Mean Corpuscular Hgb 32.2 pg (27.0-32.0); Mean Corpuscular Volume 99.5 fL (80-94); Mean Platelet Vol. 11.1 fl (6.2-12.0); Monocyte% 6.5 % (0-10); NRBC Flagged by Analyzer 0 % (0-5); Neutrophil # 8.99 X10^3/uL (2.7-7.7); Neutrophil % 73.2 % (47-70); Platelet Count 198 K/mm3 (150-450); RBC Distribution Width CV 15.1 % (11.6-14.6); RBC Distribution Width SD 56.3 fl (35.1-43.9); Red Blood Count 4.01 M/mm3 (4.6-6.2); White Blood Count 12.3 K/mm3 (4.4-11.0)
[2021-10-22] MEDS: Acetaminophen 500 MG Tablet 1000 MG PO ×3 (06:52→21:17)
[2021-10-22] MEDS: Senna/Docusate Sodium 1 Tablet 2 TABLET PO ×2 (06:52→17:27)
[2021-10-22] MEDS: Polyethylene Glycol 3350 17 GM PACKET PO (06:52)
[2021-10-22] MEDS: Pantoprazole Sodium 40 MG Tablet PO (06:53)
[2021-10-22] MEDS: Furosemide 20 MG Tablet PO ×2 (06:53→13:11)
[2021-10-22] MEDS: Carbidopa/Levodopa 25/100 Tablet PO ×3 (06:53→17:27)
[2021-10-22] MEDS: Losartan Potassium 50 MG Tablet PO (06:53)
[2021-10-22] MEDS: Sertraline 50 MG Tablet 25 MG PO (06:53)
[2021-10-22 07:02] LABS: Anion Gap 4 (5-15); BUN 29 mg/dL (7-18); BUN/Creat Ratio 30.4 RATIO (10-20); Calcium,Total 9.2 mg/dL (8.5-10.1); Chloride 108 mmol/L (98-107); Creatinine, Serum 0.95 mg/dL (0.70-1.30); EST Glomerular Filtration Rate 80 mL/min (>60); Est Glom Filt Rate - Afr Amer 97 mL/min (>60); Estimated Creatinine Clearance 58.92 ml/min; Glucose 82 mg/dL (74-106); Potassium 4.1 mmol/L (3.5-5.1); Sodium Level 143 mmol/L (136-145)
--- NOTE | 2021-10-22 07:39 | PCA ---
Transferring Benny into recliner. Staff handed him his cup to hold onto, cup fell out of his hand. Started to leave his room & noticed a skin tear on his Right hand. I asked Benny what happened to his hand & he said it was from the cup. Reported to Nurse. Area cleaned & band-aid applied.
--- NOTE | 2021-10-22 07:40 | NURSING ---
Addendum entered by Melodie Nunes 10/22/21 07:57: Pt. leasing representative (Neil phone number [phone] per facesheet) notified of new open area to right hand, no concerns voiced at this time. Original Note: CLINICAL REVIEWER reports open area to right hand 1cmL x 1cm w x 0.1cm D, ecchymosis observed to site patient states bumped hand when reaching for cup, minimal red drainage observed to site, denies pain, dressing applied per order. No distress observed or reported.
[2021-10-22] MEDS: Aspirin 81 MG TAB.CHEW PO (08:30)
[2021-10-22 15:31] VITALS: BP 116/64; PULSE 77; RESP 14; TEMP 36.4; O2SAT 90
[2021-10-22 15:35] VITALS: O2SAT 91
[2021-10-22] MEDS: Menthol/Lanolin/Calamine/Znox 113 GM Tube 1 APPLIC TOPICAL (17:27)
[2021-10-22] MEDS: Doxazosin 4 MG Tablet 8 MG PO (21:15)
[2021-10-22] MEDS: Atorvastatin Calcium 10 MG Tablet PO (21:16)
[2021-10-22] MEDS: Finasteride 5 MG Tablet PO (21:17)
[2021-10-22 23:21] VITALS: PULSE 62; RESP 16
[2021-10-23] MEDS: Menthol/Lanolin/Calamine/Znox 113 GM Tube 1 APPLIC TOPICAL ×2 (05:10→17:09)
[2021-10-23] MEDS: Furosemide 20 MG Tablet PO ×2 (05:10→13:14)
[2021-10-23] MEDS: Acetaminophen 500 MG Tablet 1000 MG PO ×3 (05:10→21:00)
[2021-10-23] MEDS: Sertraline 50 MG Tablet 25 MG PO (05:11)
[2021-10-23] MEDS: Pantoprazole Sodium 40 MG Tablet PO (05:11)
[2021-10-23] MEDS: Losartan Potassium 50 MG Tablet PO (05:11)
[2021-10-23] MEDS: Polyethylene Glycol 3350 17 GM PACKET PO (05:11)
[2021-10-23] MEDS: Carbidopa/Levodopa 25/100 Tablet PO ×3 (05:11→17:06)
[2021-10-23] MEDS: Senna/Docusate Sodium 1 Tablet 2 TABLET PO ×2 (05:11→17:06)
[2021-10-23] MEDS: Aspirin 81 MG TAB.CHEW PO (09:56)
[2021-10-23 16:00] VITALS: BP 136/67; PULSE 62; RESP 20; TEMP 36.3; O2SAT 99
[2021-10-23] MEDS: Atorvastatin Calcium 10 MG Tablet PO (21:00)
[2021-10-23] MEDS: Finasteride 5 MG Tablet PO (21:00)
[2021-10-23] MEDS: Doxazosin 4 MG Tablet 8 MG PO (21:00)
[2021-10-24] MEDS: Senna/Docusate Sodium 1 Tablet 2 TABLET PO ×2 (06:23→17:04)
[2021-10-24] MEDS: Polyethylene Glycol 3350 17 GM PACKET PO (06:23)
[2021-10-24] MEDS: Sertraline 50 MG Tablet 25 MG PO (06:24)
[2021-10-24] MEDS: Furosemide 20 MG Tablet PO ×2 (06:25→13:00)
[2021-10-24] MEDS: Carbidopa/Levodopa 25/100 Tablet PO ×3 (06:25→17:04)
[2021-10-24] MEDS: Acetaminophen 500 MG Tablet 1000 MG PO ×3 (06:25→20:19)
[2021-10-24] MEDS: Losartan Potassium 50 MG Tablet PO (06:26)
[2021-10-24] MEDS: Menthol/Lanolin/Calamine/Znox 113 GM Tube 1 APPLIC TOPICAL ×2 (06:26→17:04)
[2021-10-24] MEDS: Pantoprazole Sodium 40 MG Tablet PO (06:26)
[2021-10-24 06:41] VITALS: BP 159/74; PULSE 60
[2021-10-24] MEDS: Aspirin 81 MG TAB.CHEW PO (07:43)
[2021-10-24 16:32] VITALS: BP 117/55; PULSE 60; RESP 20; TEMP 36.3; O2SAT 97
[2021-10-24 19:35] VITALS: O2SAT 96
[2021-10-24] MEDS: Doxazosin 4 MG Tablet 8 MG PO (20:19)
[2021-10-24] MEDS: Finasteride 5 MG Tablet PO (20:19)
[2021-10-24] MEDS: Atorvastatin Calcium 10 MG Tablet PO (20:19)
--- NOTE | 2021-10-24 21:04 | NURSING ---
Addendum entered by Carlota Beckwith 10/24/21 23:17: notified of UA, new order for Ceftin, first does given, will continue to monitor. Original Note: Per dayshift, pt has been having dark, concentrated urine all day with frequent urination. notified, new order to straight cath for UA.
[2021-10-24 22:00] LABS: Mucous, Urine 0 SEEN /hpf (<or=2+); Red Blood Cells-Urine 0 SEEN /hpf (0-5); Squamous Epithelial Cells - UA 0 SEEN /hpf (0-5)
[2021-10-24 22:09] LABS: Color, Urine Yellow (Yellow); Glucose, Dipstick Normal (Normal); Ketone-Dipstick Negative (Negative); Leukocyte Esterase-Dipstick 500 /ul (Negative); Nitrite-Dipstick Positive (Negative); Occult Blood-Urine 150 /ul (Negative); Protein-Dipstick 30 mg/dl (Negative); Specific Gravity, Urine 1.015 (1.002-1.030); Urine Bilirubin Dipstick Negative (Negative); Urine Clarity Sl. Cloudy (Clear); Urine Urobilinogen Normal (Normal)
[2021-10-24 22:16] LABS: Bacteria 1+ /hpf (None Seen); White Blood Cells 50-100 SEEN /hpf (0-5)
[2021-10-24] MEDS: CEFUROXIME AXETIL 250 MG TABLET 500 MG PO (23:14)
[2021-10-25 05:25] VITALS: BP 150/76; PULSE 62
[2021-10-25] MEDS: Carbidopa/Levodopa 25/100 Tablet PO ×3 (05:29→17:45)
[2021-10-25] MEDS: Sertraline 50 MG Tablet 25 MG PO (05:29)
[2021-10-25] MEDS: Menthol/Lanolin/Calamine/Znox 113 GM Tube 1 APPLIC TOPICAL ×2 (05:29→17:46)
[2021-10-25] MEDS: Polyethylene Glycol 3350 17 GM PACKET PO (05:29)
[2021-10-25] MEDS: Furosemide 20 MG Tablet PO ×2 (05:29→13:22)
[2021-10-25] MEDS: Pantoprazole Sodium 40 MG Tablet PO (05:30)
[2021-10-25] MEDS: Losartan Potassium 50 MG Tablet PO (05:30)
[2021-10-25] MEDS: Senna/Docusate Sodium 1 Tablet 2 TABLET PO ×2 (05:30→17:46)
[2021-10-25] MEDS: CEFUROXIME AXETIL 250 MG TABLET 500 MG PO ×2 (05:30→17:45)
[2021-10-25] MEDS: Acetaminophen 500 MG Tablet 1000 MG PO ×3 (05:30→21:34)
[2021-10-25] MEDS: Aspirin 81 MG TAB.CHEW PO (08:41)
[2021-10-25 15:05] VITALS: BP 141/61; PULSE 60; RESP 18; TEMP 36.6; O2SAT 95
[2021-10-25] MEDS: Finasteride 5 MG Tablet PO (21:34)
[2021-10-25] MEDS: Doxazosin 4 MG Tablet 8 MG PO (21:34)
[2021-10-25] MEDS: Atorvastatin Calcium 10 MG Tablet PO (21:35)
[2021-10-26] MEDS: Menthol/Lanolin/Calamine/Znox 113 GM Tube 1 APPLIC TOPICAL ×2 (05:07→18:06)
[2021-10-26] MEDS: Polyethylene Glycol 3350 17 GM PACKET PO (05:07)
[2021-10-26] MEDS: CEFUROXIME AXETIL 250 MG TABLET 500 MG PO ×2 (05:08→18:06)
[2021-10-26] MEDS: Pantoprazole Sodium 40 MG Tablet PO (05:08)
[2021-10-26] MEDS: Furosemide 20 MG Tablet PO (05:08)
[2021-10-26] MEDS: Acetaminophen 500 MG Tablet 1000 MG PO ×3 (05:08→21:03)
[2021-10-26] MEDS: Sertraline 50 MG Tablet 25 MG PO (05:08)
[2021-10-26] MEDS: Carbidopa/Levodopa 25/100 Tablet PO ×3 (05:09→18:06)
[2021-10-26] MEDS: Senna/Docusate Sodium 1 Tablet 2 TABLET PO ×2 (05:09→18:06)
[2021-10-26] MEDS: Losartan Potassium 50 MG Tablet PO (05:09)
[2021-10-26 05:10] VITALS: BP 150/77; PULSE 60
[2021-10-26] MEDS: Aspirin 81 MG TAB.CHEW PO (07:58)
[2021-10-26 15:45] VITALS: BP 127/56; PULSE 60; RESP 18; TEMP 36.1; O2SAT 98
[2021-10-26 17:46] VITALS: O2SAT 98
[2021-10-26 19:35] VITALS: PULSE 64; RESP 14
[2021-10-26] MEDS: Finasteride 5 MG Tablet PO (21:04)
[2021-10-26] MEDS: Atorvastatin Calcium 10 MG Tablet PO (21:05)
[2021-10-26] MEDS: Doxazosin 4 MG Tablet 8 MG PO (21:05)
[2021-10-26 21:14] VITALS: BP 143/61; PULSE 61
[2021-10-27] MEDS: Polyethylene Glycol 3350 17 GM PACKET PO (05:27)
[2021-10-27] MEDS: Pantoprazole Sodium 40 MG Tablet PO (05:28)
[2021-10-27] MEDS: Acetaminophen 500 MG Tablet 1000 MG PO ×3 (05:28→21:40)
[2021-10-27] MEDS: Senna/Docusate Sodium 1 Tablet 2 TABLET PO ×2 (05:28→18:00)
[2021-10-27] MEDS: CEFUROXIME AXETIL 250 MG TABLET 500 MG PO (05:29)
[2021-10-27] MEDS: Sertraline 50 MG Tablet 25 MG PO (05:29)
[2021-10-27] MEDS: Carbidopa/Levodopa 25/100 Tablet PO ×3 (05:29→17:59)
[2021-10-27] MEDS: Losartan Potassium 50 MG Tablet PO (05:47)
[2021-10-27] MEDS: Menthol/Lanolin/Calamine/Znox 113 GM Tube 1 APPLIC TOPICAL ×2 (05:47→18:00)
[2021-10-27 08:01] VITALS: O2SAT 97
[2021-10-27] MEDS: Ciprofloxacin 250 MG Tablet PO ×2 (08:09→18:00)
[2021-10-27] MEDS: Aspirin 81 MG TAB.CHEW PO (08:10)
[2021-10-27 14:12] VITALS: BP 126/60; PULSE 60; RESP 14; TEMP 36.4; O2SAT 93
[2021-10-27 21:40] VITALS: BP 150/71; PULSE 66
[2021-10-27] MEDS: Doxazosin 4 MG Tablet 8 MG PO (21:40)
[2021-10-27] MEDS: Finasteride 5 MG Tablet PO (21:40)
[2021-10-27] MEDS: Atorvastatin Calcium 10 MG Tablet PO (21:40)
[2021-10-27 22:00] VITALS: PULSE 61; RESP 14
[2021-10-28] MEDS: Senna/Docusate Sodium 1 Tablet 2 TABLET PO ×2 (06:29→17:01)
[2021-10-28] MEDS: Polyethylene Glycol 3350 17 GM PACKET PO (06:29)
[2021-10-28] MEDS: Losartan Potassium 50 MG Tablet PO (06:29)
[2021-10-28] MEDS: Sertraline 50 MG Tablet 25 MG PO (06:29)
[2021-10-28] MEDS: Menthol/Lanolin/Calamine/Znox 113 GM Tube 1 APPLIC TOPICAL ×2 (06:29→17:01)
[2021-10-28] MEDS: Pantoprazole Sodium 40 MG Tablet PO (06:29)
[2021-10-28] MEDS: Acetaminophen 500 MG Tablet 1000 MG PO ×3 (06:29→21:43)
[2021-10-28] MEDS: Carbidopa/Levodopa 25/100 Tablet PO ×3 (06:30→17:00)
[2021-10-28] MEDS: Ciprofloxacin 250 MG Tablet PO ×2 (06:30→17:00)
[2021-10-28] MEDS: Aspirin 81 MG TAB.CHEW PO (07:44)
--- NOTE | 2021-10-28 14:16 | CASEMGMT ---
Social Work IDT requesting DC date 11/06. Contacted son to discuss DC. Son agreeable. Reviewed DC needs: [facility], used prior, BSC, aaliyah and O2. Son confirmed. Son to transport. Referral made to [facility] PT/OT/ST/SN/COLE. Updated Palliative. Referral made to [facility]. Plan: DC home with son and DIL with 16/01 care, [facility] PT/OT/ST/SN/COLE, O2, aaliyah, BSC Daniella Shankar, TOMMY CHINW
[2021-10-28 16:00] VITALS: BP 132/65; PULSE 60; RESP 14; TEMP 36.3; O2SAT 96
--- NOTE | 2021-10-28 21:00 | NURSING ---
Addendum entered by Melodie Nunes 10/28/21 21:55: notified via written communication for review in AM rounds Addendum entered by Melodie Nunes 10/28/21 21:12: division sales manager notified via confidential email Original Note: Per second RN, pt customer support representative/son (Neil) called unit to notify that he will not be in to visit patient until further notice due to Neil's significant other testing positive for Covid
[2021-10-28 21:39] VITALS: BP 155/66; PULSE 60; RESP 18; TEMP 36.6; O2SAT 98
[2021-10-28] MEDS: Doxazosin 4 MG Tablet 8 MG PO (21:43)
[2021-10-28] MEDS: Finasteride 5 MG Tablet PO (21:43)
[2021-10-28] MEDS: Atorvastatin Calcium 10 MG Tablet PO (21:43)
[2021-10-28 22:00] VITALS: RESP 18
[2021-10-29 05:28] VITALS: BP 159/64; PULSE 60
[2021-10-29 05:39] LABS: Absolute Lymphocyte Count 1.99 X10^3/uL (0.83-4.51); Absolute Neutrophil Count 6.2 X10^3/uL (2.0-7.7); Basophil# 0.05 X10^3/uL; Basophil% 0.5 % (0-1); Eosinophil# 1.51 X10^3/uL; Eosinophils% 13.8 % (0-5); Hematocrit 37.3 % (40-54); Hemoglobin 11.9 g/dL (13.0-16.5); Lymphocyte # 1.99 X10^3/ul (0.83-4.51); Lymphocyte % 18.2 % (19-41); Mean Corp Hgb Conc 31.9 g/dL (32-36); Mean Corpuscular Hgb 31.8 pg (27.0-32.0); Mean Corpuscular Volume 99.7 fL (80-94); Mean Platelet Vol. 11.5 fl (6.2-12.0); Monocyte# 1.19 X10^3/uL; Monocyte% 10.9 % (0-10); NRBC Flagged by Analyzer 0 % (0-5); Neutrophil # 6.16 X10^3/uL (2.7-7.7); Neutrophil % 56.1 % (47-70); Platelet Count 189 K/mm3 (150-450); RBC Distribution Width CV 15.5 % (11.6-14.6); RBC Distribution Width SD 56.9 fl (35.1-43.9); Red Blood Count 3.74 M/mm3 (4.6-6.2)
[2021-10-29 06:05] LABS: Anion Gap 4 (5-15); BUN 29 mg/dL (7-18); Calcium,Total 8.8 mg/dL (8.5-10.1); Chloride 106 mmol/L (98-107); Creatinine, Serum 0.94 mg/dL (0.70-1.30); EST Glomerular Filtration Rate 82 mL/min (>60); Est Glom Filt Rate - Afr Amer 99 mL/min (>60); Estimated Creatinine Clearance 59.54 ml/min; Glucose 78 mg/dL (74-106); Sodium Level 141 mmol/L (136-145)
[2021-10-29] MEDS: Carbidopa/Levodopa 25/100 Tablet PO ×3 (06:32→17:42)
[2021-10-29] MEDS: Sertraline 50 MG Tablet 25 MG PO (06:32)
[2021-10-29] MEDS: Losartan Potassium 50 MG Tablet PO (06:32)
[2021-10-29] MEDS: Ciprofloxacin 250 MG Tablet PO ×2 (06:32→17:42)
[2021-10-29] MEDS: Pantoprazole Sodium 40 MG Tablet PO (06:32)
[2021-10-29] MEDS: Acetaminophen 500 MG Tablet 1000 MG PO ×3 (06:32→21:47)
[2021-10-29] MEDS: Senna/Docusate Sodium 1 Tablet 2 TABLET PO ×2 (06:32→17:41)
[2021-10-29] MEDS: Polyethylene Glycol 3350 17 GM PACKET PO (06:32)
[2021-10-29] MEDS: Menthol/Lanolin/Calamine/Znox 113 GM Tube 1 APPLIC TOPICAL ×2 (06:46→17:44)
[2021-10-29] MEDS: Aspirin 81 MG TAB.CHEW PO (07:51)
[2021-10-29 10:00] VITALS: RESP 18
[2021-10-29 14:03] VITALS: O2SAT 98
[2021-10-29 14:10] VITALS: BP 116/58; PULSE 65; RESP 16; TEMP 36.2; O2SAT 96
[2021-10-29] MEDS: Atorvastatin Calcium 10 MG Tablet PO (21:46)
[2021-10-29] MEDS: Doxazosin 4 MG Tablet 8 MG PO (21:46)
[2021-10-29] MEDS: Finasteride 5 MG Tablet PO (21:47)
[2021-10-30] MEDS: Menthol/Lanolin/Calamine/Znox 113 GM Tube 1 APPLIC TOPICAL ×2 (06:02→17:11)
[2021-10-30] MEDS: Polyethylene Glycol 3350 17 GM PACKET PO (06:02)
[2021-10-30] MEDS: Losartan Potassium 50 MG Tablet PO (06:03)
[2021-10-30] MEDS: Sertraline 50 MG Tablet 25 MG PO (06:03)
[2021-10-30] MEDS: Pantoprazole Sodium 40 MG Tablet PO (06:03)
[2021-10-30] MEDS: Carbidopa/Levodopa 25/100 Tablet PO ×3 (06:03→17:10)
[2021-10-30] MEDS: Senna/Docusate Sodium 1 Tablet 2 TABLET PO ×2 (06:03→17:10)
[2021-10-30] MEDS: Ciprofloxacin 250 MG Tablet PO ×2 (06:03→17:10)
[2021-10-30] MEDS: Acetaminophen 500 MG Tablet 1000 MG PO ×2 (06:03→21:52)
[2021-10-30] MEDS: Aspirin 81 MG TAB.CHEW PO (08:24)
[2021-10-30 13:35] VITALS: O2SAT 94
[2021-10-30 16:00] VITALS: BP 150/69; PULSE 60; RESP 18; TEMP 36.2; O2SAT 96
[2021-10-30] MEDS: Atorvastatin Calcium 10 MG Tablet PO (21:53)
[2021-10-30] MEDS: Finasteride 5 MG Tablet PO (21:53)
[2021-10-30] MEDS: Doxazosin 4 MG Tablet 8 MG PO (21:55)
[2021-10-30 21:58] VITALS: BP 158/69; PULSE 60; RESP 18; O2SAT 93
[2021-10-30 22:05] VITALS: PULSE 60; RESP 18; O2SAT 93
[2021-10-31 05:15] VITALS: BP 138/61; PULSE 62
[2021-10-31] MEDS: Sertraline 50 MG Tablet 25 MG PO (05:17)
[2021-10-31] MEDS: Losartan Potassium 50 MG Tablet PO (05:17)
[2021-10-31] MEDS: Acetaminophen 500 MG Tablet 1000 MG PO ×3 (05:18→21:37)
[2021-10-31] MEDS: Senna/Docusate Sodium 1 Tablet 2 TABLET PO ×2 (05:18→17:46)
[2021-10-31] MEDS: Carbidopa/Levodopa 25/100 Tablet PO ×3 (05:18→17:31)
[2021-10-31] MEDS: Ciprofloxacin 250 MG Tablet PO ×2 (05:18→17:32)
[2021-10-31] MEDS: Polyethylene Glycol 3350 17 GM PACKET PO (05:18)
[2021-10-31] MEDS: Pantoprazole Sodium 40 MG Tablet PO (05:18)
[2021-10-31] MEDS: Menthol/Lanolin/Calamine/Znox 113 GM Tube 1 APPLIC TOPICAL ×2 (05:19→17:31)
[2021-10-31] MEDS: Aspirin 81 MG TAB.CHEW PO (08:20)
[2021-10-31 10:30] VITALS: O2SAT 93
[2021-10-31 16:00] VITALS: BP 143/69; PULSE 60; RESP 16; TEMP 36.8; O2SAT 94
[2021-10-31] MEDS: Doxazosin 4 MG Tablet 8 MG PO (21:30)
[2021-10-31] MEDS: Atorvastatin Calcium 10 MG Tablet PO (21:31)
[2021-10-31] MEDS: Finasteride 5 MG Tablet PO (21:31)
[2021-11-01 05:09] VITALS: BP 146/65; PULSE 61
[2021-11-01] MEDS: Polyethylene Glycol 3350 17 GM PACKET PO (05:10)
[2021-11-01] MEDS: Acetaminophen 500 MG Tablet 1000 MG PO ×3 (05:12→21:04)
[2021-11-01] MEDS: Sertraline 50 MG Tablet 25 MG PO (05:13)
[2021-11-01] MEDS: Pantoprazole Sodium 40 MG Tablet PO (05:13)
[2021-11-01] MEDS: Senna/Docusate Sodium 1 Tablet 2 TABLET PO ×2 (05:13→18:05)
[2021-11-01] MEDS: Losartan Potassium 50 MG Tablet PO (05:13)
[2021-11-01] MEDS: Carbidopa/Levodopa 25/100 Tablet PO ×3 (05:13→16:01)
[2021-11-01] MEDS: Ciprofloxacin 250 MG Tablet PO (05:13)
[2021-11-01] MEDS: Menthol/Lanolin/Calamine/Znox 113 GM Tube 1 APPLIC TOPICAL ×2 (05:14→18:07)
[2021-11-01 07:15] VITALS: O2SAT 94
[2021-11-01] MEDS: Aspirin 81 MG TAB.CHEW PO (07:44)
[2021-11-01 09:57] VITALS: PULSE 60; RESP 18
[2021-11-01 15:02] VITALS: BP 129/62; PULSE 60; RESP 18; TEMP 36.7; O2SAT 95
[2021-11-01] MEDS: Doxazosin 4 MG Tablet 8 MG PO (21:04)
[2021-11-01] MEDS: Finasteride 5 MG Tablet PO (21:04)
[2021-11-01] MEDS: Atorvastatin Calcium 10 MG Tablet PO (21:04)
[2021-11-02 06:40] VITALS: O2SAT 95
[2021-11-02] MEDS: Menthol/Lanolin/Calamine/Znox 113 GM Tube 1 APPLIC TOPICAL ×2 (07:25→16:31)
[2021-11-02] MEDS: Sertraline 50 MG Tablet 25 MG PO (07:30)
[2021-11-02] MEDS: Acetaminophen 500 MG Tablet 1000 MG PO ×3 (07:30→21:47)
[2021-11-02] MEDS: Polyethylene Glycol 3350 17 GM PACKET PO (07:30)
[2021-11-02] MEDS: Pantoprazole Sodium 40 MG Tablet PO (07:31)
[2021-11-02] MEDS: Senna/Docusate Sodium 1 Tablet 2 TABLET PO ×2 (07:31→16:31)
[2021-11-02] MEDS: Carbidopa/Levodopa 25/100 Tablet PO ×3 (07:31→16:31)
[2021-11-02] MEDS: Losartan Potassium 50 MG Tablet PO (07:31)
[2021-11-02] MEDS: Aspirin 81 MG TAB.CHEW PO (08:54)
--- NOTE | 2021-11-02 09:52 | CASEMGMT ---
Social Work Received information that DIL and son both have COVID and will be unable to care for pt at the DC date. DIL requesting to postpone DC. SW spoke with IDT and therapy is agreeable for another week. Contacted DIL to udpate the DC date can be extended to 11/13, but if they do not feel ready for pt to come home, pt will need to transfer to another SNF. DIL expressed understanding and appreciation, and will plan for DC home 11/13. Updated [facility], [employer] and Palliative. Plan: DC home 11/13 Daniella Shankar ,TOMMY CHINW
--- NOTE | 2021-11-02 11:01 | CON.PCM.PA_ITS ---
HPI Consult Data Date of Consult: 11/02/21 [facility] Medical History Abrasion forearm Abrasion of chin Aortic valve insufficiency BPH (benign prostatic hypertrophy) Diverticulosis Enlarged thyroid Eosinophilia Fall GERD (gastroesophageal reflux disease) History of CVA (cerebrovascular accident) History of gastrointestinal hemorrhage History of leukemia HLD (hyperlipidemia) Hypertension Increased prostate specific antigen (PSA) velocity LAE (left atrial enlargement) Mitral insufficiency Murmur, cardiac NSVT (nonsustained ventricular tachycardia) Parkinson's disease Peripheral neuropathy Second degree type II atrioventricular block Sinus pause Thoracic aortic aneurysm Urine retention Home Medications doxazosin 8 mg PO QPM 07/15/14 [History Last Taken 05/12/16] carbidopa-levodopa 1 tab PO TID 09/02/21 [History Last Taken Unknown] aspirin 81 mg PO DAILY@0800 09/04/21 [History Last Taken Unknown] finasteride 5 mg PO DAILY 09/04/21 [History Last Taken Unknown] atorvastatin 10 mg PO QHS #30 tab 09/27/21 [Rx Last Taken Unknown] sertraline 25 mg PO DAILY #30 tab 09/27/21 [Rx Last Taken Unknown] Ensure Enlive 120 ml PO 4X/DAY 10/06/21 [History Last Taken Unknown] acetaminophen 1,000 mg PO Q8 10/06/21 [History Last Taken Unknown] sennosides-docusate sodium [Stool Softener-Stimulant Laxat] 2 tab PO DAILY 10/06/21 [History Last Taken Unknown] losartan 50 mg PO DAILY 10/07/21 [History Last Taken Unknown] furosemide [Lasix] 20 mg PO BID 10 Days #20 tab 10/16/21 [Rx Last Taken Unknown] pantoprazole 40 mg tablet,delayed release 40 mg PO DAILY 10/20/21 [History Last Taken Unknown] Allergy/AdvReac Type Severity Reaction Status Date / Time Iodine and Iodide Containing Allergy Severe Anaphylaxis Verified 10/20/21 13:15 Produc Family History Mother Heart disease Father Heart disease Myocardial infarction Surgical History Cardiac pacemaker in situ (09/27/21) H/O foot surgery S/P herniorrhaphy S/P TURP Social History household members: family Smoking Status: Former smoker how long ago did patient quit smoking: Quit 1973. alcohol intake: former details: Former heavy beer intake. substance use type: does not use
[2021-11-02 14:30] VITALS: BP 132/66; PULSE 61; RESP 16; TEMP 35.9; O2SAT 94
[2021-11-02] MEDS: Atorvastatin Calcium 10 MG Tablet PO (21:46)
[2021-11-02] MEDS: Doxazosin 4 MG Tablet 8 MG PO (21:46)
[2021-11-02] MEDS: Finasteride 5 MG Tablet PO (21:46)
[2021-11-03] MEDS: Polyethylene Glycol 3350 17 GM PACKET PO (05:08)
[2021-11-03] MEDS: Pantoprazole Sodium 40 MG Tablet PO (05:11)
[2021-11-03] MEDS: Senna/Docusate Sodium 1 Tablet 2 TABLET PO ×2 (05:11→16:50)
[2021-11-03] MEDS: Losartan Potassium 50 MG Tablet PO (05:11)
[2021-11-03] MEDS: Acetaminophen 500 MG Tablet 1000 MG PO ×3 (05:11→20:58)
[2021-11-03] MEDS: Sertraline 50 MG Tablet 25 MG PO (05:11)
[2021-11-03] MEDS: Carbidopa/Levodopa 25/100 Tablet PO ×3 (05:12→16:50)
[2021-11-03] MEDS: Menthol/Lanolin/Calamine/Znox 113 GM Tube 1 APPLIC TOPICAL ×2 (05:12→16:50)
[2021-11-03 05:18] VITALS: BP 130/59; PULSE 60
[2021-11-03 07:25] VITALS: O2SAT 94
[2021-11-03] MEDS: Aspirin 81 MG TAB.CHEW PO (08:05)
[2021-11-03 16:00] VITALS: BP 140/68; PULSE 61; RESP 14; TEMP 36.5
[2021-11-03 19:45] VITALS: O2SAT 96
[2021-11-03] MEDS: Atorvastatin Calcium 10 MG Tablet PO (20:57)
[2021-11-03] MEDS: Doxazosin 4 MG Tablet 8 MG PO (20:57)
[2021-11-03] MEDS: Finasteride 5 MG Tablet PO (20:58)
[2021-11-04] MEDS: Menthol/Lanolin/Calamine/Znox 113 GM Tube 1 APPLIC TOPICAL ×2 (05:34→17:03)
[2021-11-04 05:35] VITALS: BP 143/66; PULSE 60
[2021-11-04] MEDS: Pantoprazole Sodium 40 MG Tablet PO (05:35)
[2021-11-04] MEDS: Senna/Docusate Sodium 1 Tablet 2 TABLET PO ×2 (05:35→17:03)
[2021-11-04] MEDS: Losartan Potassium 50 MG Tablet PO (05:35)
[2021-11-04] MEDS: Carbidopa/Levodopa 25/100 Tablet PO ×3 (05:35→17:04)
[2021-11-04] MEDS: Sertraline 50 MG Tablet 25 MG PO (05:35)
[2021-11-04] MEDS: Acetaminophen 500 MG Tablet 1000 MG PO ×3 (05:35→20:46)
[2021-11-04] MEDS: Polyethylene Glycol 3350 17 GM PACKET PO (05:35)
[2021-11-04] MEDS: Aspirin 81 MG TAB.CHEW PO (08:10)
[2021-11-04 16:15] VITALS: BP 148/72; PULSE 60; RESP 19; TEMP 36.6; O2SAT 96
[2021-11-04] MEDS: Finasteride 5 MG Tablet PO (20:46)
[2021-11-04] MEDS: Atorvastatin Calcium 10 MG Tablet PO (20:46)
[2021-11-04] MEDS: Doxazosin 4 MG Tablet 8 MG PO (20:47)
[2021-11-04 20:56] VITALS: BP 152/77; PULSE 60
[2021-11-05 06:02] LABS: Absolute Lymphocyte Count 2.48 X10^3/uL (0.83-4.51); Absolute Neutrophil Count 7.5 X10^3/uL (2.0-7.7); Basophil# 0.05 X10^3/uL; Basophil% 0.4 % (0-1); Eosinophils% 11.8 % (0-5); Hemoglobin 12.3 g/dL (13.0-16.5); Lymphocyte # 2.48 X10^3/ul (0.83-4.51); Lymphocyte % 19.5 % (19-41); Mean Corp Hgb Conc 32.4 g/dL (32-36); Mean Corpuscular Hgb 32.3 pg (27.0-32.0); Mean Corpuscular Volume 99.7 fL (80-94); Mean Platelet Vol. 11.4 fl (6.2-12.0); Monocyte# 1.12 X10^3/uL; Monocyte% 8.8 % (0-10); NRBC Flagged by Analyzer 0 % (0-5); Neutrophil % 59.1 % (47-70); Platelet Count 190 K/mm3 (150-450); RBC Distribution Width CV 15.7 % (11.6-14.6); RBC Distribution Width SD 57.5 fl (35.1-43.9); Red Blood Count 3.81 M/mm3 (4.6-6.2); White Blood Count 12.7 K/mm3 (4.4-11.0)
[2021-11-05 06:23] VITALS: BP 154/78; PULSE 60
[2021-11-05] MEDS: Polyethylene Glycol 3350 17 GM PACKET PO (06:23)
[2021-11-05] MEDS: Senna/Docusate Sodium 1 Tablet 2 TABLET PO ×2 (06:25→16:52)
[2021-11-05] MEDS: Pantoprazole Sodium 40 MG Tablet PO (06:25)
[2021-11-05] MEDS: Sertraline 50 MG Tablet 25 MG PO (06:25)
[2021-11-05] MEDS: Carbidopa/Levodopa 25/100 Tablet PO ×3 (06:25→16:52)
[2021-11-05] MEDS: Losartan Potassium 50 MG Tablet PO (06:25)
[2021-11-05] MEDS: Acetaminophen 500 MG Tablet 1000 MG PO ×3 (06:26→20:05)
[2021-11-05] MEDS: Menthol/Lanolin/Calamine/Znox 113 GM Tube 1 APPLIC TOPICAL ×2 (06:26→14:19)
[2021-11-05 06:31] LABS: Anion Gap 3 (5-15); BUN 28 mg/dL (7-18); BUN/Creat Ratio 31.9 RATIO (10-20); Chloride 108 mmol/L (98-107); Creatinine, Serum 0.88 mg/dL (0.70-1.30); EST Glomerular Filtration Rate 88 mL/min (>60); Est Glom Filt Rate - Afr Amer 107 mL/min (>60); Glucose 75 mg/dL (74-106); Sodium Level 141 mmol/L (136-145)
[2021-11-05 08:00] VITALS: O2SAT 96
[2021-11-05] MEDS: Aspirin 81 MG TAB.CHEW PO (08:03)
[2021-11-05 09:42] VITALS: O2SAT 91
--- NOTE | 2021-11-05 10:40 | ST.MBS ---
Modified Barium Swallow - Patient Information Study Date: 11/05/21 Study Time: 10:00 Direct Billable Minutes: 120 Total Minutes procedure & reportin Diagnosis: oropharyngeal dysphagia (R13.12) Referring Physician: Nik Avalos Chi Reason for Referral: MBS study completed to objectively assess swallow function and determine presence of aspiration. Medical History: LEANNA LAW, is a 81 Male who presents to [facility] Emergency Department with fatigue. 10/05/2021 EKG ventricular paced rhythm. Fall, walking with walker, became weak, fell. New pacemaker last week for non sustained ventricular tachycardia. EKG, Chest X-ray, CT brain, blood work, urinalysis done. Patient unable to care for self, too weak to go home. 10/05/2021 Admit to Hospital. PT/OT for debility. Lactated Ringer's IV for hyponatremia. 10/06/2021 Feeling generally weak. 10/07/2021 Oxygen 2 liters per nasal cannula. Speech Therapy for chronic dysphagia. 10/07/2021 Admit to TCU with debility, here for rehabilitation, strengthening, prior to discharge home with family. [facility] Medical History Abrasion forearm Abrasion of chin Aortic valve insufficiency BPH (benign prostatic hypertrophy) Diverticulosis Enlarged thyroid Eosinophilia Fall GERD (gastroesophageal reflux disease) History of CVA (cerebrovascular accident) History of gastrointestinal hemorrhage History of leukemia HLD (hyperlipidemia) Hypertension Increased prostate specific antigen (PSA) velocity LAE (left atrial enlargement) Mitral insufficiency Murmur, cardiac NSVT (nonsustained ventricular tachycardia) Parkinson's disease Peripheral neuropathy Second degree type II atrioventricular block Sinus pause Thoracic aortic aneurysm Urine retention Current Diet Ordered: easy to chew textures/thin liquids Dentition: Upper Dentures, Lower Dentures Mental Status: Impaired Respiratory Status: Oxygenating on Room Air - Penetration-Aspiration Scale Penetration-Aspiration Scale: OBJECTIVE ASSESSMENT OF SWALLOW FUNCTION (QUANTITATIVE ? PER TRIAL): PENETRATION / ASPIRATION SCALE (MOORE): 1 = does not enter airway 2 = enters airway/above vocal folds/ejected 3 = enters airway/above vocal folds/not ejected 4 = enters airway/contacts vocal folds/ejected 5 = enters airway/contacts vocal folds/not ejected 6 = enters airway/below vocal folds/ejected 7 = enters airway/below vocal folds/not ejected despite effort 8 = enters airway/below vocal folds/no effort VIDEOFLOROSCOPIC SCALE SCORE (MOORE): Grade I = aspiration of material that has penetrated into the laryngeal vestibule, intact cough reflex Grade II = aspiration < 10 % of the bolus, intact cough reflex Grade III = aspiration of < 10 % of the bolus, reduced cough reflex or aspiration of > 10 % of the bolus, intact cough reflex Grade IV = aspiration of > 10 % of the bolus, reduced cough reflex - Penetration-Aspiration Scale Score Thin Liquid via teaspoon Result: 1= does not enter airway Thin Liquid via teaspoon Trial 2 Result: 2= enter airway/above vocal folds/ejected Thin Liquid via small single sip from cup Result: 2= enter airway/above vocal folds/ejected Thin Liquid via large single sip from cup Result: 8= enters airway/below vocal folds/no effort [place] Thick Liquid via small single sip from cup Result: 8= enters airway/below vocal folds/no effort [place] Thick Liquid via small single sip from cup Result: 8= enters airway/below vocal folds/no effort Comment: Penetration to the vocal cords with SILENT aspiration of residue during second swallow, which patient independently initiated. Pudding via teaspoon Result: 1= does not enter airway Cookie Result: 1= does not enter airway Thin Liquid via single sip from straw Result: 5= enters airways/contacts vocal folds/not ejected Thin Liquid via sequential sips from cup Result: 8= enters airway/below vocal folds/no effort - Oral Phase Labial Seal: No Labial Escape Tongue Control During Bolus Hold: Escape to lateral buccal cavity/floor of mouth Bolus Preparation/Mastication: Slow prolonged chewing/mashing with complete recollection Bolus Transport/Lingual Motion: Slowed tongue motion Oral Residue: Trace residue lining oral structures - Pharyngeal Phase Initiation of Pharyngeal Swallow: Bolus head in pyriforms Soft Palate Elevation: No bolus between soft palate and pharyngeal wall Laryngeal Elevation: Partial superior movement thyroid cart/partial apprx aryt-epig petiole Anterior Hyoid Excursion: Complete anterior movement Epiglottic Movement: Partial inversion Laryngeal Vestibule Closure at Height of Swallow: Incomplete; narrow column of air/contrast in laryngeal vestibule Pharyngeal Stripping Wave: Present - complete Pharyngoesophageal Segment Opening: Parital distension and partial duration; parital obstruction of flow Tongue Base Retraction: Trace column of contrast between tongue base & post. pharyngeal wall Pharyngeal Residue: Collection of residue within or on pharyngeal structures - Esophageal Phase Esophageal Clearance: Esophageal retention - Diagnosis/Impression Diagnosis: moderate oropharyngeal dysphagia (R13.12) Impression: *The patient demonstrates kyphotic posture. He was positioned with slight recline in chair during study for optimal view of oropharyngeal structures during the study.* The oral phase is marked by prolonged mastication of regular textured [place] cookie. Patient demonstrates poor bolus control resulting in suboptimal bolus placement upon swallow onset. Patient independently consumed very large sip sizes even when cued to take small single sip. The pharyngeal phase is marked by delayed swallow onset timing, decreased laryngeal elevation, and epiglottic inversion. This results in increased pharyngeal residue. SILENT aspiration ocurred with thin liquids when taking large single sip and smaller sequential sips in addition to mildly thick liquid trials and on the 2nd swallow taken during moderately thick liquids trial. No aspiration found when patient consumed thin liquids via teaspoon. The esophageal phase is marked by esophageal retention. No retrograded flow of contrast observed. - Recommendations Comment: easy to chew textures (IDDSI level7)/thin liquids Compensatory Strategies: Small Bites, Small Sips, No Straws, Liquid by Teaspoon Only - or by 5ml Provale cup, Slow Rate, Sitting upright, Remain sitting upright for 30 minutes after PO intake, Assist with verbal cues to use recommended strategies - cue to cough and re-swallow with wet vocal quality Supervision: 1:1 Close Supervision Recommend Repeat Modified Barium Swallow: Yes Comment: repeat in 6 months-1 year Need for Skilled Speech Therapy Services: Yes Education Completed: 1. Described result of evaluation. - Aspiration precautions signs posted in patients room, nursing updated, and supervision level posted on nursing communication board - Status Active ST Patient: Active - Contact Information [facility] Speech Therapy:: Bronwyn Rios MA, CCC-NETWORK SUPPORT SPECIALIST [facility] [address] [place] [id number] [email or web address]
--- NOTE | 2021-11-05 12:28 | NURSING ---
Up in chair. Reports she will need to use the bedpan after awhile. Instructed to call when she needs to go.
--- NOTE | 2021-11-05 13:59 | PN.TCU_ITS ---
Subjective Subjective Resident seen, examined. He was watching television after lunch. He has no new problems, concerns, issues, complaints. He is progressing with therapy, he appears well, no distress. Objective Data Objective Data Vital Signs: Vital Signs Temp Pulse Resp BP Pulse Ox 97.9 F 60 19 H 154/78 H 91 11/04/21 16:15 11/05/21 06:23 11/04/21 16:15 11/05/21 06:23 11/05/21 09:42 Oxygen Flow Rate (L/min) 3 Oxygen Delivery Method Room Air Weight: 80.649 kg Body Mass Index (BMI) 25.2 Intake & Output: Intake and Output for Last 24 Hours 11/03/21 11/04/21 11/05/21 23:59 23:59 23:59 Intake Total 240 / 240 480 / 480 240 / 240 Output Total 550 / 550 200 / 200 Balance -310 / -310 280 / 280 240 / 240 Lab / Micro Data Result Diagrams: 11/05/21 05:24 11/05/21 05:24 Labs: Laboratory Results - last 24 hr 11/05/21 05:24: WBC 12.7 H, RBC 3.81 L, Hgb 12.3 L, Hct 38.0 L, MCV 99.7 H, MCH 32.3 H, MCHC 32.4, RDW Std Deviation 57.5 H, RDW Coeff of Louann 15.7 H, Plt Count 190, MPV 11.4, Immature Gran % (Auto) 0.400, Neut % (Auto) 59.1, Lymph % (Auto) 19.5, [place] % (Auto) 8.8, Eos % (Auto) 11.8 H, Baso % (Auto) 0.4, Absolute Neuts (auto) 7.5, Absolute Lymphs (auto) 2.48, Nucleated RBC % 0 11/05/21 05:24: Sodium 141, Potassium 4.0, Chloride 108 H, Carbon Dioxide 30.0, Anion Gap 3 L, BUN 28 H, Creatinine 0.88, Estim Creat Clear Calc 63.60, Est GFR (MDRD) Af Amer 107, Est GFR (MDRD) Non-Af 88, BUN/Creatinine Ratio 31.9 H, Glucose 75, Calcium 9.0 Micro: Microbiology 11/01/21 09:20 Nasal Secretion SARS-CoV-2 Antigen (Rapid) - Final 10/29/21 10:16 Nasal Secretion SARS-CoV-2 Antigen (Rapid) - Final 10/24/21 21:50 Urine Catheter - Catheter Urine Culture - Final Escherichia coli 10/14/21 13:46 Urine Catheter - Catheter Urine Culture - Final Culture exhibits no growth. 10/14/21 18:00 Nasal Secretion SARS-CoV-2 Antigen (Rapid) - Final Physical Exam Const alert General Appearance: cooperative HEENT normocephalic Eyes PERRL and EOMs intact bilaterally Neck supple, no JVD and no carotid bruits Resp normal respiratory effort, normal air movement and clear to auscultation bilaterally Cardio regular rate and regular rhythm GI normal to inspection, nondistended, normoactive bowel sounds, non-tender and no n-distended Extremity normal capillary refill General Extremity: Negative for edema Skin no rashes or lesions noted General Skin Exam: no breakdown Psych affect normal Appearance: appropriate Assessment & Plan Assessment/Plan (1) Debility: (2) Weakness: (3) Hyponatremia: (4) Benign prostate hyperplasia: (5) Parkinson disease: (6) Gastroesophageal reflux disease: (7) Hyperlipidemia: (8) Hypertension: (9) Depression: (10) Non-sustained ventricular tachycardia: PLAN: 81 year old male with below past medical history significant for stroke, recent pacemaker implantation, hospitalized for weakness secondary to hyponatremia, complicated by acute hypoxia, admitted to TCU with debility, here for rehabilitation, strengthening, prior to discharge home with family. * Debility - PT/OT. * Dysphagia - ST. * Pain - Tylenol 1000mg q8h. * Bowel - Miralax 17gm daily, Senna/colace 2 tablets bid, Dulcolax 10mg daily prn. * Adult immunization - Administer pneumonia vaccine, flu vaccine, covid19 vaccine as appropriate. * DVT prophylaxis - HAS-BLED 3 high risk of bleeding, May 4 high risk of venous thromboembolism, overall risk Moderate, finished DVT prophylaxis. * Stroke - Aspirin 81mg daily. * Hyperlipidemia - Atorvastatin 10mg qhs. * Parkinson Disease - Sinemet 25/100mg tidac. * BPH - Finasteride 5mg daily, Doxazosin 8mg daily. * Nutrition - Ensure Enlive 120ml 4x/day. * Hypertension - Losartan 50mg daily. * GERD - Pantoprazole 40mg daily. * Depression - Sertraline 25mg daily, stable chronic care home use, GDR not recommended. * Skin irritation - Calmoseptine topical bid. Capacity Capacity Assessment Tool Can the patient make a choice & communicate that choice?: Yes Can the patient understand benefits, risks and alternatives?: Yes Can the patient make a logical, rational choice?: Yes Is there an impending, emergent risk to the patient?: No Does the patient have an Advance Directive?: Yes Is there a Surrogate Available?: Yes i.e. HCPOA: Yes i.e. close relative (spouse, child, parent, sibling)?: Yes
[2021-11-05 16:00] VITALS: BP 124/74; PULSE 64; RESP 14; TEMP 36.9; O2SAT 95
[2021-11-05 19:46] VITALS: PULSE 64; RESP 18
[2021-11-05] MEDS: Finasteride 5 MG Tablet PO (20:05)
[2021-11-05] MEDS: Atorvastatin Calcium 10 MG Tablet PO (20:05)
[2021-11-05] MEDS: Doxazosin 4 MG Tablet 8 MG PO (20:07)
[2021-11-06] MEDS: Sertraline 50 MG Tablet 25 MG PO (06:08)
[2021-11-06] MEDS: Polyethylene Glycol 3350 17 GM PACKET PO (06:08)
[2021-11-06] MEDS: Acetaminophen 500 MG Tablet 1000 MG PO ×3 (06:08→21:52)
[2021-11-06] MEDS: Pantoprazole Sodium 40 MG Tablet PO (06:08)
[2021-11-06] MEDS: Carbidopa/Levodopa 25/100 Tablet PO ×3 (06:08→16:25)
[2021-11-06] MEDS: Losartan Potassium 50 MG Tablet PO (06:09)
[2021-11-06] MEDS: Senna/Docusate Sodium 1 Tablet 2 TABLET PO ×2 (06:09→17:55)
[2021-11-06] MEDS: Aspirin 81 MG TAB.CHEW PO (07:58)
[2021-11-06] MEDS: Menthol/Lanolin/Calamine/Znox 113 GM Tube 1 APPLIC TOPICAL ×2 (08:00→16:27)
[2021-11-06 11:08] VITALS: PULSE 62; RESP 16; O2SAT 90
[2021-11-06 15:26] VITALS: BP 110/59; PULSE 62; RESP 16; TEMP 36.7; O2SAT 90
[2021-11-06] MEDS: Doxazosin 4 MG Tablet 8 MG PO (21:51)
[2021-11-06] MEDS: Finasteride 5 MG Tablet PO (21:52)
[2021-11-06] MEDS: Atorvastatin Calcium 10 MG Tablet PO (21:52)
[2021-11-06 22:02] VITALS: BP 155/68; PULSE 60
[2021-11-07] MEDS: Senna/Docusate Sodium 1 Tablet 2 TABLET PO ×2 (06:30→16:14)
[2021-11-07] MEDS: Sertraline 50 MG Tablet 25 MG PO (06:32)
[2021-11-07] MEDS: Menthol/Lanolin/Calamine/Znox 113 GM Tube 1 APPLIC TOPICAL ×2 (06:32→16:14)
[2021-11-07] MEDS: Pantoprazole Sodium 40 MG Tablet PO (06:33)
[2021-11-07] MEDS: Acetaminophen 500 MG Tablet 1000 MG PO ×3 (06:34→21:19)
[2021-11-07] MEDS: Carbidopa/Levodopa 25/100 Tablet PO ×3 (06:34→16:14)
[2021-11-07] MEDS: Losartan Potassium 50 MG Tablet PO (06:35)
[2021-11-07 06:38] VITALS: BP 164/68; PULSE 66
[2021-11-07] MEDS: Aspirin 81 MG TAB.CHEW PO (08:22)
[2021-11-07 10:55] VITALS: PULSE 66; O2SAT 98
[2021-11-07 15:17] VITALS: BP 124/65; PULSE 60; RESP 14; TEMP 36.5; O2SAT 90
[2021-11-07 21:17] VITALS: BP 165/74; PULSE 62
[2021-11-07] MEDS: Doxazosin 4 MG Tablet 8 MG PO (21:18)
[2021-11-07] MEDS: Atorvastatin Calcium 10 MG Tablet PO (21:19)
[2021-11-07] MEDS: Finasteride 5 MG Tablet PO (21:19)
[2021-11-08] MEDS: Polyethylene Glycol 3350 17 GM PACKET PO (05:13)
[2021-11-08] MEDS: Acetaminophen 500 MG Tablet 1000 MG PO ×3 (05:13→20:36)
[2021-11-08] MEDS: Senna/Docusate Sodium 1 Tablet 2 TABLET PO ×2 (05:14→16:40)
[2021-11-08] MEDS: Losartan Potassium 50 MG Tablet PO (05:14)
[2021-11-08] MEDS: Pantoprazole Sodium 40 MG Tablet PO (05:14)
[2021-11-08] MEDS: Carbidopa/Levodopa 25/100 Tablet PO ×3 (05:15→16:41)
[2021-11-08] MEDS: Menthol/Lanolin/Calamine/Znox 113 GM Tube 1 APPLIC TOPICAL ×2 (05:15→16:39)
[2021-11-08] MEDS: Sertraline 50 MG Tablet 25 MG PO (05:15)
[2021-11-08 05:22] VITALS: BP 127/67; PULSE 60
[2021-11-08 07:48] VITALS: O2SAT 95
[2021-11-08] MEDS: Aspirin 81 MG TAB.CHEW PO (09:17)
[2021-11-08 16:00] VITALS: BP 122/58; PULSE 60; RESP 14; TEMP 36.6; O2SAT 95
--- NOTE | 2021-11-08 18:56 | PCM.DC.SUM ---
Providers Date of Admission: 10/07/21 Primary Care Physician: TIMOTEO Joshua Reason For Visit: DEBILITY Diagnosis Discharge Diagnosis (1) Debility: Status: Acute Code(s): R53.81 - Other malaise (2) Weakness: Status: Acute Code(s): R53.1 - Weakness (3) Hyponatremia: Status: Acute Code(s): E87.1 - Hypo-osmolality and hyponatremia (4) Benign prostate hyperplasia: Status: Acute Code(s): N40.0 - Benign prostatic hyperplasia without lower urinary tract symptoms (5) Parkinson disease: Status: Acute Code(s): G20 - Parkinson's disease (6) Gastroesophageal reflux disease: Status: Acute Code(s): K21.9 - Gastro-esophageal reflux disease without esophagitis (7) Hyperlipidemia: Status: Acute Code(s): E78.5 - Hyperlipidemia, unspecified (8) Hypertension: Status: Chronic Code(s): I10 - Essential (primary) hypertension (9) Depression: Status: Acute Code(s): F32.A - Depression, unspecified (10) Non-sustained ventricular tachycardia: Status: Acute Code(s): I47.2 - Ventricular tachycardia Medications at Discharge Home Medications doxazosin 8 mg PO QPM 07/15/14 carbidopa-levodopa 1 tab PO TID 09/02/21 aspirin 81 mg PO DAILY@0800 09/04/21 finasteride 5 mg PO DAILY 09/04/21 atorvastatin 10 mg PO QHS #30 tab 09/27/21 acetaminophen 1,000 mg PO Q8 10/06/21 losartan 50 mg PO DAILY 10/07/21 pantoprazole 40 mg PO DAILY #0 tab 11/08/21 pantoprazole 40 mg PO DAILY 30 Days #30 tab 11/08/21 sertraline 25 mg PO DAILY 30 Days #30 tab 11/08/21 Hospital Course Operations None Procedures None Summary of Care Provided Minutes Spent on Discharge: 35 Hospital Course: 81 year old male with below past medical history significant for stroke, recent pacemaker implantation, hospitalized for weakness secondary to hyponatremia, complicated by acute hypoxia, admitted to TCU with debility, here for rehabilitation, strengthening, prior to discharge home with family. Discharge home with family 11/13/2021, Home Health Care PT/OT/ST/SN. Physical Exam Const alert General Appearance: cooperative HEENT normocephalic Eyes PERRL and EOMs intact bilaterally Neck supple, no JVD and no carotid bruits Resp normal respiratory effort, normal air movement and clear to auscultation bilaterally Cardio regular rate and regular rhythm GI normal to inspection, nondistended, normoactive bowel sounds, non-tender and non-distended Extremity normal capillary refill General Extremity: Negative for edema Skin no rashes or lesions noted General Skin Exam: no breakdown Psych affect normal Appearance: appropriate Weight / BMI Weight Weight: 80.649 kg Body Mass Index (BMI) 25.2 ABG / Lab / Microbiology Data Result Diagrams: 11/05/21 05:24 11/05/21 05:24 Microbiology: Microbiology 11/01/21 09:20 Nasal Secretion SARS-CoV-2 Antigen (Rapid) - Final 10/29/21 10:16 Nasal Secretion SARS-CoV-2 Antigen (Rapid) - Final 10/24/21 21:50 Urine Catheter - Catheter Urine Culture - Final Escherichia coli 10/14/21 13:46 Urine Catheter - Catheter Urine Culture - Final Culture exhibits no growth. 10/14/21 18:00 Nasal Secretion SARS-CoV-2 Antigen (Rapid) - Final D/C Instructions Discharge Diet: No restrictions Discharge Activity: Return to Normal Activity, May Shower and Use Walker Weight Bearing Status: Weight bearing as tolerated Call your doctor if you observe: Fever of 101 or Higher, Inability to urinate, Inability to have a bowel movement, Shortness of breath, Dizziness, Fainting spells, Swelling in the ankles, Chest pain and Uncontrolled pain Additional Instructions: Discharge home with family 11/13/2021, Home Health Care PT/OT/ST/SN. Please Follow Up With: MD Jackson (Will see TIMOTEO Boyd) When: As scheduled. Meaningful Use Info Meaningful Use Diagnoses (Choose all that apply): None applicable Discharge Plan Admission Admit Date/Time: 10/07/21 16:40 Primary Reason for Your Visit: Debility. Attending Provider: Nik Avalos Chi Primary Care Provider: Tristan De La Cruz Instructions Additional Instructions / Restrictions: Discharge home with family 11/13/2021, Home Health Care PT/OT/ST/SN. Discharge Orders/Prescriptions Prescriptions: New pantoprazole 40 mg Tablet,Delayed Release (Dr/Ec) 40 mg PO DAILY Qty: 0 RF: 0 Continued doxazosin 8 MG tablet 8 mg PO QPM RF: 0 carbidopa-levodopa 25-100 mg tablet 1 tab PO TID RF: 0 aspirin 81 MG tablet,chewable 81 mg PO DAILY@0800 RF: 0 finasteride 5 MG tablet 5 mg PO DAILY RF: 0 atorvastatin 10 mg tablet 10 mg PO QHS Qty: 30 RF: 0 acetaminophen 500 mg tablet 1,000 mg PO Q8 RF: 0 losartan 50 mg tablet 50 mg PO DAILY RF: 0 pantoprazole 40 mg tablet,delayed release (DR/EC) 40 mg PO DAILY 30 Days Qty: 30 RF: 0 sertraline 25 mg Tablet 25 mg PO DAILY 30 Days Qty: 30 RF: 0 Discontinued sennosides-docusate sodium [Stool Softener-Stimulant Laxat] 8.6-50 mg tablet 2 tab PO DAILY RF: 0 Ensure Enlive 0.08 gram-1.5 kcal/mL liquid 120 ml PO 4X/DAY RF: 0 furosemide [Lasix] 20 mg tablet 20 mg PO BID 10 Days Qty: 20 RF: 0 Referrals / Follow Up: Tristan De La Cruz PA [Primary Care Provider] - Disposition Disposition (needs filled in before D/C Order can be placed): Home Health Service
[2021-11-08] MEDS: Doxazosin 4 MG Tablet 8 MG PO ×2 (20:28→20:36)
[2021-11-08] MEDS: Atorvastatin Calcium 10 MG Tablet PO (20:36)
[2021-11-08] MEDS: Finasteride 5 MG Tablet PO (20:36)
[2021-11-09] MEDS: Menthol/Lanolin/Calamine/Znox 113 GM Tube 1 APPLIC TOPICAL ×2 (05:00→17:19)
[2021-11-09] MEDS: Losartan Potassium 50 MG Tablet PO (05:10)
[2021-11-09] MEDS: Senna/Docusate Sodium 1 Tablet 2 TABLET PO ×2 (05:11→17:18)
[2021-11-09] MEDS: Pantoprazole Sodium 40 MG Tablet PO (05:11)
[2021-11-09] MEDS: Acetaminophen 500 MG Tablet 1000 MG PO ×3 (05:12→21:11)
[2021-11-09] MEDS: Sertraline 50 MG Tablet 25 MG PO (05:12)
[2021-11-09] MEDS: Carbidopa/Levodopa 25/100 Tablet PO ×3 (05:13→17:18)
[2021-11-09 07:11] VITALS: O2SAT 92
[2021-11-09] MEDS: Aspirin 81 MG TAB.CHEW PO (08:46)
[2021-11-09 16:00] VITALS: BP 162/72; PULSE 62; RESP 16; TEMP 36.5; O2SAT 91
[2021-11-09 19:40] VITALS: O2SAT 92
[2021-11-09] MEDS: Finasteride 5 MG Tablet PO (21:12)
[2021-11-09] MEDS: Doxazosin 4 MG Tablet 8 MG PO (21:12)
[2021-11-09] MEDS: Atorvastatin Calcium 10 MG Tablet PO (21:13)
[2021-11-10] MEDS: Pantoprazole Sodium 40 MG Tablet PO (05:15)
[2021-11-10] MEDS: Senna/Docusate Sodium 1 Tablet 2 TABLET PO ×2 (05:15→16:33)
[2021-11-10] MEDS: Acetaminophen 500 MG Tablet 1000 MG PO ×3 (05:15→20:05)
[2021-11-10] MEDS: Polyethylene Glycol 3350 17 GM PACKET PO (05:15)
[2021-11-10] MEDS: Menthol/Lanolin/Calamine/Znox 113 GM Tube 1 APPLIC TOPICAL ×2 (05:15→16:34)
[2021-11-10] MEDS: Losartan Potassium 50 MG Tablet PO (05:15)
[2021-11-10] MEDS: Carbidopa/Levodopa 25/100 Tablet PO ×3 (05:16→16:33)
[2021-11-10] MEDS: Sertraline 50 MG Tablet 25 MG PO (05:16)
[2021-11-10 05:25] VITALS: BP 153/81; PULSE 70
[2021-11-10] MEDS: Aspirin 81 MG TAB.CHEW PO (07:40)
[2021-11-10 16:00] VITALS: BP 162/72; PULSE 61; RESP 17; TEMP 36.4; O2SAT 93
[2021-11-10] MEDS: Atorvastatin Calcium 10 MG Tablet PO (20:05)
[2021-11-10] MEDS: Finasteride 5 MG Tablet PO (20:06)
[2021-11-10] MEDS: Doxazosin 4 MG Tablet 8 MG PO (20:06)
[2021-11-11] MEDS: Acetaminophen 500 MG Tablet 1000 MG PO ×3 (04:33→21:08)
[2021-11-11] MEDS: Polyethylene Glycol 3350 17 GM PACKET PO (04:33)
[2021-11-11] MEDS: Senna/Docusate Sodium 1 Tablet 2 TABLET PO ×2 (04:33→16:44)
[2021-11-11] MEDS: Pantoprazole Sodium 40 MG Tablet PO (04:34)
[2021-11-11] MEDS: Sertraline 50 MG Tablet 25 MG PO (04:34)
[2021-11-11] MEDS: Carbidopa/Levodopa 25/100 Tablet PO ×3 (04:35→16:44)
[2021-11-11] MEDS: Menthol/Lanolin/Calamine/Znox 113 GM Tube 1 APPLIC TOPICAL ×2 (04:35→16:44)
[2021-11-11] MEDS: Losartan Potassium 50 MG Tablet PO (04:35)
[2021-11-11 06:59] VITALS: BP 124/83
[2021-11-11] MEDS: Aspirin 81 MG TAB.CHEW PO (07:39)
[2021-11-11 15:05] VITALS: BP 146/62; PULSE 60; RESP 18; TEMP 36.7; O2SAT 94
[2021-11-11 20:00] VITALS: PULSE 66; RESP 16; O2SAT 92
[2021-11-11 21:06] VITALS: BP 158/69; PULSE 62
[2021-11-11] MEDS: Doxazosin 4 MG Tablet 8 MG PO (21:08)
[2021-11-11] MEDS: Atorvastatin Calcium 10 MG Tablet PO (21:08)
[2021-11-11] MEDS: Finasteride 5 MG Tablet PO (21:08)
[2021-11-12] MEDS: Menthol/Lanolin/Calamine/Znox 113 GM Tube 1 APPLIC TOPICAL ×2 (04:51→16:21)
[2021-11-12] MEDS: Polyethylene Glycol 3350 17 GM PACKET PO (04:51)
[2021-11-12] MEDS: Sertraline 50 MG Tablet 25 MG PO (04:52)
[2021-11-12] MEDS: Acetaminophen 500 MG Tablet 1000 MG PO ×3 (04:52→20:38)
[2021-11-12] MEDS: Pantoprazole Sodium 40 MG Tablet PO (04:53)
[2021-11-12] MEDS: Senna/Docusate Sodium 1 Tablet 2 TABLET PO ×2 (04:53→16:19)
[2021-11-12] MEDS: Carbidopa/Levodopa 25/100 Tablet PO ×3 (04:53→16:19)
[2021-11-12] MEDS: Losartan Potassium 50 MG Tablet PO (04:53)
[2021-11-12 05:02] VITALS: BP 138/64; PULSE 60
[2021-11-12 05:50] LABS: Absolute Lymphocyte Count 2.25 X10^3/uL (0.83-4.51); Absolute Neutrophil Count 3.9 X10^3/uL (2.0-7.7); Basophil# 0.05 X10^3/uL; Basophil% 0.6 % (0-1); Eosinophil# 1.64 X10^3/uL; Eosinophils% 18.5 % (0-5); Hematocrit 37.2 % (40-54); Hemoglobin 12.2 g/dL (13.0-16.5); Lymphocyte # 2.25 X10^3/ul (0.83-4.51); Lymphocyte % 25.3 % (19-41); Mean Corp Hgb Conc 32.8 g/dL (32-36); Mean Corpuscular Hgb 32.1 pg (27.0-32.0); Mean Corpuscular Volume 97.9 fL (80-94); Mean Platelet Vol. 10.9 fl (6.2-12.0); Monocyte# 1.03 X10^3/uL; Monocyte% 11.6 % (0-10); NRBC Flagged by Analyzer 0 % (0-5); Neutrophil # 3.88 X10^3/uL (2.7-7.7); Neutrophil % 43.7 % (47-70); Platelet Count 167 K/mm3 (150-450); RBC Distribution Width CV 15.9 % (11.6-14.6); RBC Distribution Width SD 56.3 fl (35.1-43.9); White Blood Count 8.9 K/mm3 (4.4-11.0)
[2021-11-12 06:14] LABS: Anion Gap 4 (5-15); BUN 28 mg/dL (7-18); BUN/Creat Ratio 28.1 RATIO (10-20); Calcium,Total 9.2 mg/dL (8.5-10.1); Chloride 109 mmol/L (98-107); EST Glomerular Filtration Rate 76 mL/min (>60); Est Glom Filt Rate - Afr Amer 92 mL/min (>60); Estimated Creatinine Clearance 55.97 ml/min; Glucose 82 mg/dL (74-106); Potassium 3.8 mmol/L (3.5-5.1); Sodium Level 142 mmol/L (136-145)
[2021-11-12 07:36] VITALS: O2SAT 95
[2021-11-12] MEDS: Aspirin 81 MG TAB.CHEW PO (09:16)
--- NOTE | 2021-11-12 11:50 | CASEMGMT ---
Addendum entered by Daniella Shankar 11/12/21 14:18: [facility] can accept. Followed up with [facility] - they have not made a decision yet. YOUNG spoke with dtr and a decision needs made - dtr agreeable to DC to [facility]. She would like to be present for time of DC - requesting DC transport at 1 pm. Scheduled cot through [facility]. PASRR completed. DC and EAMON salvatore faxed to [facility]. Updated IDT. Plan: DC to [facility] 11/13, nonskilled Addendum entered by Daniella Shankar 11/12/21 12:23: Not[facility]. Addendum entered by Daniella Shankar 11/12/21 12:21: [facility] can accept pt tomorrow. Contacted dtr - she would like to wait on outcome from [facility], but if they cannot accept, pt can DC to [facility]. SW to continue to follow. Original Note: Social Work Received call from dtr, Elizabeth, stating brother's GF, Carolina, left/broke up, thus no longer home to take care of pt, and they need to have pt placed in SNF. Explained the very narrow timeframe to complete this transfer. Dtr expressed understanding. Discussed financial liability. Pt does not have any funds or assets. Emailed EAMON salvatore for dtr to complete. Dtr looking at [facility] SNFs. Offered contact all 4 for availability and if they would accept a MCDP. Dtr's first choice is [facility]. Dtr completed EAMON salvatore and emailed back. Faxed to [facility] JFS. Referred to [facility] - they are currently not taking weekend admits, but offered to review referral for exception or Monday DC; [facility] does not have beds; [facility] - reviewing; [facility] - reviewing. Son contacted YOUNG and requested referral to [facility] - referral made - reviewing. Updated IDT. SW to continue to follow. TOMYM Alejandre
--- NOTE | 2021-11-12 13:07 | MDS.RN ---
pain interview for marc 11/13/21
--- NOTE | 2021-11-12 13:56 | TREXTCAR_ITS ---
Diet 10/07/21 17:03 Diet: Cardiac - Heart Healthy Food consistency:: Easy to Chew Liquid Consistency:: Regular/Thin Type of Dietary Supplement:: small portions w/ meals Diet Comments: 1:1 suprvsn,sips by tsp/Provale cup,pizza ok cut up NO STRAWS, puree fruit Routine Orders/Code Status Code Status: [facility] Wound(s) Pacer site: Wound Type: Surgical Incision Therapies Weight Bearing: Weight bearing as tolerated Problem/Diagnosis (1) Debility: Status: Acute (2) Weakness: Status: Acute (3) Hyponatremia: Status: Acute (4) Benign prostate hyperplasia: Status: Acute (5) Parkinson disease: Status: Acute (6) Gastroesophageal reflux disease: Status: Acute (7) Hyperlipidemia: Status: Acute (8) Hypertension: Status: Chronic (9) Depression: Status: Acute (10) Non-sustained ventricular tachycardia: Status: Acute Allergies/Procedures Done in Hospital Allergies Iodine and Iodide Containing Produc Allergy (Severe, Verified 10/20/21 13:15) Anaphylaxis HE PASSED OUT AND THROAT SWELLED AND VOMITED Procedures: None Type of Care/Length of Stay Estimated LOS: More Than 30 Days Type of Care Needed: Intermediate Rehab Potential: Fair Prognosis: Fair Additional Orders/Day of Discharge Day of Discharge: 11/13/21 Dietary and Speech Recommendations Dietitian Recommendations/Changes: Continue cardiac diet- texture/consistency modifications per PRINTING MANAGER Continue 4 oz ensure enlive 4x/day w/ medpass Will continue to provide small portions per res request Follow Up Care Please follow up with your Primary Care Physician in: Jm De La Cruz PA Please Follow Up With: MD Jackson (Will see TIMOTEO Boyd) Discharge Plan Admission Admit Date/Time: 10/07/21 16:40 Primary Reason for Your Visit: Debility. Attending Provider: Nik Avalos Chi Primary Care Provider: Tristan De La Cruz Instructions Additional Instructions / Restrictions: Discharge home with family 11/13/2021, Home Health Care PT/OT/ST/SN. Discharge Orders/Prescriptions Prescriptions: New pantoprazole 40 mg Tablet,Delayed Release (Dr/Ec) 40 mg PO DAILY Qty: 0 RF: 0 Continued doxazosin 8 MG tablet 8 mg PO QPM RF: 0 carbidopa-levodopa 25-100 mg tablet 1 tab PO TID RF: 0 aspirin 81 MG tablet,chewable 81 mg PO DAILY@0800 RF: 0 finasteride 5 MG tablet 5 mg PO DAILY RF: 0 atorvastatin 10 mg tablet 10 mg PO QHS Qty: 30 RF: 0 acetaminophen 500 mg tablet 1,000 mg PO Q8 RF: 0 losartan 50 mg tablet 50 mg PO DAILY RF: 0 pantoprazole 40 mg tablet,delayed release (DR/EC) 40 mg PO DAILY 30 Days Qty: 30 RF: 0 sertraline 25 mg Tablet 25 mg PO DAILY 30 Days Qty: 30 RF: 0 Discontinued sennosides-docusate sodium [Stool Softener-Stimulant Laxat] 8.6-50 mg tablet 2 tab PO DAILY RF: 0 Ensure Enlive 0.08 gram-1.5 kcal/mL liquid 120 ml PO 4X/DAY RF: 0 furosemide [Lasix] 20 mg tablet 20 mg PO BID 10 Days Qty: 20 RF: 0 Referrals / Follow Up: Tristan De La Cruz PA [Primary Care Provider] - Disposition Disposition (needs filled in before D/C Order can be placed): Home Health Service
[2021-11-12 16:00] VITALS: BP 122/72; PULSE 64; RESP 16; TEMP 36.2; O2SAT 97
--- NOTE | 2021-11-12 17:42 | NURSING ---
NOTIFIED R' SON JUAN AND R' OF POSITIVE COVID OF STAFF MEMBER AND R'.
[2021-11-12 20:35] VITALS: BP 154/79; PULSE 60
[2021-11-12] MEDS: Atorvastatin Calcium 10 MG Tablet PO (20:37)
[2021-11-12] MEDS: Doxazosin 4 MG Tablet 8 MG PO (20:37)
[2021-11-12] MEDS: Finasteride 5 MG Tablet PO (20:38)
[2021-11-13 04:29] VITALS: BP 159/72; PULSE 60
[2021-11-13] MEDS: Polyethylene Glycol 3350 17 GM PACKET PO (04:31)
[2021-11-13] MEDS: Acetaminophen 500 MG Tablet 1000 MG PO ×2 (04:31→13:16)
[2021-11-13] MEDS: Senna/Docusate Sodium 1 Tablet 2 TABLET PO (04:31)
[2021-11-13] MEDS: Carbidopa/Levodopa 25/100 Tablet PO ×2 (04:32→11:05)
[2021-11-13] MEDS: Pantoprazole Sodium 40 MG Tablet PO (04:32)
[2021-11-13] MEDS: Losartan Potassium 50 MG Tablet PO (04:32)
[2021-11-13] MEDS: Sertraline 50 MG Tablet 25 MG PO (04:32)
[2021-11-13] MEDS: Menthol/Lanolin/Calamine/Znox 113 GM Tube 1 APPLIC TOPICAL (04:33)
[2021-11-13] MEDS: Aspirin 81 MG TAB.CHEW PO (07:54)
[2021-11-13 09:52] VITALS: PULSE 60; RESP 16; O2SAT 90
[2021-11-13 10:07] VITALS: O2SAT 90
--- NOTE | 2021-11-13 13:20 | NURSING ---
This nurse gave report to Hilaria Wright nurse about patient at 1230. Facility aware patient will be picked up here at 1300. Paperwork will be sent with patient.
[2021-11-13 15:34] VITALS: BP 155/66; PULSE 60; RESP 18; TEMP 36.7; O2SAT 90
== END 2021-11-13 13:30 | disposition skilled nursing facility (03) | DRG 641 ==
PROVIDERS: Admitting Provider Family Medicine Geriatric Medicine; PCP Physician Assistant; Visit Provider Family Medicine Geriatric Medicine
DX: E87.1 Hypo-osmolality and hyponatremia (principal); I47.2 Ventricular tachycardia; G20 Parkinson's disease; I10 Essential (primary) hypertension; N40.1 Benign prostatic hyperplasia with lower urinary tract symptoms; E78.5 Hyperlipidemia, unspecified; K21.9 Gastro-esophageal reflux disease without esophagitis; R13.10 Dysphagia, unspecified; Z87.891 Personal history of nicotine dependence; F32.A Depression, unspecified; Z79.899 Other long term (current) drug therapy; Z79.82 Long term (current) use of aspirin; R33.8 Other retention of urine
CPT/HCPCS: 36415; 74230; 80048; 81001; 85025; 87077; 87086; 87088; 87186; 87426; 92507; 92523; 92526; 92610; 92611; 97110; 97116; 97162; 97166; 97530; 97535; 97802; A4216

== ENCOUNTER 2021-10-15 23:04 | Emergency (ER) | payer MEDICARE, BC, SELFPAY ==
[2021-10-15 23:06] VITALS: BP 185/110; PULSE 112; RESP 18; TEMP 36.9; O2SAT 90; BMI 27.3
--- NOTE | 2021-10-15 23:09 | EKG12_ITS ---
Test Reason : SOB Blood Pressure : / mmHG Vent. Rate : 111 BPM Atrial Rate : 111 BPM P-R Int : 142 ms QRS Dur : 162 ms QT Int : 380 ms P-R-T Axes : 054 -74 084 degrees QTc Int : 516 ms Atrial-sensed ventricular-paced rhythm Abnormal ECG Confirmed by MARIJA OLMSTEAD, DASH ([id number]), news video editor FLY HADLEY ([id number]) on 10/19/2021 11:11:55 AM Referred By: Confirmed By:DASH DUTTON MD
[2021-10-15 23:10] VITALS: PULSE 112; RESP 34; O2SAT 90
[2021-10-15 23:15] VITALS: PULSE 113; RESP 41; O2SAT 92
[2021-10-15 23:17] VITALS: O2SAT 92
[2021-10-15 23:57] VITALS: O2SAT 94
[2021-10-15 23:57] LABS: Absolute Lymphocyte Count 0.98 X10^3/uL (0.83-4.51); Absolute Neutrophil Count 11.2 X10^3/uL (2.0-7.7); Basophil# 0.04 X10^3/uL; Basophil% 0.3 % (0-1); Eosinophil# 0.84 X10^3/uL; Eosinophils% 6.3 % (0-5); Hematocrit 42.1 % (40-54); Hemoglobin 13.5 g/dL (13.0-16.5); Lymphocyte # 0.98 X10^3/ul (0.83-4.51); Lymphocyte % 7.4 % (19-41); Mean Corp Hgb Conc 32.1 g/dL (32-36); Mean Corpuscular Hgb 32.8 pg (27.0-32.0); Mean Corpuscular Volume 102.2 fL (80-94); Mean Platelet Vol. 11.1 fl (6.2-12.0); Monocyte# 0.15 X10^3/uL; Monocyte% 1.1 % (0-10); NRBC Flagged by Analyzer 0 % (0-5); Neutrophil # 11.22 X10^3/uL (2.7-7.7); Neutrophil % 84.7 % (47-70); POSITIVE MORPHOLOGY YES; Platelet Count 198 K/mm3 (150-450); RBC Distribution Width CV 15.9 % (11.6-14.6); RBC Distribution Width SD 59.8 fl (35.1-43.9); Red Blood Count 4.12 M/mm3 (4.6-6.2); White Blood Count 13.3 K/mm3 (4.4-11.0)
--- NOTE | 2021-10-16 | CT_ITS ---
INDICATION: ? pneumonia EXAMINATION: CT CHEST WITHOUT CONTRAST - CT Chest W/O Contrast Injection TECHNIQUE: Helically acquired images were obtained of the chest. A radiation dose optimization technique was used for this scan. IV Contrast dosage and agent: None. COMPARISON: None. LIMITATIONS: Respiratory motion. Streak artifact from cardiac pacemaker. Streak artifact from numerous surgical clips. Extensive lower thoracic kyphosis. FINDINGS: LUNGS, PLEURA AND LARGE AIRWAYS: Small-moderate left pleural effusion is present with adjacent compressive atelectasis. Dependent atelectasis at the right lung base. No patchy airspace disease is seen to indicate pneumonia. THYROID. Prominent thyroid gland without discrete nodule. HEART AND PERICARDIUM: Extensive coronary artery calcification. No significant pericardial effusion. Cardiac pacemaker in place. VESSELS: Fusiform aneurysmal dilatation of the ascending thoracic aorta which measures 5.6 cm in transverse diameter possibly secondary to aortic valvular disease. The aortic arch and descending thoracic aorta are calcific and normal in caliber. No intimal calcification displacement. MEDIASTINUM AND ATA: No mediastinal or hilar adenopathy. Large hiatal hernia is present with the majority of the stomach positioned above the level of the hemidiaphragms. The herniated stomach is filled with fluid and ingested particulate matter. UPPER ABDOMEN: Visualized liver, renal upper poles and pancreas are unremarkable. No adrenal mass is noted. The spleen is absent. Uncomplicated diverticula project from the splenic flexure of the colon. No pneumoperitoneum is noted. BONES: No acute abnormality. Accentuated thoracic kyphosis. Multilevel cervical degenerative changes. Fusion of the thoracic disc spaces with flowing ossification along the anterior spinal ligament and fusion of the posterior elements, as can be seen with ankylosing spondylitis. IMPRESSION: Limited study due to motion artifact. Large hiatal hernia. Left pleural effusion with adjacent compressive atelectasis. No definite pneumonia identified. Electronically Signed: William Tirado MD at 1:56 EDT , CT/Chest without Contrast
[2021-10-16 00:09] LABS: International Normalized Ratio 1.1; Prothrombin Time (Protime)PT. 14.3 SECONDS (11.7-14.9)
[2021-10-16 00:10] LABS: Partial Thromboplast Time 31.2 Seconds (24.1-36.2)
[2021-10-16 00:12] LABS: Anion Gap 5 (5-15); BUN 33 mg/dL (7-18); BUN/Creat Ratio 30.6 RATIO (10-20); Calcium,Total 9.1 mg/dL (8.5-10.1); Chloride 110 mmol/L (98-107); Creatinine, Serum 1.08 mg/dL (0.70-1.30); EST Glomerular Filtration Rate 69 mL/min (>60); Est Glom Filt Rate - Afr Amer 84 mL/min (>60); Estimated Creatinine Clearance 51.82 ml/min; Glucose 115 mg/dL (74-106); Magnesium 2.1 mg/dL (1.6-2.6); Potassium 3.8 mmol/L (3.5-5.1); Sodium Level 142 mmol/L (136-145)
[2021-10-16 00:22] LABS: BNP,B-Type NATRIURETIC PEPTIDE 762.5 pg/mL (0-100)
[2021-10-16 00:27] LABS: Differential Indicated SCAN CRITERIA MET
--- NOTE | 2021-10-16 00:43 | EDS_ITS ---
HPI History of Present Illness Chief Complaint: Shortness of Breath Narrative Narrative: Patient is an 81-year-old male who is a DNR comfort care. He is seen in the LTAC section of the hospital. He had a pacemaker placed approximately 20 days ago secondary to nonsustained ventricular tachycardia. He has been on 1 to 2 L of nasal cannula oxygen while in the hospital but reportedly had a sudden need for increased oxygen demand and his pulse ox dropped into the mid 80s. Secondary to this he was sent to the ER for further evaluation. [facility] Medical History Abrasion forearm Abrasion of chin Aortic valve insufficiency BPH (benign prostatic hypertrophy) Diverticulosis Enlarged thyroid Eosinophilia Fall GERD (gastroesophageal reflux disease) History of CVA (cerebrovascular accident) History of gastrointestinal hemorrhage History of leukemia HLD (hyperlipidemia) Hypertension Increased prostate specific antigen (PSA) velocity LAE (left atrial enlargement) Mitral insufficiency Murmur, cardiac NSVT (nonsustained ventricular tachycardia) Parkinson's disease Peripheral neuropathy Second degree type II atrioventricular block Sinus pause Thoracic aortic aneurysm Urine retention Home Medications doxazosin 8 mg PO QPM 07/15/14 [History Last Taken 05/12/16] cranberry conc-ascorbic acid 1 tab PO DAILY 01/31/20 [History Last Taken Unknown] carbidopa-levodopa 1 tab PO TID 09/02/21 [History Last Taken Unknown] lysine 1,000 mg BID 09/02/21 [History Last Taken Unknown] aspirin 81 mg PO DAILY@0800 09/04/21 [History Last Taken Unknown] finasteride 5 mg PO DAILY 09/04/21 [History Last Taken Unknown] omeprazole 40 mg PO DAILY 09/04/21 [History Last Taken Unknown] atorvastatin 10 mg PO QHS #30 tab 09/27/21 [Rx Last Taken Unknown] sertraline 25 mg PO DAILY #30 tab 09/27/21 [Rx Last Taken Unknown] Ensure Enlive 120 ml PO 4X/DAY 10/06/21 [History Last Taken Unknown] acetaminophen 1,000 mg PO Q8 10/06/21 [History Last Taken Unknown] sennosides-docusate sodium [Stool Softener-Stimulant Laxat] 2 tab PO DAILY 10/06/21 [History Last Taken Unknown] losartan 50 mg PO DAILY 10/07/21 [History Last Taken Unknown] furosemide [Lasix] 20 mg PO BID 10 Days #20 tab 10/16/21 [Rx Last Taken Unknown] Allergy/AdvReac Type Severity Reaction Status Date / Time Iodine and Iodide Containing Allergy Severe Anaphylaxis Verified 09/02/21 22:11 Produc Family History Mother Heart disease Father Heart disease Myocardial infarction Surgical History Cardiac pacemaker in situ (09/27/21) H/O foot surgery S/P herniorrhaphy S/P TURP Social History household members: family Smoking Status: Former smoker how long ago did patient quit smoking: Quit 1973. alcohol intake: former details: Former heavy beer intake. substance use type: does not use ROS ROS ED Constitutional Constitutional ED: Denies chills or fever(s) ENT ENT ED: Denies sore throat Cardiovascular Cardiovascular: Denies chest pain Respiratory/Chest Respiratory/Chest: Reports dyspnea; Denies cough Gastrointestinal Gastrointestinal: Denies abdominal pain, diarrhea, nausea or vomiting Genitourinary Genitourinary ED: Denies dysuria Musculoskeletal Musculoskeletal: Denies myalgias Integumentary Denies rash Neurologic Neurologic: Denies headache(s) Hematologic/Lymphatic Hematologic/Lymphatic: Reports easy bleeding and easy bruising EXAM Physical Exam Const Vital Signs: 10/15/21 23:06 10/15/21 23:10 10/15/21 23:15 Temperature 98.5 F Temperature Source Temporal Pulse Rate 112 H 112 H 113 H Respiratory Rate 18 34 H 41 H Respiratory Effort Respiratory Depth Respiratory Pattern Blood Pressure 185/110 H Blood Pressure Mean 135 Pulse Ox 90 90 92 Oxygen Delivery Method Nasal Cannula Room Air High Flow Oxygen Flow Rate (L/min) 6 6 10 10/15/21 23:17 10/15/21 23:57 10/16/21 00:48 Temperature Temperature Source Pulse Rate 93 Respiratory Rate 28 H Respiratory Effort Labored Short of Breath Labored Respiratory Depth Deep Respiratory Pattern Tachypnea Tachypnea Blood Pressure 115/71 Blood Pressure Mean 85 Pulse Ox 92 94 Oxygen Delivery Method High Flow High Flow High Flow Oxygen Flow Rate (L/min) 10 10 10 10/16/21 00:50 10/16/21 02:02 Temperature Temperature Source Pulse Rate 93 89 Respiratory Rate 25 H Respiratory Effort Respiratory Depth Respiratory Pattern Blood Pressure 115/71 143/85 H Blood Pressure Mean 104 Pulse Ox 97 Oxygen Delivery Method High Flow Oxygen Flow Rate (L/min) 10 Positive well nourished and well developed General Appearance ED: well developed HEENT Reports moist mucous membranes HEENT Narrative: No tongue or lip swelling no oral lesions no airway edema or compromise Eyes PERRL and EOMs intact bilaterally General Eye ED: Yes pale conjunctiva Neck supple Neck Narrative: JVD is noted mainly on right Chest Wall palpation of chest normal Chest Narrative: Recent scar from placement of his cardiac pacemaker that is clean dry and intact without secondary changes to suggest infection Resp Resp Narrative: Patient is tachypneic with accessory muscle use and breath sounds are diminished throughout with faint crackles or rhonchi in the bilateral base. Orthopnea is present as well Cardio regular rhythm Rate: tachycardic GI normal to inspection, nondistended, normoactive bowel sounds, non-tender, non- distended and no masses GI Narrative: No voluntary guarding or rigidity. No pulsatile mass or fluid wave. Auscultation: normoactive bowel sounds Palpation: soft Extremity normal to inspection Extremity Narrative: No asymmetric edema no pitting edema negative Homans' sign bilaterally Neuro oriented x3 and CN's II-XII intact bilaterally Sensorium / Orientation: alert Psych mental status grossly normal Skin no rashes or lesions noted MDM MDM MDM Narrative Medical decision making narrative: Patient arrived to the ER in mild respiratory distress with some tachypnea and accessory muscle use as well as a pulse ox in the mid 80s. He does not have any peripheral edema but he did have JVD on exam and he had rhonchi and crackles on auscultation indicating possibly acute heart failure or vascular congestion. With his recent pacemaker placement we did discuss obtaining a CTA to rule out DVT/PE but patient has anaphylaxis to contrast dye and as he is a comfort care only patient who does not want any type of invasive treatment I elected only to do a noncontrast CT scan. Patient's blood work revealed an elevated proBNP but otherwise no clinically significant f inding. His CT scan revealed a left-sided pleural effusion and vascular congestion which is consistent with his exam and elevated proBNP. He was given 1 sublingual nitro to reduce preload as well as Lasix and did have improvement in his work of breathing. At this time as he is a comfort care only I do not feel there is need for admission. Patient can continue higher supplemental oxygen and be placed on Lasix secondary to the pleural effusion but is otherwise safe to be discharged back to his LTAC. Lab Data Attestation: I reviewed the patient's lab results. Labs: Laboratory Results - last 24 hr 10/15/21 10/15/21 10/15/21 23:25 23:25 23:25 WBC 13.3 H RBC 4.12 L Hgb 13.5 Hct 42.1 MCV 102.2 H MCH 32.8 H MCHC 32.1 RDW Std Deviation 59.8 H RDW Coeff of Louann 15.9 H Plt Count 198 MPV 11.1 Immature Gran % (Auto) 0.200 Neut % (Auto) 84.7 H Lymph % (Auto) 7.4 L [place] % (Auto) 1.1 Eos % (Auto) 6.3 H Baso % (Auto) 0.3 Absolute Neuts (auto) 11.2 H Absolute Lymphs (auto) 0.98 Nucleated RBC % 0 Differential Comment SCANNED PT 14.3 INR 1.1 APTT 31.2 Sodium 142 Potassium 3.8 Chloride 110 H Carbon Dioxide 27.0 Anion Gap 5 BUN 33 H Creatinine 1.08 Estim Creat Clear Calc 51.82 Est GFR (MDRD) Af Amer 84 Est GFR (MDRD) Non-Af 69 BUN/Creatinine Ratio 30.6 H Glucose 115 H Calcium 9.1 Magnesium 2.1 B-Natriuretic Peptide 10/15/21 23:25 WBC RBC Hgb Hct MCV MCH MCHC RDW Std Deviation RDW Coeff of Louann Plt Count MPV Immature Gran % (Auto) Neut % (Auto) Lymph % (Auto) [place] % (Auto) Eos % (Auto) Baso % (Auto) Absolute Neuts (auto) Absolute Lymphs (auto) Nucleated RBC % Differential Comment PT INR APTT Sodium Potassium Chloride Carbon Dioxide Anion Gap BUN Creatinine Estim Creat Clear Calc Est GFR (MDRD) Af Amer Est GFR (MDRD) Non-Af BUN/Creatinine Ratio Glucose Calcium Magnesium B-Natriuretic Peptide 762.5 H Radiography Diagnostic Testing: Clinical Impression(s) from Imaging Studies Chest CT 10/16/21 00:00 Discharge Plan Triage Chief Complaint: Shortness of Breath ED Provider: Franc Reilly Dx/Rx/DC Orders Clinical Impression: Pleural effusion, Congestive heart failure, Dyspnea Instructions: ED Pleural Effusion, Heart Failure Prescriptions: New furosemide [Lasix] 20 mg tablet 20 mg PO BID 10 Days Qty: 20 RF: 0 No Action doxazosin 8 MG tablet 8 mg PO QPM RF: 0 cranberry conc-ascorbic acid 1 EACH capsule 1 tab PO DAILY RF: 0 lysine 1,000 mg Tablet 1,000 mg BID RF: 0 carbidopa-levodopa 25-100 mg tablet 1 tab PO TID RF: 0 omeprazole 20 mg capsule,delayed release(DR/EC) 40 mg PO DAILY RF: 0 aspirin 81 MG tablet,chewable 81 mg PO DAILY@0800 RF: 0 finasteride 5 MG tablet 5 mg PO DAILY RF: 0 sertraline 25 mg Tablet 25 mg PO DAILY Qty: 30 RF: 0 atorvastatin 10 mg tablet 10 mg PO QHS Qty: 30 RF: 0 sennosides-docusate sodium [Stool Softener-Stimulant Laxat] 8.6-50 mg tablet 2 tab PO DAILY RF: 0 acetaminophen 500 mg tablet 1,000 mg PO Q8 RF: 0 Ensure Enlive 0.08 gram-1.5 kcal/mL liquid 120 ml PO 4X/DAY RF: 0 losartan 50 mg tablet 50 mg PO DAILY RF: 0 Primary Care Provider: Tristan De La Cruz Referrals: Tristan De La Cruz PA [Primary Care Provider] - Disposition Disposition: Home, Self Care
[2021-10-16 00:48] VITALS: BP 115/71; PULSE 93; RESP 28; O2SAT 94
[2021-10-16 00:50] VITALS: BP 115/71; PULSE 93
[2021-10-16] MEDS: Nitroglycerin SL (ED/IMG/CATH) 0.4 MG TABLET SL (00:50)
[2021-10-16] MEDS: Furosemide 40 MG/4 ML Vial IV (00:52)
[2021-10-16 01:06] LABS: Differential Comment SCANNED
[2021-10-16 02:02] VITALS: BP 143/85; PULSE 89; RESP 25; O2SAT 97
[2021-10-16 02:35] VITALS: BP 116/70; PULSE 80; RESP 25; O2SAT 97
--- NOTE | 2021-10-16 02:41 | ED.RN ---
called pt's daughter Elizabeth to inform her of plan to send pt back to TCU. Report given to TCU. Per haresh Trevino to leave iv access in.
[2021-10-18 10:13] LABS: Pathologist Review Reviewed
== END 2021-10-16 02:49 | disposition home or self-care (01) ==
PROVIDERS: Emergency Provider Emergency Medicine; PCP Physician Assistant; Visit Provider Emergency Medicine
DX: J90 Pleural effusion, not elsewhere classified (principal); G20 Parkinson's disease; I11.0 Hypertensive heart disease with heart failure; I50.9 Heart failure, unspecified; E78.5 Hyperlipidemia, unspecified; K21.9 Gastro-esophageal reflux disease without esophagitis; Z95.0 Presence of cardiac pacemaker; Z66 Do not resuscitate; Z79.82 Long term (current) use of aspirin; Z79.899 Other long term (current) drug therapy; Z87.891 Personal history of nicotine dependence
CPT/HCPCS: 71250; 80048; 83735; 83880; 85025; 85610; 85730; 93005; 96374; 99283; A4216; J1940